=== PATIENT | female | born 1950 | race Caucasian/White ===

== ENCOUNTER 2017-03-16 10:25 | Emergency (ER) | payer MEDICARE, BC ==
[2017-03-16 11:17] VITALS: BP 119/68
--- NOTE | 2017-03-16 11:19 | UC ---
Complaint Female HPI - HPI Summary HPI Summary: has had increasing fatigue--sx of UTI earlier in the week and started on macrobid which seems to have helped. no fevers, no cough slight upset stomach but has not had a BM yet today - History Of Current Complaint Hx Obtained From: Patient ?: No Onset/Duration: Gradual Onset, Lasting Days Timing: Constant Severity Initially: Mild Severity Currently: Mild Radiates to: usual back pain Aggravating Factor(s): Movement Alleviating Factor(s): Position, Meds Associated Signs And Symptoms: Positive: Back Pain <Kayla Saeed - Last Filed: 03/16/17 12:32> <Yuko Briseno - Last Filed: 03/16/17 12:41> - History Of Current Complaint Chief Complaint: UCGeneralIllness Stated Complaint: FATIGUE Time Seen by Provider: 03/16/17 11:18 - Allergies/Home Medications Allergies/Adverse Reactions: Allergies Allergy/AdvReac Type Severity Reaction Status Date / Time Acetaminophen Allergy Unknown Verified 03/16/17 11:43 [From Hydrocodone Reaction W/Acetaminophen] Details Amoxicillin [From Augmentin] Allergy Rash Verified 03/16/17 11:42 Cefaclor Allergy Rash Verified 03/16/17 11:45 Clavulanic Acid Allergy Rash Verified 03/16/17 11:42 [From Augmentin] Codeine Allergy nausea/vomi Verified 03/16/17 11:43 ting Hydrocodone Allergy Unknown Verified 03/16/17 11:43 Reaction Details Meperidine [From Demerol HCl] Allergy n/v Verified 03/16/17 11:44 magic mouth wash Allergy Unknown Uncoded 03/16/17 11:44 Reaction Details Home Medications: Home Medications Atenolol TAB* [Tenormin TAB* 50 MG] 03/16/17 [History] Benazepril HCl [Lotensin] 03/16/17 [History] Brimonid/Timolol 0.2/0.5%(NF) [Combigan 0.2/0.5% (NF)] 03/16/17 [History] Calcitriol CAP* [Rocaltrol CAP*] 03/16/17 [History] Calcium 03/16/17 [History] Cholecalciferol TAB* [Vitamin D TAB*] 03/16/17 [History] Cyanocobalamin INJ * [Vitamin B12 INJ *] 03/16/17 [History] Estradiol [Estrace] 03/16/17 [History] Ferrous Sulfate [Iron High-Potency] 03/16/17 [History] Lactic Acid (Ammonium Lactate) [Ammonium Lactate] 03/16/17 [History] Latanoprost 0.005%* [Xalatan 0.005%*] 03/16/17 [History] Loperamide CAP* [Imodium CAP*] 03/16/17 [History] Lotensin Hct 20-25 mg 03/16/17 [History] PMH/Surg Hx/FS Hx/Imm Hx Previously Healthy: No Cancer History: Other Other Cancer History: stage 4 thyroid cancer - Surgical History Surgical History: Yes - Family History Known Family History: Positive: Unknown - Social History Occupation: Retired Lives: Alone - staying with son and d-in-l and grandchild but will be returning to her home first week in March- past away January 2017 Alcohol Use: None Substance Use Type: None Smoking Status (MU): Never Smoked Tobacco <Kayla Saeed - Last Filed: 03/16/17 12:32> Review of Systems Constitutional: Fatigue Skin: Other - pale Usual h/h (10 and 30) Eyes: Negative ENT: Negative Respiratory: Negative Cardiovascular: Negative Gastrointestinal: Abdominal Pain - left lower side (no Bm today-feels like she could go now) Genitourinary: Negative Motor: Weakness Neurovascular: Negative Musculoskeletal: Arthralgia - usual Neurological: Paresthesia - right leg Psychological: Negative Is Patient Immunocompromised?: Yes - on chemo All Other Systems Reviewed And Are Negative: Yes <Kayla Saeed - Last Filed: 03/16/17 12:32> Physical Exam Triage Information Reviewed: Yes Appearance: Ill-Appearing - chronic illness pale, Pain Distress - baseline-no other pain, Thin Vital Signs: Initial Vital Signs Temp 98 F 03/16/17 11:14 Pulse 90 03/16/17 11:14 Resp 19 03/16/17 11:14 BP 119/68 03/16/17 11:14 Pulse Ox 95 03/16/17 11:14 Vital Signs Reviewed: Yes Eye Exam: Normal Eyes: Positive: Conjunctiva Clear ENT Exam: Normal ENT: Positive: Normal ENT inspection, Hearing grossly normal, Pharynx normal, TMs normal, Uvula midline. Negative: Nasal congestion, Nasal drainage, Tonsillar swelling, Tonsillar exudate, Trismus, Muffled voice, Hoarse voice, Dental tenderness, Sinus tenderness Neck exam: Normal Neck: Positive: Supple, Nontender Respiratory Exam: Normal Respiratory: Positive: Chest non-tender, Lungs clear, Normal breath sounds, No respiratory distress, No accessory muscle use Cardiovascular Exam: Normal Cardiovascular: Positive: RRR, No Murmur, Pulses Normal, Brisk Capillary Refill Abdominal Exam: Normal Abdomen Description: Positive: Nontender, No Organomegaly, Soft Psychological Exam: Normal Psychological: Positive: Normal Response To Family Skin Exam: Normal <Kayla Saeed - Last Filed: 03/16/17 12:32> Vital Signs: Initial Vital Signs Temp 98 F 03/16/17 11:14 Pulse 90 03/16/17 11:14 Resp 19 03/16/17 11:14 BP 119/68 03/16/17 11:14 Pulse Ox 95 03/16/17 11:14 <Yuko Briseno - Last Filed: 03/16/17 12:41> Diagnostics - Laboratory Diagnostic Studies Completed/Ordered: Influenza a/b (-), Urine + for ketones and protien <Kayla Saeed - Last Filed: 03/16/17 12:32> Complaint Female Dx - Course Course Of Treatment: Continue current treatment plan, report to ED for worsening in symptoms - Differential Dx/Diagnosis Provider Diagnoses: Fatigue, Stage 4 thyroid cancer <Kayla Saeed - Last Filed: 03/16/17 12:32> Discharge <Kayla Saeed - Last Filed: 03/16/17 12:32> <Yuko Briseno - Last Filed: 03/16/17 12:41> - Discharge Plan Condition: Stable Disposition: HOME Patient Education Materials: Fatigue (ED) Referrals: No Primary Care Phys,NOPCP [Primary Care Provider] - Additional Instructions: Follow with health and safety specialist or return her or to the emergency department for continued or worsening symptoms Attestation Statement User Type: Provider - I was available for consult. This patient was seen by the ELISABETH. The patient was not presented to, seen by, or examined by me. -Krupa <Yuko Briseno - Last Filed: 03/16/17 12:41>
[2017-03-16 14:47] LABS: Hematocrit 35 % (35-47); Hemoglobin 11.4 g/dl (12.0-16.0); Mean Corpuscular HGB Conc 33 g/dl (31-36); Mean Corpuscular Hemoglobin 33 pg (27-31); Mean Corpuscular Volume 100 fL (80-97); Mean Platelet Volume 8 um3 (7.4-10.4); Red Blood Count 3.48 10^6/ul (4.0-5.4); Red Cell Distribution Width 19 % (10.5-15); White Blood Count 6.9 10^3/ul (3.5-10.8)
[2017-03-16 14:58] LABS: BUN/Creatinine Ratio 37.8 (8-20); EGFR African American 100.4 (>60); Globulin 2.6 g/dL (2-4); Total Bilirubin 0.5 mg/dL (0.2-1.0); Total Protein 5.6 g/dL (6.4-8.9)
--- NOTE | 2017-03-16 16:00 | UC ---
Progress - Progress Note Progress Note: reviewed labs with Dr. Jenny Phoenix and PAtient--Will call PCP and take patient to hospital for rehydration based on how she is feeling--- <Kayla Saeed - Last Filed: 03/16/17 15:59> Asthma HPI <Kayla Saeed - Last Filed: 03/16/17 15:59> - HPI Summary HPI Summary: has had increasing fatigue--sx of UTI earlier in the week and started on macrobid which seems to have helped. no fevers, no cough slight upset stomach but has not had a BM yet today - History of Current Complaint Hx Obtained From: Patient ?: No Onset/Duration: Gradual Onset, Lasting Days Pain Intensity: 0 Pain Scale Used: 0-10 Numeric <Yuko Briseno - Last Filed: 03/17/17 08:14> - History of Current Complaint Chief Complaint: UCGeneralIllness Stated Complaint: FATIGUE Time Seen by Provider: 03/16/17 11:18 - Allergy/Home Medications Allergies/Adverse Reactions: Allergies Allergy/AdvReac Type Severity Reaction Status Date / Time Acetaminophen Allergy Unknown Verified 03/16/17 11:43 [From Hydrocodone Reaction W/Acetaminophen] Details Amoxicillin [From Augmentin] Allergy Rash Verified 03/16/17 11:42 Cefaclor Allergy Rash Verified 03/16/17 11:45 Clavulanic Acid Allergy Rash Verified 03/16/17 11:42 [From Augmentin] Codeine Allergy nausea/vomi Verified 03/16/17 11:43 ting Hydrocodone Allergy Unknown Verified 03/16/17 11:43 Reaction Details Meperidine [From Demerol HCl] Allergy n/v Verified 03/16/17 11:44 magic mouth wash Allergy Unknown Uncoded 03/16/17 11:44 Reaction Details Home Medications: Home Medications Atenolol TAB* [Tenormin TAB* 50 MG] 03/16/17 [History] Benazepril HCl [Lotensin] 03/16/17 [History] Brimonid/Timolol 0.2/0.5%(NF) [Combigan 0.2/0.5% (NF)] 03/16/17 [History] Calcitriol CAP* [Rocaltrol CAP*] 03/16/17 [History] Calcium 03/16/17 [History] Cholecalciferol TAB* [Vitamin D TAB*] 03/16/17 [History] Cyanocobalamin INJ * [Vitamin B12 INJ *] 03/16/17 [History] Estradiol [Estrace] 03/16/17 [History] Ferrous Sulfate [Iron High-Potency] 03/16/17 [History] Lactic Acid (Ammonium Lactate) [Ammonium Lactate] 03/16/17 [History] Latanoprost 0.005%* [Xalatan 0.005%*] 03/16/17 [History] Loperamide CAP* [Imodium CAP*] 03/16/17 [History] Lotensin Hct 20-25 mg 03/16/17 [History] Attestation Statement User Type: Provider - I was available for consult. This patient was seen by the ELISABETH. The patient was not presented to, seen by, or examined by me. -Krupa <Yuko Briseno - Last Filed: 03/17/17 08:14>
--- NOTE | 2017-03-17 19:59 | UC ---
Progress - Progress Note Progress Note: Reviewed CBC and CMP per notes, results discussed with pt and her DIl Dr. Benson yesterday rose 03/17/17
== END 2017-03-16 12:26 | disposition home or self-care (01) ==
LOC: UCEAST 10:25
DX: R53.83 Other fatigue (principal); C73 Malignant neoplasm of thyroid gland
CPT/HCPCS: 36415; 80053; 81003; 85025; 87502; 99201; G0463

== ENCOUNTER → 2017-03-19 13:39 | Emergency (ER) | payer MEDICARE, BC ==
[~2017-03-19 13:39] MED LIST: NS 0.9% 1000 ML* 1,000 ML IV ONE
[2017-03-19 14:37] LABS: Hematocrit 33 % (35-47); Hemoglobin 11.1 g/dl (12.0-16.0); Mean Corpuscular HGB Conc 33 g/dl (31-36); Mean Corpuscular Hemoglobin 33 pg (27-31); Mean Corpuscular Volume 99 fL (80-97); Mean Platelet Volume 7 um3 (7.4-10.4); Red Blood Count 3.35 10^6/ul (4.0-5.4); Red Cell Distribution Width 19 % (10.5-15); White Blood Count 7.2 10^3/ul (3.5-10.8)
[2017-03-19 14:51] LABS: Troponin I 0.03 ng/mL (<0.04)
[2017-03-19 14:52] LABS: Albumin 2.9 g/dL (3.2-5.2); Calcium 8.9 mg/dL (8.6-10.3); EGFR African American 95.9 (>60); EGFR Non-African American 74.5 (>60); Globulin 3.6 g/dL (2-4); Potassium 3.9 mmol/L (3.5-5.0); Total Bilirubin 0.3 mg/dL (0.2-1.0); Total Protein 6.5 g/dL (6.4-8.9)
[2017-03-19 15:26] LABS: TSH (Thyroid Stimulating Horm) 0.02 mcIU/mL (0.34-5.60)
--- NOTE | 2017-03-19 16:33 | RAD ---
INDICATION: Short of breath COMPARISON: None TECHNIQUE: PA and lateral dual-energy views were obtained. FINDINGS: Bones/Soft Tissues: There are no acute bony findings. There is an old posterior left sixth rib fracture. There also old right-sided rib fractures involving the fifth through seventh ribs. Cardiomediastinal: The cardiomediastinal silhouette is normal. There are clips in left hilar region. Lungs: There are no acute infiltrates. Pleura: There are no pleural effusions. Other: None IMPRESSION: POSTOPERATIVE CHANGE. NO ACTIVE DISEASE.
[2017-03-19 16:50] LABS: Free T4 1.31 ng/dL (0.61-1.12)
[2017-03-19 16:55] LABS: Urine Bilirubin Negative (Negative); Urine Glucose Negative (Negative); Urine Nitrite Negative (Negative)
[2017-03-19 17:35] VITALS: BP 126/58
--- NOTE | 2017-03-19 18:34 | ED ---
Mariela Alves Nilda, scribed for Bianca Lloyd MD on 03/19/17 at 1731 . Complex/Multi-Sys Presentation - HPI Summary HPI Summary: This patient is a 66 year old F presenting to [facility] accompanied by daughter-in- law with a chief complaint of malaise for the past 5 days. Patient currently reports headache, fever, weakness, fatigue, loss of appetite, constipation, chronic leg pain, and cough. The patient rates the pain 1/10 in severity. Symptoms aggravated and alleviated by nothing. Per [id number], TSH is chronically suppressed. Pt had a UTI and was treated with Macrobid earlier this week. UTI symptoms resolved. 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 Medications include chemotherapy Lomotil and Tramidol. - History Of Current Complaint Chief Complaint: EDGeneral Time Seen by Provider: 03/19/17 15:27 Hx Obtained From: Patient, Family/Sales Support Coordinator - daughter in law Onset/Duration: Lasting Days - 5 days Timing: Constant Severity Currently: Mild Aggravating Factor(s): nothing Alleviating Factor(s): nothing Associated Signs And Symptoms: Positive: Other - headache, fever, weakness, fatigue, loss of appetite, constipation, chronic leg pain, and cough. - Allergies/Home Medications Allergies/Adverse Reactions: Allergies Allergy/AdvReac Type Severity Reaction Status Date / Time Acetaminophen Allergy Unknown Verified 03/16/17 11:43 [From Hydrocodone Reaction W/Acetaminophen] Details Amoxicillin [From Augmentin] Allergy Rash Verified 03/16/17 11:42 Cefaclor Allergy Rash Verified 03/16/17 11:45 Clavulanic Acid Allergy Rash Verified 03/16/17 11:42 [From Augmentin] Codeine Allergy nausea/vomi Verified 03/16/17 11:43 ting Hydrocodone Allergy Unknown Verified 03/16/17 11:43 Reaction Details Meperidine [From Demerol HCl] Allergy n/v Verified 03/16/17 11:44 magic mouth wash Allergy Unknown Uncoded 03/16/17 11:44 Reaction Details PMH/Surg Hx/FS Hx/Imm Hx Endocrine/Hematology History: Reports: Hx Thyroid Disease Respiratory History: Reports: Other Respiratory Problems/Disorders - HX OF THYROID CA THAT METASTASIZED TO UPPER LUNGS. - Cancer History Cancer Type, Location and Year: stage 4 thyroid cancer with mets Infectious Disease History: No Infectious Disease History: Denies: Hx Clostridium Difficile, Hx Hepatitis, Hx Human Immunodeficiency Virus (HIV), Hx of Known/Suspected MRSA, Hx Shingles, Hx Tuberculosis, Hx Known/ Suspected VRE, Hx Known/Suspected VRSA, History Other Infectious Disease, Traveled Outside the [place] in Last 30 Days - Family History Known Family History: Positive: Unknown - Social History Alcohol Use: None Substance Use Type: Reports: None Smoking Status (MU): Never Smoked Tobacco Review of Systems Positive: Fever, Fatigue Positive: Cough Positive: Other - loss of appetite, constipation Positive: Other - chonic LE pain Positive: Headache, Weakness All Other Systems Reviewed And Are Negative: Yes Physical Exam - Summary Physical Exam Summary: General: Well appearing, no pain distress Skin: Warm, Skin Color Reflects Adequate Perfusion, Dry Eyes: EOMI, PABLO, conjunctiva pale ENT: Pharynx normal, TMs normal, mucous membrane dry Neck: Supple, nontender Respiratory: CTA, breath sounds present, no rhonchi, no wheezes, no rales, tachypnea Cardiovascular: RRR, no murmur, no rub, no gallop Abdomen: Soft, nontender, Non-distended, no guarding, no rebound Bowel: Present Musculoskeletal: BHANU, No edema Neuro: Sensory/motor intact, A&Ox3, CN intact 2-12 Psych: Affect/mood appropriate Triage Information Reviewed: Yes Vital Signs On Initial Exam: Initial Vitals Temp Pulse Resp BP Pulse Ox 97.7 F 92 18 100/56 98 03/19/17 13:51 03/19/17 13:51 03/19/17 13:51 03/19/17 13:51 03/19/17 13:51 Vital Signs Reviewed: Yes - Vika Coma Scale Coma Scale Total: 15 Diagnostics - Vital Signs Vital Signs Temp Pulse Resp BP Pulse Ox 03/19/17 16:08 99 F 03/19/17 13:51 97.7 F 92 18 100/56 98 - Laboratory Lab Results: Lab Results 03/19/17 03/19/17 03/19/17 Range/Units 14:22 14:22 14:22 WBC 7.2 (3.5-10.8) 10^3/ul RBC 3.35 L (4.0-5.4) 10^6/ul Hgb 11.1 L (12.0-16.0) g/dl Hct 33 L (35-47) % MCV 99 H (80-97) fL MCH 33 H (27-31) pg MCHC 33 (31-36) g/dl RDW 19 H (10.5-15) % Plt Count 288 (150-450) 10^3/ul MPV 7 L (7.4-10.4) um3 Neut % (Auto) 75.4 (38-83) % Lymph % (Auto) 14.6 L (25-47) % [place] % (Auto) 9.2 H (1-9) % Eos % (Auto) 0.4 (0-6) % Baso % (Auto) 0.4 (0-2) % Absolute Neuts (auto) 5.4 (1.5-7.7) 10^3/ul Absolute Lymphs (auto) 1.1 (1.0-4.8) 10^3/ul Absolute Monos (auto) 0.7 (0-0.8) 10^3/ul Absolute Eos (auto) 0 (0-0.6) 10^3/ul Absolute Basos (auto) 0 (0-0.2) 10^3/ul Absolute Nucleated RBC 0 10^3/ul Nucleated RBC % 0 Sodium 128 L (133-145) mmol/L Potassium 3.9 (3.5-5.0) mmol/L Chloride 91 L (101-111) mmol/L Carbon Dioxide 29 (22-32) mmol/L Anion Gap 8 (2-11) mmol/L BUN 30 H (6-24) mg/dL Creatinine 0.77 (0.51-0.95) mg/dL Est GFR ( Amer) 95.9 (>60) Est GFR (Non-Af Amer) 74.5 (>60) BUN/Creatinine Ratio 39.0 H (8-20) Glucose 132 H (70-100) mg/dL Lactic Acid 1.4 (0.5-2.0) mmol/L Calcium 8.9 (8.6-10.3) mg/dL Magnesium 2.0 (1.9-2.7) mg/dL Total Bilirubin 0.30 (0.2-1.0) mg/dL AST 24 (13-39) U/L ALT 25 (7-52) U/L Alkaline Phosphatase 110 H (34-104) U/L Troponin I 0.03 (<0.04) ng/mL Total Protein 6.5 (6.4-8.9) g/dL Albumin 2.9 L (3.2-5.2) g/dL Globulin 3.6 (2-4) g/dL Albumin/Globulin Ratio 0.8 L (1-3) TSH 0.02 L (0.34-5.60) mcIU/mL Free T4 1.31 H (0.61-1.12) ng/dL Urine Color Urine Appearance Urine pH (5-9) Ur Specific [place] (1.010-1.030) Urine Protein (Negative) Urine Ketones (Negative) Urine Blood (Negative) Urine Nitrate (Negative) Urine Bilirubin (Negative) Urine Urobilinogen (Negative) Ur Leukocyte Esterase (Negative) Urine Glucose (Negative) Urine Ascorbic Acid (Negative) 03/19/ Range/Units 16:30 WBC (3.5-10.8) 10^3/ul RBC (4.0-5.4) 10^6/ul Hgb (12.0-16.0) g/dl Hct (35-47) % MCV (80-97) fL MCH (27-31) pg MCHC (31-36) g/dl RDW (10.5-15) % Plt Count (150-450) 10^3/ul MPV (7.4-10.4) um3 Neut % (Auto) (38-83) % Lymph % (Auto) (25-47) % [place] % (Auto) (1-9) % Eos % (Auto) (0-6) % Baso % (Auto) (0-2) % Absolute Neuts (auto) (1.5-7.7) 10^3/ul Absolute Lymphs (auto) (1.0-4.8) 10^3/ul Absolute Monos (auto) (0-0.8) 10^3/ul Absolute Eos (auto) (0-0.6) 10^3/ul Absolute Basos (auto) (0-0.2) 10^3/ul Absolute Nucleated RBC 10^3/ul Nucleated RBC % Sodium (133-145) mmol/L Potassium (3.5-5.0) mmol/L Chloride (101-111) mmol/L Carbon Dioxide (22-32) mmol/L Anion Gap (2-11) mmol/L BUN (6-24) mg/dL Creatinine (0.51-0.95) mg/dL Est GFR ( Amer) (>60) Est GFR (Non-Af Amer) (>60) BUN/Creatinine Ratio (8-20) Glucose (70-100) mg/dL Lactic Acid (0.5-2.0) mmol/L Calcium (8.6-10.3) mg/dL Magnesium (1.9-2.7) mg/dL Total Bilirubin (0.2-1.0) mg/dL AST (13-39) U/L ALT (7-52) U/L Alkaline Phosphatase (34-104) U/L Troponin I (<0.04) ng/mL Total Protein (6.4-8.9) g/dL Albumin (3.2-5.2) g/dL Globulin (2-4) g/dL Albumin/Globulin Ratio (1-3) TSH (0.34-5.60) mcIU/mL Free T4 (0.61-1.12) ng/dL Urine Color Yellow Urine Appearance Cloudy Urine pH 5.0 (5-9) Ur Specific [place] 1.018 (1.010-1.030) Urine Protein Negative (Negative) Urine Ketones Trace H (Negative) Urine Blood Negative (Negative) Urine Nitrate Negative (Negative) Urine Bilirubin Negative (Negative) Urine Urobilinogen Negative (Negative) Ur Leukocyte Esterase Negative (Negative) Urine Glucose Negative (Negative) Urine Ascorbic Acid * H (Negative) Result Diagrams: 03/19/17 14:22 03/19/17 14:22 Lab Statement: Any lab studies that have been ordered have been reviewed, and results considered in the medical decision making process. - Radiology CXR Radiology Interpretation Completed By: Radiologist - CXR reveals postoperative change. No active disease. ED physician has reviewed this radiology report and agrees. - EKG 1411 Cardiac Rate: NL EKG Rhythm: Sinus Rhythm - 90 bpm EKG Interpretation: LVH, no STEMI Re-Evaluation - Re-Evaluation First Eval Re-Evaluation Time: 17:23 Comment: Discussed labs and plan to DC. Pt is agreeable to this plan. Complex Multi-Symp Course/Dx Course Of Treatment: An EKG reveals NSR, 90 bpm, LVH, no STEMI. CXR, per radiologist, reveals postoperative change. No active disease. ED physician has reviewed this radiology report and agrees. Pt here with her daughter in law who is an MD in the [employer]. Pt has metastatic thyroid cancer which is being treated at [facility]. She was treated empirically for a uti within the week and has since been more weak than normal and has had decreased eating. Her urine, labs and cxr are at their baseline, she was given 1 l of NS which did help her feel better and she will followup as needed - Diagnoses Provider Diagnoses: Dehydration Discharge - Discharge Plan Condition: Stable Disposition: HOME Patient Education Materials: Dehydration (ED) Referrals: [facility] [Outside] - 3 Days Additional Instructions: RETURN TO THE EMERGENCY DEPARTMENT FOR CHANGING OR WORSENING SYMPTOMS. The documentation as recorded by the Mariela stearns Nilda accurately reflects the service I personally performed and the decisions made by me, Bianca Lloyd MD.
== END | disposition home or self-care (01) ==
LOC: ED 13:39
DX: E86.0 Dehydration (principal); C73 Malignant neoplasm of thyroid gland; C34.92 Malignant neoplasm of unspecified part of left bronchus or lung; C34.91 Malignant neoplasm of unspecified part of right bronchus or lung
CPT/HCPCS: 36415; 71020; 80053; 81003; 83605; 83735; 84439; 84443; 84484; 85025; 93005; 96360; 99282

== ENCOUNTER 2019-05-13 13:47 | Inpatient (IN) | payer MEDICARE, BC ==
[2019-05-13] MEDS ORDERED: traMADol TAB* 50 MG PO PRN (14:35)
[2019-05-13] MEDS ORDERED: Diphenoxylat/Atrop 2.5-0.025M* 1 TAB PO PRN (14:35)
--- OUTSIDE RECORDS SUMMARY | 2019-05-13 16:19 | XMS REPORT ---
:1950 Author Organization [facility] Care Team Providers Name Role Phone Unavailable Unavailable Unavailable Problems Condition Condition Condition Status Onset Resolution Last Treating Comments Name Details Category Date Date Treatment Clinician Date Pain frequent Pain Mgmt Resolve 2018-042019-03-05 [place] pain d 0-07 12:20:00 [place] 12:00: [id number] Respiratory dyspnea Respirator Resolve 2018-042019-03-05 [place] present y d 0-07 12:20:00 [place] 12:00: [id number] Endo/Thuan diabetic Endo/Thuan Resolve 2018-042019-03-05 [place] foot care d 0-07 12:20:00 [place] 12:00: [id number] 00 Integument skin Integument Resolve 2018-042019-03-05 [place] integrity d 0-07 12:20:00 [place] risk 12:00: [id number] 00 Nutrition nutritional Nutrition Resolve 2018-042019-03-05 [place] restriction d 0-07 12:20:00 [place] s 12:00: [id number] 00 Nutrition changing Nutrition Resolve 2018-042019-03-05 [place] weight/appe d 0-07 12:20:00 [place] tite 12:00: [id number] 00 Elimination urinary Eliminatio Resolve 2018-042019-03-05 [place] incontinenc n d 0-07 12:20:00 [place] 12:00: [id number] 00 Elimination diarrhea Eliminatio Resolve 2018-042019-03-05 [place] n d 0-07 12:20:00 [place] 12:00: [id number] 00 Elimination nausea/vomi Eliminatio Resolve 2018-042019-03-05 [place] ting n d 0-07 12:20:00 [place] 12:00: [id number] 00 Activity ADL Activity Resolve 2018-042019-03-05 [place] assistance d 0-07 12:20:00 [place] required 12:00: [id number] Activity self-care Activity Resolve 2018-042019-03-05 [place] deficit d 0-07 12:20:00 [place] 12:00: [id number] Safety fall risk Safety Resolve 2018-042019-03-05 [place] factor d 0-07 12:20:00 [place] present 12:00: [id number] Safety risk for Safety Resolve 2018-042019-03-05 [place] hospitaliza d 0-07 12:20:00 [place] tion 12:00: [id number] 00 Medication oral med Meds Resolve 2018-042019-03-05 [place] assistance d 0-07 12:20:00 [place] required 12:00: [id number] 00 Musculoskel transfer Musculoske Resolve 2018-042019-03-05 [place] etal assistance letal d 0-07 12:20:00 [place] required 12:00: [id number] Nutrition knowledge/s Nutrition Resolve 2018-042019-03-05 [place] kill d 0-07 12:20:00 [place] deficit: pt 13:00: [id number] 00 Nutrition knowledge/s Nutrition Resolve 2018-042019-03-05 [place] kill d 0-07 12:20:00 [place] deficit: cg 13:00: [id number] Safety knowledge/s Safety Resolve 2018-042019-03-05 [place] kill d 0-07 12:20:00 [place] deficit: pt 13:00: [id number] Safety knowledge/s Safety Resolve 2018-042019-03-05 [place] kill d 0-07 12:20:00 [place] deficit: cg 13:00: [id number] Diagnoses knowledge/s Diagnoses Resolve 2018-042019-03-05 [place] kill d 0-07 12:20:00 [place] deficit: pt 13:00: [id number] Diagnoses knowledge/s Diagnoses Resolve 2018-042019-03-05 [place] kill d 0-07 12:20:00 [place] deficit: cg 13:00: [id number] 00 Allergies, Adverse Reactions, Alerts Allergy Name Allergy Status Severity Reaction(s) Onset Inactive Treating Comments Type Date Date Clinician cefaclor Base Active Unknown Reaction 2018-04 Lidya Beam Ingredient Unknown 0- codeine Base Active Unknown Reaction 2018-04 Lidya Beam Ingredient Unknown 0 Demerol Medication Active Unknown Reaction 2018-04 Lidya Beam Name ID Unknown 0 dronabinol Base Active Unknown Reaction 2018-04 Lidya Beam Ingredient Unknown 0 hydrocodone Base Active Unknown Reaction 2018-04 Lidya Beam Ingredient Unknown 0 Medications Ordered Filled Start Stop Current Ordering Indication Dosage Frequency Signature Comments Components Medication Medication Date Date Medication? Clinician (SIG) Name Name Acetaminoph Acetaminoph 2018-04- Yes Mehdi Unknown Unknown en Pain en Pain 03-05 Ally TSAI Relief 500 Relief 500 mg tablet mg tablet ammonium ammonium 2018-04- Yes Mehdi Unknown Unknown lactate 12 lactate 12 03-05 Ally TSAI % lotion % lotion atenolol 50 atenolol 50 2018-04- Yes Mehdi Unknown Unknown mg tablet mg tablet 03-05 Ally TSAI brimonidine brimonidine 2018-04- Yes Mehdi Unknown Unknown 0.2 % eye 0.2 % eye 03-05 Ally TSAI drops drops cabozantini cabozantini 2018-04- Yes Mehdi Unknown Unknown b 20 mg b 20 mg 03-05 Ally TSAI tablet tablet calcitriol calcitriol 2018-04- Yes Mehdi Unknown Unknown 0.25 mcg 0.25 mcg 03-05 Ally TSAI capsule capsule cholecalcif cholecalcif 2018-04- Yes Mehdi Unknown Unknown ugo ugo 03-05 Ally TSAI (vitamin (vitamin D3) 5,000 D3) 5,000 unit unit capsule capsule ferrous ferrous 2018-04- Yes Mehdi Unknown Unknown sulfate 325 sulfate 325 03-05 Ally TSAI mg (65 mg mg (65 mg iron) iron) tablet tablet latanoprost latanoprost 2018-04- Yes Mehdi Unknown Unknown 0.005 % eye 0.005 % eye 03-05 Ally TSAI drops drops Levoxyl 150 Levoxyl 150 2018-04- Yes Mehdi Unknown Unknown mcg tablet mcg tablet 03-05 Ally TSAI Lomotil 2.5 Lomotil 2.5 2018-04- Yes Mehdi Unknown Unknown mg-0.025 mg mg-0.025 mg 003-05 Ally TSAI tablet tablet loratadine loratadine 2018-04- Yes Mehdi Unknown Unknown 10 mg 10 mg 003-05 Ally TSAI capsule capsule metoclopram metoclopram 2018-04- Yes Mehdi Unknown Unknown franko 10 mg franko 10 mg 03-05 Ally TSAI tablet tablet omeprazole omeprazole 2018-04- Yes Mehdi Unknown Unknown 20 mg 20 mg 03-05 ,Ally capsule,del capsule,del ayed ayed release release ondansetron ondansetron 2018-04- Yes Mehdi Unknown Unknown 8 mg 8 mg 003-05 Ally TSAI disintegrat disintegrat ing tablet ing tablet pseudoephed pseudoephed 2018-04- Yes Mehdi Unknown Unknown rine 60 mg rine 60 mg 003-05 Ally TSAI tablet tablet raNITIdine raNITIdine 2018-04- Yes Mehdi Unknown Unknown 150 mg 150 mg 03-05 Ally TSAI capsule capsule silver silver 2018-04- Yes Mehdi Unknown Unknown sulfADIAZIN sulfADIAZIN 03-05 Ally TSAI E 1 % E 1 % topical topical cream cream traMADol 50 traMADol 50 2018-04- Yes Mehdi Unknown Unknown mg tablet mg tablet 03-05 Ally TSAI triamcinolo triamcinolo 2018-04- Yes Mehdi Unknown Unknown ne ne 03-05 Ally TSAI acetonide acetonide 0.1 % 0.1 % topical topical cream cream Ventolin Ventolin 2018-04- Yes Mehdi Unknown Unknown HFA 90 HFA 90 03-05 Ally TSAI mcg/actuati mcg/actuati on aerosol on aerosol inhaler inhaler Xgeva 120 Xgeva 120 2018-04- Yes Mehdi Unknown Unknown mg/1.7 mL mg/1.7 mL 03-05 Ally TSAI (70 mg/mL) (70 mg/mL) subcutaneou subcutaneou s solution s solution dexAMETHaso dexAMETHaso 2018-04- Yes Bael Unknown Unknown ne 2 mg ne 2 mg 03-05 ,Jad tablet tablet Vital Signs Vital Name Observation Time Observation Value Comments SYSTOLIC mm[Hg] 2019-03-09 18:08:56 102 mm[Hg] mm[Hg] Method: Sit SYSTOLIC mm[Hg] 2019-01-25 18:08:13 90 mm[Hg] mm[Hg] Method: Stand DIASTOLIC mm[Hg] 2019-03-09 18:08:56 64 mm[Hg] mm[Hg] Method: Sit DIASTOLIC mm[Hg] 2019-01-25 18:08:13 66 mm[Hg] mm[Hg] Method: Stand PULSE 2019-03-09 18:08:56 88 /min /min TEMP 2019-03-09 18:08:56 96.9 [degF] Procedures This patient has no known procedures. Results This patient has no known results.
--- OUTSIDE RECORDS SUMMARY | 2019-05-13 16:19 | XMS REPORT ---
:1950 Author Organization [facility] Care Team Providers Name Role Phone Unavailable Unavailable Unavailable Problems Condition Condition Condition Status Onset Resolution Last Treating Comments Name Details Category Date Date Treatment Clinician Date Pain frequent Pain Mgmt Resolve 2018-042019-03-05 [place] pain d 0-07 12:20:00 [place] 12:00: [id number] Respiratory dyspnea Respirator Resolve 2018-042019-03-05 [place] present y d 0-07 12:20:00 [place] 12:00: [id number] Endo/Thuan diabetic Endo/Thuan Resolve 2018-042019-03-05 [place] foot care d 0-07 12:20:00 [place] 12:00: [id number] Integument skin Integument Resolve 2018-042019-03-05 [place] integrity d 0-07 12:20:00 [place] risk 12:00: [id number] Nutrition nutritional Nutrition Resolve 2018-042019-03-05 [place] restriction d 0-07 12:20:00 [place] s 12:00: [id number] 00 Nutrition changing Nutrition Resolve 2018-042019-03-05 [place] weight/appe d 0-07 12:20:00 [place] tite 12:00: [id number] Elimination urinary Eliminatio Resolve 2018-042019-03-05 [place] incontinenc n d 0-07 12:20:00 [place] 12:00: [id number] Elimination diarrhea Eliminatio Resolve 2018-042019-03-05 [place] n d 0-07 12:20:00 [place] 12:00: [id number] 00 Elimination nausea/vomi Eliminatio Resolve 2018-042019-03-05 [place] ting n d 0-07 12:20:00 [place] 12:00: [id number] Activity ADL Activity Resolve 2018-042019-03-05 [place] assistance d 0-07 12:20:00 [place] required 12:00: [id number] Activity self-care Activity Resolve 2018-042019-03-05 [place] deficit d 0-07 12:20:00 [place] 12:00: [id number] 00 Safety fall risk Safety Resolve 2018-042019-03-05 [place] factor d 0-07 12:20:00 [place] present 12:00: [id number] Safety risk for Safety Resolve 2018-042019-03-05 [place] hospitaliza d 0-07 12:20:00 [place] tion 12:00: [id number] Medication oral med Meds Resolve 2018-042019-03-05 [place] assistance d 0-07 12:20:00 [place] required 12:00: [id number] Musculoskel transfer Musculoske Resolve 2018-042019-03-05 [place] etal assistance letal d 0-07 12:20:00 [place] required 12:00: [id number] 00 Nutrition knowledge/s Nutrition Resolve 2018-042019-03-05 [place] kill d 0-07 12:20:00 [place] deficit: pt 13:00: [id number] Nutrition knowledge/s Nutrition Resolve 2018-042019-03-05 [place] kill d 0-07 12:20:00 [place] deficit: cg 13:00: [id number] Safety knowledge/s Safety Resolve 2018-042019-03-05 [place] kill d 0-07 12:20:00 [place] deficit: pt 13:00: [id number] Safety knowledge/s Safety Resolve 2018-042019-03-05 [place] kill d 0-07 12:20:00 [place] deficit: cg 13:00: [id number] 00 Diagnoses knowledge/s Diagnoses Resolve 2018-042019-03-05 [place] kill d 0-07 12:20:00 [place] deficit: pt 13:00: [id number] 00 Diagnoses knowledge/s Diagnoses Resolve 2018-042019-03-05 [place] kill d 0-07 12:20:00 [place] deficit: cg 13:00: [id number] 00 Allergies, Adverse Reactions, Alerts Allergy Name [...]
[2019-05-13] MEDS ORDERED: Iodixanol* (CONTRAST) 320 MG/ML 100 ML SDV IV ONE (17:11)
[2019-05-13] MEDS: Enoxaparin(*) 30 MG/0.3 ML SYR SUBCUT SCH (17:23)
[2019-05-13] MEDS: Ondansetron TAB* 4 MG PO SCH ×2 (17:23→17:37)
[2019-05-13] MEDS ORDERED: Thiamine INJ* 100 MG, Folic Acid IV* 1 MG, Multiple Vitamin IV ADULT* 10 ML in D5NS 0.9... IV ONE (18:00)
[2019-05-13 20:25] LABS: ABS Lymphocytes 0.6 10^3/ul (1.0-4.8); ABS Monocytes 0.4 10^3/ul (0-0.8); ABS Neutrophils 5.9 10^3/ul (1.5-7.7); Hematocrit 24 % (35-47); Hemoglobin 8.4 g/dL (12.0-16.0); Lymphocyte % 8.4 %; Mean Corpuscular HGB Conc 36 g/dL (31-36); Mean Corpuscular Hemoglobin 38 pg (27-31); Mean Corpuscular Volume 108 fL (80-97); Mean Platelet Volume 7.6 fL (7.4-10.4); Nucleated Red Blood Cells % 0.1; Platelet Count 172 10^3/uL (150-450); Red Blood Count 2.19 10^6 /uL (3.70-4.87); Red Cell Distribution Width 17 % (10-15); White Blood Count 6.9 10^3/uL (3.5-10.8)
[2019-05-13 20:40] LABS: Albumin 2.6 g/dL (3.2-5.2); Albumin/Globulin Ratio 1.1 (1-3); Calcium 6.7 mg/dL (8.6-10.3); EGFR African American 117.3 (>60); Globulin 2.4 g/dL (2-4); Potassium 4.5 mmol/L (3.5-5.0); Total Bilirubin 0.7 mg/dL (0.2-1.0)
[2019-05-13] MEDS: Silver Sulfadiazine 1%* 20 GM TOPICAL SCH (21:44)
[2019-05-13] MEDS: Latanoprost 0.005%* 2.5 ml BTL RIGHT EYE SCH (21:45)
[2019-05-13] MEDS: TIMOLOL RIGHT EYE SCH (21:45)
[2019-05-13] MEDS: BRIMONID RIGHT EYE SCH (21:45)
[2019-05-13] MEDS: Ammonium Lactate 12% 1 APPLIC TUBE TOPICAL SCH (21:45)
[2019-05-13] MEDS: Metoclopramide TAB* 10 MG PO SCH (21:59)
[2019-05-14] MEDS: Metoclopramide TAB* 10 MG PO SCH ×3 (04:18→20:59)
[2019-05-14] MEDS: Ondansetron TAB* 4 MG PO SCH ×4 (04:18→18:33)
[2019-05-14] MEDS: Levothyroxine TAB* 150 MCG TAB PO SCH (06:03)
[2019-05-14 07:43] LABS: ABS Lymphocytes 0.6 10^3/ul (1.0-4.8); ABS Monocytes 0.5 10^3/ul (0-0.8); ABS Neutrophils 5.5 10^3/ul (1.5-7.7); Hematocrit 23 % (35-47); Hemoglobin 7.9 g/dL (12.0-16.0); Lymphocyte % 9.6 %; Mean Corpuscular HGB Conc 34 g/dL (31-36); Mean Corpuscular Hemoglobin 37 pg (27-31); Mean Corpuscular Volume 108 fL (80-97); Mean Platelet Volume 7.7 fL (7.4-10.4); Nucleated Red Blood Cells % 0.1; Platelet Count 212 10^3/uL (150-450); Red Blood Count 2.13 10^6 /uL (3.70-4.87); Red Cell Distribution Width 18 % (10-15); White Blood Count 6.6 10^3/uL (3.5-10.8)
[2019-05-14 07:50] LABS: Albumin 2.7 g/dL (3.2-5.2); Albumin/Globulin Ratio 1.1 (1-3); BUN/Creatinine Ratio 34.4 (8-20); Calcium 6.7 mg/dL (8.6-10.3); EGFR Non-African American 91.7 (>60); Globulin 2.5 g/dL (2-4); Total Bilirubin 0.5 mg/dL (0.2-1.0); Total Protein 5.2 g/dL (6.4-8.9)
[2019-05-14] MEDS ORDERED: Dexamethasone TAB* 1 MG PO SCH (09:00)
[2019-05-14] MEDS ORDERED: Pseudoephedrine TAB* 60 MG PO SCH (09:00)
[2019-05-14] MEDS: BRIMONID RIGHT EYE SCH ×2 (10:17→20:58)
[2019-05-14] MEDS: TIMOLOL RIGHT EYE SCH ×2 (10:17→20:58)
[2019-05-14] MEDS: Ferrous Sulfate TAB* 325 MG PO SCH (10:17)
[2019-05-14] MEDS: Pantoprazole TAB * 40 MG TAB PO SCH (10:17)
[2019-05-14] MEDS: Cetirizine* 10 MG TAB PO SCH (10:17)
[2019-05-14] MEDS: Calcitriol CAP* 0.25 MCG PO SCH (10:17)
[2019-05-14] MEDS: Cholecalciferol TAB* 1000 UNITS PO SCH (10:17)
[2019-05-14] MEDS: Ammonium Lactate 12% 1 APPLIC TUBE TOPICAL SCH ×2 (10:18→20:57)
[2019-05-14] MEDS: Silver Sulfadiazine 1%* 20 GM TOPICAL SCH ×2 (10:20→20:59)
[2019-05-14] MEDS ORDERED: Magnesium Sulf 4 GM/100 ML IV* 4,000 MG/100 ML BAG IVPB ONE (10:30)
[2019-05-14] MEDS ORDERED: Thiamine INJ* 100 MG, Folic Acid IV* 1 MG, Multiple Vitamin IV ADULT* 10 ML in D5NS 0.9... IV ONE (10:30)
[2019-05-14] MEDS: CABOZANTINIB 60 MG PO SCH (13:18)
[2019-05-14] MEDS: Enoxaparin(*) 30 MG/0.3 ML SYR SUBCUT SCH (18:33)
[2019-05-14] MEDS: Latanoprost 0.005%* 2.5 ml BTL RIGHT EYE SCH (20:58)
[2019-05-14] MEDS: Pseudoephedrine TAB* 60 MG PO SCH (20:59)
[2019-05-15] MEDS: Ondansetron TAB* 4 MG PO SCH ×3 (00:01→21:35)
[2019-05-15] MEDS ORDERED: Ondansetron TAB* 4 MG PO ONE (05:30)
[2019-05-15] MEDS: Metoclopramide TAB* 10 MG PO SCH (05:42)
[2019-05-15] MEDS: Diphenoxylat/Atrop 2.5-0.025M* 1 TAB PO PRN ×3 (05:42→20:22)
[2019-05-15] MEDS: Levothyroxine TAB* 150 MCG TAB PO SCH (05:43)
[2019-05-15] MEDS: CABOZANTINIB 60 MG PO SCH ×2 (05:45→05:47)
[2019-05-15] MEDS: Cetirizine* 10 MG TAB PO SCH (09:17)
[2019-05-15] MEDS: Calcitriol CAP* 0.25 MCG PO SCH (09:18)
[2019-05-15] MEDS: Cholecalciferol TAB* 1000 UNITS PO SCH (09:18)
[2019-05-15] MEDS: Silver Sulfadiazine 1%* 20 GM TOPICAL SCH ×2 (09:18→20:23)
[2019-05-15] MEDS: Pantoprazole TAB * 40 MG TAB PO SCH (09:18)
[2019-05-15] MEDS: Dexamethasone TAB* 1 MG PO SCH (09:18)
[2019-05-15] MEDS: Ferrous Sulfate TAB* 325 MG PO SCH (09:18)
[2019-05-15] MEDS: Ammonium Lactate 12% 1 APPLIC TUBE TOPICAL SCH ×2 (09:19→21:35)
[2019-05-15] MEDS: Albuterol HFA INHALER* 8 gm MDI INH PRN (09:45)
--- NOTE | 2019-05-15 10:18 | PN ---
Progress Note - Progress Note Date of Service: 05/15/19 SOAP: Subjective: still fairly weak but feels much better than . realizes now that she needs 24 hour care at home. no chest pain or swallowing pain Objective: Vital Signs Temp Pulse Resp BP Pulse Ox 97 F 54 22 106/56 94 05/15/19 02:59 05/15/19 09:47 05/15/19 09:47 05/15/19 02:59 05/15/19 09:47 cachectic perr eomi op moist cta bl s1 s2 nl soft slight ttp +bs no le edema A+O x 3, globally very weak Albuterol (Ventolin Hfa Inhaler*) 2 puff INH Q6H PRN PRN Reason: SOB/WHEEZING Last Admin: 05/15/19 09:45 Dose: 2 puff Ammonium Lactate (Lac-Hydrin 12 %) 1 applic TOPICAL BID REPLACED BY [facility] Last Admin: 05/15/19 09:19 Dose: Not Given Brimonidine/Timolol (Combigan 0.2/0.5% (Nf)) 1 drop RIGHT EYE BID REPLACED BY [facility] Last Admin: 05/14/19 20:58 Dose: 1 drop Calcitriol (Rocaltrol Cap*) 0.25 mcg PO DAILY REPLACED BY [facility] Last Admin: 05/15/19 09:18 Dose: 0.25 mcg Cetirizine HCl (Zyrtec*) 10 mg PO DAILY REPLACED BY [facility] Last Admin: 05/15/19 09:17 Dose: Not Given Cholecalciferol (Vitamin D Tab*) 1,000 units PO DAILY REPLACED BY [facility] Last Admin: 05/15/19 09:18 Dose: 1,000 units Dexamethasone (Decadron Tab*) 2 mg PO DAILY REPLACED BY [facility] Last Admin: 05/15/19 09:18 Dose: 2 mg Diphenoxylate HCl/Atropine (Lomotil Tab*) 2 tab PO QID PRN PRN Reason: DIARRHEA Last Admin: 05/15/19 05:42 Dose: 2 tab Enoxaparin Sodium (Lovenox(*)) 30 mg SUBCUT Q24H REPLACED BY [facility] Last Admin: 05/14/19 18:33 Dose: Not Given Ferrous Sulfate (Ferrous Sulfate Tab*) 325 mg PO DAILY REPLACED BY [facility] Last Admin: 05/15/19 09:18 Dose: Not Given Sodium Chloride (Ns 0.9% 1000 Ml) 1,000 mls @ 75 mls/hr IV PER RATE REPLACED BY [facility] Latanoprost (Xalatan 0.005%*) 1 drop RIGHT EYE BEDTIME REPLACED BY [facility] Last Admin: 05/14/19 20:58 Dose: 1 drop Levothyroxine Sodium (Synthroid Tab*) 150 mcg PO DAILY@0600 REPLACED BY [facility] Last Admin: 05/15/19 05:43 Dose: 150 mcg Metoclopramide HCl (Reglan Tab*) 10 mg PO Q6HR PRN PRN Reason: NAUSEA Pto: Cabozantimib ( Cabometyx) 60 Mg Tablets 1 dose PO DAILY@0600 REPLACED BY [facility] Last Admin: 05/15/19 05:47 Dose: 1 dose Ondansetron HCl (Zofran Tab*) 8 mg PO Q6H REPLACED BY [facility] Pantoprazole Sodium (Protonix Tab*) 40 mg PO DAILY REPLACED BY [facility] Last Admin: 05/15/19 09:18 Dose: 40 mg Pseudoephedrine HCl (Sudafed Tab*) 60 mg PO BEDTIME REPLACED BY [facility] Last Admin: 05/14/19 20:59 Dose: 60 mg Silver Sulfadiazine (Silvadine 1%*) 1 applic TOPICAL BID REPLACED BY [facility] Last Admin: 05/15/19 09:18 Dose: 1 applic Tramadol HCl (Ultram*) 50 mg PO Q6HR PRN PRN Reason: PAIN - MILD Assessment: 68 yo F w metastatic thyroid CA and cachexia, admitted with dehydration, weakness and panelectrolyte abnormalities. clinically improving, though still very deconditioned. She very much wants to be able to return home, but will need to do so with [address] as she can not ambulate unassisted. Plan: -check labs today -NS at [facility] for now -will look into hospital bed, supplies for home on friday with 24 hour care and home PT -cont PT here -resumed cabozantinib -DNR
[2019-05-15 11:27] LABS: Albumin 2.7 g/dL (3.2-5.2); BUN/Creatinine Ratio 36.8 (8-20); Calcium 6.9 mg/dL (8.6-10.3); EGFR African American 126.9 (>60); EGFR Non-African American 104.9 (>60); Globulin 2.6 g/dL (2-4); Total Bilirubin 0.4 mg/dL (0.2-1.0); Total Protein 5.3 g/dL (6.4-8.9)
[2019-05-15] MEDS: TIMOLOL RIGHT EYE SCH ×2 (13:06→20:23)
[2019-05-15] MEDS: BRIMONID RIGHT EYE SCH ×2 (13:06→20:23)
[2019-05-15 14:07] LABS: Free T4 0.91 ng/dL (0.61-1.12)
[2019-05-15 14:09] LABS: TSH (Thyroid Stimulating Horm) 0.01 mcIU/mL (0.34-5.60)
[2019-05-15] MEDS: NS 0.9% 1000 ML** 1,000 ML IV SCH (15:25)
[2019-05-15] MEDS: Enoxaparin(*) 30 MG/0.3 ML SYR SUBCUT SCH (19:30)
[2019-05-15] MEDS: Latanoprost 0.005%* 2.5 ml BTL RIGHT EYE SCH (20:23)
[2019-05-15] MEDS: Pseudoephedrine TAB* 60 MG PO SCH (20:23)
[2019-05-16] MEDS: Ondansetron TAB* 4 MG PO SCH ×4 (02:16→20:44)
[2019-05-16] MEDS: Metoclopramide TAB* 10 MG PO PRN (02:16)
[2019-05-16] MEDS: Levothyroxine TAB* 150 MCG TAB PO SCH (06:16)
[2019-05-16] MEDS: Diphenoxylat/Atrop 2.5-0.025M* 1 TAB PO PRN ×4 (06:16→21:09)
[2019-05-16] MEDS: CABOZANTINIB 60 MG PO SCH (06:17)
[2019-05-16 06:33] LABS: ABS Lymphocytes 0.7 10^3/ul (1.0-4.8); ABS Monocytes 0.4 10^3/ul (0-0.8); ABS Neutrophils 3.5 10^3/ul (1.5-7.7); Eosinophil % 0.1 %; Hematocrit 25 % (35-47); Hemoglobin 8.5 g/dL (12.0-16.0); Lymphocyte % 14.9 %; Mean Corpuscular HGB Conc 34 g/dL (31-36); Mean Corpuscular Hemoglobin 37 pg (27-31); Mean Corpuscular Volume 108 fL (80-97); Mean Platelet Volume 7.3 fL (7.4-10.4); Nucleated Red Blood Cells % 0.9; Platelet Count 209 10^3/uL (150-450); Red Blood Count 2.29 10^6 /uL (3.70-4.87); Red Cell Distribution Width 17 % (10-15); White Blood Count 4.6 10^3/uL (3.5-10.8)
[2019-05-16 06:48] LABS: Albumin 2.6 g/dL (3.2-5.2); BUN/Creatinine Ratio 37.5 (8-20); Calcium 6.7 mg/dL (8.6-10.3); EGFR African American 154.7 (>60); EGFR Non-African American 127.9 (>60); Globulin 2.5 g/dL (2-4); Potassium 4.1 mmol/L (3.5-5.0); Total Bilirubin 0.4 mg/dL (0.2-1.0); Total Protein 5.1 g/dL (6.4-8.9)
--- NOTE | 2019-05-16 09:16 | PN ---
Subjective Date of Service: 05/16/19 Interval History: Ms. Mejía states that she is feeling reasonably well today. She continues to have diarrhea which is controlled with lomotil prn. She denies nausea. She feels that she is getting stronger. She is tolerating oral intake. She denies chest pain. She does have shortness of breath with exertion which is unchanged. Objective Active Medications: Albuterol (Ventolin Hfa Inhaler*) 2 puff INH Q6H PRN Ammonium Lactate (Lac-Hydrin 12 %) 1 applic TOPICAL BID [facility] Brimonidine/Timolol (Combigan 0.2/0.5% (Nf)) 1 drop RIGHT EYE BID [facility] Calcitriol (Rocaltrol Cap*) 0.25 mcg PO DAILY [facility] Cetirizine HCl (Zyrtec*) 10 mg PO DAILY [facility] Cholecalciferol (Vitamin D Tab*) 1,000 units PO DAILY [facility] Dexamethasone (Decadron Tab*) 2 mg PO DAILY [facility] Diphenoxylate HCl/Atropine (Lomotil Tab*) 2 tab PO QID PRN Enoxaparin Sodium (Lovenox(*)) 30 mg SUBCUT Q24H [facility] Ferrous Sulfate (Ferrous Sulfate Tab*) 325 mg PO DAILY [facility] Sodium Chloride (Ns 0.9% 1000 Ml) 1,000 mls @ 75 mls/hr IV PER RATE [facility] Latanoprost (Xalatan 0.005%*) 1 drop RIGHT EYE BEDTIME [facility] Levothyroxine Sodium (Synthroid Tab*) 150 mcg PO DAILY@0600 [facility] Metoclopramide HCl (Reglan Tab*) 10 mg PO Q6HR PRN Pto: Cabozantimib ( Cabometyx) 60 Mg Tablets 1 dose PO DAILY@0600 [facility] Ondansetron HCl (Zofran Tab*) 8 mg PO Q6H [facility] Pantoprazole Sodium (Protonix Tab*) 40 mg PO DAILY [facility] Pseudoephedrine HCl (Sudafed Tab*) 60 mg PO BEDTIME [facility] Silver Sulfadiazine (Silvadine 1%*) 1 applic TOPICAL BID [facility] Tramadol HCl (Ultram*) 50 mg PO Q6HR PRN Vital Signs: Temp Pulse Resp BP Pulse Ox 97.3 F 92 16 129/71 95 05/16/19 03:06 05/16/19 03:06 05/16/19 06:16 05/16/19 03:06 05/16/19 03:06 Oxygen Devices in Use Now: None Appearance: Cachectic female sitting up in bed in NAD Eyes: No Scleral Icterus Ears/Nose/Mouth/Throat: Mucous Membranes Moist Neck: Trachea Midline Respiratory: Symmetrical Chest Expansion and Respiratory Effort, Clear to Auscultation Cardiovascular: NL Sounds; No Murmurs; No JVD, No Edema Abdominal: NL Sounds; No Tenderness; No Distention Extremities: No Edema Skin: No Rash or Ulcers Neurological: Alert and Oriented x 3, NL Muscle Strength and Tone Nutrition: Taking PO's - Nutrition: Malnutrition Diagnosis/Plan Malnutrition Assessment by Registered Dietitian: Malnutrition Assessment Clinical Characteristics Chronic,Moderate Malnutrition Assessment: reduced appetite x 1 week: <75% EEE x >7 days Criteria moderate/severe temporal and clavicle wasting Malnutrition Assessment: Monitor PO for improvement (ate 100% D 05/13); Interventions suggest oral nutrition supplements if not regularly >50% of meals Malnutrition Assessment: Goals 1. Intake will remain regularly >50% of meals 2. Intake will support evidence of wound healing without further breakdown 3. Na+ will normalize with adequate intake, fluid balance Result Diagrams: 05/16/19 06:19 05/16/19 06:19 Assess/Plan/Problems-Billing Assessment: Ms. Mejía is a 68 yo F with a PMH of metastatic thyroid cancer who was admitted on 05/13/19 with profound weakness. - Patient Problems (1) Weakness Comment: - Secondary to debility, dehydration, metastatic thyroid cancer - Continue dexamethasone and IVF - Will need 24 hour care at discharge (2) Nausea Comment: - Asymptomtic this AM - Continue zofran, reglan, and PPI (3) Diarrhea Comment: - Controlled with lomotil - Suspect secondary to cabozantinib (4) Electrolyte abnormality Comment: - Hyponatremia resolved with IVF (5) Hypertension Comment: - Atenolol held for SBP 90-110s (6) Primary cancer of thyroid with metastasis to other site Comment: - Management per oncology - Metastatic disease involving lung, bone, and supraclavicular lymph nodes. - Cabozantinib resumed - Continue levothyroxine (7) Sacral decubitus ulcer Comment: - Supportive care, turn and position, local wound care (8) DVT prophylaxis Comment: - Lovenox (9) DNR (do not resuscitate) Status and Disposition: Inpatient, disposition per oncology. Will need 24 hour care at discharge.
[2019-05-16] MEDS: Ammonium Lactate 12% 1 APPLIC TUBE TOPICAL SCH ×2 (09:47→20:15)
[2019-05-16] MEDS: Dexamethasone TAB* 1 MG PO SCH (09:57)
[2019-05-16] MEDS: Calcitriol CAP* 0.25 MCG PO SCH (09:57)
[2019-05-16] MEDS: Pantoprazole TAB * 40 MG TAB PO SCH (09:57)
[2019-05-16] MEDS: Ferrous Sulfate TAB* 325 MG PO SCH (09:57)
[2019-05-16] MEDS: Cetirizine* 10 MG TAB PO SCH (09:57)
[2019-05-16] MEDS: Cholecalciferol TAB* 1000 UNITS PO SCH (09:57)
[2019-05-16] MEDS: TIMOLOL RIGHT EYE SCH ×2 (09:58→21:08)
[2019-05-16] MEDS: Silver Sulfadiazine 1%* 20 GM TOPICAL SCH ×2 (09:58→21:09)
[2019-05-16] MEDS: BRIMONID RIGHT EYE SCH ×2 (09:58→21:08)
[2019-05-16] MEDS: Enoxaparin(*) 30 MG/0.3 ML SYR SUBCUT SCH (17:38)
[2019-05-16] MEDS: NS 0.9% 1000 ML** 1,000 ML IV SCH (21:08)
[2019-05-16] MEDS: Latanoprost 0.005%* 2.5 ml BTL RIGHT EYE SCH (21:08)
[2019-05-16] MEDS: Atenolol TAB* 25 MG PO SCH (21:09)
[2019-05-16] MEDS: Pseudoephedrine TAB* 60 MG PO SCH (21:09)
[2019-05-17] MEDS: Metoclopramide TAB* 10 MG PO PRN (02:39)
[2019-05-17] MEDS: Ondansetron TAB* 4 MG PO SCH ×4 (02:39→21:14)
[2019-05-17] MEDS: Levothyroxine TAB* 150 MCG TAB PO SCH (05:37)
[2019-05-17] MEDS: CABOZANTINIB 60 MG PO SCH (05:42)
[2019-05-17] MEDS: Diphenoxylat/Atrop 2.5-0.025M* 1 TAB PO PRN ×4 (05:42→21:15)
--- NOTE | 2019-05-17 10:06 | PN ---
Progress Note - Progress Note Date of Service: 05/17/19 SOAP: Subjective: []Feeling well overall, but still extremely weak. Continued diarrhea and feels the lomotil ultimately helps, "I just have to get ahead of it." Feels we should stop the fluids as she has fluid retention in her ankles. Feels good with plan for d/c home once she has more care/supports in place. Medications: Albuterol (Ventolin Hfa Inhaler*) 2 puff INH Q6H PRN PRN Reason: SOB/WHEEZING Last Admin: 05/15/19 09:45 Dose: 2 puff Ammonium Lactate (Lac-Hydrin 12 %) 1 applic TOPICAL BID [facility] Last Admin: 05/16/19 20:15 Dose: Not Given Atenolol (Tenormin Tab*) 25 mg PO BID [facility] Last Admin: 05/16/19 21:09 Dose: 25 mg Brimonidine/Timolol (Combigan 0.2/0.5% (Nf)) 1 drop RIGHT EYE BID [facility] Last Admin: 05/16/19 21:08 Dose: 1 drop Calcitriol (Rocaltrol Cap*) 0.25 mcg PO DAILY [facility] Last Admin: 05/16/19 09:57 Dose: 0.25 mcg Cetirizine HCl (Zyrtec*) 10 mg PO DAILY [facility] Last Admin: 05/16/19 09:57 Dose: Not Given Cholecalciferol (Vitamin D Tab*) 1,000 units PO DAILY [facility] Last Admin: 05/16/19 09:57 Dose: 1,000 units Dexamethasone (Decadron Tab*) 2 mg PO DAILY [facility] Last Admin: 05/16/19 09:57 Dose: 2 mg Diphenoxylate HCl/Atropine (Lomotil Tab*) 2 tab PO QID PRN PRN Reason: DIARRHEA Last Admin: 05/17/19 05:42 Dose: 2 tab Enoxaparin Sodium (Lovenox(*)) 30 mg SUBCUT Q24H [facility] Last Admin: 05/16/19 17:38 Dose: Not Given Ferrous Sulfate (Ferrous Sulfate Tab*) 325 mg PO DAILY [facility] Last Admin: 05/16/19 09:57 Dose: 325 mg Latanoprost (Xalatan 0.005%*) 1 drop RIGHT EYE BEDTIME [facility] Last Admin: 05/16/19 21:08 Dose: 1 drop Levothyroxine Sodium (Synthroid Tab*) 150 mcg PO DAILY@0600 [facility] Last Admin: 05/17/19 05:37 Dose: 150 mcg Metoclopramide HCl (Reglan Tab*) 10 mg PO Q6HR PRN PRN Reason: NAUSEA Last Admin: 05/17/19 02:39 Dose: 10 mg Pto: Cabozantimib ( Cabometyx) 60 Mg Tablets 1 dose PO DAILY@0600 [facility] Last Admin: 05/17/19 05:42 Dose: 1 dose Ondansetron HCl (Zofran Tab*) 8 mg PO Q6H [facility] Last Admin: 05/17/19 02:39 Dose: 8 mg Pantoprazole Sodium (Protonix Tab*) 40 mg PO DAILY [facility] Last Admin: 05/16/19 09:57 Dose: 40 mg Pseudoephedrine HCl (Sudafed Tab*) 60 mg PO BEDTIME [facility] Last Admin: 05/16/19 21:09 Dose: 60 mg Silver Sulfadiazine (Silvadine 1%*) 1 applic TOPICAL BID [facility] Last Admin: 05/16/19 21:09 Dose: 1 applic Tramadol HCl (Ultram*) 50 mg PO Q6HR PRN PRN Reason: PAIN - MILD Objective: [] Vital Signs Temp Pulse Resp BP Pulse Ox 97.5 F 92 16 129/75 96 05/17/19 04:13 05/17/19 04:13 05/17/19 05:42 05/17/19 04:13 05/17/19 04:13 A&Ox3, EOMI, neuro grossly non-focal Frail and cachectic appearing HRR, S1S2 LS dim. at bases, rare dry cough +BS, soft and non-tender Trace edema to ankles Assessment: []68 yo female with metastatic thyroid cancer with stable imaging, however slow decline in performance status presenting with severe weakness, dehydration, and electrolyte abnormalities. She has improved with hydration and electrolyte replacement, however remains very weak and recognizes that she needs more help at home. Plan: []- d/c IV fluids and recheck labs in AM following 24hrs of PO intake - cont. Lomotil PRN - cont. PT, consult OT for additional needs - d/c planning with Case management: she will need to investigate private help for 24hr care, however we will refer to [facility] for nursing assessment and PT. Additionally she has skin breakdown and needs a hospital bed due to her medical condition requiring frequent repositioning that can not be provided by an ordinary bed. Disposition: repeat labs in AM and if stable on PO intake and additional support set-up plan d/c tomorrow
[2019-05-17] MEDS: Cholecalciferol TAB* 1000 UNITS PO SCH (10:13)
[2019-05-17] MEDS: Pantoprazole TAB * 40 MG TAB PO SCH (10:13)
[2019-05-17] MEDS: Dexamethasone TAB* 1 MG PO SCH (10:13)
[2019-05-17] MEDS: Atenolol TAB* 25 MG PO SCH ×2 (10:14→21:15)
[2019-05-17] MEDS: Calcitriol CAP* 0.25 MCG PO SCH (10:14)
[2019-05-17] MEDS: Ammonium Lactate 12% 1 APPLIC TUBE TOPICAL SCH ×2 (10:14→21:14)
[2019-05-17] MEDS: Silver Sulfadiazine 1%* 20 GM TOPICAL SCH ×2 (10:15→21:16)
[2019-05-17] MEDS: Ferrous Sulfate TAB* 325 MG PO SCH (10:15)
[2019-05-17] MEDS: BRIMONID RIGHT EYE SCH ×2 (10:15→21:14)
[2019-05-17] MEDS: Cetirizine* 10 MG TAB PO SCH (10:15)
[2019-05-17] MEDS: TIMOLOL RIGHT EYE SCH ×2 (10:15→21:14)
[2019-05-17] MEDS: Enoxaparin(*) 30 MG/0.3 ML SYR SUBCUT SCH (18:36)
[2019-05-17] MEDS: Albuterol HFA INHALER* 8 gm MDI INH PRN (20:27)
[2019-05-17] MEDS: Latanoprost 0.005%* 2.5 ml BTL RIGHT EYE SCH (21:15)
[2019-05-17] MEDS: Pseudoephedrine TAB* 60 MG PO SCH (21:15)
[2019-05-18] MEDS: Ondansetron TAB* 4 MG PO SCH ×4 (03:25→20:45)
[2019-05-18] MEDS: Metoclopramide TAB* 10 MG PO PRN (03:27)
[2019-05-18] MEDS: Diphenoxylat/Atrop 2.5-0.025M* 1 TAB PO PRN ×4 (05:46→20:44)
[2019-05-18] MEDS: Levothyroxine TAB* 150 MCG TAB PO SCH (05:46)
[2019-05-18] MEDS: CABOZANTINIB 60 MG PO SCH (05:47)
[2019-05-18 05:58] LABS: ABS Lymphocytes 1.2 10^3/ul (1.0-4.8); ABS Monocytes 0.4 10^3/ul (0-0.8); ABS Neutrophils 4.4 10^3/ul (1.5-7.7); Eosinophil % 0.7 %; Hematocrit 27 % (35-47); Hemoglobin 9.2 g/dL (12.0-16.0); Lymphocyte % 19.5 %; Mean Corpuscular HGB Conc 34 g/dL (31-36); Mean Corpuscular Hemoglobin 37 pg (27-31); Mean Corpuscular Volume 109 fL (80-97); Nucleated Red Blood Cells % 0.6; Platelet Count 264 10^3/uL (150-450); Red Blood Count 2.51 10^6 /uL (3.70-4.87); Red Cell Distribution Width 17 % (10-15); White Blood Count 5.9 10^3/uL (3.5-10.8)
[2019-05-18 06:08] LABS: Albumin 2.6 g/dL (3.2-5.2); Calcium 6.9 mg/dL (8.6-10.3); EGFR African American 147.6 (>60); Globulin 2.5 g/dL (2-4); Magnesium 1.4 mg/dL (1.9-2.7); Potassium 3.5 mmol/L (3.5-5.0); Total Bilirubin 0.5 mg/dL (0.2-1.0); Total Protein 5.1 g/dL (6.4-8.9)
[2019-05-18] MEDS: Loperamide CAP* 2 MG PO PRN (06:09)
[2019-05-18] MEDS: Cetirizine* 10 MG TAB PO SCH (09:09)
[2019-05-18] MEDS: BRIMONID RIGHT EYE SCH ×2 (09:10→20:45)
[2019-05-18] MEDS: TIMOLOL RIGHT EYE SCH ×2 (09:10→20:45)
[2019-05-18] MEDS: Pantoprazole TAB * 40 MG TAB PO SCH (09:11)
[2019-05-18] MEDS: Cholecalciferol TAB* 1000 UNITS PO SCH (09:11)
[2019-05-18] MEDS: Ferrous Sulfate TAB* 325 MG PO SCH (09:11)
[2019-05-18] MEDS: Atenolol TAB* 25 MG PO SCH ×2 (09:11→20:45)
[2019-05-18] MEDS: Calcitriol CAP* 0.25 MCG PO SCH (09:11)
[2019-05-18] MEDS: Silver Sulfadiazine 1%* 20 GM TOPICAL SCH (09:12)
[2019-05-18] MEDS: Ammonium Lactate 12% 1 APPLIC TUBE TOPICAL SCH ×2 (09:12→20:49)
[2019-05-18] MEDS: Dexamethasone TAB* 1 MG PO SCH (09:31)
--- NOTE | 2019-05-18 13:09 | PN ---
Progress Note - Progress Note Date of Service: 05/18/19 SOAP: Subjective: [Saige is feeling a little stronger each day. Struggled with diarrhea yesterday. Better today. Eating well. ] Objective: [ Vital Signs: Temp Pulse Resp BP Pulse Ox 97.6 F 106 16 106/62 96 05/18/19 11:15 05/18/19 11:15 05/18/19 11:20 05/18/19 11:15 05/18/19 11:15 Albuterol (Ventolin Hfa Inhaler*) 2 puff INH Q6H PRN PRN Reason: SOB/WHEEZING Last Admin: 05/17/19 20:27 Dose: 2 puff Ammonium Lactate (Lac-Hydrin 12 %) 1 applic TOPICAL BID [facility] Last Admin: 05/18/19 09:12 Dose: Not Given Atenolol (Tenormin Tab*) 25 mg PO BID [facility] Last Admin: 05/18/19 09:11 Dose: 25 mg Brimonidine/Timolol (Combigan 0.2/0.5% (Nf)) 1 drop RIGHT EYE BID [facility] Last Admin: 05/18/19 09:10 Dose: 1 drop Calcitriol (Rocaltrol Cap*) 0.25 mcg PO DAILY [facility] Last Admin: 05/18/19 09:11 Dose: 0.25 mcg Cetirizine HCl (Zyrtec*) 10 mg PO DAILY [facility] Last Admin: 05/18/19 09:09 Dose: Not Given Cholecalciferol (Vitamin D Tab*) 1,000 units PO DAILY [facility] Last Admin: 05/18/19 09:11 Dose: 1,000 units Dexamethasone (Decadron Tab*) 2 mg PO DAILY [facility] Last Admin: 05/18/19 09:31 Dose: 2 mg Diphenoxylate HCl/Atropine (Lomotil Tab*) 2 tab PO QID PRN PRN Reason: DIARRHEA Last Admin: 05/18/19 11:20 Dose: 2 tab Enoxaparin Sodium (Lovenox(*)) 30 mg SUBCUT Q24H [facility] Last Admin: 05/17/19 18:36 Dose: Not Given Ferrous Sulfate (Ferrous Sulfate Tab*) 325 mg PO DAILY [facility] Last Admin: 05/18/19 09:11 Dose: 325 mg Latanoprost (Xalatan 0.005%*) 1 drop RIGHT EYE BEDTIME [facility] Last Admin: 05/17/19 21:15 Dose: 1 drop Levothyroxine Sodium (Synthroid Tab*) 150 mcg PO DAILY@0600 [facility] Last Admin: 05/18/19 05:46 Dose: 150 mcg Loperamide HCl (Imodium Cap*) 2 mg PO .SEE DIRECTIONS PRN PRN Reason: DIARRHEA Last Admin: 05/18/19 06:09 Dose: 2 mg Metoclopramide HCl (Reglan Tab*) 10 mg PO Q6HR PRN PRN Reason: NAUSEA Last Admin: 05/18/19 03:27 Dose: 10 mg Pto: Cabozantimib ( Cabometyx) 60 Mg Tablets 1 dose PO DAILY@0600 [facility] Last Admin: 05/18/19 05:47 Dose: 1 dose Ondansetron HCl (Zofran Tab*) 8 mg PO Q6H [facility] Last Admin: 05/18/19 09:09 Dose: Not Given Pantoprazole Sodium (Protonix Tab*) 40 mg PO DAILY [facility] Last Admin: 05/18/19 09:11 Dose: 40 mg Pseudoephedrine HCl (Sudafed Tab*) 60 mg PO BEDTIME [facility] Last Admin: 05/17/19 21:15 Dose: 60 mg Silver Sulfadiazine (Silvadine 1%*) 1 applic TOPICAL BID [facility] Last Admin: 05/18/19 09:12 Dose: 1 applic Tramadol HCl (Ultram*) 50 mg PO Q6HR PRN PRN Reason: PAIN - MILD Laboratory Results - last 24 hr 05/18/19 05/18/19 05:34 05:34 WBC 5.9 RBC 2.51 L Hgb 9.2 L Hct 27 L MCV 109 H MCH 37 H MCHC 34 RDW 17 H Plt Count 264 MPV 7.0 L Neut % (Auto) 73.6 Lymph % (Auto) 19.5 [place] % (Auto) 6.1 Eos % (Auto) 0.7 Baso % (Auto) 0.1 Absolute Neuts (auto) 4.4 Absolute Lymphs (auto) 1.2 Absolute Monos (auto) 0.4 Absolute Eos (auto) 0.0 Absolute Basos (auto) 0.0 Absolute Nucleated RBC 0.0 Nucleated RBC % 0.6 Sodium 135 Potassium 3.5 Chloride 101 Carbon Dioxide 25 Anion Gap 9 BUN 13 Creatinine 0.50 L Est GFR ( Amer) 147.6 Est GFR (Non-Af Amer) 122.0 BUN/Creatinine Ratio 26.0 H Glucose 76 Calcium 6.9 L Magnesium 1.4 L Total Bilirubin 0.50 AST 33 ALT 32 Alkaline Phosphatase 152 H Total Protein 5.1 L Albumin 2.6 L Globulin 2.5 Albumin/Globulin Ratio 1.0 Exam: Gen: chronically ill appearing and frail 68 yo female in NAD HEENT: MMM CV: RRR, no m/r/g Resp: CTA, no w/c/r Abd: soft, nonTTP, normoactive BS Skin: dry, flaking skin over heels - pressure ulcers not examined today Ext: trace edema to the ankles Assessment: []68 yo female with metastatic thyroid cancer with stable imaging, however slow decline in performance status presenting with severe weakness, dehydration, and electrolyte abnormalities. She has improved with hydration and electrolyte replacement, however remains very weak and recognizes that she needs more help at home. Plan: 1. Acute on chronic weakness with acute electrolyte abnormalities - improved with IV hydration, stable off of IV fluids - cont to encourage adequate po intake 2. Diarrhea - cont lomotil/imodium 3. Metastatic thyroid CA - cont cabozantinib Disposition: appropriate for dc home pending coordination of a hospital bed and home care. CM involved
[2019-05-18] MEDS: Enoxaparin(*) 30 MG/0.3 ML SYR SUBCUT SCH (17:59)
--- NOTE | 2019-05-18 18:50 | CONSULT ---
Subjective Date of Service: 05/18/19 Interval History: Ms. Mejía is a 68 yo female with PMH significant for thyroid cancer; she was admitted to the hospital with dehydration, weakness, and electrolyte abnormalities. She presented to the hospital with known pressure injuries to her upper back and sacrum. She states that the wounds to her upper back have been present for a few weeks. She states that the wound to the sacrum has been present for 6-12 months. She has been treating the wounds with silvadene at home. Patient seen and examined at bedside. Verbal consent for wound consultation and photographs obtained. Family History: Unchanged from Admission Social History: Unchanged from Admission Past Medical History: Unchanged from Admission Review of Systems - Measurements Intake and Output: Intake and Output Last 24 Hours 05/16/19 05/17/19 05/18/19 05/19/19 06:59 06:59 06:59 06:59 Intake Total 2140 1969 1046 240 Balance 2140 1969 1046 240 Intake: IV Fluids 1091 1570 356 NS (0.9%) 1091 1570 356 Oral 1050 400 690 240 Other: Estimated Void Small Large # Bowel Movements 1 0 Estimated Stool Amount Medium Large Medium # Voids 2 2 0 - Review of Systems Constitutional Symptoms: Negative: Fever, Other - Chills Dermatology: Positive: Other - Wounds to buttocks and back Endocrinology: Positive: Thyroid Problems Objective Active Medications: Albuterol (Ventolin Hfa Inhaler*) 2 puff INH Q6H PRN Reason: SOB/WHEEZING Ammonium Lactate (Lac-Hydrin 12 %) 1 applic TOPICAL BID [facility] Atenolol (Tenormin Tab*) 25 mg PO BID [facility] Brimonidine/Timolol (Combigan 0.2/0.5% (Nf)) 1 drop RIGHT EYE BID [facility] Calcitriol (Rocaltrol Cap*) 0.25 mcg PO DAILY [facility] Cetirizine HCl (Zyrtec*) 10 mg PO DAILY [facility] Cholecalciferol (Vitamin D Tab*) 1,000 units PO DAILY [facility] Dexamethasone (Decadron Tab*) 2 mg PO DAILY [facility] Diphenoxylate HCl/Atropine (Lomotil Tab*) 2 tab PO QID PRN Reason: DIARRHEA Enoxaparin Sodium (Lovenox(*)) 30 mg SUBCUT Q24H [facility] Ferrous Sulfate (Ferrous Sulfate Tab*) 325 mg PO DAILY [facility] Latanoprost (Xalatan 0.005%*) 1 drop RIGHT EYE BEDTIME [facility] Levothyroxine Sodium (Synthroid Tab*) 150 mcg PO DAILY@0600 [facility] Loperamide HCl (Imodium Cap*) 2 mg PO .SEE DIRECTIONS PRN Reason: DIARRHEA Metoclopramide HCl (Reglan Tab*) 10 mg PO Q6HR PRN Reason: NAUSEA Pto: Cabozantimib ( Cabometyx) 60 Mg Tablets 1 dose PO DAILY@0600 [facility] Ondansetron HCl (Zofran Tab*) 8 mg PO Q6H [facility] Pantoprazole Sodium (Protonix Tab*) 40 mg PO DAILY [facility] Pseudoephedrine HCl (Sudafed Tab*) 60 mg PO BEDTIME [facility] Tramadol HCl (Ultram*) 50 mg PO Q6HR PRN Reason: PAIN - MILD Vital Signs 05/18/19 05/18/19 05/18/19 11:15 11:20 14:27 Temperature 97.6 F Pulse Rate 106 Respiratory 16 16 16 Rate Blood Pressure 106/62 (mmHg) O2 Sat by Pulse 96 Oximetry Oxygen Devices in Use Now: None Appearance: NAD, sitting up the side of the bed Ears/Nose/Mouth/Throat: Mucous Membranes Moist Respiratory: Symmetrical Chest Expansion and Respiratory Effort Skin: - - See skin note below Neurological: Alert and Oriented x 3 - Nutrition: Malnutrition Diagnosis/Plan Malnutrition Assessment by Registered Dietitian: Malnutrition Assessment Clinical Characteristics Chronic,Moderate Malnutrition Assessment: reduced appetite x 1 week: <75% EEE x >7 days Criteria moderate/severe temporal and clavicle wasting Malnutrition Assessment: Monitor PO for improvement (ate 100% D 05/13); Interventions suggest oral nutrition supplements if not regularly >50% of meals Malnutrition Assessment: Goals 1. Intake will remain regularly >50% of meals 2. Intake will support evidence of wound healing without further breakdown 3. Na+ will normalize with adequate intake, fluid balance Result Diagrams: 05/19/19 05:20 05/20/19 05:10 Additional Lab and Data: Above labs were pulled into the note, when the note was edited prior to signing. See labs below from day of consultation. Laboratory Tests 05/18/19 05/18/19 05:34 05:34 WBC 5.9 Hgb 9.2 L Hct 27 L Plt Count 264 Sodium 135 Potassium 3.5 Chloride 101 Carbon Dioxide 25 BUN 13 Creatinine 0.50 L Glucose 76 Total Protein 5.1 L Albumin 2.6 L Skin Deviation Note - Skin Deviation Findings Upper back - There are 2 superficial open areas. The proximal open area, measures 0.6 cm x 0.2 cm x 0.1 cm. The wound base is dry yellow necrotic tissue. The immediate periwound with erythema, total area is 1.4 cm x 1.1 cm. There is no drainage. No odor. The distal open area, measures 0.4 cm x 0.4 cm x 0.1 cm. The wound base is dry yellow necrotic tissue. The immediate periwound with erythema, total area is 1 cm x 1 cm. There is no drainage. No odor. Upper sacrum - There is a wound, measures 1 cm x 1.4 cm. The wound base is dry yellow necrotic tissue. The periwound with slight erythema. There is no drainage. No odor. distal to the wound is an area of erythema that is blanchable. Wound Problem/Plan Assessment: Ms. Mejía is a 68 yo female with PMH significant for thyroid cancer with metastasis; she was admitted to the hospital with dehydration, weakness, and electrolyte abnormalities. She presented to the hospital with known pressure injuries to her upper back and sacrum. 1. Upper back and sacrum, unstageable pressure injuries. For the upper back; recommend applying Santyl to the areas of necrotic tissue, followed by border foam gauze (i.e. Optifoam), and change daily or as needed for drainage. Once the necrotic tissue has been removed, recommend using border foam gauze dressing and change every 3 days. For the sacrum, recommend applying Santyl to the area of necrotic tissue, followed by non adherent gauze (i.e. Telfa), and change daily or as needed for drainage. Once the necrotic tissue has been removed, recommend using barrier cream (orange top or other barrier cream per Pt request). Frequent turning and repositioning. Use a friction reduction device to move in bed. Use the mattress air pump on the bed, at home she should use an air mattress. 2. Chronic moderate malnutrition. As evidenced by reduced appetite for 1 week, moderate/severe temporal and clavicle wasting. Dieticians are following with patient. 3. Metastatic thyroid cancer. Currently receiving chemotherapy. 4. Nutrition. Recommend meeting nutritional requirements to assist with wound healing (Protein 1.2-1.5 grams/kg per day and calories 30-35 kcal/kg per day). Regular diet. 5. Code Status. DNR. 6. Disposition. Inpatient, disposition per primary team. TIME SPENT: Time for this wound consultation was 20 minutes and 10 minutes was spent with the patient discussing past medical history; assessing, measuring, and photographing the wounds; and discussing the plan of care with the [facility] staff and patient. Is Patient a Wound Clinic Patient: No Attending: Pau Dyer
[2019-05-18] MEDS: Pseudoephedrine TAB* 60 MG PO SCH (20:45)
[2019-05-18] MEDS: Latanoprost 0.005%* 2.5 ml BTL RIGHT EYE SCH (20:45)
[2019-05-19] MEDS: Ondansetron TAB* 4 MG PO SCH ×4 (02:39→23:08)
[2019-05-19] MEDS: Metoclopramide TAB* 10 MG PO PRN (02:40)
[2019-05-19] MEDS: Levothyroxine TAB* 150 MCG TAB PO SCH (06:08)
[2019-05-19] MEDS: CABOZANTINIB 60 MG PO SCH (06:09)
[2019-05-19] MEDS: Diphenoxylat/Atrop 2.5-0.025M* 1 TAB PO PRN ×4 (06:11→23:07)
[2019-05-19 06:12] LABS: Hematocrit 26 % (35-47); Mean Corpuscular HGB Conc 34 g/dL (31-36); Mean Corpuscular Hemoglobin 37 pg (27-31); Mean Corpuscular Volume 107 fL (80-97); Mean Platelet Volume 7.4 fL (7.4-10.4); Platelet Count 269 10^3/uL (150-450); Red Blood Count 2.45 10^6 /uL (3.70-4.87); Red Cell Distribution Width 17 % (10-15); White Blood Count 5.3 10^3/uL (3.5-10.8)
[2019-05-19 06:22] LABS: Albumin 2.5 g/dL (3.2-5.2); Albumin/Globulin Ratio 1.1 (1-3); Calcium 6.9 mg/dL (8.6-10.3); EGFR African American 180.5 (>60); EGFR Non-African American 149.2 (>60); Globulin 2.3 g/dL (2-4); Magnesium 1.2 mg/dL (1.9-2.7); Potassium 3.6 mmol/L (3.5-5.0); Total Bilirubin 0.6 mg/dL (0.2-1.0); Total Protein 4.8 g/dL (6.4-8.9)
[2019-05-19] MEDS: Ammonium Lactate 12% 1 APPLIC TUBE TOPICAL SCH (08:59)
[2019-05-19] MEDS: Cetirizine* 10 MG TAB PO SCH (09:12)
[2019-05-19] MEDS: Cholecalciferol TAB* 1000 UNITS PO SCH (09:13)
[2019-05-19] MEDS: Atenolol TAB* 25 MG PO SCH ×2 (09:13→23:07)
[2019-05-19] MEDS: TIMOLOL RIGHT EYE SCH ×2 (09:13→23:08)
[2019-05-19] MEDS: Pantoprazole TAB * 40 MG TAB PO SCH (09:13)
[2019-05-19] MEDS: Calcitriol CAP* 0.25 MCG PO SCH (09:13)
[2019-05-19] MEDS: Dexamethasone TAB* 1 MG PO SCH (09:13)
[2019-05-19] MEDS: BRIMONID RIGHT EYE SCH ×2 (09:13→23:08)
[2019-05-19] MEDS: Ferrous Sulfate TAB* 325 MG PO SCH (09:13)
[2019-05-19] MEDS: Collagenase 250 UNITS/GM OINT* 1 APPLIC OINT TOPICAL SCH (09:14)
[2019-05-19] MEDS ORDERED: Magnesium Sulf 4 GM/100 ML IV* 4,000 MG/100 ML BAG IVPB ONE (10:21)
--- NOTE | 2019-05-19 13:08 | PN ---
Progress Note - Progress Note Date of Service: 05/19/19 SOAP: Subjective: []Feels like she is getting stronger. Doing well with PT. Agrees she is ready to go home. Continued intermittent diarrhea. Tells me she feels confident she has the appropriate care set up. Refused Magnesium replacement (IV and PO). Case management working with son to coordinate discharge. Medications: Albuterol (Ventolin Hfa Inhaler*) 2 puff INH Q6H PRN PRN Reason: SOB/WHEEZING Last Admin: 05/17/19 20:27 Dose: 2 puff Ammonium Lactate (Lac-Hydrin 12 %) 1 applic TOPICAL BID [facility] Last Admin: 05/19/19 08:59 Dose: Not Given Atenolol (Tenormin Tab*) 25 mg PO BID [facility] Last Admin: 05/19/19 09:13 Dose: 25 mg Brimonidine/Timolol (Combigan 0.2/0.5% (Nf)) 1 drop RIGHT EYE BID [facility] Last Admin: 05/19/19 09:13 Dose: 1 drop Calcitriol (Rocaltrol Cap*) 0.25 mcg PO DAILY [facility] Last Admin: 05/19/19 09:13 Dose: 0.25 mcg Cetirizine HCl (Zyrtec*) 10 mg PO DAILY [facility] Last Admin: 05/19/19 09:12 Dose: Not Given Cholecalciferol (Vitamin D Tab*) 1,000 units PO DAILY [facility] Last Admin: 05/19/19 09:13 Dose: 1,000 units Collagenase (Santyl 250 Units/Gm Oint*) 1 applic TOPICAL DAILY [facility] Last Admin: 05/19/19 09:14 Dose: 1 applic Dexamethasone (Decadron Tab*) 2 mg PO DAILY [facility] Last Admin: 05/19/19 09:13 Dose: 2 mg Diphenoxylate HCl/Atropine (Lomotil Tab*) 2 tab PO QID PRN PRN Reason: DIARRHEA Last Admin: 05/19/19 11:19 Dose: 2 tab Enoxaparin Sodium (Lovenox(*)) 30 mg SUBCUT Q24H [facility] Last Admin: 05/18/19 17:59 Dose: Not Given Ferrous Sulfate (Ferrous Sulfate Tab*) 325 mg PO DAILY [facility] Last Admin: 05/19/19 09:13 Dose: 325 mg Magnesium Sulfate (Magnesium Sulf 4 Gm/100 Ml Iv*) 4,000 mg in 100 mls @ 33.333 mls/hr IVPB ONCE ONE Stop: 05/19/19 13:20 Last Admin: 05/19/19 11:19 Dose: Not Given Latanoprost (Xalatan 0.005%*) 1 drop RIGHT EYE BEDTIME [facility] Last Admin: 05/18/19 20:45 Dose: 1 drop Levothyroxine Sodium (Synthroid Tab*) 150 mcg PO DAILY@0600 [facility] Last Admin: 05/19/19 06:08 Dose: 150 mcg Loperamide HCl (Imodium Cap*) 2 mg PO .SEE DIRECTIONS PRN PRN Reason: DIARRHEA Last Admin: 05/18/19 06:09 Dose: 2 mg Magnesium Oxide (Magox 400 Tab*) 400 mg PO DAILY [facility] Metoclopramide HCl (Reglan Tab*) 10 mg PO Q6HR PRN PRN Reason: NAUSEA Last Admin: 05/19/19 02:40 Dose: 10 mg Pto: Cabozantimib ( Cabometyx) 60 Mg Tablets 1 dose PO DAILY@0600 [facility] Last Admin: 05/19/19 06:09 Dose: 1 dose Ondansetron HCl (Zofran Tab*) 8 mg PO Q6H [facility] Last Admin: 05/19/19 09:12 Dose: Not Given Pantoprazole Sodium (Protonix Tab*) 40 mg PO DAILY [facility] Last Admin: 05/19/19 09:13 Dose: 40 mg Pseudoephedrine HCl (Sudafed Tab*) 60 mg PO BEDTIME [facility] Last Admin: 05/18/19 20:45 Dose: 60 mg Tramadol HCl (Ultram*) 50 mg PO Q6HR PRN PRN Reason: PAIN - MILD Objective: [] Vital Signs Temp Pulse Resp BP Pulse Ox 97.6 F 112 14 110/57 97 05/19/19 11:12 05/19/19 11:12 05/19/19 11:19 05/19/19 11:12 05/19/19 11:12 A&O, EOMI Cachectic HRR, tachy LS clear Pale Laboratory Results - last 24 hr 05/18/19 05/19/19 05/19/19 05:34 05:20 05:20 WBC 5.3 RBC 2.45 L Hgb 9.0 L Hct 26 L MCV 107 H MCH 37 H MCHC 34 RDW 17 H Plt Count 269 MPV 7.4 Sodium 135 135 Potassium 3.5 3.6 Chloride 101 100 L Carbon Dioxide 25 24 Anion Gap 9 11 BUN 13 13 Creatinine 0.50 L 0.42 L Est GFR ( Amer) 147.6 180.5 Est GFR (Non-Af Amer) 122.0 149.2 BUN/Creatinine Ratio 26.0 H 31.0 H Glucose 76 74 Calcium 6.9 L 6.9 L Magnesium 1.4 L 1.2 L Total Bilirubin 0.50 0.60 AST 33 27 ALT 32 30 Alkaline Phosphatase 152 H 130 H Total Protein 5.1 L 4.8 L Albumin 2.6 L 2.5 L Globulin 2.5 2.3 Albumin/Globulin Ratio 1.0 1.1 Prealbumin 12 L Assessment: []68 yo female with metastatic thyroid cancer with stable imaging, however slow decline in performance status presenting with severe weakness, dehydration, and electrolyte abnormalities. She has improved with hydration and electrolyte replacement, however remains very weak and recognizes that she needs more help at home. At this time she is stable for discharge, however unfortunately the hospital bed can not be delivered until tomorrow AM. Plan: []1. Acute on chronic weakness with acute electrolyte abnormalities - improved with IV hydration - refusing Mg replacement either IV or PO, understands risk of hypomagnesemia 2. Diarrhea - cont lomotil/imodium with proactive approach - expect this to cont. with current tx. d/t known S/Es further increasing the risk of electrolyte imbalances, enc. electrolyte rich drinks 3. Metastatic thyroid CA - cont cabozantinib - declines palliative services Disposition: appropriate for d/c home, will delay until tomorrow d/t pending deliver of hospital bed
[2019-05-19] MEDS: Enoxaparin(*) 30 MG/0.3 ML SYR SUBCUT SCH (17:50)
[2019-05-19] MEDS: Pseudoephedrine TAB* 60 MG PO SCH (23:07)
[2019-05-19] MEDS: Latanoprost 0.005%* 2.5 ml BTL RIGHT EYE SCH (23:08)
[2019-05-20] MEDS: Ammonium Lactate 12% 1 APPLIC TUBE TOPICAL SCH ×2 (00:17→09:33)
[2019-05-20] MEDS: Metoclopramide TAB* 10 MG PO PRN (02:44)
[2019-05-20] MEDS: Ondansetron TAB* 4 MG PO SCH ×3 (02:44→15:19)
[2019-05-20] MEDS: Levothyroxine TAB* 150 MCG TAB PO SCH (05:45)
[2019-05-20] MEDS: CABOZANTINIB 60 MG PO SCH (05:45)
[2019-05-20] MEDS: Diphenoxylat/Atrop 2.5-0.025M* 1 TAB PO PRN ×3 (05:46→15:55)
[2019-05-20 06:09] LABS: Albumin 2.5 g/dL (3.2-5.2); BUN/Creatinine Ratio 31.9 (8-20); Calcium 7.2 mg/dL (8.6-10.3); EGFR African American 158.5 (>60); Globulin 2.4 g/dL (2-4); Magnesium 1.2 mg/dL (1.9-2.7); Phosphorus 3.4 mg/dL (2.5-5.0); Potassium 3.6 mmol/L (3.5-5.0); Total Bilirubin 0.5 mg/dL (0.2-1.0); Total Protein 4.9 g/dL (6.4-8.9)
[2019-05-20] MEDS ORDERED: Magnesium Oxide TAB* 400 MG PO SCH (09:00)
--- NOTE | 2019-05-20 09:27 | DS ---
- Discharge Summary Admission Date: 05/13/19 Discharge Date: 05/20/19 Discharge Diagnosis: 1. Dehydration with electrolyte abnormalities secondary to chronic diarrhea and poor PO intake: improved with IV fluids 2. Chronic Diarrhea: secondary to medication, stable with anti-diarrhea meds 3. Thyroid Cancer: resumption of oral therapy 4. Hypothyroidism: secondary to malignancy, low TSH with normal T4 on replacement, thyroid antiglobulin pending 5. Malnutrition secondary to chronic disease: high protein diet and electrolyte rich drinks Discharge Medications: Medication Instructions Recorded Confirmed Type Ammonium Lactate 12% [Lac-Hydrin 1 dose TOPICAL BID 03/16/17 05/13/19 History 12 %] Atenolol TAB* [Tenormin TAB* 50 MG] 25 mg PO BID 03/16/17 05/13/19 History Brimonid/Timolol 0.2/0.5%(NF) 1 drop RIGHT EYE BID 03/16/17 05/13/19 History [Combigan 0.2/0.5% (NF)] Calcitriol CAP* [Rocaltrol CAP*] 1 cap PO DAILY 03/16/17 05/13/19 History Cholecalciferol TAB* [Vitamin D 1 tab PO DAILY 03/16/17 05/13/19 History TAB*] Ferrous Sulfate [Iron] 1 tab PO DAILY 03/16/17 05/13/19 History Latanoprost 0.005%* [Xalatan 1 drop RIGHT EYE BEDTIME 03/16/17 05/13/19 History 0.005%*] Cabozantinib S-Malate [Cometriq] 1 each PO DAILY 05/13/19 05/13/19 History Levothyroxine Sodium [Levoxyl] 150 mcg PO DAILY 05/13/19 05/13/19 History Loratadine 10 mg PO DAILY 05/13/19 05/13/19 History Metoclopramide TAB* [Reglan TAB*] 10 mg PO Q8H 05/13/19 05/13/19 History Omeprazole 20 mg PO DAILY 05/13/19 05/13/19 History Ondansetron TAB* [Zofran 4 MG Tab*] 8 mg PO Q6H 05/13/19 05/13/19 History Pseudoephedrine TAB* [Sudafed TAB*] 60 mg PO DAILY 05/13/19 05/13/19 History dexAMETHasone [Dexamethasone] 2 mg PO DAILY 05/13/19 05/13/19 History traMADol TAB* [Ultram*] 50 mg PO Q6HR PRN 05/13/19 05/13/19 History Diphenoxylat/Atrop 2.5-0.025M* 2 tab PO QID PRN tab 05/20/19 Rx [Lomotil TAB*] Loperamide CAP* [Imodium CAP*] 2 mg PO .SEE DIRECTIONS PRN cap 05/20/19 Rx MDD 8 tabs Magnesium Oxide TAB* [MagOx 400 400 mg PO DAILY tab 05/20/19 Rx TAB*] Condition: Stable Disposition: Home with 24 hour private care Diet: Regular, high protein, recommend electrolyte rich fluids Activity: As tolerated, fall precautions, PT with VNS Hospital Course: Please see admission not for full H&P, however briefly, Mrs. Mejía is well known to our service due to her unfortunate diagnosis of metastatic thyroid cancer. She presented to the office on 05/13/19 with chief complaint of weakness and was found to be severely dehydrated with significant electrolyte abnormalities likely a result of chronic diarrhea with treatment. She was admitted with IV fluid resuscitation and supportive management of her chronic diarrhea. Mrs. Mejía has been extremely hesitant to accept IV and PO magnesium related to her concern for progressive diarrhea, however she did accept a Banana Bag on admission. Within 24 hours she had improved dramatically and plan was made to continue IV fluids and PT through the weekend. Goal was to discharge home on 05/17/19 with increased supportive services including VNS and likely 24 hour private care (as the patient recognized her inability to provide care for herself independently and is not willing to leave her home at this time). Unfortunately, due to discharge coordination and delivery of durable medical equipment (semi-electric hospital bed and air-mattress required for repositioning and wound care support) this has been delayed until today, 05/20/19. Mrs. Mejía has been stable on PO intake alone since the afternoon of 05/17/19. She continues to experience diarrhea, however feels this is stable. She continues to refuse Magnesium supplementation. She feels stronger than on admission and is working with PT. She is stable for discharge home. Mrs. Mejía will follow-up with our office on 06/04/19 with labs the day prior. She is aware of how and when to contact our office. All questions answered. - Nutrition: Malnutrition Diagnosis/Plan Nutrition: Malnutrition Diagnosis/Plan: Malnutrition Assessment Clinical Characteristics Chronic,Moderate Malnutrition Assessment: reduced appetite x 1 week: <75% EEE x >7 days Criteria moderate/severe temporal and clavicle wasting Malnutrition Assessment: Monitor PO for improvement (ate 100% D 05/13); Interventions suggest oral nutrition supplements if not regularly >50% of meals Malnutrition Assessment: Goals 1. Intake will remain regularly >50% of meals 2. Intake will support evidence of wound healing without further breakdown 3. Na+ will normalize with adequate intake, fluid balance
[2019-05-20] MEDS: Cholecalciferol TAB* 1000 UNITS PO SCH (09:32)
[2019-05-20] MEDS: Calcitriol CAP* 0.25 MCG PO SCH (09:32)
[2019-05-20] MEDS: Dexamethasone TAB* 1 MG PO SCH (09:32)
[2019-05-20] MEDS: Ferrous Sulfate TAB* 325 MG PO SCH (09:32)
[2019-05-20] MEDS: Pantoprazole TAB * 40 MG TAB PO SCH (09:32)
[2019-05-20] MEDS: BRIMONID RIGHT EYE SCH (09:33)
[2019-05-20] MEDS: TIMOLOL RIGHT EYE SCH (09:33)
[2019-05-20] MEDS: Atenolol TAB* 25 MG PO SCH (09:33)
[2019-05-20] MEDS: Cetirizine* 10 MG TAB PO SCH (09:33)
[2019-05-20] MEDS: Collagenase 250 UNITS/GM OINT* 1 APPLIC OINT TOPICAL SCH (09:33)
[2019-05-20] MEDS: Loperamide CAP* 2 MG PO PRN (15:56)
[2019-05-20 16:12] VITALS: BP 113/54
== END 2019-05-20 17:00 | disposition home health service (06) | DRG 641 ==
LOC: MED 14:41 → OBSVTOIN 14:41 → MED 05-14 05:49
PROVIDERS: ADMIT Internal Medicine Hematology & Oncology; ATTEND Internal Medicine Hematology & Oncology
DX: E87.1 Hypo-osmolality and hyponatremia (principal); K52.1 Toxic gastroenteritis and colitis; E44.0 Moderate protein-calorie malnutrition; Z68.1 Body mass index [BMI] 19.9 or less, adult; C78.00 Secondary malignant neoplasm of unspecified lung; C79.51 Secondary malignant neoplasm of bone; C77.0 Secondary and unspecified malignant neoplasm of lymph nodes of head, face and neck; E86.0 Dehydration; E87.6 Hypokalemia; G43.809 Other migraine, not intractable, without status migrainosus; I10 Essential (primary) hypertension; E89.0 Postprocedural hypothyroidism; I95.9 Hypotension, unspecified; Z66 Do not resuscitate; C73 Malignant neoplasm of thyroid gland; L89.100 Pressure ulcer of unspecified part of back, unstageable; T50.995A Adverse effect of other drugs, medicaments and biological substances, initial encounter; R11.0 Nausea; L89.150 Pressure ulcer of sacral region, unstageable; E83.42 Hypomagnesemia; Z79.890 Hormone replacement therapy; Z88.6 Allergy status to analgesic agent; Z88.8 Allergy status to other drugs, medicaments and biological substances; Z88.5 Allergy status to narcotic agent; Z88.1 Allergy status to other antibiotic agents; Y92.9 Unspecified place or not applicable
CPT/HCPCS: 36415; 71260; 74177; 80053; 83735; 84100; 84134; 84439; 84443; 85025; 85027; 86800; 94640; 99223; 99232; 99239; A9270-GY; J1650; J3411; J3475; Q9967

== ENCOUNTER 2019-08-09 01:03 | Observation (INO) | payer MEDICARE, BC ==
[2019-08-09] MEDS ORDERED: NS 0.9% 1000 ML** 1,000 ML IV ONE ×2 (01:06→06:07)
--- NOTE | 2019-08-09 01:06 | ED ---
Head Injury - HPI Summary HPI Summary: Patient is a 68 y/o F w/ Hx of thyroid CA with metastases presents to [facility] via EMS with chief complaint of head injury secondary fall. She states that she awoke this evening and got out of bed to go to the bathroom. While she was in front of the toilet, her legs gave out and she subsequently fell backwards, striking the back of her head against the tile floor. She notes that she has a tumor to the area of injury. After the fall, patient experienced N/V. She states that she took 8 mg Zofran and 10 mg Reglan but had vomited both of these medications. Home medications and allergies are reviewed. Home Medications Medication Instructions Recorded Confirmed Type Ammonium Lactate 12% [Lac-Hydrin 1 dose TOPICAL BID 03/16/17 05/13/19 History 12 %] Atenolol TAB* [Tenormin TAB* 50 MG] 25 mg PO BID 03/16/17 05/13/19 History Brimonid/Timolol 0.2/0.5%(NF) 1 drop RIGHT EYE BID 03/16/17 05/13/19 History [Combigan 0.2/0.5% (NF)] Calcitriol CAP* [Rocaltrol CAP*] 1 cap PO DAILY 03/16/17 05/13/19 History Cholecalciferol TAB* [Vitamin D 1 tab PO DAILY 03/16/17 05/13/19 History TAB*] Ferrous Sulfate [Iron] 1 tab PO DAILY 03/16/17 05/13/19 History Latanoprost 0.005%* [Xalatan 1 drop RIGHT EYE BEDTIME 03/16/17 05/13/19 History 0.005%*] Cabozantinib S-Malate [Cometriq] 1 each PO DAILY 05/13/19 05/13/19 History Levothyroxine Sodium [Levoxyl] 150 mcg PO DAILY 05/13/19 05/13/19 History Loratadine 10 mg PO DAILY 05/13/19 05/13/19 History Metoclopramide TAB* [Reglan TAB*] 10 mg PO Q8H 05/13/19 05/13/19 History Omeprazole 20 mg PO DAILY 05/13/19 05/13/19 History Ondansetron TAB* [Zofran 4 MG Tab*] 8 mg PO Q6H 05/13/19 05/13/19 History Pseudoephedrine TAB* [Sudafed TAB*] 60 mg PO DAILY 05/13/19 05/13/19 History dexAMETHasone [Dexamethasone] 2 mg PO DAILY 05/13/19 05/13/19 History traMADol TAB* [Ultram*] 50 mg PO Q6HR PRN 05/13/19 05/13/19 History Loperamide CAP* [Imodium CAP*] 2 mg PO .SEE DIRECTIONS PRN cap 05/20/19 Rx MDD 8 tabs Magnesium Oxide TAB* [MagOx 400 400 mg PO DAILY tab 05/20/19 Rx TAB*] Diphenoxylat/Atrop 2.5-0.025M* 2 tab PO QID PRN #240 tab MDD 8 tab 07/17/19 Rx [Lomotil TAB*] Diphenoxylat/Atrop 2.5-0.025M* 2 tab PO QID PRN #240 tab MDD 8 tab 07/17/19 Rx [Lomotil TAB*] - History Of Current Complaint Stated Complaint: FALL PER EMS Time Seen by Provider: 08/09/19 01:05 Hx Obtained From: Patient Mechanism Of Injury: Fall From A Standing Position Onset/Duration: Still Present Onset of Pain: Prior to Arrival Pain Scale Used: 0-10 Numeric Location of Head Injury: Other: - posterior Location: Discrete At: - posterior head Associated Signs And Symptoms: Nausea, Vomiting - Allergies/Home Medications Allergies/Adverse Reactions: Allergies Allergy/AdvReac Type Severity Reaction Status Date / Time amoxicillin [From Augmentin] Allergy Mild Rash Verified 03/25/19 08:49 cefaclor Allergy Mild Rash Verified 03/25/19 08:49 clavulanic acid Allergy Mild Rash Verified 03/25/19 08:49 [From Augmentin] codeine Allergy Mild Nausea And Verified 03/25/19 08:49 Vomiting hydrocodone Allergy Mild Unknown Verified 03/25/19 08:49 Reaction Details meperidine [From Demerol] Allergy Mild Nausea And Verified 03/25/19 08:49 Vomiting magic mouth wash Allergy Severe See Comment Uncoded 03/25/19 08:49 Home Medications: Home Medications Ammonium Lactate 12% [Lac-Hydrin 12 %] 1 dose TOPICAL BID 03/16/17 [History Confirmed 05/13/19] Atenolol TAB* [Tenormin TAB* 50 MG] 25 mg PO BID 03/16/17 [History Confirmed ] Brimonid/Timolol 0.2/0.5%(NF) [Combigan 0.2/0.5% (NF)] 1 drop RIGHT EYE BID [History Confirmed 05/13/19] Calcitriol CAP* [Rocaltrol CAP*] 1 cap PO DAILY 03/16/17 [History Confirmed ] Cholecalciferol TAB* [Vitamin D TAB*] 1 tab PO DAILY 03/16/17 [History Confirmed 05/13/19] Ferrous Sulfate [Iron] 1 tab PO DAILY 03/16/17 [History Confirmed 05/13/19] Latanoprost 0.005%* [Xalatan 0.005%*] 1 drop RIGHT EYE BEDTIME 03/16/17 [ History Confirmed 05/13/19] Cabozantinib S-Malate [Cometriq] 1 each PO DAILY 05/13/19 [History Confirmed ] Levothyroxine Sodium [Levoxyl] 150 mcg PO DAILY 05/13/19 [History Confirmed ] Loratadine 10 mg PO DAILY 05/13/19 [History Confirmed 05/13/19] Metoclopramide TAB* [Reglan TAB*] 10 mg PO Q8H 05/13/19 [History Confirmed 05/13] Omeprazole 20 mg PO DAILY 05/13/19 [History Confirmed 05/13/19] Ondansetron TAB* [Zofran 4 MG Tab*] 8 mg PO Q6H 05/13/19 [History Confirmed ] Pseudoephedrine TAB* [Sudafed TAB*] 60 mg PO DAILY 05/13/19 [History Confirmed 05/13/19] dexAMETHasone [Dexamethasone] 2 mg PO DAILY 05/13/19 [History Confirmed 05/13/19 ] traMADol TAB* [Ultram*] 50 mg PO Q6HR PRN 05/13/19 [History Confirmed 05/13/19] Loperamide CAP* [Imodium CAP*] 2 mg PO .SEE DIRECTIONS PRN cap MDD 8 tabs 05/20 [Rx] Magnesium Oxide TAB* [MagOx 400 TAB*] 400 mg PO DAILY tab 05/20/19 [Rx] Diphenoxylat/Atrop 2.5-0.025M* [Lomotil TAB*] 2 tab PO QID PRN #240 tab MDD 8 tab 07/17/19 [Rx] Diphenoxylat/Atrop 2.5-0.025M* [Lomotil TAB*] 2 tab PO QID PRN #240 tab MDD 8 tab 07/17/19 [Rx] PMH/Surg Hx/FS Hx/Imm Hx Endocrine/Hematology History: Reports: Hx Thyroid Disease Denies: Hx Diabetes - not on meds, hx of Cardiovascular History: Reports: Hx Hypertension - controlled with Meds Denies: Hx Pacemaker/ICD Respiratory History: Reports: Other Respiratory Problems/Disorders - HX OF THYROID CA THAT METASTASIZED TO UPPER LUNGS. Denies: Hx Asthma, Hx Chronic Obstructive Pulmonary Disease (COPD) History: Denies: Hx Dialysis, Hx Renal Disease Sensory History: Reports: Hx Contacts or Glasses Denies: Hx Hearing Aid Opthamlomology History: Reports: Hx Contacts or Glasses Psychiatric History: Denies: Hx Panic Disorder - Cancer History Cancer Type, Location and Year: stage 4 thyroid cancer with mets - Surgical History Surgery Procedure, Year, and Place: rt + Left thoracotomy, Cholecystectomy, Partial Hysterectomy, Thyroidectomy, Rt Vitreectomy-Retinal detachement,. 2013 right foot - METAL SCREW - [place] Infectious Disease History: Denies: Hx Clostridium Difficile, Hx Hepatitis, Hx Human Immunodeficiency Virus (HIV), Hx of Known/Suspected MRSA, Hx Shingles, Hx Tuberculosis, Hx Known/ Suspected VRE, Hx Known/Suspected VRSA, History Other Infectious Disease - Social History Alcohol Use: None Substance Use Type: Reports: None Smoking Status (MU): Never Smoked Tobacco Review of Systems Positive: Vomiting, Nausea Neurological/Mental Status: Other - head injury secondary to fall All Other Systems Reviewed And Are Negative: Yes Physical Exam - Summary Physical Exam Summary: Appearance: Well-appearing, Frail, Cachetic, lying in bed comfortably in no acute distress Skin: Warm, dry, no obvious rash Eyes: sclera anicteric, no conjunctival pallor HENT: Small hematoma to occipital skull with no laceration; mucous membranes moist, pharynx appears normal Neck: Supple, nontender Respiratory: Clear to auscultation, no signs of respiratory distress Cardiovascular: Normal S1, S2. No murmurs. Normal distal pulses in tibial and radial bilaterally. Abdomen: Soft, nontender, normal active bowel sounds present Musculoskeletal: Normal, Strength/ROM Intact Neurological: A&Ox3, awake and alert, mentation is normal, speech is fluent and appropriate; GCS 15. Psychiatric: affect is normal, does not appear anxious or depressed Triage Information Reviewed: Yes Vital Signs Reviewed: Yes Procedures - Sedation Patient Received Moderate/Deep Sedation with Procedure: No Diagnostics - Laboratory Lab Statement: Any lab studies that have been ordered have been reviewed, and results considered in the medical decision making process. - CT BRAIN CT CT Interpretation Completed By: Radiologist Summary of CT Findings: IMPRESSION: 1. No traumatic intracranial abnormalities. 2. Mild chronic small vessel ischemic disease. 3. Left parietal bone metastatic lesion. THIS REPORT WAS REVIEWED BY ED PHYSICIAN. Re-Evaluation - Re-Evaluation First Eval Re-Evaluation Time: 03:10 Comment: Patient had dizziness and having nausea on movement. Will continue to observe. Second Eval Re-Evaluation Time: 06:08 Comment: Patient unable to ambulate with walker; will contact hospitalist for observation admission. Head Injury Course/Dx Course Of Treatment: Patient is a 68 y/o F w/ Hx of thyroid CA with metastases presents to [facility] via EMS with chief complaint of head injury secondary fall. She states that she awoke this evening and got out of bed to go to the bathroom. While she was in front of the toilet, her legs gave out and she subsequently fell backwards, striking the back of her head against the tile floor. She notes that she has a tumor to the area of injury. After the fall, patient experienced N/V. She states that she took 8 mg Zofran and 10 mg Reglan but had vomited both of these medications. On physical exam, patient is noted to be frail and cachetic but in no acute distress. There is a small hematoma to occipital skull with no laceration. During ED course, patient received fluids and [address] IV[address] BRAIN CT IMPRESSION: 1. No traumatic intracranial abnormalities. 2. Mild chronic small vessel ischemic disease. 3. Left parietal bone metastatic lesion. 0310 - Patient had dizziness and having nausea on movement. Will continue to observe. 0608 - Patient unable to ambulate with walker; will contact hospitalist for observation admission. 0612 - Patient' s case was discussed with Dr. Martinez, Dr. Martinez accepts for admission. - Diagnoses Provider Diagnoses: Concussion - Physician Notifications Discussed Care Of Patient With: Jay Martinez Time Discussed With Above Provider: 06:12 Instructed by Provider To: Other - Patient's case was discussed with Dr. Martinez , Dr. Martinez accepts for admission. - Critical Care Time Critical Care Statement: Critical care time is provided exclusive of any time spent performing procedures. Discharge ED - Sign-Out/Discharge Documenting (check all that apply): Patient Departure - admit - Discharge Plan Condition: Good Disposition: ADMITTED TO [facility] Patient Education Materials: Head Injury (ED) Referrals: No Primary Care Phys,NOPCP [Medical Doctor] - Additional Instructions: Stick to clear liquids until the nausea dies down, using the anti-emetics as needed. - Attestation Statements Document Initiated by Scribe: Yes Documenting Scribe: YANIRA HARRIS Provider For Whom Scribe is Documenting (Include Credential): THOMPSON FAGAN MD Scribe Attestation: YANIRA Alves, scribed for THOMPSON FAGAN MD on 08/09/19 at 0615. Status of Scribe Document: Ready
[2019-08-09] MEDS ORDERED: Metoclopramide IV* 5 MG/ML 2 ML VIAL IV ONE (01:07)
--- OUTSIDE RECORDS SUMMARY | 2019-08-09 02:27 | XMS REPORT ---
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 2 Type 2 Diagnosis Active Bre diabetes diabetes 05-13 En mellitus mellitus without without complicatio complicatio ns ns Essential Essential Diagnosis Active Bre (primary) (primary) 05-13 En hypertensio hypertensio n n Postprocedu Postprocedu Diagnosis Active Bre ral ral 05-13 En hypothyroid hypothyroid ism ism Kwashiorkor Kwashiorkor Diagnosis Active Bre 05-13 En Thrombocyto Thrombocyto Diagnosis Active Bre penia, penia, En unspecified unspecified Gastro-esop Gastro-esop Diagnosis Active Bre hageal hageal En reflux reflux disease disease without without esophagitis esophagitis Migraine, Migraine, Diagnosis Active Bre unspecified unspecified En , not , not intractable intractable , without , without status status migrainosus migrainosus Noninfectiv Noninfectiv Diagnosis Active Li gastroenter gastroenter itis and itis and colitis, colitis, unspecified unspecified manager terminal [facility]CI Diagnosis Active Bre (current) (current) En use of use of opiate opiate analgesic analgesic Other long Other long Diagnosis Active Bre term term En (current) (current) drug drug therapy therapy Pain frequent Pain Mgmt Resolve 2019-05-31 [place] pain d 05-21 08:55:00 [place] 10:30: [id number] Respiratory dyspnea Respirator Resolve 2019-2019-05-31 [place] present y d 05-21 08:55:00 Ava 10:30: [id number] 00 Integument pressure Integument Active 2019-0 [place] ulcer 05-21 [place] present 10:30: [id number] 00 Integument skin Integument Active [facility] integrity 05-21 Ava risk 10:30: [id number] Nutrition nutritional Nutrition Active [place] restriction 05-21 Ava s 10:30: [id number] 00 Elimination urinary Eliminatio Resolve 2019-05-31 [place] incontinenc n d 05-21 08:55:00 [place] e 10:30: [id number] 00 Elimination bowel Eliminatio Resolve 2019-05-31 [place] incontinenc n d 05-21 08:55:00 [place] e 10:30: [id number] 00 Elimination diarrhea Eliminatio Resolve 2019-05-31 [place] n d 05-21 08:55:00 [place] 10:30: [id number] 00 Elimination nausea/vomi Eliminatio Resolve 2019-05-31 [place] ting n d 05-21 08:55:00 [place] 10:30: [id number] 00 Neuro confusion Neuro/Emot Active [facility] present ion 05-21 [place] 10:30: [id number] 00 Activity ADL Activity Active [facility] assistance 05-21 Ava required 10:30: [id number] 00 Activity self-care Activity Resolve 2019-05-24 [place] deficit d 05-21 11:15:00 [place] 10:30: [id number] 00 Safety cannot be Safety Active 2019-0 [facility] left alone 05-21 [place] 10:30: [id number] 00 Safety fall risk Safety Resolve 2019-05-24 [place] factor d 05-21 11:15:00 [place] present 10:30: [id number] 00 Safety risk for Safety Resolve 2019-05-24 [facility] hospitaliza d 05-21 11:15:00 [place] tion 10:30: [id number] 00 Medication oral med Meds Resolve 2019-05-24 [place] assistance d 05-21 11:15:00 [place] required 10:30: [id number] 00 Medication knowledge/s Meds Resolve 2019-2019-05-24 [place] kill d 05-21 11:15:00 [place] deficit: pt 10:30: [id number] 00 Diagnoses knowledge/s Diagnoses Active [facility] kill 05-21 Ava deficit: pt 10:30: [id number] 00 Diagnoses knowledge/s Diagnoses Active Altashorty pinedo 05-21 [place] deficit: cg 10:30: [id number] 00 Musculoskel transfer Musculoske Resolve 2019-05-24 [facility] etal assistance letal d 05-21 11:15:00 [place] required 10:30: [id number] 00 Musculoskel requires Musculoske Resolve 2019-05-24 [place] etal human letal d 05-21 11:15:00 [place] assist to 10:30: [id number] leave home 00 Bed transfer PT/OT: Bed Active Robbi Mobility/Tr deficit: Mobility/T 05-21 lora Brown sit/stand ransfer 15:00: PT 00 [id number] Bed transfer PT/OT: Bed Active Robbi Mobility/Tr deficit: Mobility/T 05-21 lora Brown standing ransfer 15:00: PT pivot 00 [id number] Bed transfer PT/OT: Bed Active Robbi Mobility/Tr deficit: Mobility/T 05-21 lora Brown toilet/comm ransfer 15:00: PT ode 00 [id number] Bed transfer PT/OT: Bed Active Robbi Mobility/Tr deficit: Mobility/T 05-21 lora Brown shower/tub ransfer 15:00: PT 00 [id number] Bed knowledge/s PT/OT: Bed Active Robbi Mobility/Tr kill Mobility/T 05-21 lora Brown deficit: pt ransfer 15:00: PT 00 [id number] Bed bed PT/OT: Bed Active 0 Robbi Mobility/Tr mobility Mobility/T 05-21 lora Brown deficit ransfer 15:00: PT 00 [id number] Balance/End balance/mexican food cook PT/OT: Active Robbi urance rdination Balance/En 05-21 Kevin, deficit durance 15:00: PT 00 [id number] Gait/Locomo gait PT/OT: Active 2020- Robbi tion deficit Gait/Locom 1-31 Kevin, problems otion 15:00: PT 00 [id number] Gait/Locomo knowledge/s PT/OT: Active 2019- Robbi tion kill Gait/Locom 05-21 Kevin, problems deficit: pt otion 15:00: PT 00 [id number] Safety can be left Safety Active 2019- Bre alone for 2- Gatica only short 11:15: periods 00 Safety risk for Safety Resolve 2020-0 2019-05-31 Robbi hospitaliza d 2-05 08:55:00 Kevinantoine jaureguion 13:00: PT 00 [id number] Neuro anxiety Neuro/Emot Active Bre present ion 2- Gatica 11:55: 00 Musculoskel requires Musculoske Resolve 2019-0 2019-05-31 Bre etal human letal d 2- 08:55:00 [place] assist to 11:55: leave home 00 Safety risk for Safety Unknown Robbi hospitaliza 2- Kevin tion 13:00: PT 00 [id number] Safety risk for Safety Resolve 2020-0 2019-08-04 Elva hospitaliza d 2- 11:55:00 Ulices Steven tion 12:05: [id number] 00 Respiratory dyspnea Respirator Active Bre present y 2- Gatica 10:45: 00 Elimination urinary Eliminatio Resolve 2019-06-03 Bre incontinenc n d 2- 10:45:00 En e 10:45: 00 Musculoskel requires Musculoske Active Bre etal human letal 2- Gatica assist to 10:45: leave home 00 Elimination urinary Eliminatio Active 2019- Bre incontinenc n 2- En e 10:35: 00 Elimination diarrhea Eliminatio Active 2019- Bre n 2- Gatica 09:00: 00 Respiratory lung sounds Respirator Active 2019- Robbi deficit y 2-27 Kevin, 11:15: PT 00 [id number] Infection s/s of Infection Active 2019- Bre infection 3- Gatica 12:20: 00 Nutrition changing Nutrition Active Bre weight/appe 07-14 G[place] tite 12:20: 00 Neuro depressive Neuro/Emot Active Bre feelings ion 07-14 Gatica present 12:20: 00 Activity self-care Activity Active Bre deficit 07-14 Gatica 12:20: 00 Safety fall risk Safety Resolve 2019-08-04 Bre factor d 07-14 11:55:00 Gatica present 12:20: 00 Musculoskel transfer Musculoske Active Bre etal assistance letal 07-14 Gatica required 12:20: 00 Safety risk for Safety Active Libert[employer] ennis 4-16 Shani tion 13:30: t 00 [id number] Allergies, Adverse Reactions, Alerts Allergy Name Allergy Status Severity Reaction(s) Onset Inactive Treating Comments Type Date Date Clinician amoxicillin Base Active Unknown Reaction Interface Ingredient Unknown 05-18 cefaclor Base Active Unknown Reaction Unknown Ingredient Unknown 05-18 clavulanic Base Active Unknown Reaction 0 Interface acid Ingredient Unknown 05-18 codeine Base Active Unknown Reaction 0 Interface Ingredient Unknown 05-18 hydrocodone Base Active Unknown Reaction 0 Interface Ingredient Unknown 05-18 meperidine Base Active Unknown Reaction 0 Interface Ingredient Unknown 05-18 magic mouth Unknown Active Unknown Reaction 0 Interface wash Unknown 05-18 Medications Ordered Filled Start Stop Current Ordering Indication Dosage Frequency Signature Comments Components Medication Medication Date Date Medication? Clinician (SIG) Name Name atenoloL 50 atenoloL 50 Yes Bael Unknown Unknown mg tablet mg tablet 05-21 Jad TSAI cholecalcif cholecalcif Yes Bael Unknown Unknown ugo ugo 05-21 Jad TSAI (vitamin (vitamin D3) 25 mcg D3) 25 mcg (1,000 (1,000 unit) unit) tablet tablet calcitrioL calcitrioL Yes Bael Unknown Unknown 0.25 mcg 0.25 mcg 05-21 Jad TSAI capsule capsule ammonium ammonium Yes Bael Unknown Unknown lactate 12 lactate 12 05-21 Jad TSAI % topical % topical cream cream Ferrous Ferrous Yes Bael Unknown Unknown Sulfate Sulfate 05-21 Jad TSAI dexAMETHaso dexAMETHaso 2020-0 Yes Bael Unknown Unknown ne 2 mg ne 2 mg 05-21 MD,Jad tablet tablet omeprazole omeprazole 2019-0 Yes Bael Unknown Unknown 20 mg 20 mg 05-21 MD,Jad capsule,del capsule,del ayed ayed release release ondansetron ondansetron 2019-0 Yes Bael Unknown Unknown HCL 4 mg HCL 4 mg 05-21 MD,Jad tablet tablet loratadine loratadine 2019-0 Yes Bael Unknown Unknown 10 mg 10 mg 05-21 MD,Jad tablet tablet traMADoL 50 traMADoL 50 2019-0 Yes Bael Unknown Unknown mg tablet mg tablet 05-21 MD,Jad Levothyroxi Levothyroxi 2019- Yes Bael Unknown Unknown ne Sodium ne Sodium 05-21 MD,Jad diphenoxyla diphenoxyla Yes Bael Unknown Unknown te-atropine te-atropine 05-21 MD,Jad 2.5 2.5 mg-0.025 mg mg-0.025 mg tablet tablet cabozantini cabozantini 2019- Yes Bael Unknown Unknown b 140 b 140 05-21 MD,Jad mg/day (80 mg/day (80 mg x 1-20 mg x 1-20 mg x 3) mg x 3) capsules capsules metoclopram metoclopram 2019-0 Yes Bael Unknown Unknown franko 10 mg franko 10 mg 05-21 MD,Jad tablet tablet latanoprost latanoprost 2019- Yes Bael Unknown Unknown 0.005 % eye 0.005 % eye 05-21 MD,Jad drops drops brimonidine brimonidine 2019- Yes Bael Unknown Unknown 0.2 0.2 05-21 MD,Jad %-timoloL %-timoloL 0.5 % eye 0.5 % eye drops drops Vital Signs Vital Name Observation Time Observation Value Comments SYSTOLIC mm[Hg] 1840-04-20 00:00:00 108 mm[Hg] mm[Hg] Method: Lie DIASTOLIC mm[Hg] 1840-04-20 00:00:00 70 mm[Hg] mm[Hg] Method: Lie RESP RATE 2019-08-04 18:11:24 20 /min /min Procedures This patient has no known procedures. Results Test Description Test Time Test Comments Text Results Atomic Results Result Comments Serum or plasma alanine 2019-05-18 05:34:00 Identifier 1742-6 Result Unknown aminotransferase measurement Time 2019-05-18 05:34:00 (enzymatic activity/volume) Test Item Value Reference Range Comments Serum or plasma alanine aminotransferase measurement 32 U/L Unknown Unknown F (enzymatic activity/volume) (test code = 1742-6) Ordering Physician UnknownSerum or plasma albumin/globulin mass [id number] 05:34:00Identifier 1759-0 Result Time 2019-05-18 05:34:00Unknown Test Item Value Reference Range Comments Serum or plasma albumin/globulin mass ratio 1.0 Unknown Unknown F (test code = 1759-0) Ordering Physician UnknownSerum or plasma calcium measurement (mass/volume)05-18 05:34:00Identifier 28799-0 Result Time 2019-05-18 05:34:00Unknown Test Item Value Reference Range Comments Serum or plasma calcium measurement 6.9 mg/dL Unknown Unknown F (mass/volume) (test code = 74790-0) Ordering Physician UnknownSerum or plasma magnesium measurement (mass/volume) 2019-05-18 05:34:00Identifier 54695-0 Result Time 2019-05-18 05:34:00Unknown Test Item Value Reference Range Comments Serum or plasma magnesium measurement 1.4 mg/dL Unknown Unknown F (mass/volume) (test code = 02188-4) Ordering Physician UnknownSerum or plasma aspartate aminotransferase measurement (enzymatic activity/volume)2019-05-18 05:34:00Identifier 1919- Result Time 2019-05-18 05:34:00Unknown Test Item Value Reference Range Comments Serum or plasma aspartate aminotransferase 33 U/L Unknown Unknown F measurement (enzymatic activity/volume) (test code = 1920-8) Ordering Physician UnknownSerum or plasma total bilirubin measurement (mass/ volume)2019-05-18 05:34:00Identifier 1974-05 Result Time 2019-05-18 05:34: 00Unknown Test Item Value Reference Range Comments Serum or plasma total bilirubin 0.50 mg/dL Unknown Unknown F measurement (mass/volume) (test code = 1974-05) Ordering Physician UnknownSerum or plasma carbon dioxide, total measurement ( moles/volume)2019-05-18 05:34:00Identifier 2027-12 Result Time 2019-05-18 05:34: 00Unknown Test Item Value Reference Range Comments Serum or plasma carbon dioxide, total 25 mmol/L Unknown Unknown F measurement (moles/volume) (test code = 2028-9) Ordering Physician UnknownSerum or plasma chloride measurement (moles/volume) 2019-05-18 05:34:00Identifier 2075-0 Result Time 2019-05-18 05:34:00Unknown Test Item Value Reference Range Comments Serum or plasma chloride measurement 101 mmol/L Unknown Unknown F (moles/volume) (test code = 5-0) Ordering Physician UnknownSerum or plasma creatinine measurement (mass/volume) 2019-05-18 05:34:00Identifier 2160-0 Result Time 2019-05-18 05:34:00Unknown Test Item Value Reference Range Comments Serum or plasma creatinine measurement 0.50 mg/dL Unknown Unknown F (mass/volume) (test code = 2160-0) Ordering Physician UnknownSerum glucose measurement (mass/volume)2019-05-18 05: 34:00Identifier 2345-7 Result Time 2019-05-18 05:34:00Unknown Test Item Value Reference Range Comments Serum glucose measurement (mass/volume) 76 mg/dL Unknown Unknown F (test code = 2345-7) Ordering Physician UnknownSerum or plasma potassium measurement (moles/volume) 2019-05-18 05:34:00Identifier 2823-3 Result Time 2019-05-18 05:34:00Unknown Test Item Value Reference Range Comments Serum or plasma potassium measurement 3.5 mmol/L Unknown Unknown F (moles/volume) (test code = 2823-3) Ordering Physician UnknownSerum total protein measurement (mass/volume) 05:34:00Identifier 2885-2 Result Time 2019-05-18 05:34:00Unknown Test Item Value Reference Range Comments Serum total protein measurement 5.1 g/dL Unknown Unknown F (mass/volume) (test code = 2885-2) Ordering Physician UnknownSerum or plasma sodium measurement (moles/volume)05-18 05:34:00Identifier 2951-2 Result Time 2019-05-18 05:34:00Unknown Test Item Value Reference Range Comments Serum or plasma sodium measurement 135 mmol/L Unknown Unknown F (moles/volume) (test code = 2951-2) Ordering Physician UnknownSerum or plasma urea nitrogen measurement (mass/volume )2019-05-18 05:34:00Identifier 3094-0 Result Time 2019-05-18 05:34:00Unknown Test Item Value Reference Range Comments Serum or plasma urea nitrogen measurement 13 mg/dL Unknown Unknown F (mass/volume) (test code = 3094-0) Ordering Physician UnknownSerum or plasma urea nitrogen/creatinine [id number]- 28 05:34:00Identifier 3097-3 Result Time 2019-05-18 05:34:00Unknown Test Item Value Reference Range Comments Serum or plasma urea nitrogen/creatinine 26.0 Unknown Unknown F ratio (test code = 3097-3) Ordering Physician UnknownAutomated blood platelet mean volume [id number]- 01-28 05:34:00Identifier 28245-6 Result Time 2019-05-18 05:34:00Unknown Test Item Value Reference Range Comments Automated blood platelet mean volume 7.0 fL Unknown Unknown F measurement (test code = 68957-5) Ordering Physician UnknownSerum or plasma anion [id number] 05:34: 00Identifier 78650-6 Result Time 2019-05-18 05:34:00Unknown Test Item Value Reference Range Comments Serum or plasma anion gap (test code = 9 mmol/L Unknown Unknown F 92853-4) Ordering Physician UnknownAutomated blood leukocytes count corrected for nucleated erythrocytes (number/volume)2019-05-18 05:34:00Identifier 53712-2 Result Time 2019-05-18 05:34:00Unknown Test Item Value Reference Range Comments Automated blood leukocytes count 5.9 10^3/uL Unknown Unknown F corrected for nucleated erythrocytes (number/volume) (test code = 01881-9) Ordering Physician UnknownAutomated blood nucleated erythrocytes [id number]- 01-28 05:34:00Identifier 26533-6 Result Time 2019-05-18 05:34:00Unknown Test Item Value Reference Range Comments Automated blood nucleated erythrocytes 0.6 Unknown Unknown F detection (test code = 50260-1) Ordering Physician UnknownAutomated blood hematocrit (percentage)2019-05-18 05: 34:00Identifier 4544-3 Result Time 2019-05-18 05:34:00Unknown Test Item Value Reference Range Comments Automated blood hematocrit (percentage) (test 27 % Unknown Unknown F code = 4544-3) Ordering Physician UnknownEstimated glomerular filtration rate (GFR) non- [id number] 05:34:00Identifier 75305-7 Result Time 2019-05-18 05: 34:00Unknown Test Item Value Reference Range Comments Estimated glomerular filtration rate (GFR) 122.0 Unknown Unknown F non- (test code = 21519-9) Ordering Physician UnknownAutomated blood monocytes/100 [id number] 05: 34:00Identifier 5905-5 Result Time 2019-05-18 05:34:00Unknown Test Item Value Reference Range Comments Automated blood monocytes/100 leukocytes 6.1 % Unknown Unknown F (test code = 5905-5) Ordering Physician UnknownSerum or plasma albumin measurement by bromocresol green (BCG) dye binding method ([id number] 05:34:00Identifier 47382-6 Result Time 2019-05-18 05:34:00Unknown Test Item Value Reference Range Comments Serum or plasma albumin measurement by 2.6 g/dL Unknown Unknown F bromocresol green (BCG) dye binding method (ma (test code = 40208-1) Ordering Physician UnknownSerum or plasma alkaline phosphatase measurement ( enzymatic activity/volume)2019-05-18 05:34:00Identifier 6768-6 Result Time 05-18 05:34:00Unknown Test Item Value Reference Range Comments Serum or plasma alkaline phosphatase 152 U/L Unknown Unknown F measurement (enzymatic activity/volume) (test code = 6768-6) Ordering Physician UnknownAutomated blood basophil count (number/volume) 05:34:00Identifier 704-7 Result Time 2019-05-18 05:34:00Unknown Test Item Value Reference Range Comments Automated blood basophil count 0.0 10^3/ul Unknown Unknown F (number/volume) (test code = 704-7) Ordering Physician UnknownAutomated blood basophils/100 [id number] 05: 34:00Identifier 706-2 Result Time 2019-05-18 05:34:00Unknown Test Item Value Reference Range Comments Automated blood basophils/100 leukocytes 0.1 % Unknown Unknown F (test code = 706-2) Ordering Physician UnknownAutomated blood eosinophil count (number/volume)05-18 05:34:00Identifier 711-2 Result Time 2019-05-18 05:34:00Unknown Test Item Value Reference Range Comments Automated blood eosinophil count 0.0 10^3/ul Unknown Unknown F (number/volume) (test code = 711-2) Ordering Physician UnknownAutomated blood eosinophils/100 [id number] 05:34:00Identifier 713-8 Result Time 2019-05-18 05:34:00Unknown Test Item Value Reference Range Comments Automated blood eosinophils/100 leukocytes 0.7 % Unknown Unknown F (test code = 713-8) Ordering Physician UnknownBlood hemoglobin measurement (mass/volume)2019-05-18 05:34:00Identifier 718-7 Result Time 2019-05-18 05:34:00Unknown Test Item Value Reference Range Comments Blood hemoglobin measurement (mass/volume) 9.2 g/dL Unknown Unknown F (test code = 718-7) Ordering Physician UnknownBlood lymphocytes automated count (number/volume)05-18 05:34:00Identifier 731-0 Result Time 2019-05-18 05:34:00Unknown Test Item Value Reference Range Comments Blood lymphocytes automated count 1.2 10^3/ul Unknown Unknown F (number/volume) (test code = 731-0) Ordering Physician UnknownAutomated blood lymphocytes/100 [id number] 05:34:00Identifier 736-9 Result Time 2019-05-18 05:34:00Unknown Test Item Value Reference Range Comments Automated blood lymphocytes/100 leukocytes 19.5 % Unknown Unknown F (test code = 736-9) Ordering Physician UnknownBlood monocytes automated count (number/volume)2019-04 05:34:00Identifier 742-7 Result Time 2019-05-18 05:34:00Unknown Test Item Value Reference Range Comments Blood monocytes automated count 0.4 10^3/ul Unknown Unknown F (number/volume) (test code = 742-7) Ordering Physician UnknownAutomated blood neutrophils/100 [id number] 05:34:00Identifier 770-8 Result Time 2019-05-18 05:34:00Unknown Test Item Value Reference Range Comments Automated blood neutrophils/100 leukocytes 73.6 % Unknown Unknown F (test code = 770-8) Ordering Physician UnknownBlood nucleated erythrocytes automated count (number/ volume)2019-05-18 05:34:00Identifier 771-6 Result Time 2019-05-18 05:34: 00Unknown Test Item Value Reference Range Comments Blood nucleated erythrocytes automated 0.0 10^3/ul Unknown Unknown F count (number/volume) (test code = 771-6) Ordering Physician UnknownAutomated blood platelet count (number/volume) 05:34:00Identifier 777-3 Result Time 2019-05-18 05:34:00Unknown Test Item Value Reference Range Comments Automated blood platelet count 264 10^3/uL Unknown Unknown F (number/volume) (test code = 777-3) Ordering Physician UnknownAutomated erythrocyte mean corpuscular hemoglobin ( mass per erythrocyte)2019-05-18 05:34:00Identifier 785-6 Result Time 2019-05-18 05:34:00Unknown Test Item Value Reference Range Comments Automated erythrocyte mean corpuscular 37 pg Unknown Unknown F hemoglobin (mass per erythrocyte) (test code = 785-6) Ordering Physician UnknownAutomated erythrocyte mean corpuscular hemoglobin concentration measurement (mass/[id number] 05:34:00Identifier 786-4 Result Time 2019-05-18 05:34:00Unknown Test Item Value Reference Range Comments Automated erythrocyte mean corpuscular 34 g/dL Unknown Unknown F hemoglobin concentration measurement (mass/vol (test code = 786-4) Ordering Physician UnknownAutomated erythrocyte mean corpuscular [id number]- 28 05:34:00Identifier 787-2 Result Time 2019-05-18 05:34:00Unknown Test Item Value Reference Range Comments Automated erythrocyte mean corpuscular 109 fL Unknown Unknown F volume (test code = 787-2) Ordering Physician UnknownAutomated erythrocyte distribution width [id number]- 28 05:34:00Identifier 788-0 Result Time 2019-05-18 05:34:00Unknown Test Item Value Reference Range Comments Automated erythrocyte distribution width ratio 17 % Unknown Unknown F (test code = 788-0) Ordering Physician UnknownAutomated blood erythrocyte count (number/volume)05-18 05:34:00Identifier 789-8 Result Time 2019-05-18 05:34:00Unknown Test Item Value Reference Range Comments Automated blood erythrocyte count 2.51 10^6 /uL Unknown Unknown F (number/volume) (test code = 789-8) Ordering Physician UnknownLymphocyte proliferation [id number] 05:34: 00Identifier [id number] Result Time 2019-05-18 05:34:00Unknown Test Item Value Reference Range Comments Lymphocyte proliferation test (test 4.4 10^3/ul Unknown Unknown F code = HDD1711) Ordering Physician UnknownSerum or plasma thyroid stimulating hormone (TSH) measurement (units/volume)2019-05-15 12:47:00Identifier 3016-3 Result Time 05-15 12:47:00Unknown Test Item Value Reference Range Comments Serum or plasma thyroid stimulating 0.01 mcIU/mL Unknown Unknown F hormone (TSH) measurement (units/volume) (test code = 3016-3) Ordering Physician UnknownSerum or plasma thyroxine (T4) free measurement (mass/ volume)2019-05-15 12:47:00Identifier 3024-7 Result Time 2019-05-15 12:47: 00Unknown Test Item Value Reference Range Comments Serum or plasma thyroxine (T4) free 0.91 ng/dL Unknown Unknown F measurement (mass/volume) (test code = 3024-7) Ordering Physician Unknown
--- OUTSIDE RECORDS SUMMARY | 2019-08-09 02:27 | XMS REPORT ---
:1950 Author Organization [facility] Care Team Providers Name Role Phone Unavailable Unavailable Unavailable Problems Condition Condition Condition Status Onset Resolution Last Treating Comments Name Details Category Date Date Treatment Clinician Date Pressure Pressure Diagnosis Active Bre ulcer of ulcer of 05-13 En sacral sacral region, region, unstageable unstageable Malignant Malignant Diagnosis Active Bre neoplasm of [...] and itis and colitis, colitis, unspecified unspecified FDC FDC Diagnosis Active Bre (current) (current) En use of use of opiate opiate analgesic analgesic Other long Other long Diagnosis Active Bre term term En (current) (current) drug drug therapy therapy Pain frequent Pain Mgmt Resolve 2019-05-31 Alta pain d 05-21 08:55:00 Stanton 10:30: [id number] 00 Respiratory dyspnea Respirator Resolve 2019-0 2019-05-31 Alta present y d 05-21 08:55:00 Stanton 10:30: [id number] 00 Integument pressure Integument Active 2019-0 Alta ulcer 05-21 Stanton present 10:30: [id number] 00 Integument skin Integument Active Alta integrity 05-21 Stanton risk 10:30: [id number] Nutrition nutritional Nutrition Active Alta restriction 05-21 Stanton s 10:30: [id number] 00 Elimination urinary Eliminatio Resolve 2019-05-31 Alta incontinenc n d 05-21 08:55:00 Ava e 10:30: [id number] 00 Elimination bowel Eliminatio Resolve 2019-05-31 Alta incontinenc n d 05-21 08:55:00 Ava e 10:30: [id number] 00 Elimination diarrhea Eliminatio Resolve 2019-05-31 Alta n d 05-21 08:55:00 Stanton 10:30: [id number] 00 Elimination nausea/vomi Eliminatio Resolve 2019-05-31 Alta ting n d 05-21 08:55:00 Stanton 10:30: [id number] 00 Neuro confusion Neuro/Emot Active 0 Alta present ion 05-21 Stanton 10:30: [id number] 00 Activity ADL Activity Active Alta assistance 05-21 Stanton required 10:30: [id number] 00 Activity self-care Activity Resolve 2019-05-24 Alta deficit d 05-21 11:15:00 Stanton 10:30: [id number] 00 Safety cannot be Safety Active 2019-0 Alta left alone 05-21 Stanton 10:30: [id number] 00 Safety fall risk Safety Resolve 2019-2019-05-24 Alta factor d 05-21 11:15:00 Stanton present 10:30: [id number] 00 Safety risk for Safety Resolve 2019-05-24 Alta hospitaliza d 05-21 11:15:00 Stanton tion 10:30: [id number] 00 Medication oral med Meds Resolve 2019-05-24 Alta assistance d 05-21 11:15:00 Ava required 10:30: [id number] 00 Medication knowledge/s Meds Resolve 2019-2019-05-24 Altashorty pinedo d 05-21 11:15:00 Stanton deficit: pt 10:30: [id number] 00 Diagnoses knowledge/s Diagnoses Active Altashorty pinedo 05-21 Ava deficit: pt 10:30: [id number] 00 Diagnoses knowledge/s Diagnoses Active Altashorty pinedo 05-21 Stanton deficit: cg 10:30: [id number] 00 Musculoskel transfer Musculoske Resolve 2019-05-24 Alta etal assistance letal d 05-21 11:15:00 Stanton required 10:30: [id number] 00 Musculoskel requires Musculoske Resolve 2019-05-24 Alta etal human letal d 05-21 11:15:00 Ava assist to 10:30: [id number] leave home 00 Bed transfer PT/OT: Bed Active Robbi Mobility/Tr deficit: Mobility/T 05-21 lora Brown sit/stand ransfer 15:00: PT 00 [id number] Bed transfer PT/OT: Bed Active Robbi Mobility/Tr deficit: Mobility/T 05-21 lora Brown standing ransfer 15:00: PT pivot 00 [id number] Bed transfer PT/OT: Bed Active Robbi Mobility/Tr deficit: Mobility/T 05-21 lora Brown toilet/comm ransfer 15:00: PT ode 00 [id number] Bed transfer PT/OT: Bed Active Robbi Mobility/Tr deficit: Mobility/T 05-21 lora Brown shower/tub ransfer 15:00: PT 00 [id number] Bed knowledge/s PT/OT: Bed Active Robbi Mobility/Tr kill Mobility/T 05-21 lora Brown deficit: pt ransfer 15:00: PT 00 [id number] Bed bed PT/OT: Bed Active 0 Robbi Mobility/Tr mobility Mobility/T 05-21 lora Brown deficit ransfer 15:00: PT 00 [id number] Balance/End balance/quality improvement coordinator (rn) PT/OT: Active Robbi urance rdination Balance/En 05-21 Kevin, deficit durance 15:00: PT 00 [id number] Gait/Locomo gait PT/OT: Active 2020-0 Robbi tion deficit Gait/Locom 05-21 Kevin, problems otion 15:00: PT 00 [id number] Gait/Locomo knowledge/s PT/OT: Active 2020-0 Robbi tion kill Gait/Locom 05-21 Kvein, problems deficit: pt otion 15:00: PT 00 [id number] Safety can be left Safety Active 2020-0 Bre alone for 2-03 Gatica only short 11:15: periods 00 Safety risk for Safety Resolve 2020-0 2019-05-31 Robbi hospitaliza d 2-05 08:55:00 Kevin, tion 13:00: PT 00 [id number] Neuro anxiety Neuro/Emot Active 2019- Bre present ion 2- En 11:55: 00 Musculoskel requires Musculoske Resolve 2019-0 2019-05-31 Bre etal human letal d 2- 08:55:00 Gatica assist to 11:55: leave home 00 Safety risk for Safety Unknown 2020-0 Robbi hospitaliza 2- Kevin, tion 13:00: PT 00 [id number] Safety risk for Safety Active 2020-0 Elva hospitaliza 2-11 Ulices Steven tion 12:05: [id number] 00 Respiratory dyspnea Respirator Active 2019-0 Bre present y 2- En 10:45: 00 Elimination urinary Eliminatio Resolve 2019-06-03 Bre incontinenc n d 2-13 10:45:00 En e 10:45: 00 Musculoskel requires Musculoske Active 2019- Bre etal human letal 2- En assist to 10:45: leave home 00 Elimination urinary Eliminatio Active Bre incontinenc n 2-19 En [place] 10:35: 00 Elimination diarrhea Eliminatio Active 2019-0 Bre n 2- En 09:00: 00 Respiratory lung sounds Respirator Active 2020-0 Robbi deficit y 2- Kevin, 11:15: PT 00 [id number] Allergies, Adverse Reactions, Alerts Allergy Name Allergy Status Severity Reaction(s) Onset Inactive Treating Comments Type Date Date Clinician amoxicillin Base Active Unknown Reaction 2020-0 Interface Ingredient Unknown 05-18 cefaclor Base Active Unknown Reaction Unknown Ingredient Unknown 05-18 clavulanic Base Active Unknown Reaction Interface acid Ingredient Unknown 05-18 codeine Base Active Unknown Reaction Interface Ingredient Unknown 05-18 hydrocodone Base Active Unknown Reaction Interface Ingredient Unknown 05-18 meperidine Base Active Unknown Reaction Interface Ingredient Unknown 05-18 magic mouth Unknown Active Unknown Reaction Interface wash Unknown 05-18 Medications Ordered Filled Start Stop Current Ordering Indication Dosage Frequency Signature Comments Components Medication Medication Date Date Medication? Clinician (SIG) Name Name atenolol 50 atenolol 50 2019- Yes Bael Unknown Unknown mg tablet mg tablet 05-21 MD,Jad cholecalcif cholecalcif Yes Bael Unknown Unknown ugo ugo 05-21 MD,Jad (vitamin (vitamin D3) 25 mcg D3) 25 mcg (1,000 (1,000 unit) unit) tablet tablet calcitriol calcitriol Yes Bael Unknown Unknown 0.25 mcg 0.25 mcg 05-21 MD,Jad capsule capsule ammonium ammonium Yes Bael Unknown Unknown lactate 12 lactate 12 05-21 MD,Jad % topical % topical cream cream Ferrous Ferrous 2019- Yes Bael Unknown Unknown Sulfate Sulfate 05-21 MD,Jad dexAMETHaso dexAMETHaso Yes Bael Unknown Unknown ne 2 mg ne 2 mg 05-21 MD,Jad tablet tablet omeprazole omeprazole 2019- Yes Bael Unknown Unknown 20 mg 20 mg 05-21 MD,Jad capsule,del capsule,del ayed ayed release release ondansetron ondansetron Yes Bael Unknown Unknown HCl 4 mg HCl 4 mg 05-21 MD,Jad tablet tablet loratadine loratadine 2019-0 Yes Bael Unknown Unknown 10 mg 10 mg 05-21 MD,Jad tablet tablet traMADol 50 traMADol 50 2019- Yes Bael Unknown Unknown mg tablet mg tablet 05-21 MD,Jad Levothyroxi Levothyroxi 2019- Yes Bael Unknown Unknown ne Sodium ne Sodium 05-21 MD,Jad diphenoxyla diphenoxyla 2019- Yes Bael Unknown Unknown te-atropine te-atropine 05-21 MD,Jad 2.5 2.5 mg-0.025 mg mg-0.025 mg tablet tablet cabozantini cabozantini Yes Bael Unknown Unknown b 140 b 140 - MD,Jad mg/day (80 mg/day (80 mg x 1-20 mg x 1-20 mg x 3) mg x 3) capsules capsules metoclopram metoclopram Yes Bael Unknown Unknown franko 10 mg franko 10 mg 05-21 MD,Jad tablet tablet latanoprost latanoprost Yes Bael Unknown Unknown 0.005 % eye 0.005 % eye 05-21 MD,Jad drops drops brimonidine brimonidine Yes Bael Unknown Unknown -timolol -timolol 05-21 MD,Jad 0.2 %-0.5 % 0.2 %-0.5 % eye drops eye drops Vital Signs Vital Name Observation Time Observation Value Comments SYSTOLIC mm[Hg] 2019-07-13 18:11:02 92 mm[Hg] mm[Hg] Method: Sit DIASTOLIC mm[Hg] 2019-07-13 18:11:02 60 mm[Hg] mm[Hg] Method: Sit PULSE 2019-07-13 18:11:02 95 /min /min RESP RATE 2019-07-13 18:11:02 22 /min /min TEMP 2019-07-13 18:11:02 97.0 [degF] Procedures This patient has no known [...] Ordering Physician UnknownSerum or plasma albumin/globulin mass [id number] 05:34:00Identifier 1759-0 Result Time 2019-05-18 05:34:00Unknown Test Item Value Reference Range Comments Serum or plasma albumin/globulin mass ratio 1.0 Unknown Unknown F (test code = 1759-0) Ordering Physician UnknownSerum or plasma calcium measurement (mass/volume)05-18 05:34:00Identifier 59182-1 Result Time 2019-05-18 05:34:00Unknown Test Item Value Reference Range Comments Serum or plasma calcium measurement 6.9 mg/dL Unknown Unknown F (mass/volume) (test code = 06205-8) Ordering Physician UnknownSerum or plasma magnesium measurement (mass/volume) 2019-05-18 05:34:00Identifier 74659-6 Result Time 2019-05-18 05:34:00Unknown Test Item Value Reference Range Comments Serum or plasma magnesium measurement 1.4 mg/dL Unknown Unknown F (mass/volume) (test code = 86835-6) Ordering Physician UnknownSerum or plasma aspartate aminotransferase measurement (enzymatic activity/volume)2019-05-18 05:34:00Identifier 1919- Result Time 2019-05-18 05:34:00Unknown Test Item Value Reference Range Comments Serum or plasma aspartate aminotransferase 33 U/L Unknown Unknown F measurement (enzymatic activity/volume) (test code = 1919-) Ordering Physician UnknownSerum or plasma total bilirubin measurement (mass/ volume)2019-05-18 05:34:00Identifier 1974-2 Result Time 2019-05-18 05:34: 00Unknown Test Item [...] Unknown F measurement (moles/volume) (test code = 2027-12) Ordering Physician UnknownSerum or plasma chloride measurement (moles/volume) 2019-05-18 05:34:00Identifier Result Time 2019-05-18 05:34:00Unknown Test Item Value Reference Range Comments Serum or plasma chloride measurement 101 mmol/L Unknown Unknown F (moles/volume) (test code = ) Ordering Physician UnknownSerum or plasma creatinine measurement (mass/volume) 2019-05-18 05:34:00Identifier 2159-0 Result Time 2019-05-18 05:34:00Unknown Test Item Value [...] Ordering Physician UnknownSerum or plasma urea nitrogen/creatinine [id number]- 28 05:34:00Identifier 3097-3 Result Time 2019-05-18 05:34:00Unknown Test Item Value Reference Range Comments Serum or plasma urea nitrogen/creatinine 26.0 Unknown Unknown F ratio (test code = 3097-3) Ordering Physician UnknownAutomated blood platelet mean volume [id number]- 01-28 05:34:00Identifier 54508-8 Result Time 2019-05-18 05:34:00Unknown Test Item Value Reference Range Comments Automated blood platelet mean volume 7.0 fL Unknown Unknown F measurement (test code = 86296-2) Ordering Physician UnknownSerum or plasma anion [id number] 05:34: 00Identifier 86278-8 Result Time 2019-05-18 05:34:00Unknown Test Item Value Reference Range Comments Serum or plasma anion gap (test code = 9 mmol/L Unknown Unknown F 15377-0) Ordering Physician UnknownAutomated blood leukocytes count corrected for nucleated erythrocytes (number/volume)2019-05-18 05:34:00Identifier 59559-5 Result Time 2019-05-18 05:34:00Unknown Test Item Value Reference Range Comments Automated blood leukocytes count 5.9 10^3/uL Unknown Unknown F corrected for nucleated erythrocytes (number/volume) (test code = 78458-5) Ordering Physician UnknownAutomated blood nucleated erythrocytes [id number]- 01-28 05:34:00Identifier 06616-4 Result Time 2019-05-18 05:34:00Unknown Test Item Value Reference Range Comments Automated blood nucleated erythrocytes 0.6 Unknown Unknown F detection (test code = 07656-5) Ordering Physician UnknownAutomated blood hematocrit (percentage)2019-05-18 05: 34:00Identifier 4544-3 Result Time 2019-05-18 05:34:00Unknown Test Item Value Reference Range Comments Automated blood hematocrit (percentage) (test 27 % Unknown Unknown F code = 4544-3) Ordering Physician UnknownEstimated glomerular filtration rate (GFR) non- [id number] 05:34:00Identifier 83117-7 Result Time 2019-05-18 05: 34:00Unknown Test Item Value Reference Range Comments Estimated glomerular filtration rate (GFR) 122.0 Unknown Unknown F non- (test code = 16774-8) Ordering Physician UnknownAutomated blood monocytes/100 [id number] 05: 34:00Identifier 5905-5 Result Time 2019-05-18 05:34:00Unknown Test Item Value Reference Range Comments Automated blood monocytes/100 leukocytes 6.1 % Unknown Unknown F (test code = 5905-5) Ordering Physician UnknownSerum or plasma albumin measurement by bromocresol green (BCG) dye binding method ([id number] 05:34:00Identifier 90512-3 Result Time 2019-05-18 05:34:00Unknown Test Item Value Reference Range Comments Serum or plasma albumin measurement by 2.6 g/dL Unknown Unknown F bromocresol green (BCG) dye binding method (ma (test code = 14258-7) Ordering Physician UnknownSerum or plasma alkaline phosphatase [...] = 704-7) Ordering Physician UnknownAutomated blood basophils/100 [id number] 05: 34:00Identifier 706-2 Result Time 2019-05-18 05:34:00Unknown [...] = 711-2) Ordering Physician UnknownAutomated blood eosinophils/100 [id number] 05:34:00Identifier 713-8 Result Time 2019-05-18 05:34:00Unknown Test [...] = 731-0) Ordering Physician UnknownAutomated blood lymphocytes/100 [id number] 05:34:00Identifier 736-9 Result Time 2019-05-18 05:34:00Unknown Test Item Value Reference Range Comments Automated blood lymphocytes/100 leukocytes 19.5 % Unknown Unknown F (test code = 736-9) Ordering Physician UnknownBlood monocytes automated count (number/volume)2019-04 05:34:00Identifier 742-7 Result Time 2019-05-18 05:34:00Unknown Test Item Value Reference Range Comments Blood monocytes automated count 0.4 10^3/ul Unknown Unknown F (number/volume) (test code = 742-7) Ordering Physician UnknownAutomated blood neutrophils/100 [id number] 05:34:00Identifier 770-8 Result Time 2019-05-18 05:34:00Unknown Test [...] UnknownAutomated erythrocyte mean corpuscular hemoglobin concentration measurement (mass/[id number] 05:34:00Identifier 786-4 Result Time 2019-05-18 05:34:00Unknown Test Item Value Reference Range Comments Automated erythrocyte mean corpuscular 34 g/dL Unknown Unknown F hemoglobin concentration measurement (mass/vol (test code = 786-4) Ordering Physician UnknownAutomated erythrocyte mean corpuscular [id number]- 28 05:34:00Identifier 787-2 Result Time 2019-05-18 05:34:00Unknown Test Item Value Reference Range Comments Automated erythrocyte mean corpuscular 109 fL Unknown Unknown F volume (test code = 787-2) Ordering Physician UnknownAutomated erythrocyte distribution width [id number]- 28 05:34:00Identifier 788-0 Result Time 2019-05-18 05:34:00Unknown [...] code = 789-8) Ordering Physician UnknownLymphocyte proliferation [id number] 05:34: 00Identifier [id number] Result Time 2019-05-18 05:34:00Unknown Test Item Value Reference Range Comments Lymphocyte proliferation test (test 4.4 10^3/ul Unknown Unknown F code = EBD2904) Ordering Physician UnknownSerum or plasma thyroid stimulating [...]
--- OUTSIDE RECORDS SUMMARY | 2019-08-09 02:27 | XMS REPORT ---
:1950 Author Organization [facility] Care Team Providers Name Role Phone Unavailable [...] and itis and colitis, colitis, unspecified unspecified terminal operator FDC Diagnosis Active Bre (current) (current) En use of use of opiate opiate analgesic analgesic Other long Other long Diagnosis Active Bre term term En (current) (current) drug drug therapy therapy Pain frequent Pain Mgmt Resolve 2019-05-31 [place] pain d 05-21 08:55:00 [place] 10:30: [id number] Respiratory dyspnea Respirator Resolve 2019-2019-05-31 [place] present y d 05-21 08:55:00 [place] 10:30: [id number] 00 Integument pressure Integument Active 2019-0 [place] ulcer 05-21 [place] present 10:30: [id number] 00 Integument skin Integument Active [place] integrity 05-21 Ava risk 10:30: [id number] 00 Nutrition nutritional Nutrition Active [place] restriction 05-21 Ava s 10:30: [id number] 00 Elimination urinary Eliminatio Resolve 2019-05-31 [place] incontinenc n d 05-21 08:55:00 [place] e 10:30: [id number] 00 Elimination bowel Eliminatio Resolve 2019-05-31 [place] incontinenc n d 05-21 08:55:00 [place] e 10:30: [id number] 00 Elimination diarrhea Eliminatio Resolve 2019-05-31 [place] n d 05-21 08:55:00 [place] 10:30: [id number] 00 Elimination nausea/vomi Eliminatio Resolve 2019-05-31 [place] ting n d 05-21 08:55:00 [place] 10:30: [id number] 00 Neuro confusion Neuro/Emot Active [place] present ion 05-21 [place] 10:30: [id number] 00 Activity ADL Activity Active [place] assistance 05-21 Ava required 10:30: [id number] 00 Activity self-care Activity Resolve 2019-05-24 [place] deficit d 05-21 11:15:00 [place] 10:30: [id number] 00 Safety cannot be Safety Active 2019-0 [place] left alone 05-21 [place] 10:30: [id number] 00 Safety fall risk Safety Resolve 2019-05-24 [place] factor d 05-21 11:15:00 [place] present 10:30: [id number] 00 Safety risk for Safety Resolve 2019-05-24 [place] hospitaliza d 05-21 11:15:00 [place] tion 10:30: [id number] 00 Medication oral med Meds Resolve 2019-05-24 [place] assistance d 05-21 11:15:00 [place] required 10:30: [id number] 00 Medication knowledge/s Meds Resolve 2019-2019-05-24 [place] kill d 05-21 11:15:00 [place] deficit: pt 10:30: [id number] 00 Diagnoses knowledge/s Diagnoses Active [place] kill 05-21 [place] deficit: pt 10:30: [id number] 00 Diagnoses knowledge/s Diagnoses Active Altashorty pinedo 05-21 [place] deficit: cg 10:30: [id number] 00 Musculoskel transfer Musculoske Resolve 2019-05-24 [place] etal assistance letal d 05-21 11:15:00 [place] required 10:30: [id number] 00 Musculoskel requires Musculoske Resolve 2019-05-24 [place] etal human letal d 05-21 11:15:00 [place] assist to 10:30: [id number] leave home 00 Bed transfer PT/OT: Bed Active Robbi Mobility/Tr deficit: Mobility/T 05-21 olra Brown sit/stand ransfer 15:00: PT 00 [id number] Bed transfer PT/OT: Bed Active Robbi Mobility/Tr deficit: Mobility/T 05-21 lora Brown standing ransfer 15:00: PT pivot 00 [id number] Bed transfer PT/OT: Bed Active Robbi Mobility/Tr deficit: Mobility/T 05-21 lora Brown toilet/comm ransfer 15:00: PT ode 00 064322-3 Bed transfer PT/OT: Bed Active Robbi Mobility/Tr deficit: Mobility/T 05-21 lora Brown shower/tub ransfer 15:00: PT 00 [id number] Bed knowledge/s PT/OT: Bed Active Robbi Mobility/Tr kill Mobility/T 05-21 lora Brown deficit: pt ransfer 15:00: PT 00 [id number] Bed bed PT/OT: Bed Active 0 Robbi Mobility/Tr mobility Mobility/T 05-21 lora Brown deficit ransfer 15:00: PT 00 894605-2 Balance/End balance/community health program coordinator PT/OT: Active Robbi urance rdination Balance/En 05-21 Kevin, deficit durance 15:00: PT 00 065355-0 Gait/Locomo gait PT/OT: Active 2020-0 Robbi tion deficit Gait/Locom 1- Kevin, problems otion 15:00: PT 00 537745-1 Gait/Locomo knowledge/s PT/OT: Active 2020- Robbi tion kill Gait/Locom 05-21 Kevin, problems deficit: pt otion 15:00: PT 00 [id number] Safety can be left Safety Active 2020-0 Bre alone for 2-03 [place] only short 11:15: periods 00 Safety risk for Safety Resolve 2020-0 2019-05-31 Robbi hospitaliza d 2-05 08:55:00 Kevinantoine jaureguion 13:00: PT 00 [id number] Neuro anxiety Neuro/Emot Active 2019- Bre present ion 2- [place] 11:55: 00 Musculoskel requires Musculoske Resolve 2020-0 2019-05-31 Bre etal human letal d 2- 08:55:00 [place] assist to 11:55: leave home 00 Safety risk for Safety Unknown 2019- Robbi hospitaliza 2- antoine Brownon 13:00: PT 00 328309-2 Safety risk for Safety Active 2020- Elva hospitaliza 2- Ulices Steven tion 12:05: [id number] 00 Respiratory dyspnea Respirator Active 2019- Bre present y 2- [place] 10:45: 00 Elimination urinary Eliminatio Resolve 2019-2019-06-03 Bre incontinenc n d 2- 10:45:00 En e 10:45: 00 Musculoskel requires Musculoske Active Bre etal human letal 2- [place] assist to 10:45: leave home 00 Elimination urinary Eliminatio Active Bre incontinenc n 2- En e 10:35: 00 Elimination diarrhea Eliminatio Active 2019- Bre n 2- [place] 09:00: 00 Respiratory lung sounds Respirator Active 2020-0 Robbi deficit y 2-27 Kevin, 11:15: PT 00 [id number] Infection s/s of Infection Active 2020- Bre infection 3- [place] 12:20: 00 Nutrition changing Nutrition Active Bre weight/appe 07-14 [place] tite 12:20: 00 Neuro depressive Neuro/Emot Active Bre feelings ion 07-14 [place] present 12:20: 00 Activity self-care Activity Active Bre deficit 07-14 [place] 12:20: 00 Safety fall risk Safety Active Bre factor 07-14 [place] present 12:20: 00 Musculoskel transfer Musculoske Active Bre etal assistance letal 07-14 [place] required 12:20: 00 Allergies, Adverse Reactions, Alerts Allergy Name [...] Yes Bael Unknown Unknown ugo ugo 05-21 ,Jad (vitamin (vitamin D3) 25 mcg D3) 25 mcg (1,000 (1,000 unit) unit) tablet tablet calcitrioL calcitrioL Yes Bael Unknown Unknown 0.25 mcg 0.25 mcg 05-21 ,Jad capsule capsule ammonium ammonium Yes Bael Unknown Unknown lactate 12 lactate 12 05-21 Jad TSAI % topical % topical cream cream Ferrous Ferrous Yes Bael Unknown Unknown Sulfate Sulfate 05-21 ,Jad dexAMETHaso dexAMETHaso Yes Bael Unknown Unknown ne 2 mg ne 2 mg 05-21 MD,Jad tablet tablet omeprazole omeprazole Yes Bael Unknown Unknown 20 mg 20 mg 05-21 MD,Jad capsule,del capsule,del ayed ayed release release ondansetron ondansetron Yes Bael Unknown Unknown HCL 4 mg HCL 4 mg 05-21 MD,Jad tablet tablet loratadine loratadine Yes Bael Unknown Unknown 10 mg 10 mg 05-21 MD,Jad tablet tablet traMADoL 50 traMADoL 50 Yes Bael Unknown Unknown mg tablet mg tablet 05-21 MD,Jad Levothyroxi Levothyroxi Yes Bael Unknown Unknown ne Sodium ne [...] drops brimonidine brimonidine Yes Bael Unknown Unknown 0.2 0.2 05-21 MD,Jad %-timoloL %-timoloL 0.5 % eye 0.5 % eye drops drops Vital Signs Vital Name Observation Time Observation Value Comments SYSTOLIC mm[Hg] 2019-07-28 18:11:17 88 mm[Hg] mm[Hg] Method: Sit SYSTOLIC mm[Hg] 1840-04-20 00:00:00 108 mm[Hg] mm[Hg] Method: Lie DIASTOLIC mm[Hg] 2019-07-28 18:11:17 56 mm[Hg] mm[Hg] Method: Sit DIASTOLIC mm[Hg] 1840-04-20 00:00:00 70 mm[Hg] mm[Hg] Method: Lie PULSE 2019-07-28 18:11:17 106 /min /min RESP RATE 2019-07-28 18:11:17 20 /min /min TEMP 2019-07-28 18:11:17 97.8 [degF] Procedures This patient has no known [...] Ordering Physician UnknownSerum or plasma albumin/globulin mass [id number] 05:34:00Identifier 1759-0 Result Time 2019-05-18 05:34:00Unknown Test Item Value Reference Range Comments Serum or plasma albumin/globulin mass ratio 1.0 Unknown Unknown F (test code = 1759-0) Ordering Physician UnknownSerum or plasma calcium measurement (mass/volume)05-18 05:34:00Identifier 49880-6 Result Time 2019-05-18 05:34:00Unknown Test Item Value Reference Range Comments Serum or plasma calcium measurement 6.9 mg/dL Unknown Unknown F (mass/volume) (test code = 52852-2) Ordering Physician UnknownSerum or plasma magnesium measurement (mass/volume) 2019-05-18 05:34:00Identifier 10633-6 Result Time 2019-05-18 05:34:00Unknown Test Item Value Reference Range Comments Serum or plasma magnesium measurement 1.4 mg/dL Unknown Unknown F (mass/volume) (test code = 86377-3) Ordering Physician UnknownSerum or plasma aspartate aminotransferase measurement (enzymatic activity/volume)2019-05-18 05:34:00Identifier 1919-8 Result Time 2019-05-18 05:34:00Unknown Test Item Value Reference Range Comments Serum or plasma aspartate aminotransferase 33 U/L Unknown Unknown F measurement (enzymatic activity/volume) (test code = 1919-8) Ordering Physician UnknownSerum or plasma total bilirubin measurement (mass/ volume)2019-05-18 05:34:00Identifier 1974-05 Result Time 2019-05-18 05:34: 00Unknown Test Item Value Reference Range Comments Serum or plasma total bilirubin 0.50 mg/dL Unknown Unknown F measurement (mass/volume) (test code = 1974-05) Ordering Physician UnknownSerum or plasma carbon dioxide, total measurement ( moles/volume)2019-05-18 05:34:00Identifier 2027- Result Time 2019-05-18 05:34: 00Unknown Test Item Value Reference Range Comments Serum or plasma carbon dioxide, total 25 mmol/L Unknown Unknown F measurement (moles/volume) (test code = 2027-) Ordering Physician UnknownSerum or plasma chloride measurement (moles/volume) 2019-05-18 05:34:00Identifier 5-0 Result Time 2019-05-18 05:34:00Unknown Test Item Value Reference Range Comments Serum or plasma chloride measurement 101 mmol/L Unknown Unknown F (moles/volume) (test code = 2074-0) Ordering Physician UnknownSerum or plasma creatinine measurement [...] Ordering Physician UnknownSerum or plasma urea nitrogen/creatinine [id number]- 28 05:34:00Identifier 3097-3 Result Time 2019-05-18 05:34:00Unknown Test Item Value Reference Range Comments Serum or plasma urea nitrogen/creatinine 26.0 Unknown Unknown F ratio (test code = 3097-3) Ordering Physician UnknownAutomated blood platelet mean volume [id number]- 01-28 05:34:00Identifier 45737-7 Result Time 2019-05-18 05:34:00Unknown Test Item Value Reference Range Comments Automated blood platelet mean volume 7.0 fL Unknown Unknown F measurement (test code = 48627-8) Ordering Physician UnknownSerum or plasma anion [id number] 05:34: 00Identifier 51175-1 Result Time 2019-05-18 05:34:00Unknown Test Item Value Reference Range Comments Serum or plasma anion gap (test code = 9 mmol/L Unknown Unknown F 99872-1) Ordering Physician UnknownAutomated blood leukocytes count corrected for nucleated erythrocytes (number/volume)2019-05-18 05:34:00Identifier 89923-0 Result Time 2019-05-18 05:34:00Unknown Test Item Value Reference Range Comments Automated blood leukocytes count 5.9 10^3/uL Unknown Unknown F corrected for nucleated erythrocytes (number/volume) (test code = 58571-0) Ordering Physician UnknownAutomated blood nucleated erythrocytes [id number]- 01-28 05:34:00Identifier 83793-7 Result Time 2019-05-18 05:34:00Unknown Test Item Value Reference Range Comments Automated blood nucleated erythrocytes 0.6 Unknown Unknown F detection (test code = 23789-6) Ordering Physician UnknownAutomated blood hematocrit (percentage)2019-05-18 05: 34:00Identifier 4544-3 Result Time 2019-05-18 05:34:00Unknown Test Item Value Reference Range Comments Automated blood hematocrit (percentage) (test 27 % Unknown Unknown F code = 4544-3) Ordering Physician UnknownEstimated glomerular filtration rate (GFR) non- Rvyltdkd2112-82-93 05:34:00Identifier 29015-8 Result Time 2019-05-18 05: 34:00Unknown Test Item Value Reference Range Comments Estimated glomerular filtration rate (GFR) 122.0 Unknown Unknown F non- (test code = 09573-0) Ordering Physician UnknownAutomated blood monocytes/100 [id number] 05: 34:00Identifier 5905-5 Result Time 2019-05-18 05:34:00Unknown Test Item Value Reference Range Comments Automated blood monocytes/100 leukocytes 6.1 % Unknown Unknown F (test code = 5905-5) Ordering Physician UnknownSerum or plasma albumin measurement by bromocresol green (BCG) dye binding method ([id number] 05:34:00Identifier 32870-5 Result Time 2019-05-18 05:34:00Unknown Test Item Value Reference Range Comments Serum or plasma albumin measurement by 2.6 g/dL Unknown Unknown F bromocresol green (BCG) dye binding method (ma (test code = 15734-4) Ordering Physician UnknownSerum or plasma alkaline phosphatase [...] = 704-7) Ordering Physician UnknownAutomated blood basophils/100 [id number] 05: 34:00Identifier 706-2 Result Time 2019-05-18 05:34:00Unknown [...] = 711-2) Ordering Physician UnknownAutomated blood eosinophils/100 [id number] 05:34:00Identifier 713-8 Result Time 2019-05-18 05:34:00Unknown Test [...] = 731-0) Ordering Physician UnknownAutomated blood lymphocytes/100 [id number] 05:34:00Identifier 736-9 Result Time 2019-05-18 05:34:00Unknown Test Item Value Reference Range Comments Automated blood lymphocytes/100 leukocytes 19.5 % Unknown Unknown F (test code = 736-9) Ordering Physician UnknownBlood monocytes automated count (number/volume)2019-04 05:34:00Identifier 742-7 Result Time 2019-05-18 05:34:00Unknown Test Item Value Reference Range Comments Blood monocytes automated count 0.4 10^3/ul Unknown Unknown F (number/volume) (test code = 742-7) Ordering Physician UnknownAutomated blood neutrophils/100 [id number] 05:34:00Identifier 770-8 Result Time 2019-05-18 05:34:00Unknown Test [...] UnknownAutomated erythrocyte mean corpuscular hemoglobin concentration measurement (mass/kig2447-49-26 05:34:00Identifier 786-4 Result Time 2019-05-18 05:34:00Unknown Test Item Value Reference Range Comments Automated erythrocyte mean corpuscular 34 g/dL Unknown Unknown F hemoglobin concentration measurement (mass/vol (test code = 786-4) Ordering Physician UnknownAutomated erythrocyte mean corpuscular awitxi4798-13- 28 05:34:00Identifier 787-2 Result Time 2019-05-18 05:34:00Unknown Test Item Value Reference Range Comments Automated erythrocyte mean corpuscular 109 fL Unknown Unknown F volume (test code = 787-2) Ordering Physician UnknownAutomated erythrocyte distribution width [id number]- 28 05:34:00Identifier 788-0 Result Time 2019-05-18 05:34:00Unknown [...] code = 789-8) Ordering Physician UnknownLymphocyte proliferation [id number] 05:34: 00Identifier [id number] Result Time 2019-05-18 05:34:00Unknown Test Item Value Reference Range Comments Lymphocyte proliferation test (test 4.4 10^3/ul Unknown Unknown F code = HMC5137) Ordering Physician UnknownSerum or plasma thyroid stimulating [...]
--- OUTSIDE RECORDS SUMMARY | 2019-08-09 02:27 | XMS REPORT ---
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 Other long Other long Diagnosis Active Bre term term En (current) (current) drug drug therapy therapy Pain frequent Pain Mgmt Resolve 2019-05-31 [place] pain d 05-21 08:55:00 [place] 10:30: [id number] 00 Respiratory dyspnea Respirator Resolve 2019-0 2019-05-31 [place] present y d 05-21 08:55:00 [place] 10:30: [id number] 00 Integument pressure Integument Active 2019-0 [place] ulcer 05-21 [place] present 10:30: [id number] 00 Integument skin Integument Active [place] integrity 05-21 [place] risk 10:30: [id number] 00 Nutrition nutritional Nutrition Active [place] restriction 05-21 [place] s 10:30: [id number] 00 Elimination urinary Eliminatio Resolve 2019-05-31 [place] incontinenc n d 05-21 08:55:00 [place] e 10:30: [id number] 00 Elimination bowel Eliminatio Resolve 2019-05-31 [place] incontinenc n d 05-21 08:55:00 [place] e 10:30: [id number] 00 Elimination diarrhea Eliminatio Resolve 2019-05-31 [place] n d 05-21 08:55:00 [place] 10:30: [id number] 00 Elimination nausea/vomi Eliminatio Resolve 2019-05-31 [place] ting n d 05-21 08:55:00 [place] 10:30: [id number] 00 Neuro confusion Neuro/Emot Active 0 [place] present ion 05-21 [place] 10:30: [id number] 00 Activity ADL Activity Active [place] assistance 05-21 [place] required 10:30: [id number] Activity self-care Activity Resolve 2019-05-24 [place] deficit d 05-21 11:15:00 [place] 10:30: [id number] 00 Safety cannot be Safety Active 2019-0 [place] left alone 05-21 [place] 10:30: [id number] 00 Safety fall risk Safety Resolve 2019-2019-05-24 [place] factor d 05-21 11:15:00 [place] present 10:30: [id number] 00 Safety risk for Safety Resolve 2019-05-24 [place] hospital[facility] d 05-21 11:15:00 [place] tion 10:30: [id number] 00 Medication oral med Meds Resolve 2019-05-24 [place] assistance d 05-21 11:15:00 [place] required 10:30: [id number] 00 Medication knowledge/s Meds Resolve 2019-2019-05-24 [place] d 05-21 11:15:00 [place] deficit: pt 10:30: [id number] 00 Diagnoses knowledge/s Diagnoses Active [place] pinedo 05-21 [place] deficit: pt 10:30: [id number] 00 Diagnoses knowledge/s Diagnoses Active [place] p[place]o 05-21 [place] deficit: cg 10:30: [id number] 00 Musculoskel transfer Musculoske Resolve 2019-05-24 [place] etal assistance letal d 05-21 11:15:00 [place] required 10:30: [id number] 00 Musculoskel requires Musculoske Resolve 2019-05-24 [place] etal human letal d 05-21 11:15:00 [place] assist to 10:30: [id number] leave home 00 Bed transfer PT/OT: Bed Active Robbi Mobility/Tr deficit: Mobility/T 05-21 lora Brown sit/stand ransfer 15:00: PT 00 [id number] Bed transfer PT/OT: Bed Active [place] Mobility/Tr deficit: Mobility/T 05-21 lora Brown standing ransfer 15:00: PT pivot 00 [id number] Bed transfer PT/OT: Bed Active [place] Mobility/Tr deficit: Mobility/T 05-21 lora Brown toilet/comm ransfer 15:00: PT ode 00 [id number] Bed transfer PT/OT: Bed Active [place] Mobility/Tr deficit: Mobility/T 05-21 lora Brown shower/tub ransfer 15:00: PT 00 [id number] Bed knowledge/s PT/OT: Bed Active [place]bi Mobility/Tr kill Mobility/T 05-21 lora Brown deficit: pt ransfer 15:00: PT 00 [id number] Bed bed PT/OT: Bed Active 0 [place]bi Mobility/Tr mobility Mobility/T 05-21 lora Brown deficit ransfer 15:00: PT 00 [id number] 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 PT/OT: Active Robbi urance rdination Balance/En 05-21 Kevin, deficit durance 15:00: PT 00 [id number] Gait/Locomo gait PT/OT: Active 2020-0 Robbi tion deficit Gait/Locom 05-21 Kevin, problems otion 15:00: PT 00 910963-5 Gait/Locomo knowledge/s PT/OT: Active 2020-0 Robbi tion kill Gait/Locom 05-21 Kevin, problems deficit: pt otion 15:00: PT 00 842374-5 Safety can be left Safety Active 2020-0 Bre alone for 2-03 [place] only short 11:15: periods 00 Safety risk for Safety Resolve 2020-0 2019-05-31 [facility] hospitaliza d 2-05 08:55:00 Kevin, tion 13:00: PT 00 509498-5 Neuro anxiety Neuro/Emot Active 2019- Bre present ion 2- [place] 11:55: 00 [place] requires Musculoske Resolve 2019-0 2019-05-31 Bre etal human letal d 2- 08:55:00 [place] assist to 11:55: leave home 00 Safety risk for Safety Unknown 2019- Robbi hospitaliza 2- Kevin, tion 13:00: PT 00 487000-9 Safety risk for Safety Active 2020- [facility] hospitaliza 2-11 [place] tion 12:05: [id number] 00 Respiratory dyspnea Respirator Active 2019- Bre present y 2- [place] 10:45: 00 Elimination urinary Eliminatio Resolve 2019-06-03 Bre incontinenc n d 2- 10:45:00 En e 10:45: 00 Musculoskel requires Musculoske Active 2019- Bre etal human letal 2- [place] assist to 10:45: leave home 00 Elimination urinary Eliminatio Active 2019- Bre incontinenc n 2- En e 10:35: 00 Elimination diarrhea Eliminatio Active 2019- Bre n 2- [place] 09:00: 00 Respiratory lung sounds Respirator Active 2020-0 Robbi deficit y 2- Kevin, 11:15: PT 00 [id number] Infection s/s of Infection Active 2020-0 Bre infection 3- [place] 12:20: 00 Nutrition [...] (SIG) Name Name atenolol 50 atenolol 50 Yes Bael Unknown Unknown mg tablet [...] Sulfate Sulfate 05-21 Jad TSAI dexAMETHaso dexAMETHaso 2019- Yes Bael Unknown Unknown ne 2 mg ne 2 mg 05-21 MDJad tablet tablet omeprazole omeprazole Yes Bael Unknown Unknown 20 mg 20 mg 05-21 Jad TSAI capsule,del capsule,del ayed ayed release release ondansetron ondansetron 2019- Yes Bael Unknown Unknown HCl 4 mg HCl 4 mg 05-21 MD,Jad tablet tablet loratadine loratadine 2019- Yes Bael Unknown Unknown 10 mg 10 [...] Observation Time Observation Value Comments SYSTOLIC mm[Hg] 2019-07-15 18:11:04 100 mm[Hg] mm[Hg] Method: Sit DIASTOLIC mm[Hg] 2019-07-15 18:11:04 60 mm[Hg] mm[Hg] Method: Sit PULSE 2019-07-15 18:11:04 96 /min /min RESP RATE 2019-07-15 18:11:04 16 /min /min TEMP 2019-07-15 18:11:04 98.5 [degF] Procedures This patient has no known [...] Ordering Physician UnknownSerum or plasma albumin/globulin mass [id number] 05:34:00Identifier 1759-0 Result Time 2019-05-18 05:34:00Unknown Test Item Value Reference Range Comments Serum or plasma albumin/globulin mass ratio 1.0 Unknown Unknown F (test code = 1759-0) Ordering Physician UnknownSerum or plasma calcium measurement (mass/volume)05-18 05:34:00Identifier 15919-3 Result Time 2019-05-18 05:34:00Unknown Test Item Value Reference Range Comments Serum or plasma calcium measurement 6.9 mg/dL Unknown Unknown F (mass/volume) (test code = 35560-7) Ordering Physician UnknownSerum or plasma magnesium measurement (mass/volume) 2019-05-18 05:34:00Identifier 17278-7 Result Time 2019-05-18 05:34:00Unknown Test Item Value Reference Range Comments Serum or plasma magnesium measurement 1.4 mg/dL Unknown Unknown F (mass/volume) (test code = 56753-8) Ordering Physician UnknownSerum or plasma aspartate aminotransferase measurement (enzymatic activity/volume)2019-05-18 05:34:00Identifier 1919-11 Result Time 2019-05-18 05:34:00Unknown Test Item Value [...] Unknown F measurement (moles/volume) (test code = 8-9) Ordering Physician UnknownSerum or plasma chloride measurement [...] Unknown Unknown F (mass/volume) (test code = 2159-0) Ordering Physician UnknownSerum glucose measurement (mass/volume)2019-05-18 05: [...] Ordering Physician UnknownSerum or plasma urea nitrogen/creatinine [id number]- 28 05:34:00Identifier 3097-3 Result Time 2019-05-18 05:34:00Unknown Test Item Value Reference Range Comments Serum or plasma urea nitrogen/creatinine 26.0 Unknown Unknown F ratio (test code = 3097-3) Ordering Physician UnknownAutomated blood platelet mean volume [id number]- 01-28 05:34:00Identifier 84517-3 Result Time 2019-05-18 05:34:00Unknown Test Item Value Reference Range Comments Automated blood platelet mean volume 7.0 fL Unknown Unknown F measurement (test code = 05343-3) Ordering Physician UnknownSerum or plasma anion [id number] 05:34: 00Identifier 51114-3 Result Time 2019-05-18 05:34:00Unknown Test Item Value Reference Range Comments Serum or plasma anion gap (test code = 9 mmol/L Unknown Unknown F 61203-4) Ordering Physician UnknownAutomated blood leukocytes count corrected for nucleated erythrocytes (number/volume)2019-05-18 05:34:00Identifier 55305-5 Result Time 2019-05-18 05:34:00Unknown Test Item Value Reference Range Comments Automated blood leukocytes count 5.9 10^3/uL Unknown Unknown F corrected for nucleated erythrocytes (number/volume) (test code = 44174-1) Ordering Physician UnknownAutomated blood nucleated erythrocytes [id number]- 01-28 05:34:00Identifier 68938-0 Result Time 2019-05-18 05:34:00Unknown Test Item Value Reference Range Comments Automated blood nucleated erythrocytes 0.6 Unknown Unknown F detection (test code = 73599-1) Ordering Physician UnknownAutomated blood hematocrit (percentage)2019-05-18 05: 34:00Identifier 4544-3 Result Time 2019-05-18 05:34:00Unknown Test Item Value Reference Range Comments Automated blood hematocrit (percentage) (test 27 % Unknown Unknown F code = 4544-3) Ordering Physician UnknownEstimated glomerular filtration rate (GFR) non- [id number] 05:34:00Identifier 25021-8 Result Time 2019-05-18 05: 34:00Unknown Test Item Value Reference Range Comments Estimated glomerular filtration rate (GFR) 122.0 Unknown Unknown F non- (test code = 73985-2) Ordering Physician UnknownAutomated blood monocytes/100 [id number] 05: 34:00Identifier 5905-5 Result Time 2019-05-18 05:34:00Unknown Test Item Value Reference Range Comments Automated blood monocytes/100 leukocytes 6.1 % Unknown Unknown F (test code = 5905-5) Ordering Physician UnknownSerum or plasma albumin measurement by bromocresol green (BCG) dye binding method ([id number] 05:34:00Identifier 26378-3 Result Time 2019-05-18 05:34:00Unknown Test Item Value Reference Range Comments Serum or plasma albumin measurement by 2.6 g/dL Unknown Unknown F bromocresol green (BCG) dye binding method (ma (test code = 27313-6) Ordering Physician UnknownSerum or plasma alkaline phosphatase [...] = 704-7) Ordering Physician UnknownAutomated blood basophils/100 [id number] 05: 34:00Identifier 706-2 Result Time 2019-05-18 05:34:00Unknown [...] = 711-2) Ordering Physician UnknownAutomated blood eosinophils/100 [id number] 05:34:00Identifier 713-8 Result Time 2019-05-18 05:34:00Unknown Test [...] = 731-0) Ordering Physician UnknownAutomated blood lymphocytes/100 [id number] 05:34:00Identifier 736-9 Result Time 2019-05-18 05:34:00Unknown Test Item Value Reference Range Comments Automated blood lymphocytes/100 leukocytes 19.5 % Unknown Unknown F (test code = 736-9) Ordering Physician UnknownBlood monocytes automated count (number/volume)2019-04 05:34:00Identifier 742-7 Result Time 2019-05-18 05:34:00Unknown Test Item Value Reference Range Comments Blood monocytes automated count 0.4 10^3/ul Unknown Unknown F (number/volume) (test code = 742-7) Ordering Physician UnknownAutomated blood neutrophils/100 [id number] 05:34:00Identifier 770-8 Result Time 2019-05-18 05:34:00Unknown Test [...] UnknownAutomated erythrocyte mean corpuscular hemoglobin concentration measurement (mass/mij1098-75-30 05:34:00Identifier 786-4 Result Time 2019-05-18 05:34:00Unknown Test Item Value Reference Range Comments Automated erythrocyte mean corpuscular 34 g/dL Unknown Unknown F hemoglobin concentration measurement (mass/vol (test code = 786-4) Ordering Physician UnknownAutomated erythrocyte mean corpuscular [id number]- 28 05:34:00Identifier 787-2 Result Time 2019-05-18 05:34:00Unknown Test Item Value Reference Range Comments Automated erythrocyte mean corpuscular 109 fL Unknown Unknown F volume (test code = 787-2) Ordering Physician UnknownAutomated erythrocyte distribution width [id number]- 28 05:34:00Identifier 788-0 Result Time 2019-05-18 05:34:00Unknown [...] code = 789-8) Ordering Physician UnknownLymphocyte proliferation [id number] 05:34: 00Identifier [id number] Result Time 2019-05-18 05:34:00Unknown Test Item Value Reference Range Comments Lymphocyte proliferation test (test 4.4 10^3/ul Unknown Unknown F code = QOV5546) Ordering Physician UnknownSerum or plasma thyroid stimulating [...]
--- OUTSIDE RECORDS SUMMARY | 2019-08-09 02:27 | XMS REPORT ---
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 Other long Other long Diagnosis Active rBe term term En (current) (current) drug drug therapy therapy Pain frequent Pain Mgmt Resolve 2019-05-31 [place] pain d 05-21 08:55:00 [place] 10:30: [id number] 00 Respiratory dyspnea Respirator Resolve 2019-0 2019-05-31 [place] present y d 05-21 08:55:00 [place] 10:30: [id number] 00 Integument pressure Integument Active 2019-0 [place] ulcer 05-21 [place] present 10:30: [id number] 00 Integument skin Integument Active [place] integrity 05-21 [place] risk 10:30: [id number] 00 Nutrition nutritional Nutrition Active [place] restriction 05-21 [place] s 10:30: [id number] 00 Elimination urinary Eliminatio Resolve 2019-05-31 [place] incontinenc n d 05-21 08:55:00 [place] e 10:30: [id number] 00 Elimination bowel Eliminatio Resolve 2019-05-31 [place] incontinenc n d 05-21 08:55:00 [place] e 10:30: [id number] 00 Elimination diarrhea Eliminatio Resolve 2019-05-31 [place] n d 05-21 08:55:00 [place] 10:30: [id number] 00 Elimination nausea/vomi Eliminatio Resolve 2019-05-31 [place] ting n d 05-21 08:55:00 [place] 10:30: [id number] 00 Neuro confusion Neuro/Emot Active 0 [place] present ion 05-21 [place] 10:30: [id number] 00 Activity ADL Activity Active [place] assistance 05-21 [place] required 10:30: [id number] 00 Activity self-care Activity Resolve 2019-05-24 [place] deficit d 05-21 11:15:00 [place] 10:30: [id number] 00 Safety cannot be Safety Active 2019-0 [place] left alone 05-21 [place] 10:30: [id number] 00 Safety fall risk Safety Resolve 2019-2019-05-24 [place] factor d 05-21 11:15:00 [place] present 10:30: [id number] 00 Safety risk for Safety Resolve 2019-05-24 [place] hospitaliza d 05-21 11:15:00 [place] tion 10:30: [id number] 00 Medication oral med Meds Resolve 2019-05-24 [place] assistance d 05-21 11:15:00 [place] required 10:30: [id number] 00 Medication knowledge/s Meds Resolve 2019-2019-05-24 [place] p[place] d 05-21 11:15:00 [place] deficit: pt 10:30: [id number] 00 Diagnoses knowledge/s Diagnoses Active [place] pinedo 05-21 [place] deficit: pt 10:30: [id number] 00 Diagnoses knowledge/s Diagnoses Active [place] pinedo 05-21 [place] deficit: cg 10:30: [id number] 00 Musculoskel transfer Musculoske Resolve 2019-05-24 [place] etal assistance letal d 05-21 11:15:00 [place] required 10:30: [id number] 00 Musculoskel requires Musculoske Resolve 2019-05-24 [place] etal human letal d 05-21 11:15:00 [place] assist to 10:30: [id number] leave home 00 Bed transfer PT/OT: Bed Active Robbi Mobility/Tr deficit: Mobility/T 05-21 lora Brown sit/stand ransfer 15:00: PT 00 830037-2 Bed transfer PT/OT: Bed Active Robbi Mobility/Tr deficit: Mobility/T 05-21 lora Brown standing ransfer 15:00: PT pivot 00 272537-6 Bed transfer PT/OT: Bed Active Robbi Mobility/Tr deficit: Mobility/T 05-21 lora Brown toilet/comm ransfer 15:00: PT ode 00 799338-8 Bed transfer PT/OT: Bed Active Robbi Mobility/Tr deficit: Mobility/T 05-21 lora Brown shower/tub ransfer 15:00: PT 00 085369-9 Bed knowledge/s PT/OT: Bed Active Robbi Mobility/Tr kill Mobility/T 05-21 lora Brown deficit: pt ransfer 15:00: PT 00 150265-7 Bed bed PT/OT: Bed Active 0 Robbi Mobility/Tr mobility Mobility/T 05-21 lora Brown deficit ransfer 15:00: PT 00 424473-3 Balance/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 coordinator PT/OT: Active Robbi urance rdination Balance/En 05-21 Kevin, deficit durance 15:00: PT 00 308897-9 Gait/Locomo gait PT/OT: Active 2020-0 Robbi tion deficit Gait/Locom 05-21 Kevin, problems otion 15:00: PT 00 143320-5 Gait/Locomo knowledge/s PT/OT: Active 2020-0 Robbi tion kill Gait/Locom 05-21 Kevin, problems deficit: pt otion 15:00: PT 00 412317-1 Safety can be left Safety Active 2020-0 Bre alone for 2-03 [place] only short 11:15: periods 00 Safety risk for Safety Resolve 2020-0 2019-05-31 Robbi hospitaliza d 2-05 08:55:00 Kevin, tion 13:00: PT 00 775298-8 Neuro anxiety Neuro/Emot Active 2019- Bre present ion 2- [place] 11:55: 00 Musculoskel requires Musculoske Resolve 2019-0 2019-05-31 Bre etal human letal d 2- 08:55:00 [place] assist to 11:55: leave home 00 Safety risk for Safety Unknown 2019- Robbi hospitaliza 2- Kevin, tion 13:00: PT 00 418601-8 Safety risk for Safety Active 2020- Elva hospitaliza 2-11 Ulic[place] Steven tion 12:05: [id number] 00 Respiratory dyspnea Respirator Active 2019- Bre [...] deficit y 2- Kevin, 11:15: PT 00 459120-7 Infection s/s of Infection Active 2020-0 Bre [...] ondansetron ondansetron 2019- Yes Bael Unknown Unknown HCL 4 mg HCL 4 mg 05-21 MD,Jad tablet tablet loratadine loratadine 2019- Yes Bael Unknown Unknown 10 mg 10 mg 05-21 MD,Jad tablet tablet traMADoL 50 traMADoL 50 2019- Yes Bael Unknown Unknown mg [...] Ordering Physician UnknownSerum or plasma albumin/globulin mass [id number] 05:34:00Identifier 1759-0 Result Time 2019-05-18 05:34:00Unknown Test Item Value Reference Range Comments Serum or plasma albumin/globulin mass ratio 1.0 Unknown Unknown F (test code = 1759-0) Ordering Physician UnknownSerum or plasma calcium measurement (mass/volume)05-18 05:34:00Identifier 22122-8 Result Time 2019-05-18 05:34:00Unknown Test Item Value Reference Range Comments Serum or plasma calcium measurement 6.9 mg/dL Unknown Unknown F (mass/volume) (test code = 67831-3) Ordering Physician UnknownSerum or plasma magnesium measurement (mass/volume) 2019-05-18 05:34:00Identifier 61685-8 Result Time 2019-05-18 05:34:00Unknown Test Item Value Reference Range Comments Serum or plasma magnesium measurement 1.4 mg/dL Unknown Unknown F (mass/volume) (test code = 71328-4) Ordering Physician UnknownSerum or plasma aspartate aminotransferase [...] Unknown F measurement (mass/volume) (test code = 1974-) Ordering Physician UnknownSerum or plasma carbon dioxide, [...] Unknown Unknown F (mass/volume) (test code = 0-0) Ordering Physician UnknownSerum glucose measurement (mass/volume)2019-05-18 05: [...] Ordering Physician UnknownSerum or plasma urea nitrogen/creatinine [id number]- 28 05:34:00Identifier 3097-3 Result Time 2019-05-18 05:34:00Unknown Test Item Value Reference Range Comments Serum or plasma urea nitrogen/creatinine 26.0 Unknown Unknown F ratio (test code = 3097-3) Ordering Physician UnknownAutomated blood platelet mean volume [id number]- 01-28 05:34:00Identifier 62815-2 Result Time 2019-05-18 05:34:00Unknown Test Item Value Reference Range Comments Automated blood platelet mean volume 7.0 fL Unknown Unknown F measurement (test code = 80420-9) Ordering Physician UnknownSerum or plasma anion [id number] 05:34: 00Identifier 46993-8 Result Time 2019-05-18 05:34:00Unknown Test Item Value Reference Range Comments Serum or plasma anion gap (test code = 9 mmol/L Unknown Unknown F 56338-7) Ordering Physician UnknownAutomated blood leukocytes count corrected for nucleated erythrocytes (number/volume)2019-05-18 05:34:00Identifier 93981-4 Result Time 2019-05-18 05:34:00Unknown Test Item Value Reference Range Comments Automated blood leukocytes count 5.9 10^3/uL Unknown Unknown F corrected for nucleated erythrocytes (number/volume) (test code = 14433-4) Ordering Physician UnknownAutomated blood nucleated erythrocytes qulwdedmq8842- 01-28 05:34:00Identifier 62245-6 Result Time 2019-05-18 05:34:00Unknown Test Item Value Reference Range Comments Automated blood nucleated erythrocytes 0.6 Unknown Unknown F detection (test code = 87199-5) Ordering Physician UnknownAutomated blood hematocrit (percentage)2019-05-18 05: 34:00Identifier 4544-3 Result Time 2019-05-18 05:34:00Unknown Test Item Value Reference Range Comments Automated blood hematocrit (percentage) (test 27 % Unknown Unknown F code = 4544-3) Ordering Physician UnknownEstimated glomerular filtration rate (GFR) non- [id number] 05:34:00Identifier 31456-9 Result Time 2019-05-18 05: 34:00Unknown Test Item Value Reference Range Comments Estimated glomerular filtration rate (GFR) 122.0 Unknown Unknown F non- (test code = 54788-4) Ordering Physician UnknownAutomated blood monocytes/100 [id number] 05: 34:00Identifier 5905-5 Result Time 2019-05-18 05:34:00Unknown Test Item Value Reference Range Comments Automated blood monocytes/100 leukocytes 6.1 % Unknown Unknown F (test code = 5905-5) Ordering Physician UnknownSerum or plasma albumin measurement by bromocresol green (BCG) dye binding method ([id number] 05:34:00Identifier 48351-1 Result Time 2019-05-18 05:34:00Unknown Test Item Value Reference Range Comments Serum or plasma albumin measurement by 2.6 g/dL Unknown Unknown F bromocresol green (BCG) dye binding method (ma (test code = 06300-0) Ordering Physician UnknownSerum or plasma alkaline phosphatase [...] = 704-7) Ordering Physician UnknownAutomated blood basophils/100 [id number] 05: 34:00Identifier 706-2 Result Time 2019-05-18 05:34:00Unknown [...] = 711-2) Ordering Physician UnknownAutomated blood eosinophils/100 [id number] 05:34:00Identifier 713-8 Result Time 2019-05-18 05:34:00Unknown Test [...] = 731-0) Ordering Physician UnknownAutomated blood lymphocytes/100 [id number] 05:34:00Identifier 736-9 Result Time 2019-05-18 05:34:00Unknown Test Item Value Reference Range Comments Automated blood lymphocytes/100 leukocytes 19.5 % Unknown Unknown F (test code = 736-9) Ordering Physician UnknownBlood monocytes automated count (number/volume)2019-04 05:34:00Identifier 742-7 Result Time 2019-05-18 05:34:00Unknown Test Item Value Reference Range Comments Blood monocytes automated count 0.4 10^3/ul Unknown Unknown F (number/volume) (test code = 742-7) Ordering Physician UnknownAutomated blood neutrophils/100 [id number] 05:34:00Identifier 770-8 Result Time 2019-05-18 05:34:00Unknown Test [...] UnknownAutomated erythrocyte mean corpuscular hemoglobin concentration measurement (mass/[id number] 05:34:00Identifier 786-4 Result Time 2019-05-18 05:34:00Unknown Test Item Value Reference Range Comments Automated erythrocyte mean corpuscular 34 g/dL Unknown Unknown F hemoglobin concentration measurement (mass/vol (test code = 786-4) Ordering Physician UnknownAutomated erythrocyte mean corpuscular [id number]- 28 05:34:00Identifier 787-2 Result Time 2019-05-18 05:34:00Unknown Test Item Value Reference Range Comments Automated erythrocyte mean corpuscular 109 fL Unknown Unknown F volume (test code = 787-2) Ordering Physician UnknownAutomated erythrocyte distribution width [id number]- 28 05:34:00Identifier 788-0 Result Time 2019-05-18 05:34:00Unknown [...] code = 789-8) Ordering Physician UnknownLymphocyte proliferation [id number] 05:34: 00Identifier [id number] Result Time 2019-05-18 05:34:00Unknown Test Item Value Reference Range Comments Lymphocyte proliferation test (test 4.4 10^3/ul Unknown Unknown F code = LHG3657) Ordering Physician UnknownSerum or plasma thyroid stimulating [...]
--- OUTSIDE RECORDS SUMMARY | 2019-08-09 02:27 | XMS REPORT ---
:1950 Author Organization [facility] Care Team Providers Name Role Phone Unavailable [...] Thrombocyto Thrombocyto Diagnosis Active Bre penia, penia, nE unspecified unspecified Gastro-esop Gastro-esop Diagnosis Active Bre hageal hageal En reflux reflux disease disease without without esophagitis esophagitis Migraine, Migraine, Diagnosis Active Bre unspecified unspecified En , not , not intractable intractable , without , without status status migrainosus migrainosus Noninfectiv Noninfectiv Diagnosis Active Li gastroenter gastroenter itis and itis and colitis, colitis, unspecified unspecified 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 Active Bre (current) (current) En use of use of opiate opiate analgesic analgesic Other long Other long Diagnosis Active Bre term term En (current) (current) drug drug therapy therapy Pain frequent Pain Mgmt Resolve 2019-05-31 [place] pain d 05-21 08:55:00 [place] 10:30: [id number] 00 Respiratory dyspnea Respirator Resolve 2019-2019-05-31 [place] present y d 05-21 08:55:00 [place] 10:30: [id number] 00 Integument pressure Integument Active 2019-0 [place] ulcer 05-21 [place] present 10:30: [id number] 00 Integument skin Integument Active [place] integrity 05-21 [facility] risk 10:30: [id number] 00 Nutrition nutritional Nutrition Active [place] restriction 05-21 Ava s 10:30: [id number] 00 Elimination urinary Eliminatio Resolve 2019-05-31 [place] incontinenc n d 05-21 08:55:00 [place] e 10:30: [id number] 00 Elimination bowel Eliminatio Resolve 2019-05-31 [place] incontinenc n d 05-21 08:55:00 [place] e 10:30: [id number] 00 Elimination diarrhea Eliminatio Resolve 2019-05-31 [place] n d 05-21 08:55:00 [place] 10:30: [id number] 00 Elimination nausea/vomi Eliminatio Resolve 2019-05-31 [place] ting n d 05-21 08:55:00 [place] 10:30: [id number] 00 Neuro confusion Neuro/Emot Active [place] present ion 05-21 [place] 10:30: [id number] 00 Activity ADL Activity Active [place] assistance 05-21 [facility] required 10:30: [id number] 00 Activity self-care Activity Resolve 2019-05-24 [place] deficit d 05-21 11:15:00 [place] 10:30: [id number] 00 Safety cannot be Safety Active 2019-0 [place] left alone 05-21 [place] 10:30: [id number] 00 Safety fall risk Safety Resolve 2019-05-24 [place] factor d 05-21 11:15:00 [place] present 10:30: [id number] Safety risk for Safety Resolve 2019-05-24 [place] hospitaliza d 05-21 11:15:00 [place] tion 10:30: [id number] 00 Medication oral med Meds Resolve 2019-05-24 [place] assistance d 05-21 11:15:00 [place] required 10:30: [id number] 00 Medication knowledge/s Meds Resolve 2019-2019-05-24 [place] kill d 05-21 11:15:00 [place] deficit: pt 10:30: [id number] 00 Diagnoses knowledge/s Diagnoses Active [place] kill 05-21 [facility] deficit: pt 10:30: [id number] 00 Diagnoses knowledge/s Diagnoses Active Altashorty pinedo 05-21 [place] deficit: cg 10:30: [id number] 00 Musculoskel transfer Musculoske Resolve 2019-05-24 [place] etal assistance letal d 05-21 11:15:00 [place] required 10:30: [id number] 00 Musculoskel requires Musculoske Resolve 2019-05-24 [place] etal human letal d 05-21 11:15:00 [place] assist to 10:30: [id number] leave home 00 Bed transfer PT/OT: Bed Active Robbi Mobility/Tr deficit: Mobility/T 05-21 lora Brown sit/stand ransfer 15:00: PT 00 [id number] Bed transfer PT/OT: Bed Active [facility]bi Mobility/Tr deficit: Mobility/T 05-21 lora Brown standing ransfer 15:00: PT pivot 00 [id number] Bed transfer PT/OT: Bed Active [facility]bi Mobility/Tr deficit: Mobility/T 05-21 lora Brown toilet/comm ransfer 15:00: PT ode 00 713544-0 Bed transfer PT/OT: Bed Active Robbi Mobility/Tr deficit: Mobility/T 05-21 lora Brown shower/tub ransfer 15:00: PT 00 940240-1 Bed knowledge/s PT/OT: Bed Active Robbi Mobility/Tr kill Mobility/T 05-21 lora Brown deficit: pt ransfer 15:00: PT 00 769856-8 Bed bed PT/OT: Bed Active 0 Robbi Mobility/Tr mobility Mobility/T 05-21 lora Brown deficit ransfer 15:00: PT 00 088819-2 Balance/End balance/cook pickled meat PT/OT: Active Robbi urance rdination Balance/En 05-21 Kevin, deficit durance 15:00: PT 00 076155-8 Gait/Locomo gait PT/OT: Active 2020- Robbi tion deficit Gait/Locom 1-31 Kevin, problems otion 15:00: PT 00 663932-6 Gait/Locomo knowledge/s PT/OT: Active 2019- Robbi tion kill Gait/Locom 05-21 Kevin, problems deficit: pt otion 15:00: PT 00 145124-6 Safety can be left Safety Active 2019- Bre alone for 2- [place] only short 11:15: periods 00 Safety risk for Safety Resolve 2020-0 2019-05-31 [facility] hospitaliza d 2-05 08:55:00 Kevinantoine jaureguion 13:00: PT 00 849130-2 Neuro anxiety Neuro/Emot Active Bre present ion 2- [place] 11:55: 00 Musculoskel requires Musculoske Resolve 2019-0 2019-05-31 Bre etal human letal d 2- 08:55:00 [place] assist to 11:55: leave home 00 Safety risk for Safety Unknown Robbi hospitaliza 2- Kevin tion 13:00: PT 00 762891-2 Safety risk for Safety Resolve 2020-0 2019-08-04 El[facility] hospitaliza d 2- 11:55:00 Ulices Steven tion 12:05: [id number] 00 Respiratory dyspnea Respirator Active Bre present [...] deficit y 2-27 Kevin, 11:15: PT 00 563893-8 Infection s/s of Infection Active 2019- Bre infection 3- [place] 12:20: 00 Nutrition changing Nutrition Active Bre weight/appe 07-14 [place] tite 12:20: 00 Neuro depressive Neuro/Emot Active Bre feelings ion 07-14 [place] present 12:20: 00 Activity self-care Activity Active Bre deficit 07-14 [place] 12:20: 00 Safety fall risk Safety Resolve 2019-08-04 Bre factor d 07-14 11:55:00 [place] present 12:20: 00 Musculoskel transfer Musculoske Active Bre etal assistance letal 07-14 [place] required 12:20: 00 Allergies, Adverse Reactions, Alerts [...] Sulfate Sulfate 05-21 Jad TSAI dexAMETHaso dexAMETHaso Yes Bael Unknown Unknown ne [...] Observation Time Observation Value Comments SYSTOLIC mm[Hg] 2019-08-04 18:11:24 84 mm[Hg] mm[Hg] Method: Sit SYSTOLIC mm[Hg] 1840-04-20 00:00:00 108 mm[Hg] mm[Hg] Method: Lie DIASTOLIC mm[Hg] 2019-08-04 18:11:24 56 mm[Hg] mm[Hg] Method: Sit DIASTOLIC mm[Hg] 1840-04-20 00:00:00 70 mm[Hg] mm[Hg] Method: Lie PULSE 2019-08-04 18:11:24 110 /min /min RESP RATE 2019-08-04 18:11:24 20 /min /min TEMP 2019-08-04 18:11:24 98.3 [degF] Procedures This patient has no known [...] Ordering Physician UnknownSerum or plasma albumin/globulin mass [id number] 05:34:00Identifier 1759-0 Result Time 2019-05-18 05:34:00Unknown Test Item Value Reference Range Comments Serum or plasma albumin/globulin mass ratio 1.0 Unknown Unknown F (test code = 1759-0) Ordering Physician UnknownSerum or plasma calcium measurement (mass/volume)05-18 05:34:00Identifier 45193-3 Result Time 2019-05-18 05:34:00Unknown Test Item Value Reference Range Comments Serum or plasma calcium measurement 6.9 mg/dL Unknown Unknown F (mass/volume) (test code = 27840-2) Ordering Physician UnknownSerum or plasma magnesium measurement (mass/volume) 2019-05-18 05:34:00Identifier 36270-1 Result Time 2019-05-18 05:34:00Unknown Test Item Value Reference Range Comments Serum or plasma magnesium measurement 1.4 mg/dL Unknown Unknown F (mass/volume) (test code = 76846-2) Ordering Physician UnknownSerum or plasma aspartate aminotransferase measurement (enzymatic activity/volume)2019-05-18 05:34:00Identifier 0-8 Result Time 2019-05-18 05:34:00Unknown Test Item Value Reference Range Comments Serum or plasma aspartate aminotransferase 33 U/L Unknown Unknown F measurement (enzymatic activity/volume) (test code = 1920-8) Ordering Physician UnknownSerum or plasma total bilirubin measurement (mass/ volume)2019-05-18 05:34:00Identifier 1975-2 Result Time 2019-05-18 05:34: 00Unknown Test Item Value Reference Range Comments Serum or plasma total bilirubin 0.50 mg/dL Unknown Unknown F measurement (mass/volume) (test code = 1974-2) Ordering Physician UnknownSerum or plasma carbon dioxide, [...] Ordering Physician UnknownSerum or plasma urea nitrogen/creatinine [id number]- 28 05:34:00Identifier 3097-3 Result Time 2019-05-18 05:34:00Unknown Test Item Value Reference Range Comments Serum or plasma urea nitrogen/creatinine 26.0 Unknown Unknown F ratio (test code = 3097-3) Ordering Physician UnknownAutomated blood platelet mean volume rfxxescrswl3058- 01-28 05:34:00Identifier 68222-9 Result Time 2019-05-18 05:34:00Unknown Test Item Value Reference Range Comments Automated blood platelet mean volume 7.0 fL Unknown Unknown F measurement (test code = 04870-0) Ordering Physician UnknownSerum or plasma anion [id number] 05:34: 00Identifier 24502-1 Result Time 2019-05-18 05:34:00Unknown Test Item Value Reference Range Comments Serum or plasma anion gap (test code = 9 mmol/L Unknown Unknown F 01635-3) Ordering Physician UnknownAutomated blood leukocytes count corrected for nucleated erythrocytes (number/volume)2019-05-18 05:34:00Identifier 05672-0 Result Time 2019-05-18 05:34:00Unknown Test Item Value Reference Range Comments Automated blood leukocytes count 5.9 10^3/uL Unknown Unknown F corrected for nucleated erythrocytes (number/volume) (test code = 83836-8) Ordering Physician UnknownAutomated blood nucleated erythrocytes wsloiehdx3491- 01-28 05:34:00Identifier 33514-8 Result Time 2019-05-18 05:34:00Unknown Test Item Value Reference Range Comments Automated blood nucleated erythrocytes 0.6 Unknown Unknown F detection (test code = 49514-2) Ordering Physician UnknownAutomated blood hematocrit (percentage)2019-05-18 05: 34:00Identifier 4544-3 Result Time 2019-05-18 05:34:00Unknown Test Item Value Reference Range Comments Automated blood hematocrit (percentage) (test 27 % Unknown Unknown F code = 4544-3) Ordering Physician UnknownEstimated glomerular filtration rate (GFR) non- Ifzqodeh4568-60-20 05:34:00Identifier 68962-0 Result Time 2019-05-18 05: 34:00Unknown Test Item Value Reference Range Comments Estimated glomerular filtration rate (GFR) 122.0 Unknown Unknown F non- (test code = 00090-8) Ordering Physician UnknownAutomated blood monocytes/100 pzafeyjxbh7786-21-91 05: 34:00Identifier 5905-5 Result Time 2019-05-18 05:34:00Unknown Test Item Value Reference Range Comments Automated blood monocytes/100 leukocytes 6.1 % Unknown Unknown F (test code = 5905-5) Ordering Physician UnknownSerum or plasma albumin measurement by bromocresol green (BCG) dye binding method (nn3421-34-19 05:34:00Identifier 73526-8 Result Time 2019-05-18 05:34:00Unknown Test Item Value Reference Range Comments Serum or plasma albumin measurement by 2.6 g/dL Unknown Unknown F bromocresol green (BCG) dye binding method (ma (test code = 96938-5) Ordering Physician UnknownSerum or plasma alkaline phosphatase [...] = 704-7) Ordering Physician UnknownAutomated blood basophils/100 [id number] 05: 34:00Identifier 706-2 Result Time 2019-05-18 05:34:00Unknown [...] = 711-2) Ordering Physician UnknownAutomated blood eosinophils/100 jgiukwytfj4411-13-06 05:34:00Identifier 713-8 Result Time 2019-05-18 05:34:00Unknown Test [...] = 731-0) Ordering Physician UnknownAutomated blood lymphocytes/100 iltkoiigku3880-86-93 05:34:00Identifier 736-9 Result Time 2019-05-18 05:34:00Unknown Test Item Value Reference Range Comments Automated blood lymphocytes/100 leukocytes 19.5 % Unknown Unknown F (test code = 736-9) Ordering Physician UnknownBlood monocytes automated count (number/volume)2019-04 05:34:00Identifier 742-7 Result Time 2019-05-18 05:34:00Unknown Test Item Value Reference Range Comments Blood monocytes automated count 0.4 10^3/ul Unknown Unknown F (number/volume) (test code = 742-7) Ordering Physician UnknownAutomated blood neutrophils/100 [id number] 05:34:00Identifier 770-8 Result Time 2019-05-18 05:34:00Unknown Test [...] UnknownAutomated erythrocyte mean corpuscular hemoglobin concentration measurement (mass/xbx4895-31-93 05:34:00Identifier 786-4 Result Time 2019-05-18 05:34:00Unknown Test Item Value Reference Range Comments Automated erythrocyte mean corpuscular 34 g/dL Unknown Unknown F hemoglobin concentration measurement (mass/vol (test code = 786-4) Ordering Physician UnknownAutomated erythrocyte mean corpuscular axdjiz9340-48- 28 05:34:00Identifier 787-2 Result Time 2019-05-18 05:34:00Unknown Test Item Value Reference Range Comments Automated erythrocyte mean corpuscular 109 fL Unknown Unknown F volume (test code = 787-2) Ordering Physician UnknownAutomated erythrocyte distribution width [id number]- 28 05:34:00Identifier 788-0 Result Time 2019-05-18 05:34:00Unknown [...] code = 789-8) Ordering Physician UnknownLymphocyte proliferation [id number] 05:34: 00Identifier [id number] Result Time 2019-05-18 05:34:00Unknown Test Item Value Reference Range Comments Lymphocyte proliferation test (test 4.4 10^3/ul Unknown Unknown F code = NRN0035) Ordering Physician UnknownSerum or plasma thyroid stimulating [...]
--- OUTSIDE RECORDS SUMMARY | 2019-08-09 02:27 | XMS REPORT ---
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 Other long Other long Diagnosis Active Bre term term En (current) (current) drug drug therapy therapy Pain frequent Pain Mgmt Resolve 2019-05-31 [place] pain d 05-21 08:55:00 [place] 10:30: [id number] 00 Respiratory dyspnea Respirator Resolve 2019-2019-05-31 [place] present y d 05-21 08:55:00 [place] 10:30: [id number] 00 Integument pressure Integument Active 2019-0 [place] ulcer 05-21 [place] present 10:30: [id number] 00 Integument skin Integument Active [place] integrity 05-21 Ava risk 10:30: [id number] 00 Nutrition nutritional Nutrition Active [place] restriction 05-21 [place] s 10:30: [id number] 00 Elimination urinary Eliminatio Resolve 2019-05-31 [place] incontinenc n d 05-21 08:55:00 Ava e 10:30: [id number] 00 Elimination bowel Eliminatio Resolve 2019-05-31 [place] incontinenc n d 05-21 08:55:00 Ava e 10:30: [id number] 00 Elimination diarrhea Eliminatio Resolve 2019-05-31 [place] n d 05-21 08:55:00 [place] 10:30: [id number] 00 Elimination nausea/vomi Eliminatio Resolve 2019-05-31 [place] ting n d 05-21 08:55:00 [place] 10:30: [id number] 00 Neuro confusion Neuro/Emot Active [place] present ion 05-21 [place] [place] 10:30: [id number] 00 Activity ADL Activity Active [place] assistance 05-21 Ava required 10:30: [id number] 00 Activity self-care Activity Resolve 2019-05-24 [place] deficit d 05-21 11:15:00 [place] 10:30: [id number] 00 Safety cannot be Safety Active 2019-0 [place] left alone 05-21 [place] 10:30: [id number] 00 Safety fall risk Safety Resolve 2019-05-24 [place] factor d 05-21 11:15:00 [facility] present 10:30: [id number] 00 Safety risk for Safety Resolve 2019-05-24 [place] hospitaliza d 05-21 11:15:00 [facility] tion 10:30: [id number] 00 Medication oral med Meds Resolve 2019-05-24 [place] assistance d 05-21 11:15:00 [facility] required 10:30: [id number] 00 Medication knowledge/s Meds Resolve 2019-2019-05-24 [place] kill d 05-21 11:15:00 [facility] deficit: pt 10:30: [id number] 00 Diagnoses knowledge/s Diagnoses Active [place] kill 05-21 [place] deficit: pt 10:30: [id number] 00 Diagnoses knowledge/s Diagnoses Active Altashorty pinedo 05-21 [facility] deficit: cg 10:30: [id number] 00 Musculoskel transfer Musculoske Resolve 2019-05-24 [place] etal assistance letal d 05-21 11:15:00 [facility] required 10:30: [id number] 00 Musculoskel requires Musculoske Resolve 2019-05-24 [place] etal human letal d 05-21 11:15:00 [facility] assist to 10:30: [id number] leave home 00 Bed transfer PT/OT: Bed Active Robbi Mobility/Tr deficit: Mobility/T 05-21 lora Brown sit/stand ransfer 15:00: PT 00 102567-2 Bed transfer PT/OT: Bed Active Robbi Mobility/Tr deficit: Mobility/T 05-21 lora Brown standing ransfer 15:00: PT pivot 00 883822-1 Bed transfer PT/OT: Bed Active Robbi Mobility/Tr deficit: Mobility/T 05-21 lora Brown toilet/comm ransfer 15:00: PT ode 00 610241-4 Bed transfer PT/OT: Bed Active Robbi Mobility/Tr deficit: Mobility/T 05-21 lora Brown shower/tub ransfer 15:00: PT 00 127770-3 Bed knowledge/s PT/OT: Bed Active Robbi Mobility/Tr kill Mobility/T 05-21 lora Brown deficit: pt ransfer 15:00: PT 00 245063-8 Bed bed PT/OT: Bed Active 0 Robbi Mobility/Tr mobility Mobility/T 05-21 lora Brown deficit ransfer 15:00: PT 00 365824-3 Balance/End balance/clinical coordinator PT/OT: Active Robbi urance rdination Balance/En 05-21 Kevin, deficit durance 15:00: PT 00 962322-4 Gait/Locomo gait PT/OT: Active 2020-0 Robbi tion deficit Gait/Locom 1- Kevin, problems otion 15:00: PT 00 122387-7 Gait/Locomo knowledge/s PT/OT: Active 2020- Robbi tion kill Gait/Locom 05-21 Kevin, problems deficit: pt otion 15:00: PT 00 674047-2 Safety can be left Safety Active 2020-0 Bre alone for 2-03 [place] only short 11:15: periods 00 Safety risk for Safety Resolve 2020-0 2019-05-31 [facility] hospitaliza d 2-05 08:55:00 Kevinantoine jaureguion 13:00: PT 00 888954-1 Neuro anxiety Neuro/Emot Active 2019- Bre present ion 2- [place] 11:55: 00 Musculoskel requires Musculoske Resolve 2020-0 2019-05-31 Bre etal human letal d 2- 08:55:00 [place] assist to 11:55: leave home 00 Safety risk for Safety Unknown 2019- Robbi hospitaliza 2- antoine Brownon 13:00: PT 00 593535-4 Safety risk for Safety Active 2020- Elva hospitaliza 2- Ulices Steven tion 12:05: [id number] 00 Respiratory dyspnea Respirator Active 2019- Bre [...] deficit y 2-27 Kevin, 11:15: PT 00 347992-2 Infection s/s of Infection Active 2020- Bre [...] Observation Time Observation Value Comments SYSTOLIC mm[Hg] 2019-07-21 18:11:10 98 mm[Hg] mm[Hg] Method: Sit SYSTOLIC mm[Hg] 1840-04-20 00:00:00 108 mm[Hg] mm[Hg] Method: Lie DIASTOLIC mm[Hg] 2019-07-21 18:11:10 60 mm[Hg] mm[Hg] Method: Sit DIASTOLIC mm[Hg] 1840-04-20 00:00:00 70 mm[Hg] mm[Hg] Method: Lie PULSE 2019-07-21 18:11:10 95 /min /min RESP RATE 2019-07-21 18:11:10 20 /min /min TEMP 2019-07-21 18:11:10 98.2 [degF] Procedures This patient has no known [...] Ordering Physician UnknownSerum or plasma albumin/globulin mass [id number] 05:34:00Identifier 1759-0 Result Time 2019-05-18 05:34:00Unknown Test Item Value Reference Range Comments Serum or plasma albumin/globulin mass ratio 1.0 Unknown Unknown F (test code = 1759-0) Ordering Physician UnknownSerum or plasma calcium measurement (mass/volume)05-18 05:34:00Identifier 31846-0 Result Time 2019-05-18 05:34:00Unknown Test Item Value Reference Range Comments Serum or plasma calcium measurement 6.9 mg/dL Unknown Unknown F (mass/volume) (test code = 22025-6) Ordering Physician UnknownSerum or plasma magnesium measurement (mass/volume) 2019-05-18 05:34:00Identifier 31080-8 Result Time 2019-05-18 05:34:00Unknown Test Item Value Reference Range Comments Serum or plasma magnesium measurement 1.4 mg/dL Unknown Unknown F (mass/volume) (test code = 38388-0) Ordering Physician UnknownSerum or plasma aspartate aminotransferase measurement (enzymatic activity/volume)2019-05-18 05:34:00Identifier 1919-8 Result Time 2019-05-18 05:34:00Unknown Test Item Value Reference Range Comments Serum or plasma aspartate aminotransferase 33 U/L Unknown Unknown F measurement (enzymatic activity/volume) (test code = 1919-8) Ordering Physician UnknownSerum or plasma total bilirubin measurement (mass/ volume)2019-05-18 05:34:00Identifier 1974- Result Time 2019-05-18 05:34: 00Unknown Test Item [...] Ordering Physician UnknownSerum or plasma urea nitrogen/creatinine [id number]- 28 05:34:00Identifier 3097-3 Result Time 2019-05-18 05:34:00Unknown Test Item Value Reference Range Comments Serum or plasma urea nitrogen/creatinine 26.0 Unknown Unknown F ratio (test code = 3097-3) Ordering Physician UnknownAutomated blood platelet mean volume enjtuqvrznn2960- 01-28 05:34:00Identifier 07422-6 Result Time 2019-05-18 05:34:00Unknown Test Item Value Reference Range Comments Automated blood platelet mean volume 7.0 fL Unknown Unknown F measurement (test code = 80384-2) Ordering Physician UnknownSerum or plasma anion [id number] 05:34: 00Identifier 27565-5 Result Time 2019-05-18 05:34:00Unknown Test Item Value Reference Range Comments Serum or plasma anion gap (test code = 9 mmol/L Unknown Unknown F 36425-7) Ordering Physician UnknownAutomated blood leukocytes count corrected for nucleated erythrocytes (number/volume)2019-05-18 05:34:00Identifier 17941-1 Result Time 2019-05-18 05:34:00Unknown Test Item Value Reference Range Comments Automated blood leukocytes count 5.9 10^3/uL Unknown Unknown F corrected for nucleated erythrocytes (number/volume) (test code = 70020-8) Ordering Physician UnknownAutomated blood nucleated erythrocytes ccijwoejd8054- 01-28 05:34:00Identifier 72328-6 Result Time 2019-05-18 05:34:00Unknown Test Item Value Reference Range Comments Automated blood nucleated erythrocytes 0.6 Unknown Unknown F detection (test code = 91906-2) Ordering Physician UnknownAutomated blood hematocrit (percentage)2019-05-18 05: 34:00Identifier 4544-3 Result Time 2019-05-18 05:34:00Unknown Test Item Value Reference Range Comments Automated blood hematocrit (percentage) (test 27 % Unknown Unknown F code = 4544-3) Ordering Physician UnknownEstimated glomerular filtration rate (GFR) non- Uwyfarnv0612-84-92 05:34:00Identifier 41804-1 Result Time 2019-05-18 05: 34:00Unknown Test Item Value Reference Range Comments Estimated glomerular filtration rate (GFR) 122.0 Unknown Unknown F non- (test code = 11967-7) Ordering Physician UnknownAutomated blood monocytes/100 hiaixhlwdo3547-96-32 05: 34:00Identifier 5905-5 Result Time 2019-05-18 05:34:00Unknown Test Item Value Reference Range Comments Automated blood monocytes/100 leukocytes 6.1 % Unknown Unknown F (test code = 5905-5) Ordering Physician UnknownSerum or plasma albumin measurement by bromocresol green (BCG) dye binding method (bi7017-12-28 05:34:00Identifier 54804-3 Result Time 2019-05-18 05:34:00Unknown Test Item Value Reference Range Comments Serum or plasma albumin measurement by 2.6 g/dL Unknown Unknown F bromocresol green (BCG) dye binding method (ma (test code = 39035-4) Ordering Physician UnknownSerum or plasma alkaline phosphatase [...] = 704-7) Ordering Physician UnknownAutomated blood basophils/100 bijlqqbefh2247-51-46 05: 34:00Identifier 706-2 Result Time 2019-05-18 05:34:00Unknown [...] = 711-2) Ordering Physician UnknownAutomated blood eosinophils/100 mlvgzbjmdj9389-81-46 05:34:00Identifier 713-8 Result Time 2019-05-18 05:34:00Unknown Test [...] = 731-0) Ordering Physician UnknownAutomated blood lymphocytes/100 goeuzvofep0625-31-35 05:34:00Identifier 736-9 Result Time 2019-05-18 05:34:00Unknown Test Item Value Reference Range Comments Automated blood lymphocytes/100 leukocytes 19.5 % Unknown Unknown F (test code = 736-9) Ordering Physician UnknownBlood monocytes automated count (number/volume)2019-04 05:34:00Identifier 742-7 Result Time 2019-05-18 05:34:00Unknown Test Item Value Reference Range Comments Blood monocytes automated count 0.4 10^3/ul Unknown Unknown F (number/volume) (test code = 742-7) Ordering Physician UnknownAutomated blood neutrophils/100 lofxlbmusd0499-04-02 05:34:00Identifier 770-8 Result Time 2019-05-18 05:34:00Unknown Test [...] UnknownAutomated erythrocyte mean corpuscular hemoglobin concentration measurement (mass/vyc0731-69-60 05:34:00Identifier 786-4 Result Time 2019-05-18 05:34:00Unknown Test Item Value Reference Range Comments Automated erythrocyte mean corpuscular 34 g/dL Unknown Unknown F hemoglobin concentration measurement (mass/vol (test code = 786-4) Ordering Physician UnknownAutomated erythrocyte mean corpuscular infkag4335-28- 28 05:34:00Identifier 787-2 Result Time 2019-05-18 05:34:00Unknown Test Item Value Reference Range Comments Automated erythrocyte mean corpuscular 109 fL Unknown Unknown F volume (test code = 787-2) Ordering Physician UnknownAutomated erythrocyte distribution width jqjma9054-77- 28 05:34:00Identifier 788-0 Result Time 2019-05-18 05:34:00Unknown [...] code = 789-8) Ordering Physician UnknownLymphocyte proliferation ooon8301-28-32 05:34: 00Identifier [id number] Result Time 2019-05-18 05:34:00Unknown Test Item Value Reference Range Comments Lymphocyte proliferation test (test 4.4 10^3/ul Unknown Unknown F code = AND2919) Ordering Physician UnknownSerum or plasma thyroid stimulating [...]
--- OUTSIDE RECORDS SUMMARY | 2019-08-09 02:27 | XMS REPORT ---
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 Active Bre (current) (current) En use of use of opiate opiate analgesic analgesic Other long Other long Diagnosis Active Bre term term En (current) (current) drug drug therapy therapy Pain frequent Pain Mgmt Resolve 2019-05-31 [place] pain d 05-21 08:55:00 [place] 10:30: [id number] 00 Respiratory dyspnea Respirator Resolve 2019-2019-05-31 [place] present y d 05-21 08:55:00 [place]va 10:30: [id number] 00 Integument pressure Integument Active 2019-0 [place] ulcer 05-21 [place] present 10:30: [id number] 00 Integument skin Integument Active [place] integrity 05-21 Ava risk 10:30: [id number] 00 Nutrition nutritional Nutrition Active [place] restriction 05-21 Ava s 10:30: [id number] 00 Elimination urinary Eliminatio Resolve 2019-05-31 [place] incontinenc n d 05-21 08:55:00 [place] e 10:30: [id number] 00 Elimination bowel Eliminatio Resolve 2019-05-31 [place] incontinenc n d 05-21 08:55:00 [place] e 10:30: [id number] 00 Elimination diarrhea Eliminatio Resolve 2019-05-31 [place] n d 05-21 08:55:00 [place] 10:30: [id number] 00 Elimination nausea/vomi Eliminatio Resolve 2019-05-31 [place] ting n d 05-21 08:55:00 [place] 10:30: [id number] 00 Neuro confusion Neuro/Emot Active [place] present ion 05-21 [place] 10:30: [id number] 00 Activity ADL Activity Active [place] assistance 05-21 Ava required 10:30: [id number] 00 Activity self-care Activity Resolve 2019-05-24 [place] deficit d 05-21 11:15:00 [place] 10:30: [id number] 00 Safety cannot be Safety Active 2019-0 [place] left alone 05-21 [place] 10:30: [id number] 00 Safety fall risk Safety Resolve 2019-05-24 [place] factor d 05-21 11:15:00 [place] present 10:30: [id number] 00 Safety risk for Safety Resolve 2019-05-24 [place] hospitaliza d 05-21 11:15:00 [place] tion 10:30: [id number] 00 Medication oral med Meds Resolve 2019-05-24 [place] assistance d 05-21 11:15:00 [place] required 10:30: [id number] 00 Medication knowledge/s Meds Resolve 2019-2019-05-24 [place] kill d 05-21 11:15:00 [place] deficit: pt 10:30: [id number] 00 Diagnoses knowledge/s Diagnoses Active [place] kill 05-21 [place] deficit: pt 10:30: [id number] 00 Diagnoses knowledge/s Diagnoses Active Altashorty pinedo 05-21 [place] deficit: cg 10:30: [id number] 00 Musculoskel transfer Musculoske Resolve 2019-05-24 [place] etal assistance letal d 05-21 11:15:00 [place] required 10:30: [id number] 00 Musculoskel requires Musculoske Resolve 2019-05-24 [place] etal human letal d 05-21 11:15:00 [place] assist to 10:30: [id number] leave home 00 Bed transfer PT/OT: Bed Active Robbi Mobility/Tr deficit: Mobility/T 05-21 lora Brown sit/stand ransfer 15:00: PT 00 [id number] Bed transfer PT/OT: Bed Active Robbi Mobility/Tr deficit: Mobility/T 05-21 lora Brown standing ransfer 15:00: PT pivot 00 234560-3 Bed transfer PT/OT: Bed Active Robbi Mobility/Tr deficit: Mobility/T 05-21 lora Brown toilet/comm ransfer 15:00: PT ode 00 [id number] Bed transfer PT/OT: Bed Active Robbi Mobility/Tr deficit: Mobility/T 05-21 lora Brown shower/tub ransfer 15:00: PT 00 [id number] Bed knowledge/s PT/OT: Bed Active Robbi Mobility/Tr kill Mobility/T 05-21 lora Brown deficit: pt ransfer 15:00: PT 00 [id number] Bed bed PT/OT: Bed Active 0 Robbi Mobility/Tr mobility Mobility/T 05-21 lora Brown deficit ransfer 15:00: PT 00 322802-4 Balance/End balance/sales operations coordinator PT/OT: Active Robbi urance rdination Balance/En 05-21 Kevin, deficit durance 15:00: PT 00 121656-2 Gait/Locomo gait PT/OT: Active 2020-0 Robbi tion deficit Gait/Locom 1- Kevin, problems otion 15:00: PT 00 306631-3 Gait/Locomo knowledge/s PT/OT: Active 2020- Robbi tion kill Gait/Locom 05-21 Kevin, problems deficit: pt otion 15:00: PT 00 565673-2 Safety can be left Safety Active 2020-0 Bre alone for 2-03 [place] only short 11:15: periods 00 Safety risk for Safety Resolve 2020-0 2019-05-31 [facility]bi hospitaliza d 2-05 08:55:00 Kevinantoine jaureguion 13:00: PT 00 [id number] Neuro anxiety Neuro/Emot Active 2019- Bre present ion 2- [place] 11:55: 00 Musculoskel requires Musculoske Resolve 2020-0 2019-05-31 Bre etal human letal d 2- 08:55:00 [place] assist to 11:55: leave home 00 Safety risk for Safety Unknown 2019- Robbi hospitaliza 2- antoine Brownon 13:00: PT 00 [id number] Safety risk for Safety Active 2020- Elva hospitaliza 2- Ulices Steven tion 12:05: [id number] 00 Respiratory dyspnea Respirator Active 2019- Bre [...] deficit y 2-27 Kevin, 11:15: PT 00 008316-7 Infection s/s of Infection Active 2020- Bre [...] Ordering Physician UnknownSerum or plasma albumin/globulin mass wphrd5536-05-08 05:34:00Identifier 1759-0 Result Time 2019-05-18 05:34:00Unknown Test Item Value Reference Range Comments Serum or plasma albumin/globulin mass ratio 1.0 Unknown Unknown F (test code = 1759-0) Ordering Physician UnknownSerum or plasma calcium measurement (mass/volume)05-18 05:34:00Identifier 91859-6 Result Time 2019-05-18 05:34:00Unknown Test Item Value Reference Range Comments Serum or plasma calcium measurement 6.9 mg/dL Unknown Unknown F (mass/volume) (test code = 29209-8) Ordering Physician UnknownSerum or plasma magnesium measurement (mass/volume) 2019-05-18 05:34:00Identifier 57084-6 Result Time 2019-05-18 05:34:00Unknown Test Item Value Reference Range Comments Serum or plasma magnesium measurement 1.4 mg/dL Unknown Unknown F (mass/volume) (test code = 31188-0) Ordering Physician UnknownSerum or plasma aspartate aminotransferase [...] Ordering Physician UnknownSerum or plasma urea nitrogen/creatinine [id number]- 28 05:34:00Identifier 3097-3 Result Time 2019-05-18 05:34:00Unknown Test Item Value Reference Range Comments Serum or plasma urea nitrogen/creatinine 26.0 Unknown Unknown F ratio (test code = 3097-3) Ordering Physician UnknownAutomated blood platelet mean volume [id number]- 01-28 05:34:00Identifier 09983-0 Result Time 2019-05-18 05:34:00Unknown Test Item Value Reference Range Comments Automated blood platelet mean volume 7.0 fL Unknown Unknown F measurement (test code = 75677-4) Ordering Physician UnknownSerum or plasma anion [id number] 05:34: 00Identifier 99445-0 Result Time 2019-05-18 05:34:00Unknown Test Item Value Reference Range Comments Serum or plasma anion gap (test code = 9 mmol/L Unknown Unknown F 41832-3) Ordering Physician UnknownAutomated blood leukocytes count corrected for nucleated erythrocytes (number/volume)2019-05-18 05:34:00Identifier 12724-9 Result Time 2019-05-18 05:34:00Unknown Test Item Value Reference Range Comments Automated blood leukocytes count 5.9 10^3/uL Unknown Unknown F corrected for nucleated erythrocytes (number/volume) (test code = 17100-6) Ordering Physician UnknownAutomated blood nucleated erythrocytes qqqcblmov9443- 01-28 05:34:00Identifier 86691-3 Result Time 2019-05-18 05:34:00Unknown Test Item Value Reference Range Comments Automated blood nucleated erythrocytes 0.6 Unknown Unknown F detection (test code = 47611-6) Ordering Physician UnknownAutomated blood hematocrit (percentage)2019-05-18 05: 34:00Identifier 4544-3 Result Time 2019-05-18 05:34:00Unknown Test Item Value Reference Range Comments Automated blood hematocrit (percentage) (test 27 % Unknown Unknown F code = 4544-3) Ordering Physician UnknownEstimated glomerular filtration rate (GFR) non- Puyxkbxc7969-15-42 05:34:00Identifier 97361-5 Result Time 2019-05-18 05: 34:00Unknown Test Item Value Reference Range Comments Estimated glomerular filtration rate (GFR) 122.0 Unknown Unknown F non- (test code = 91649-6) Ordering Physician UnknownAutomated blood monocytes/100 [id number] 05: 34:00Identifier 5905-5 Result Time 2019-05-18 05:34:00Unknown Test Item Value Reference Range Comments Automated blood monocytes/100 leukocytes 6.1 % Unknown Unknown F (test code = 5905-5) Ordering Physician UnknownSerum or plasma albumin measurement by bromocresol green (BCG) dye binding method ([id number] 05:34:00Identifier 07737-0 Result Time 2019-05-18 05:34:00Unknown Test Item Value Reference Range Comments Serum or plasma albumin measurement by 2.6 g/dL Unknown Unknown F bromocresol green (BCG) dye binding method (ma (test code = 45846-7) Ordering Physician UnknownSerum or plasma alkaline phosphatase [...] = 704-7) Ordering Physician UnknownAutomated blood basophils/100 [id number] 05: 34:00Identifier 706-2 Result Time 2019-05-18 05:34:00Unknown [...] = 711-2) Ordering Physician UnknownAutomated blood eosinophils/100 [id number] 05:34:00Identifier 713-8 Result Time 2019-05-18 05:34:00Unknown Test [...] = 731-0) Ordering Physician UnknownAutomated blood lymphocytes/100 cnsreqcnmq8814-16-18 05:34:00Identifier 736-9 Result Time 2019-05-18 05:34:00Unknown Test Item Value Reference Range Comments Automated blood lymphocytes/100 leukocytes 19.5 % Unknown Unknown F (test code = 736-9) Ordering Physician UnknownBlood monocytes automated count (number/volume)2019-04 05:34:00Identifier 742-7 Result Time 2019-05-18 05:34:00Unknown Test Item Value Reference Range Comments Blood monocytes automated count 0.4 10^3/ul Unknown Unknown F (number/volume) (test code = 742-7) Ordering Physician UnknownAutomated blood neutrophils/100 [id number] 05:34:00Identifier 770-8 Result Time 2019-05-18 05:34:00Unknown Test [...] UnknownAutomated erythrocyte mean corpuscular hemoglobin concentration measurement (mass/fsq6959-27-18 05:34:00Identifier 786-4 Result Time 2019-05-18 05:34:00Unknown Test Item Value Reference Range Comments Automated erythrocyte mean corpuscular 34 g/dL Unknown Unknown F hemoglobin concentration measurement (mass/vol (test code = 786-4) Ordering Physician UnknownAutomated erythrocyte mean corpuscular [id number]- 28 05:34:00Identifier 787-2 Result Time 2019-05-18 05:34:00Unknown Test Item Value Reference Range Comments Automated erythrocyte mean corpuscular 109 fL Unknown Unknown F volume (test code = 787-2) Ordering Physician UnknownAutomated erythrocyte distribution width [id number]- 28 05:34:00Identifier 788-0 Result Time 2019-05-18 05:34:00Unknown [...] code = 789-8) Ordering Physician UnknownLymphocyte proliferation cthi7543-07-03 05:34: 00Identifier [id number] Result Time 2019-05-18 05:34:00Unknown Test Item Value Reference Range Comments Lymphocyte proliferation test (test 4.4 10^3/ul Unknown Unknown F code = BWD5428) Ordering Physician UnknownSerum or plasma thyroid stimulating [...]
--- OUTSIDE RECORDS SUMMARY | 2019-08-09 02:27 | XMS REPORT ---
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 Other long Other long Diagnosis Active Bre term term En (current) (current) drug drug therapy therapy Pain frequent Pain Mgmt Resolve 2019-05-31 [place] pain d 05-21 08:55:00 [place] 10:30: [id number] 00 Respiratory dyspnea Respirator Resolve 2019-2019-05-31 [place] present y d 05-21 08:55:00 A[place] 10:30: [id number] 00 Integument pressure Integument Active 2019-0 [place] ulcer 05-21 [place] present 10:30: [id number] 00 Integument skin Integument Active [place] integrity 05-21 Ava risk 10:30: [id number] 00 Nutrition nutritional Nutrition Active [place] restriction 05-21 Ava s 10:30: [id number] 00 Elimination urinary Eliminatio Resolve 2019-05-31 [place] incontinenc n d 05-21 08:55:00 Lee e 10:30: [id number] 00 Elimination bowel Eliminatio Resolve 2019-05-31 [place] incontinenc n d 05-21 08:55:00 Lee e 10:30: [id number] 00 Elimination diarrhea Eliminatio Resolve 2019-05-31 [place] n d 05-21 08:55:00 [place] 10:30: [id number] 00 Elimination nausea/vomi Eliminatio Resolve 2019-05-31 [place] ting n d 05-21 08:55:00 [place] 10:30: [id number] 00 Neuro confusion Neuro/Emot Active [place] present ion 05-21 [place] 10:30: [id number] 00 Activity ADL Activity Active [place] assistance 05-21 Ava required 10:30: [id number] 00 Activity self-care Activity Resolve 2019-05-24 [place] deficit d 05-21 11:15:00 [place] 10:30: [id number] 00 Safety cannot be Safety Active 2019-0 [place] left alone 05-21 [place] 10:30: [id number] 00 Safety fall risk Safety Resolve 2019-05-24 [place] factor d 05-21 11:15:00 [place] present 10:30: [id number] 00 Safety risk for Safety Resolve 2019-05-24 [place] hospitaliza d 05-21 11:15:00 [place] tion 10:30: [id number] 00 Medication oral med Meds Resolve 2019-05-24 [place] assistance d 05-21 11:15:00 [place] required 10:30: [id number] 00 Medication knowledge/s Meds Resolve 2019-2019-05-24 [place] kill d 05-21 11:15:00 [place] deficit: pt 10:30: [id number] 00 Diagnoses knowledge/s Diagnoses Active [place] kill 05-21 [place] deficit: pt 10:30: [id number] 00 Diagnoses knowledge/s Diagnoses Active Altashorty pinedo 05-21 [place] deficit: cg 10:30: [id number] 00 Musculoskel transfer Musculoske Resolve 2019-05-24 [place] etal assistance letal d 05-21 11:15:00 [place] required 10:30: [id number] 00 Musculoskel requires Musculoske Resolve 2019-05-24 [place] etal human letal d 05-21 11:15:00 [place] assist to 10:30: [id number] leave home 00 Bed transfer PT/OT: Bed Active Robbi Mobility/Tr deficit: Mobility/T 05-21 lora Brown sit/stand ransfer 15:00: PT 00 653134-9 Bed transfer PT/OT: Bed Active Robbi Mobility/Tr deficit: Mobility/T 05-21 lora Brown standing ransfer 15:00: PT pivot 00 856170-9 Bed transfer PT/OT: Bed Active Robbi Mobility/Tr deficit: Mobility/T 05-21 lora Brown toilet/comm ransfer 15:00: PT ode 00 625364-0 Bed transfer PT/OT: Bed Active Robbi Mobility/Tr deficit: Mobility/T 05-21 lora Brown shower/tub ransfer 15:00: PT 00 584511-9 Bed knowledge/s PT/OT: Bed Active Robbi Mobility/Tr kill Mobility/T 05-21 lora Brown deficit: pt ransfer 15:00: PT 00 134220-9 Bed bed PT/OT: Bed Active 0 Robbi Mobility/Tr mobility Mobility/T 05-21 lora Brown deficit ransfer 15:00: PT 00 842890-1 Balance/End balance/asset coordinator PT/OT: Active Robbi urance rdination Balance/En 05-21 Kevin, deficit durance 15:00: PT 00 964537-9 Gait/Locomo gait PT/OT: Active 2020-0 Robbi tion deficit Gait/Locom 1- Kevin, problems otion 15:00: PT 00 146434-4 Gait/Locomo knowledge/s PT/OT: Active 2020- Robbi tion kill Gait/Locom 05-21 Kevin, problems deficit: pt otion 15:00: PT 00 706317-7 Safety can be left Safety Active 2020-0 Bre alone for 2-03 [place] only short 11:15: periods 00 Safety risk for Safety Resolve 2020-0 2019-05-31 Robbi hospitaliza d 2-05 08:55:00 Kevinantoine jaureguion 13:00: PT 00 786479-0 Neuro anxiety Neuro/Emot Active 2019- Bre present ion 2- [place] 11:55: 00 [place] requires Musculoske Resolve 2020-0 2019-05-31 Bre etal human letal d 2- 08:55:00 [place] assist to 11:55: leave home 00 Safety risk for Safety Unknown 2019- Robbi hospitaliza 2- antoine Brownon 13:00: PT 00 818380-5 Safety risk for Safety Active 2020- Elva hospitaliza 2- Ulices Steven tion 12:05: [id number] 00 Respiratory dyspnea Respirator Active 2019- Bre [...] deficit y 2-27 Kevin, 11:15: PT 00 753524-3 Infection s/s of Infection Active 2020- Bre [...] 70 mm[Hg] mm[Hg] Method: Lie RESP RATE 2019-07-15 18:11:04 16 /min /min TEMP 2019-07-19 18:11:08 98.5 [degF] Procedures This patient has no [...] Ordering Physician UnknownSerum or plasma albumin/globulin mass [id number] 05:34:00Identifier 1759-0 Result Time 2019-05-18 05:34:00Unknown Test Item Value Reference Range Comments Serum or plasma albumin/globulin mass ratio 1.0 Unknown Unknown F (test code = 1759-0) Ordering Physician UnknownSerum or plasma calcium measurement (mass/volume)05-18 05:34:00Identifier 84515-6 Result Time 2019-05-18 05:34:00Unknown Test Item Value Reference Range Comments Serum or plasma calcium measurement 6.9 mg/dL Unknown Unknown F (mass/volume) (test code = 62897-1) Ordering Physician UnknownSerum or plasma magnesium measurement (mass/volume) 2019-05-18 05:34:00Identifier 07150-7 Result Time 2019-05-18 05:34:00Unknown Test Item Value Reference Range Comments Serum or plasma magnesium measurement 1.4 mg/dL Unknown Unknown F (mass/volume) (test code = 55841-6) Ordering Physician UnknownSerum or plasma aspartate aminotransferase [...] Unknown F measurement (moles/volume) (test code = 2027-9) Ordering Physician UnknownSerum or plasma chloride measurement [...] Ordering Physician UnknownSerum or plasma urea nitrogen/creatinine [id number]- 28 05:34:00Identifier 3097-3 Result Time 2019-05-18 05:34:00Unknown Test Item Value Reference Range Comments Serum or plasma urea nitrogen/creatinine 26.0 Unknown Unknown F ratio (test code = 3097-3) Ordering Physician UnknownAutomated blood platelet mean volume hfbvbqfqjws0559- 01-28 05:34:00Identifier 76684-7 Result Time 2019-05-18 05:34:00Unknown Test Item Value Reference Range Comments Automated blood platelet mean volume 7.0 fL Unknown Unknown F measurement (test code = 69846-1) Ordering Physician UnknownSerum or plasma anion [id number] 05:34: 00Identifier 01532-0 Result Time 2019-05-18 05:34:00Unknown Test Item Value Reference Range Comments Serum or plasma anion gap (test code = 9 mmol/L Unknown Unknown F 18319-4) Ordering Physician UnknownAutomated blood leukocytes count corrected for nucleated erythrocytes (number/volume)2019-05-18 05:34:00Identifier 68422-3 Result Time 2019-05-18 05:34:00Unknown Test Item Value Reference Range Comments Automated blood leukocytes count 5.9 10^3/uL Unknown Unknown F corrected for nucleated erythrocytes (number/volume) (test code = 33687-6) Ordering Physician UnknownAutomated blood nucleated erythrocytes zuiccuopy5995- 01-28 05:34:00Identifier 90306-6 Result Time 2019-05-18 05:34:00Unknown Test Item Value Reference Range Comments Automated blood nucleated erythrocytes 0.6 Unknown Unknown F detection (test code = 45278-4) Ordering Physician UnknownAutomated blood hematocrit (percentage)2019-05-18 05: 34:00Identifier 4544-3 Result Time 2019-05-18 05:34:00Unknown Test Item Value Reference Range Comments Automated blood hematocrit (percentage) (test 27 % Unknown Unknown F code = 4544-3) Ordering Physician UnknownEstimated glomerular filtration rate (GFR) non- Sxyogryb8400-04-11 05:34:00Identifier 60451-1 Result Time 2019-05-18 05: 34:00Unknown Test Item Value Reference Range Comments Estimated glomerular filtration rate (GFR) 122.0 Unknown Unknown F non- (test code = 79818-3) Ordering Physician UnknownAutomated blood monocytes/100 ubapjdydjf6041-79-26 05: 34:00Identifier 5905-5 Result Time 2019-05-18 05:34:00Unknown Test Item Value Reference Range Comments Automated blood monocytes/100 leukocytes 6.1 % Unknown Unknown F (test code = 5905-5) Ordering Physician UnknownSerum or plasma albumin measurement by bromocresol green (BCG) dye binding method ([id number] 05:34:00Identifier 73116-5 Result Time 2019-05-18 05:34:00Unknown Test Item Value Reference Range Comments Serum or plasma albumin measurement by 2.6 g/dL Unknown Unknown F bromocresol green (BCG) dye binding method (ma (test code = 27294-0) Ordering Physician UnknownSerum or plasma alkaline phosphatase [...] = 704-7) Ordering Physician UnknownAutomated blood basophils/100 [id number] 05: 34:00Identifier 706-2 Result Time 2019-05-18 05:34:00Unknown [...] = 711-2) Ordering Physician UnknownAutomated blood eosinophils/100 pgptlusycz8043-02-97 05:34:00Identifier 713-8 Result Time 2019-05-18 05:34:00Unknown Test [...] = 731-0) Ordering Physician UnknownAutomated blood lymphocytes/100 eudgbswxxl0654-24-02 05:34:00Identifier 736-9 Result Time 2019-05-18 05:34:00Unknown Test Item Value Reference Range Comments Automated blood lymphocytes/100 leukocytes 19.5 % Unknown Unknown F (test code = 736-9) Ordering Physician UnknownBlood monocytes automated count (number/volume)2019-04 05:34:00Identifier 742-7 Result Time 2019-05-18 05:34:00Unknown Test Item Value Reference Range Comments Blood monocytes automated count 0.4 10^3/ul Unknown Unknown F (number/volume) (test code = 742-7) Ordering Physician UnknownAutomated blood neutrophils/100 magdudivpe4254-63-13 05:34:00Identifier 770-8 Result Time 2019-05-18 05:34:00Unknown Test [...] UnknownAutomated erythrocyte mean corpuscular hemoglobin concentration measurement (mass/hsu1081-17-05 05:34:00Identifier 786-4 Result Time 2019-05-18 05:34:00Unknown Test Item Value Reference Range Comments Automated erythrocyte mean corpuscular 34 g/dL Unknown Unknown F hemoglobin concentration measurement (mass/vol (test code = 786-4) Ordering Physician UnknownAutomated erythrocyte mean corpuscular ncxaoj4853-16- 28 05:34:00Identifier 787-2 Result Time 2019-05-18 05:34:00Unknown Test Item Value Reference Range Comments Automated erythrocyte mean corpuscular 109 fL Unknown Unknown F volume (test code = 787-2) Ordering Physician UnknownAutomated erythrocyte distribution width [id number]- 28 05:34:00Identifier 788-0 Result Time 2019-05-18 05:34:00Unknown [...] code = 789-8) Ordering Physician UnknownLymphocyte proliferation dvji5191-13-11 05:34: 00Identifier [id number] Result Time 2019-05-18 05:34:00Unknown Test Item Value Reference Range Comments Lymphocyte proliferation test (test 4.4 10^3/ul Unknown Unknown F code = JFH6012) Ordering Physician UnknownSerum or plasma thyroid stimulating [...]
--- OUTSIDE RECORDS SUMMARY | 2019-08-09 02:27 | XMS REPORT ---
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 Other long Other long Diagnosis Active Bre term term En (current) (current) drug drug therapy therapy Pain frequent Pain Mgmt Resolve 2019-05-31 [place] pain d 05-21 08:55:00 [place] 10:30: [id number] 00 Respiratory dyspnea Respirator Resolve 2019-0 2019-05-31 [place] present y d 05-21 08:55:00 [place] 10:30: [id number] 00 Integument pressure Integument Active 2019-0 [place] ulcer 05-21 [place] present 10:30: [id number] 00 Integument skin Integument Active [place] integrity 05-21 [place] risk 10:30: [id number] 00 Nutrition nutritional Nutrition Active [place] restriction 05-21 [place] s 10:30: [id number] 00 Elimination urinary Eliminatio Resolve 2019-05-31 [place] incontinenc n d 05-21 08:55:00 Ava e 10:30: [id number] 00 Elimination bowel Eliminatio Resolve 2019-05-31 [place] incontinenc n d 05-21 08:55:00 Ava e 10:30: [id number] 00 Elimination diarrhea Eliminatio Resolve 2019-05-31 [place] n d 05-21 08:55:00 [place] 10:30: [id number] 00 Elimination nausea/vomi Eliminatio Resolve 2019-05-31 [place] ting n d 05-21 08:55:00 [place] 10:30: [id number] 00 Neuro confusion Neuro/Emot Active 0 [place] present ion 05-21 [place] 10:30: [id number] 00 Activity ADL Activity Active [place] assistance 05-21 [place] required 10:30: [id number] 00 Activity self-care Activity Resolve 2019-05-24 [place] deficit d 05-21 11:15:00 [place] 10:30: [id number] 00 Safety cannot be Safety Active 2019-0 [place] left alone 05-21 [place] 10:30: [id number] 00 Safety fall risk Safety Resolve 2019-2019-05-24 [place] factor d 05-21 11:15:00 [place] present 10:30: [id number] 00 Safety risk for Safety Resolve 2019-05-24 [place] hospitaliza d 05-21 11:15:00 [place] tion 10:30: [id number] 00 Medication oral med Meds Resolve 2019-05-24 [place] assistance d 05-21 11:15:00 [place]va required 10:30: [id number] 00 Medication knowledge/s Meds Resolve 2019-2019-05-24 Altashorty pinedo d 05-21 11:15:00 [place] deficit: pt 10:30: [id number] 00 Diagnoses knowledge/s Diagnoses Active Altashorty pinedo 05-21 [place] deficit: pt 10:30: [id number] 00 Diagnoses knowledge/s Diagnoses Active Altashorty pinedo 05-21 [place] deficit: cg 10:30: [id number] 00 Musculoskel transfer Musculoske Resolve 2019-05-24 [place] etal assistance letal d 05-21 11:15:00 [place] required 10:30: [id number] 00 Musculoskel requires Musculoske Resolve 2019-05-24 [place] etal human letal d 05-21 11:15:00 [place]va assist to 10:30: [id number] leave home 00 Bed transfer PT/OT: Bed Active Robbi Mobility/Tr deficit: Mobility/T 05-21 lora Brown sit/stand ransfer 15:00: PT 00 [id number] Bed transfer PT/OT: Bed Active Robbi Mobility/Tr deficit: Mobility/T 05-21 lora Brown standing ransfer 15:00: PT pivot 00 [id number] Bed transfer PT/OT: Bed Active Robbi Mobility/Tr deficit: Mobility/T 05-21 lora Brown toilet/comm ransfer 15:00: PT ode 00 [id number] Bed transfer PT/OT: Bed Active Robbi Mobility/Tr deficit: Mobility/T 05-21 lora Brown shower/tub ransfer 15:00: PT 00 041665-0 Bed knowledge/s PT/OT: Bed Active Robbi Mobility/Tr kill Mobility/T 05-21 lora Brown deficit: pt ransfer 15:00: PT 00 240722-8 Bed bed PT/OT: Bed Active 0 Robbi Mobility/Tr mobility Mobility/T 05-21 lora Brown deficit ransfer 15:00: PT 00 [id number] Balance/End balance/marketing outreach coordinator PT/OT: Active Robbi urance rdination Balance/En 05-21 Kevin, deficit durance 15:00: PT 00 408215-2 Gait/Locomo gait PT/OT: Active 2020-0 Robbi tion deficit Gait/Locom 05-21 Kevin, problems otion 15:00: PT 00 789610-7 Gait/Locomo knowledge/s PT/OT: Active 2020-0 Robbi tion kill Gait/Locom 05-21 Kevin, problems deficit: pt otion 15:00: PT 00 977157-6 Safety can be left Safety Active 2020-0 Bre alone for 2-03 [place] only short 11:15: periods 00 Safety risk for Safety Resolve 2020-0 2019-05-31 Robbi hospitaliza d 2-05 08:55:00 Kevin, tion 13:00: PT 00 [id number] Neuro anxiety Neuro/Emot Active 2019- Bre present ion 2- G[place] 11:55: 00 Musculoskel requires Musculoske Resolve 2019-0 2019-05-31 Bre etal human letal d 2- 08:55:00 [place] assist to 11:55: leave home 00 Safety risk for Safety Unknown 2019- Robbi hospitaliza 2- Kevin, tion 13:00: PT 00 337889-4 Safety risk for Safety Active 2020- Elva hospitaliza 2-11 Ulices Steven tion 12:05: [id number] 00 Respiratory dyspnea Respirator Active 2019- Bre [...] deficit y 2- Kevin, 11:15: PT 00 443967-4 Infection s/s of Infection Active 2020-0 Bre [...] 0.005 % eye 0.005 % eye 05-21 MD,Jda drops drops brimonidine brimonidine Yes Bael Unknown [...] Ordering Physician UnknownSerum or plasma albumin/globulin mass [id number] 05:34:00Identifier 1759-0 Result Time 2019-05-18 05:34:00Unknown Test Item Value Reference Range Comments Serum or plasma albumin/globulin mass ratio 1.0 Unknown Unknown F (test code = 1759-0) Ordering Physician UnknownSerum or plasma calcium measurement (mass/volume)05-18 05:34:00Identifier 35077-7 Result Time 2019-05-18 05:34:00Unknown Test Item Value Reference Range Comments Serum or plasma calcium measurement 6.9 mg/dL Unknown Unknown F (mass/volume) (test code = 39878-2) Ordering Physician UnknownSerum or plasma magnesium measurement (mass/volume) 2019-05-18 05:34:00Identifier 04956-8 Result Time 2019-05-18 05:34:00Unknown Test Item Value Reference Range Comments Serum or plasma magnesium measurement 1.4 mg/dL Unknown Unknown F (mass/volume) (test code = 45902-5) Ordering Physician UnknownSerum or plasma aspartate aminotransferase [...] Ordering Physician UnknownSerum or plasma urea nitrogen/creatinine [id number]- 28 05:34:00Identifier 3097-3 Result Time 2019-05-18 05:34:00Unknown Test Item Value Reference Range Comments Serum or plasma urea nitrogen/creatinine 26.0 Unknown Unknown F ratio (test code = 3097-3) Ordering Physician UnknownAutomated blood platelet mean volume mamncqadffp9082- 01-28 05:34:00Identifier 61593-0 Result Time 2019-05-18 05:34:00Unknown Test Item Value Reference Range Comments Automated blood platelet mean volume 7.0 fL Unknown Unknown F measurement (test code = 08730-8) Ordering Physician UnknownSerum or plasma anion [id number] 05:34: 00Identifier 31698-2 Result Time 2019-05-18 05:34:00Unknown Test Item Value Reference Range Comments Serum or plasma anion gap (test code = 9 mmol/L Unknown Unknown F 53691-9) Ordering Physician UnknownAutomated blood leukocytes count corrected for nucleated erythrocytes (number/volume)2019-05-18 05:34:00Identifier 24525-8 Result Time 2019-05-18 05:34:00Unknown Test Item Value Reference Range Comments Automated blood leukocytes count 5.9 10^3/uL Unknown Unknown F corrected for nucleated erythrocytes (number/volume) (test code = 91626-2) Ordering Physician UnknownAutomated blood nucleated erythrocytes [id number]- 01-28 05:34:00Identifier 17166-1 Result Time 2019-05-18 05:34:00Unknown Test Item Value Reference Range Comments Automated blood nucleated erythrocytes 0.6 Unknown Unknown F detection (test code = 98548-4) Ordering Physician UnknownAutomated blood hematocrit (percentage)2019-05-18 05: 34:00Identifier 4544-3 Result Time 2019-05-18 05:34:00Unknown Test Item Value Reference Range Comments Automated blood hematocrit (percentage) (test 27 % Unknown Unknown F code = 4544-3) Ordering Physician UnknownEstimated glomerular filtration rate (GFR) non- Mezteyfj5287-18-50 05:34:00Identifier 69208-6 Result Time 2019-05-18 05: 34:00Unknown Test Item Value Reference Range Comments Estimated glomerular filtration rate (GFR) 122.0 Unknown Unknown F non- (test code = 04088-4) Ordering Physician UnknownAutomated blood monocytes/100 [id number] 05: 34:00Identifier 5905-5 Result Time 2019-05-18 05:34:00Unknown Test Item Value Reference Range Comments Automated blood monocytes/100 leukocytes 6.1 % Unknown Unknown F (test code = 5905-5) Ordering Physician UnknownSerum or plasma albumin measurement by bromocresol green (BCG) dye binding method ([id number] 05:34:00Identifier 56113-0 Result Time 2019-05-18 05:34:00Unknown Test Item Value Reference Range Comments Serum or plasma albumin measurement by 2.6 g/dL Unknown Unknown F bromocresol green (BCG) dye binding method (ma (test code = 52204-7) Ordering Physician UnknownSerum or plasma alkaline phosphatase [...] = 704-7) Ordering Physician UnknownAutomated blood basophils/100 [id number] 05: 34:00Identifier 706-2 Result Time 2019-05-18 05:34:00Unknown [...] = 711-2) Ordering Physician UnknownAutomated blood eosinophils/100 [id number] 05:34:00Identifier 713-8 Result Time 2019-05-18 05:34:00Unknown Test [...] = 731-0) Ordering Physician UnknownAutomated blood lymphocytes/100 [id number] 05:34:00Identifier 736-9 Result Time 2019-05-18 05:34:00Unknown Test Item Value Reference Range Comments Automated blood lymphocytes/100 leukocytes 19.5 % Unknown Unknown F (test code = 736-9) Ordering Physician UnknownBlood monocytes automated count (number/volume)2019-04 05:34:00Identifier 742-7 Result Time 2019-05-18 05:34:00Unknown Test Item Value Reference Range Comments Blood monocytes automated count 0.4 10^3/ul Unknown Unknown F (number/volume) (test code = 742-7) Ordering Physician UnknownAutomated blood neutrophils/100 [id number] 05:34:00Identifier 770-8 Result Time 2019-05-18 05:34:00Unknown Test [...] UnknownAutomated erythrocyte mean corpuscular hemoglobin concentration measurement (mass/afy4700-16-71 05:34:00Identifier 786-4 Result Time 2019-05-18 05:34:00Unknown Test Item Value Reference Range Comments Automated erythrocyte mean corpuscular 34 g/dL Unknown Unknown F hemoglobin concentration measurement (mass/vol (test code = 786-4) Ordering Physician UnknownAutomated erythrocyte mean corpuscular [id number]- 28 05:34:00Identifier 787-2 Result Time 2019-05-18 05:34:00Unknown Test Item Value Reference Range Comments Automated erythrocyte mean corpuscular 109 fL Unknown Unknown F volume (test code = 787-2) Ordering Physician UnknownAutomated erythrocyte distribution width [id number]- 28 05:34:00Identifier 788-0 Result Time 2019-05-18 05:34:00Unknown [...] code = 789-8) Ordering Physician UnknownLymphocyte proliferation [id number] 05:34: 00Identifier [id number] Result Time 2019-05-18 05:34:00Unknown Test Item Value Reference Range Comments Lymphocyte proliferation test (test 4.4 10^3/ul Unknown Unknown F code = WJK1628) Ordering Physician UnknownSerum or plasma thyroid stimulating [...]
--- OUTSIDE RECORDS SUMMARY | 2019-08-09 02:27 | XMS REPORT ---
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 Other long Other long Diagnosis Active Bre term term En (current) (current) drug drug therapy therapy Pain frequent Pain Mgmt Resolve 2019-05-31 [place] pain d 05-21 08:55:00 [place] 10:30: [id number] 00 Respiratory dyspnea Respirator Resolve 2019-0 2019-05-31 [place] present y d 05-21 08:55:00 Ava 10:30: [id number] 00 Integument pressure Integument Active 2019-0 [place] ulcer 05-21 [place] present 10:30: [id number] 00 Integument skin Integument Active [place] integrity 05-21 [place] risk 10:30: [id number] 00 Nutrition nutritional Nutrition Active [place] restriction 05-21 [place] s 10:30: [id number] 00 Elimination urinary Eliminatio Resolve 2019-05-31 [place] incontinenc n d 05-21 08:55:00 Ava e 10:30: [id number] 00 Elimination bowel Eliminatio Resolve 2019-05-31 [place] incontinenc n d 05-21 08:55:00 [place] e 10:30: [id number] 00 Elimination diarrhea Eliminatio Resolve 2019-05-31 [place] n d 05-21 08:55:00 [place] 10:30: [id number] 00 Elimination nausea/vomi Eliminatio Resolve 2019-05-31 [place] ting n d 05-21 08:55:00 [place] 10:30: [id number] 00 Neuro confusion Neuro/Emot Active 0 [place] present ion 05-21 [place] 10:30: [id number] 00 Activity ADL Activity Active [place] assistance 05-21 [place] required 10:30: [id number] 00 Activity self-care Activity Resolve 2019-05-24 [place] deficit d 05-21 11:15:00 [place] 10:30: [id number] 00 Safety cannot be Safety Active 2019-0 [place] left alone 05-21 [place] 10:30: [id number] 00 Safety fall risk Safety Resolve 2019-2019-05-24 [place] factor d 05-21 11:15:00 [place] present 10:30: [id number] 00 Safety risk for Safety Resolve 2019-05-24 [place] hospitaliza d 05-21 11:15:00 [place] tion 10:30: [id number] 00 Medication oral med Meds Resolve 2019-05-24 [place] assistance d 05-21 11:15:00 [place] required 10:30: [id number] 00 Medication knowledge/s Meds Resolve 2019-2019-05-24 Altashorty pinedo d 05-21 11:15:00 [place] deficit: pt 10:30: [id number] 00 Diagnoses knowledge/s Diagnoses Active Altashorty pinedo 05-21 [place] deficit: pt 10:30: [id number] 00 Diagnoses knowledge/s Diagnoses Active Altashorty pinedo 05-21 [place] deficit: cg 10:30: [id number] 00 Musculoskel transfer Musculoske Resolve 2019-05-24 [place] etal assistance letal d 05-21 11:15:00 [place] required 10:30: [id number] 00 Musculoskel requires Musculoske Resolve 2019-05-24 [place] etal human letal d 05-21 11:15:00 [place] assist to 10:30: [id number] leave home 00 Bed transfer PT/OT: Bed Active Robbi Mobility/Tr deficit: Mobility/T 05-21 lora Brown sit/stand ransfer 15:00: PT 00 929240-5 Bed transfer PT/OT: Bed Active Robbi Mobility/Tr deficit: Mobility/T 05-21 lora Brown standing ransfer 15:00: PT pivot 00 005495-4 Bed transfer PT/OT: Bed Active Robbi Mobility/Tr deficit: Mobility/T 05-21 lora Brown toilet/comm ransfer 15:00: PT ode 00 593828-3 Bed transfer PT/OT: Bed Active Robbi Mobility/Tr deficit: Mobility/T 05-21 lora Brown shower/tub ransfer 15:00: PT 00 255622-0 Bed knowledge/s PT/OT: Bed Active Robbi Mobility/Tr kill Mobility/T 05-21 lora Brown deficit: pt ransfer 15:00: PT 00 737889-3 Bed bed PT/OT: Bed Active 0 Robbi Mobility/Tr mobility Mobility/T 05-21 lora Brown deficit ransfer 15:00: PT 00 430707-8 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 PT/OT: Active Robbi urance rdination Balance/En 05-21 Kevin, deficit durance 15:00: PT 00 626909-2 Gait/Locomo gait PT/OT: Active 2020-0 Robbi tion deficit Gait/Locom 05-21 Kevin, problems otion 15:00: PT 00 254557-1 Gait/Locomo knowledge/s PT/OT: Active 2020-0 Robbi tion kill Gait/Locom 05-21 Kevin, problems deficit: pt otion 15:00: PT 00 342745-3 Safety can be left Safety Active 2020-0 Bre alone for 2-03 [place] only short 11:15: periods 00 Safety risk for Safety Resolve 2020-0 2019-05-31 Robbi hospitaliza d 2-05 08:55:00 Kevin, tion 13:00: PT 00 931768-5 Neuro anxiety Neuro/Emot Active 2019- Bre present ion 2- Gatica 11:55: 00 Musculoskel requires Musculoske Resolve 2019-0 2019-05-31 Bre etal human letal d 2- 08:55:00 [place] assist to 11:55: leave home 00 Safety risk for Safety Unknown 2019- Robbi hospitaliza 2- Kevin, tion 13:00: PT 00 618706-7 Safety risk for Safety Active 2020- Leva hospitaliza 2-11 Ulices Steven tion 12:05: [id number] 00 Respiratory dyspnea Respirator Active 2019- Bre [...] deficit y 2- Kevin, 11:15: PT 00 459565-4 Infection s/s of Infection Active 2020-0 Bre infection 3- Gatica 12:20: 00 Nutrition changing Nutrition Active Bre weight/appe 07-14 G[place] tite 12:20: 00 Neuro depressive Neuro/Emot Active Bre feelings ion 07-14 Gta[place] present 12:20: 00 Activity self-care Activity Active [...] Ordering Physician UnknownSerum or plasma albumin/globulin mass [id number] 05:34:00Identifier 1759-0 Result Time 2019-05-18 05:34:00Unknown Test Item Value Reference Range Comments Serum or plasma albumin/globulin mass ratio 1.0 Unknown Unknown F (test code = 1759-0) Ordering Physician UnknownSerum or plasma calcium measurement (mass/volume)05-18 05:34:00Identifier 65303-8 Result Time 2019-05-18 05:34:00Unknown Test Item Value Reference Range Comments Serum or plasma calcium measurement 6.9 mg/dL Unknown Unknown F (mass/volume) (test code = 66998-2) Ordering Physician UnknownSerum or plasma magnesium measurement (mass/volume) 2019-05-18 05:34:00Identifier 77350-9 Result Time 2019-05-18 05:34:00Unknown Test Item Value Reference Range Comments Serum or plasma magnesium measurement 1.4 mg/dL Unknown Unknown F (mass/volume) (test code = 00070-2) Ordering Physician UnknownSerum or plasma aspartate aminotransferase [...] Ordering Physician UnknownSerum or plasma urea nitrogen/creatinine [id number]- 28 05:34:00Identifier 3097-3 Result Time 2019-05-18 05:34:00Unknown Test Item Value Reference Range Comments Serum or plasma urea nitrogen/creatinine 26.0 Unknown Unknown F ratio (test code = 3097-3) Ordering Physician UnknownAutomated blood platelet mean volume [id number]- 01-28 05:34:00Identifier 85213-1 Result Time 2019-05-18 05:34:00Unknown Test Item Value Reference Range Comments Automated blood platelet mean volume 7.0 fL Unknown Unknown F measurement (test code = 13279-6) Ordering Physician UnknownSerum or plasma anion [id number] 05:34: 00Identifier 23519-1 Result Time 2019-05-18 05:34:00Unknown Test Item Value Reference Range Comments Serum or plasma anion gap (test code = 9 mmol/L Unknown Unknown F 21343-0) Ordering Physician UnknownAutomated blood leukocytes count corrected for nucleated erythrocytes (number/volume)2019-05-18 05:34:00Identifier 11125-9 Result Time 2019-05-18 05:34:00Unknown Test Item Value Reference Range Comments Automated blood leukocytes count 5.9 10^3/uL Unknown Unknown F corrected for nucleated erythrocytes (number/volume) (test code = 35361-8) Ordering Physician UnknownAutomated blood nucleated erythrocytes [id number]- 01-28 05:34:00Identifier 45061-2 Result Time 2019-05-18 05:34:00Unknown Test Item Value Reference Range Comments Automated blood nucleated erythrocytes 0.6 Unknown Unknown F detection (test code = 88477-4) Ordering Physician UnknownAutomated blood hematocrit (percentage)2019-05-18 05: 34:00Identifier 4544-3 Result Time 2019-05-18 05:34:00Unknown Test Item Value Reference Range Comments Automated blood hematocrit (percentage) (test 27 % Unknown Unknown F code = 4544-3) Ordering Physician UnknownEstimated glomerular filtration rate (GFR) non- Wxkujejz3608-42-13 05:34:00Identifier 18756-8 Result Time 2019-05-18 05: 34:00Unknown Test Item Value Reference Range Comments Estimated glomerular filtration rate (GFR) 122.0 Unknown Unknown F non- (test code = 52325-2) Ordering Physician UnknownAutomated blood monocytes/100 [id number] 05: 34:00Identifier 5905-5 Result Time 2019-05-18 05:34:00Unknown Test Item Value Reference Range Comments Automated blood monocytes/100 leukocytes 6.1 % Unknown Unknown F (test code = 5905-5) Ordering Physician UnknownSerum or plasma albumin measurement by bromocresol green (BCG) dye binding method ([id number] 05:34:00Identifier 09559-9 Result Time 2019-05-18 05:34:00Unknown Test Item Value Reference Range Comments Serum or plasma albumin measurement by 2.6 g/dL Unknown Unknown F bromocresol green (BCG) dye binding method (ma (test code = 95902-7) Ordering Physician UnknownSerum or plasma alkaline phosphatase [...] = 704-7) Ordering Physician UnknownAutomated blood basophils/100 [id number] 05: 34:00Identifier 706-2 Result Time 2019-05-18 05:34:00Unknown [...] = 711-2) Ordering Physician UnknownAutomated blood eosinophils/100 ogdcbtmzxa8015-12-34 05:34:00Identifier 713-8 Result Time 2019-05-18 05:34:00Unknown Test [...] = 731-0) Ordering Physician UnknownAutomated blood lymphocytes/100 hvzlbzazgf4948-36-14 05:34:00Identifier 736-9 Result Time 2019-05-18 05:34:00Unknown Test Item Value Reference Range Comments Automated blood lymphocytes/100 leukocytes 19.5 % Unknown Unknown F (test code = 736-9) Ordering Physician UnknownBlood monocytes automated count (number/volume)2019-04 05:34:00Identifier 742-7 Result Time 2019-05-18 05:34:00Unknown Test Item Value Reference Range Comments Blood monocytes automated count 0.4 10^3/ul Unknown Unknown F (number/volume) (test code = 742-7) Ordering Physician UnknownAutomated blood neutrophils/100 eepadzimkk1204-50-24 05:34:00Identifier 770-8 Result Time 2019-05-18 05:34:00Unknown Test [...] UnknownAutomated erythrocyte mean corpuscular hemoglobin concentration measurement (mass/[id number] 05:34:00Identifier 786-4 Result Time 2019-05-18 05:34:00Unknown Test Item Value Reference Range Comments Automated erythrocyte mean corpuscular 34 g/dL Unknown Unknown F hemoglobin concentration measurement (mass/vol (test code = 786-4) Ordering Physician UnknownAutomated erythrocyte mean corpuscular mhtozs7206-70- 28 05:34:00Identifier 787-2 Result Time 2019-05-18 05:34:00Unknown Test Item Value Reference Range Comments Automated erythrocyte mean corpuscular 109 fL Unknown Unknown F volume (test code = 787-2) Ordering Physician UnknownAutomated erythrocyte distribution width ovvqv1686-05- 28 05:34:00Identifier 788-0 Result Time 2019-05-18 05:34:00Unknown [...] code = 789-8) Ordering Physician UnknownLymphocyte proliferation [id number] 05:34: 00Identifier [id number] Result Time 2019-05-18 05:34:00Unknown Test Item Value Reference Range Comments Lymphocyte proliferation test (test 4.4 10^3/ul Unknown Unknown F code = AAD9720) Ordering Physician UnknownSerum or plasma thyroid stimulating [...]
--- OUTSIDE RECORDS SUMMARY | 2019-08-09 02:27 | XMS REPORT ---
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) (current) En use of use of opiate opiate analgesic analgesic Other long Other long Diagnosis Active Bre term term En (current) (current) drug drug therapy therapy Pain frequent Pain Mgmt Resolve 2019-05-31 [place] pain d 05-21 08:55:00 [place] 10:30: [id number] 00 Respiratory dyspnea Respirator Resolve 2019-2019-05-31 [place] present y d 05-21 08:55:00 [place] 10:30: [id number] 00 Integument pressure Integument Active 2019-0 [place] ulcer 05-21 [place] present 10:30: [id number] 00 Integument skin Integument Active [place] integrity 05-21 [place] risk 10:30: [id number] Nutrition nutritional Nutrition Active [place] restriction 05-21 [place] s 10:30: [id number] 00 Elimination urinary Eliminatio Resolve 2019-05-31 [place] incontinenc n d 05-21 08:55:00 [place] e 10:30: [id number] 00 Elimination bowel Eliminatio Resolve 2019-05-31 [place] incontinenc n d 05-21 08:55:00 [place] e 10:30: [id number] 00 Elimination diarrhea Eliminatio Resolve 2019-05-31 [place] n d 05-21 08:55:00 [place] 10:30: [id number] 00 Elimination nausea/vomi Eliminatio Resolve 2019-05-31 [place] ting n d 05-21 08:55:00 [place] 10:30: [id number] 00 Neuro confusion Neuro/Emot Active [place] present ion 05-21 [place] 10:30: [id number] 00 Activity ADL Activity Active [place] assistance 05-21 [place] required 10:30: [id number] 00 Activity self-care Activity Resolve 2019-05-24 [place] deficit d 05-21 11:15:00 [place] 10:30: [id number] 00 Safety cannot be Safety Active 2019-0 [place] left alone 05-21 [place] 10:30: [id number] 00 Safety fall risk Safety Resolve 2019-05-24 [place] factor d 05-21 11:15:00 [place] present 10:30: [id number] 00 Safety risk for Safety Resolve 2019-05-24 [place] hospitaliza d 05-21 11:15:00 [place] tion 10:30: [id number] 00 Medication oral med Meds Resolve 2019-05-24 [place] assistance d 05-21 11:15:00 [place] required 10:30: [id number] 00 Medication knowledge/s Meds Resolve 2019-2019-05-24 [place] kill d 05-21 11:15:00 [place] deficit: pt 10:30: [id number] 00 Diagnoses knowledge/s Diagnoses Active [place] kill 05-21 [place] deficit: pt 10:30: [id number] 00 Diagnoses knowledge/s Diagnoses Active Altashorty pinedo 05-21 [place] deficit: cg 10:30: [id number] 00 Musculoskel transfer Musculoske Resolve 2019-05-24 [place] etal assistance letal d 05-21 11:15:00 [place] required 10:30: [id number] 00 Musculoskel requires Musculoske Resolve 2019-05-24 [place] etal human letal d 05-21 11:15:00 [place] assist to 10:30: [id number] leave home 00 Bed transfer PT/OT: Bed Active Robbi Mobility/Tr deficit: Mobility/T 05-21 lora Brown sit/stand ransfer 15:00: PT 00 [id number] Bed transfer PT/OT: Bed Active Robbi Mobility/Tr deficit: Mobility/T 05-21 lora Brown standing ransfer 15:00: PT pivot 00 [id number] Bed transfer PT/OT: Bed Active Robbi Mobility/Tr deficit: Mobility/T 05-21 lora Brown toilet/comm ransfer 15:00: PT ode 00 825698-2 Bed transfer PT/OT: Bed Active Robbi Mobility/Tr deficit: Mobility/T 05-21 lora Brown shower/tub ransfer 15:00: PT 00 877909-6 Bed knowledge/s PT/OT: Bed Active Robbi Mobility/Tr kill Mobility/T 05-21 lora Brown deficit: pt ransfer 15:00: PT 00 698319-5 Bed bed PT/OT: Bed Active 0 Robbi Mobility/Tr mobility Mobility/T 05-21 lora Brown deficit ransfer 15:00: PT 00 878942-2 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 PT/OT: Active Robbi urance rdination Balance/En 05-21 Kevin, deficit durance 15:00: PT 00 112737-7 Gait/Locomo gait PT/OT: Active 2020-0 Robbi tion deficit Gait/Locom 1- Kevin, problems otion 15:00: PT 00 276264-9 Gait/Locomo knowledge/s PT/OT: Active 2020- Robbi tion kill Gait/Locom 05-21 Kevin, problems deficit: pt otion 15:00: PT 00 993365-1 Safety can be left Safety Active 2020-0 Bre alone for 2-03 [place] only short 11:15: periods 00 Safety risk for Safety Resolve 2020-0 2019-05-31 Robbi hospitaliza d 2-05 08:55:00 Kevinantoine jaureguion 13:00: PT 00 [id number] Neuro anxiety Neuro/Emot Active 2019- Bre present ion 2- [place] 11:55: 00 Musculoskel requires Musculoske Resolve 2020-0 2019-05-31 Bre etal human letal d 2- 08:55:00 [place] assist to 11:55: leave home 00 Safety risk for Safety Unknown 2019- Robbi hospitaliza 2- antoine Brownon 13:00: PT 00 707647-9 Safety risk for Safety Active 2020- Elva hospitaliza 2- Ulices Steven tion 12:05: [id number] 00 Respiratory dyspnea Respirator Active 2019- Bre [...] deficit y 2-27 Kevin, 11:15: PT 00 866580-8 Infection s/s of Infection Active 2020- Bre infection 3- [place] 12:20: 00 Nutrition changing Nutrition Active Bre weight/appe 07-14 [place] tite 12:20: 00 Neuro depressive Neuro/Emot Active Bre feelings ion 07-14 [place] present 12:20: 00 Activity self-care Activity Active Bre deficit 07-14 [place] 12:20: 00 Safety fall risk Safety Active Bre factor 07-14 [place] present 12:20: 00 Musculoskel transfer Musculoske Active [...] Ordering Physician UnknownSerum or plasma albumin/globulin mass [id number] 05:34:00Identifier 1759-0 Result Time 2019-05-18 05:34:00Unknown Test Item Value Reference Range Comments Serum or plasma albumin/globulin mass ratio 1.0 Unknown Unknown F (test code = 1759-0) Ordering Physician UnknownSerum or plasma calcium measurement (mass/volume)05-18 05:34:00Identifier 02574-4 Result Time 2019-05-18 05:34:00Unknown Test Item Value Reference Range Comments Serum or plasma calcium measurement 6.9 mg/dL Unknown Unknown F (mass/volume) (test code = 70807-1) Ordering Physician UnknownSerum or plasma magnesium measurement (mass/volume) 2019-05-18 05:34:00Identifier 40574-0 Result Time 2019-05-18 05:34:00Unknown Test Item Value Reference Range Comments Serum or plasma magnesium measurement 1.4 mg/dL Unknown Unknown F (mass/volume) (test code = 41316-3) Ordering Physician UnknownSerum or plasma aspartate aminotransferase [...] Ordering Physician UnknownSerum or plasma urea nitrogen/creatinine [id number]- 28 05:34:00Identifier 3097-3 Result Time 2019-05-18 05:34:00Unknown Test Item Value Reference Range Comments Serum or plasma urea nitrogen/creatinine 26.0 Unknown Unknown F ratio (test code = 3097-3) Ordering Physician UnknownAutomated blood platelet mean volume [id number]- 01-28 05:34:00Identifier 74525-4 Result Time 2019-05-18 05:34:00Unknown Test Item Value Reference Range Comments Automated blood platelet mean volume 7.0 fL Unknown Unknown F measurement (test code = 87250-1) Ordering Physician UnknownSerum or plasma anion [id number] 05:34: 00Identifier 79228-2 Result Time 2019-05-18 05:34:00Unknown Test Item Value Reference Range Comments Serum or plasma anion gap (test code = 9 mmol/L Unknown Unknown F 97380-1) Ordering Physician UnknownAutomated blood leukocytes count corrected for nucleated erythrocytes (number/volume)2019-05-18 05:34:00Identifier 32815-3 Result Time 2019-05-18 05:34:00Unknown Test Item Value Reference Range Comments Automated blood leukocytes count 5.9 10^3/uL Unknown Unknown F corrected for nucleated erythrocytes (number/volume) (test code = 88977-5) Ordering Physician UnknownAutomated blood nucleated erythrocytes [id number]- 01-28 05:34:00Identifier 73969-3 Result Time 2019-05-18 05:34:00Unknown Test Item Value Reference Range Comments Automated blood nucleated erythrocytes 0.6 Unknown Unknown F detection (test code = 69945-2) Ordering Physician UnknownAutomated blood hematocrit (percentage)2019-05-18 05: 34:00Identifier 4544-3 Result Time 2019-05-18 05:34:00Unknown Test Item Value Reference Range Comments Automated blood hematocrit (percentage) (test 27 % Unknown Unknown F code = 4544-3) Ordering Physician UnknownEstimated glomerular filtration rate (GFR) non- [id number] 05:34:00Identifier 00897-6 Result Time 2019-05-18 05: 34:00Unknown Test Item Value Reference Range Comments Estimated glomerular filtration rate (GFR) 122.0 Unknown Unknown F non- (test code = 22389-4) Ordering Physician UnknownAutomated blood monocytes/100 [id number] 05: 34:00Identifier 5905-5 Result Time 2019-05-18 05:34:00Unknown Test Item Value Reference Range Comments Automated blood monocytes/100 leukocytes 6.1 % Unknown Unknown F (test code = 5905-5) Ordering Physician UnknownSerum or plasma albumin measurement by bromocresol green (BCG) dye binding method ([id number] 05:34:00Identifier 91509-3 Result Time 2019-05-18 05:34:00Unknown Test Item Value Reference Range Comments Serum or plasma albumin measurement by 2.6 g/dL Unknown Unknown F bromocresol green (BCG) dye binding method (ma (test code = 18884-1) Ordering Physician UnknownSerum or plasma alkaline phosphatase [...] = 704-7) Ordering Physician UnknownAutomated blood basophils/100 [id number] 05: 34:00Identifier 706-2 Result Time 2019-05-18 05:34:00Unknown [...] = 711-2) Ordering Physician UnknownAutomated blood eosinophils/100 [id number] 05:34:00Identifier 713-8 Result Time 2019-05-18 05:34:00Unknown Test [...] = 731-0) Ordering Physician UnknownAutomated blood lymphocytes/100 [id number] 05:34:00Identifier 736-9 Result Time 2019-05-18 05:34:00Unknown Test Item Value Reference Range Comments Automated blood lymphocytes/100 leukocytes 19.5 % Unknown Unknown F (test code = 736-9) Ordering Physician UnknownBlood monocytes automated count (number/volume)2019-04 05:34:00Identifier 742-7 Result Time 2019-05-18 05:34:00Unknown Test Item Value Reference Range Comments Blood monocytes automated count 0.4 10^3/ul Unknown Unknown F (number/volume) (test code = 742-7) Ordering Physician UnknownAutomated blood neutrophils/100 [id number] 05:34:00Identifier 770-8 Result Time 2019-05-18 05:34:00Unknown Test [...] UnknownAutomated erythrocyte mean corpuscular hemoglobin concentration measurement (mass/[id number] 05:34:00Identifier 786-4 Result Time 2019-05-18 05:34:00Unknown Test Item Value Reference Range Comments Automated erythrocyte mean corpuscular 34 g/dL Unknown Unknown F hemoglobin concentration measurement (mass/vol (test code = 786-4) Ordering Physician UnknownAutomated erythrocyte mean corpuscular [id number]- 28 05:34:00Identifier 787-2 Result Time 2019-05-18 05:34:00Unknown Test Item Value Reference Range Comments Automated erythrocyte mean corpuscular 109 fL Unknown Unknown F volume (test code = 787-2) Ordering Physician UnknownAutomated erythrocyte distribution width [id number]- 28 05:34:00Identifier 788-0 Result Time 2019-05-18 05:34:00Unknown [...] code = 789-8) Ordering Physician UnknownLymphocyte proliferation [id number] 05:34: 00Identifier [id number] Result Time 2019-05-18 05:34:00Unknown Test Item Value Reference Range Comments Lymphocyte proliferation test (test 4.4 10^3/ul Unknown Unknown F code = CAP8721) Ordering Physician UnknownSerum or plasma thyroid stimulating [...]
--- OUTSIDE RECORDS SUMMARY | 2019-08-09 02:27 | XMS REPORT ---
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 Other long Other long Diagnosis Active Bre term term En (current) (current) drug drug therapy therapy Pain frequent Pain Mgmt Resolve 2019-05-31 [place] pain d 05-21 08:55:00 [place] 10:30: [id number] 00 Respiratory dyspnea Respirator Resolve 2019-2019-05-31 [place] present y d 05-21 08:55:00 Ava 10:30: [id number] 00 Integument pressure Integument Active 2019-0 [place] ulcer 05-21 [place] present 10:30: [id number] 00 Integument skin Integument Active [place] integrity 05-21 Ava risk 10:30: [id number] 00 Nutrition nutritional Nutrition Active [place] restriction 05-21 Ava s 10:30: [id number] 00 Elimination urinary Eliminatio Resolve 2019-05-31 [place] incontinenc n d 05-21 08:55:00 [place] e 10:30: [id number] 00 Elimination bowel Eliminatio Resolve 2019-05-31 [place] incontinenc n d 05-21 08:55:00 [place] e 10:30: [id number] 00 Elimination diarrhea Eliminatio Resolve 2019-05-31 [place] n d 05-21 08:55:00 [place] 10:30: [id number] 00 Elimination nausea/vomi Eliminatio Resolve 2019-05-31 [place] ting n d 05-21 08:55:00 [place] 10:30: [id number] 00 Neuro confusion Neuro/Emot Active [place] present ion 05-21 [place] 10:30: [id number] 00 Activity ADL Activity Active [place] assistance 05-21 Ava required 10:30: [id number] 00 Activity self-care Activity Resolve 2019-05-24 [place] deficit d 05-21 11:15:00 [place] 10:30: [id number] 00 Safety cannot be Safety Active 2019-0 [place] left alone 05-21 [place] 10:30: [id number] 00 Safety fall risk Safety Resolve 2019-05-24 [place] factor d 05-21 11:15:00 [place] present 10:30: [id number] 00 Safety risk for Safety Resolve 2019-05-24 [place] hospitaliza d 05-21 11:15:00 [place] tion 10:30: [id number] 00 Medication oral med Meds Resolve 2019-05-24 [place] assistance d 05-21 11:15:00 [place] required 10:30: [id number] 00 Medication knowledge/s Meds Resolve 2019-2019-05-24 [place] kill d 05-21 11:15:00 [place] deficit: pt 10:30: [id number] 00 Diagnoses knowledge/s Diagnoses Active [place] kill 05-21 [place] deficit: pt 10:30: [id number] 00 Diagnoses knowledge/s Diagnoses Active Altashorty pinedo 05-21 [place] deficit: cg 10:30: [id number] 00 Musculoskel transfer Musculoske Resolve 2019-05-24 [place] etal assistance letal d 05-21 11:15:00 [place] required 10:30: [id number] 00 Musculoskel requires Musculoske Resolve 2019-05-24 [place] etal human letal d 05-21 11:15:00 [place] assist to 10:30: [id number] leave home 00 Bed transfer PT/OT: Bed Active Robbi Mobility/Tr deficit: Mobility/T 05-21 lora Brown sit/stand ransfer 15:00: PT 00 844776-8 Bed transfer PT/OT: Bed Active Robbi Mobility/Tr deficit: Mobility/T 05-21 lora Brown standing ransfer 15:00: PT pivot 00 644400-5 Bed transfer PT/OT: Bed Active Robbi Mobility/Tr deficit: Mobility/T 05-21 lora Brown toilet/comm ransfer 15:00: PT ode 00 534625-7 Bed transfer PT/OT: Bed Active Rbobi Mobility/Tr deficit: Mobility/T 05-21 lora Brown shower/tub ransfer 15:00: PT 00 988024-8 Bed knowledge/s PT/OT: Bed Active Robbi Mobility/Tr kill Mobility/T 05-21 lora Brown deficit: pt ransfer 15:00: PT 00 167061-5 Bed bed PT/OT: Bed Active 0 Robbi Mobility/Tr mobility Mobility/T 05-21 lora Brown deficit ransfer 15:00: PT 00 125469-7 Balance/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 PT/OT: Active Robbi urance rdination Balance/En 05-21 Kevin, deficit durance 15:00: PT 00 136463-1 Gait/Locomo gait PT/OT: Active 2020- Robbi tion deficit Gait/Locom 1-31 Kevin, problems otion 15:00: PT 00 796129-3 Gait/Locomo knowledge/s PT/OT: Active 2019- Robbi tion kill Gait/Locom 05-21 Kevin, problems deficit: pt otion 15:00: PT 00 822340-7 Safety can be left Safety Active 2019- Bre alone for 2- [place] only short 11:15: periods 00 Safety risk for Safety Resolve 2020-0 2019-05-31 Robbi hospitaliza d 2-05 08:55:00 Kevinantoine jaureguion 13:00: PT 00 013482-4 Neuro anxiety Neuro/Emot Active Bre present ion 2- [place] 11:55: 00 Musculoskel requires Musculoske Resolve 2019-0 2019-05-31 Bre etal human letal d 2- 08:55:00 [place] assist to 11:55: leave home 00 Safety risk for Safety Unknown Robbi hospitaliza 2- Kevin tion 13:00: PT 00 637212-5 Safety risk for Safety Resolve 2020-0 2019-08-04 Elva hospitaliza d 2- 11:55:00 Ulices Steven tion 12:05: [id number] 00 Respiratory dyspnea Respirator Active Bre present [...] deficit y 2-27 Kevin, 11:15: PT 00 287527-5 Infection s/s of Infection Active 2019- Bre infection 3- [place] 12:20: 00 Nutrition changing Nutrition Active Bre weight/appe 07-14 [place] tite 12:20: 00 Neuro depressive Neuro/Emot Active Bre feelings ion 07-14 [place] present 12:20: 00 Activity self-care Activity Active Bre deficit 07-14 [place] 12:20: 00 Safety fall risk Safety Resolve 2019-08-04 Bre factor d 07-14 11:55:00 [place] present 12:20: 00 Musculoskel transfer Musculoske Active Bre etal assistance letal 07-14 [place] required 12:20: 00 Allergies, Adverse Reactions, Alerts [...] Ordering Physician UnknownSerum or plasma albumin/globulin mass [id number] 05:34:00Identifier 1759-0 Result Time 2019-05-18 05:34:00Unknown Test Item Value Reference Range Comments Serum or plasma albumin/globulin mass ratio 1.0 Unknown Unknown F (test code = 1759-0) Ordering Physician UnknownSerum or plasma calcium measurement (mass/volume)05-18 05:34:00Identifier 50228-5 Result Time 2019-05-18 05:34:00Unknown Test Item Value Reference Range Comments Serum or plasma calcium measurement 6.9 mg/dL Unknown Unknown F (mass/volume) (test code = 38458-1) Ordering Physician UnknownSerum or plasma magnesium measurement (mass/volume) 2019-05-18 05:34:00Identifier 65059-9 Result Time 2019-05-18 05:34:00Unknown Test Item Value Reference Range Comments Serum or plasma magnesium measurement 1.4 mg/dL Unknown Unknown F (mass/volume) (test code = 76544-6) Ordering Physician UnknownSerum or plasma aspartate aminotransferase [...] Ordering Physician UnknownSerum or plasma urea nitrogen/creatinine [id number]- 28 05:34:00Identifier 3097-3 Result Time 2019-05-18 05:34:00Unknown Test Item Value Reference Range Comments Serum or plasma urea nitrogen/creatinine 26.0 Unknown Unknown F ratio (test code = 3097-3) Ordering Physician UnknownAutomated blood platelet mean volume [id number]- 01-28 05:34:00Identifier 61257-7 Result Time 2019-05-18 05:34:00Unknown Test Item Value Reference Range Comments Automated blood platelet mean volume 7.0 fL Unknown Unknown F measurement (test code = 35602-7) Ordering Physician UnknownSerum or plasma anion [id number] 05:34: 00Identifier 30502-2 Result Time 2019-05-18 05:34:00Unknown Test Item Value Reference Range Comments Serum or plasma anion gap (test code = 9 mmol/L Unknown Unknown F 94412-2) Ordering Physician UnknownAutomated blood leukocytes count corrected for nucleated erythrocytes (number/volume)2019-05-18 05:34:00Identifier 55794-2 Result Time 2019-05-18 05:34:00Unknown Test Item Value Reference Range Comments Automated blood leukocytes count 5.9 10^3/uL Unknown Unknown F corrected for nucleated erythrocytes (number/volume) (test code = 88336-5) Ordering Physician UnknownAutomated blood nucleated erythrocytes [id number]- 01-28 05:34:00Identifier 41717-2 Result Time 2019-05-18 05:34:00Unknown Test Item Value Reference Range Comments Automated blood nucleated erythrocytes 0.6 Unknown Unknown F detection (test code = 15870-6) Ordering Physician UnknownAutomated blood hematocrit (percentage)2019-05-18 05: 34:00Identifier 4544-3 Result Time 2019-05-18 05:34:00Unknown Test Item Value Reference Range Comments Automated blood hematocrit (percentage) (test 27 % Unknown Unknown F code = 4544-3) Ordering Physician UnknownEstimated glomerular filtration rate (GFR) non- [id number] 05:34:00Identifier 52194-4 Result Time 2019-05-18 05: 34:00Unknown Test Item Value Reference Range Comments Estimated glomerular filtration rate (GFR) 122.0 Unknown Unknown F non- (test code = 55090-5) Ordering Physician UnknownAutomated blood monocytes/100 [id number] 05: 34:00Identifier 5905-5 Result Time 2019-05-18 05:34:00Unknown Test Item Value Reference Range Comments Automated blood monocytes/100 leukocytes 6.1 % Unknown Unknown F (test code = 5905-5) Ordering Physician UnknownSerum or plasma albumin measurement by bromocresol green (BCG) dye binding method ([id number] 05:34:00Identifier 20040-9 Result Time 2019-05-18 05:34:00Unknown Test Item Value Reference Range Comments Serum or plasma albumin measurement by 2.6 g/dL Unknown Unknown F bromocresol green (BCG) dye binding method (ma (test code = 21807-3) Ordering Physician UnknownSerum or plasma alkaline phosphatase [...] = 704-7) Ordering Physician UnknownAutomated blood basophils/100 [id number] 05: 34:00Identifier 706-2 Result Time 2019-05-18 05:34:00Unknown [...] = 711-2) Ordering Physician UnknownAutomated blood eosinophils/100 [id number] 05:34:00Identifier 713-8 Result Time 2019-05-18 05:34:00Unknown Test [...] = 731-0) Ordering Physician UnknownAutomated blood lymphocytes/100 [id number] 05:34:00Identifier 736-9 Result Time 2019-05-18 05:34:00Unknown Test Item Value Reference Range Comments Automated blood lymphocytes/100 leukocytes 19.5 % Unknown Unknown F (test code = 736-9) Ordering Physician UnknownBlood monocytes automated count (number/volume)2019-04 05:34:00Identifier 742-7 Result Time 2019-05-18 05:34:00Unknown Test Item Value Reference Range Comments Blood monocytes automated count 0.4 10^3/ul Unknown Unknown F (number/volume) (test code = 742-7) Ordering Physician UnknownAutomated blood neutrophils/100 zeuwvszkjp8819-20-81 05:34:00Identifier 770-8 Result Time 2019-05-18 05:34:00Unknown Test [...] UnknownAutomated erythrocyte mean corpuscular hemoglobin concentration measurement (mass/[id number] 05:34:00Identifier 786-4 Result Time 2019-05-18 05:34:00Unknown Test Item Value Reference Range Comments Automated erythrocyte mean corpuscular 34 g/dL Unknown Unknown F hemoglobin concentration measurement (mass/vol (test code = 786-4) Ordering Physician UnknownAutomated erythrocyte mean corpuscular [id number]- 28 05:34:00Identifier 787-2 Result Time 2019-05-18 05:34:00Unknown Test Item Value Reference Range Comments Automated erythrocyte mean corpuscular 109 fL Unknown Unknown F volume (test code = 787-2) Ordering Physician UnknownAutomated erythrocyte distribution width [id number]- 28 05:34:00Identifier 788-0 Result Time 2019-05-18 05:34:00Unknown [...] code = 789-8) Ordering Physician UnknownLymphocyte proliferation [id number] 05:34: 00Identifier [id number] Result Time 2019-05-18 05:34:00Unknown Test Item Value Reference Range Comments Lymphocyte proliferation test (test 4.4 10^3/ul Unknown Unknown F code = LAP9743) Ordering Physician UnknownSerum or plasma thyroid stimulating [...]
--- OUTSIDE RECORDS SUMMARY | 2019-08-09 02:27 | XMS REPORT ---
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) En use of use of opiate opiate analgesic analgesic Other long Other long Diagnosis Active Bre term term En (current) (current) drug drug therapy therapy Pain frequent Pain Mgmt Resolve 2019-05-31 [place] pain d 05-21 08:55:00 [place] 10:30: [id number] 00 Respiratory dyspnea Respirator Resolve 2019-2019-05-31 [place] present y d 05-21 08:55:00 [place]va 10:30: [id number] Integument pressure Integument Active 2019-0 Alat ulcer 05-21 [place] present 10:30: [id number] 00 Integument skin Integument Active Alta integrity 05-21 Ava risk 10:30: [id number] 00 Nutrition nutritional Nutrition Active [place] restriction 05-21 [place] s 10:30: [id number] 00 Elimination urinary Eliminatio Resolve 2019-05-31 [place] incontinenc n d 05-21 08:55:00 Ava e 10:30: [id number] 00 Elimination bowel Eliminatio Resolve 2019-05-31 [place] incontinenc n d 05-21 08:55:00 Ava e 10:30: [id number] 00 Elimination diarrhea Eliminatio Resolve 2019-05-31 [place] n d 05-21 08:55:00 [place] 10:30: [id number] 00 Elimination nausea/vomi Eliminatio Resolve 2019-05-31 [place] ting n d 05-21 08:55:00 [place] 10:30: [id number] 00 Neuro confusion Neuro/Emot Active [place] present ion 05-21 [place] 10:30: [id number] 00 Activity ADL Activity Active [place] assistance 05-21 [place]va required 10:30: [id number] 00 Activity self-care Activity Resolve 2019-05-24 [place] deficit d 05-21 11:15:00 [place] 10:30: [id number] 00 Safety cannot be Safety Active 2019-0 [place] left alone 05-21 [place] 10:30: [id number] 00 Safety fall risk Safety Resolve 2019-05-24 [place] factor d 05-21 11:15:00 [place] present 10:30: [id number] 00 Safety risk for Safety Resolve 2019-05-24 [place] hospitaliza d 05-21 11:15:00 [place] tion 10:30: [id number] 00 Medication oral med Meds Resolve 2019-05-24 [place] assistance d 05-21 11:15:00 [place] required 10:30: [id number] 00 Medication knowledge/s Meds Resolve 2019-2019-05-24 [place] kill d 05-21 11:15:00 [place] deficit: pt 10:30: [id number] 00 Diagnoses knowledge/s Diagnoses Active [place] kill 05-21 [place]va deficit: pt 10:30: [id number] 00 Diagnoses knowledge/s Diagnoses Active Altashorty pinedo 05-21 [place] deficit: cg 10:30: [id number] 00 Musculoskel transfer Musculoske Resolve 2019-05-24 [place] etal assistance letal d 05-21 11:15:00 [place] required 10:30: [id number] 00 Musculoskel requires Musculoske Resolve 2019-05-24 [place] etal human letal d 05-21 11:15:00 [place] assist to 10:30: [id number] leave home 00 Bed transfer PT/OT: Bed Active Robbi Mobility/Tr deficit: Mobility/T 05-21 lora Brown sit/stand ransfer 15:00: PT 00 [id number] Bed transfer PT/OT: Bed Active Robbi Mobility/Tr deficit: Mobility/T 05-21 lora Brown standing ransfer 15:00: PT pivot 00 [id number] Bed transfer PT/OT: Bed Active Robbi Mobility/Tr deficit: Mobility/T 05-21 lora Brown toilet/comm ransfer 15:00: PT ode 00 320587-4 Bed transfer PT/OT: Bed Active Robbi Mobility/Tr deficit: Mobility/T 05-21 lora Brown shower/tub ransfer 15:00: PT 00 219197-8 Bed knowledge/s PT/OT: Bed Active Robbi Mobility/Tr kill Mobility/T 05-21 lora Brown deficit: pt ransfer 15:00: PT 00 838280-7 Bed bed PT/OT: Bed Active 0 Robbi Mobility/Tr mobility Mobility/T 05-21 lora Brown deficit ransfer 15:00: PT 00 822419-2 Balance/End balance/scoop filler PT/OT: Active Robbi urance rdination Balance/En 05-21 Kevin, deficit durance 15:00: PT 00 723922-3 Gait/Locomo gait PT/OT: Active 2020-0 Robbi tion deficit Gait/Locom 1- Kevin, problems otion 15:00: PT 00 841608-2 Gait/Locomo knowledge/s PT/OT: Active 2020- Robbi tion kill Gait/Locom 05-21 Kevin, problems deficit: pt otion 15:00: PT 00 799404-1 Safety can be left Safety Active 2020-0 Bre alone for 2-03 [place] only short 11:15: periods 00 Safety risk for Safety Resolve 2020-0 2019-05-31 Robbi hospitaliza d 2-05 08:55:00 Kevinantoine jaureguion 13:00: PT 00 449630-1 Neuro anxiety Neuro/Emot Active 2019- Bre present ion 2- [place] 11:55: 00 Musculoskel requires Musculoske Resolve 2020-0 2019-05-31 Bre etal human letal d 2- 08:55:00 [place] assist to 11:55: leave home 00 Safety risk for Safety Unknown 2019- Robbi hospitaliza 2- antoine Brownon 13:00: PT 00 228103-8 Safety risk for Safety Active 2020- Elva hospitaliza 2- Ulices Steven tion 12:05: [id number] 00 Respiratory dyspnea Respirator Active 2019- Bre [...] deficit y 2-27 Kevin, 11:15: PT 00 261589-4 Infection s/s of Infection Active 2020- Bre [...] 70 mm[Hg] mm[Hg] Method: Lie RESP RATE 2019-07-21 18:11:10 20 /min /min Procedures This patient has [...] Ordering Physician UnknownSerum or plasma albumin/globulin mass [id number] 05:34:00Identifier 1759-0 Result Time 2019-05-18 05:34:00Unknown Test Item Value Reference Range Comments Serum or plasma albumin/globulin mass ratio 1.0 Unknown Unknown F (test code = 1759-0) Ordering Physician UnknownSerum or plasma calcium measurement (mass/volume)05-18 05:34:00Identifier 46196-2 Result Time 2019-05-18 05:34:00Unknown Test Item Value Reference Range Comments Serum or plasma calcium measurement 6.9 mg/dL Unknown Unknown F (mass/volume) (test code = 88877-7) Ordering Physician UnknownSerum or plasma magnesium measurement (mass/volume) 2019-05-18 05:34:00Identifier 74074-6 Result Time 2019-05-18 05:34:00Unknown Test Item Value Reference Range Comments Serum or plasma magnesium measurement 1.4 mg/dL Unknown Unknown F (mass/volume) (test code = 81645-5) Ordering Physician UnknownSerum or plasma aspartate aminotransferase [...] Ordering Physician UnknownSerum or plasma urea nitrogen/creatinine [id number]- 28 05:34:00Identifier 3097-3 Result Time 2019-05-18 05:34:00Unknown Test Item Value Reference Range Comments Serum or plasma urea nitrogen/creatinine 26.0 Unknown Unknown F ratio (test code = 3097-3) Ordering Physician UnknownAutomated blood platelet mean volume [id number]- 01-28 05:34:00Identifier 10626-5 Result Time 2019-05-18 05:34:00Unknown Test Item Value Reference Range Comments Automated blood platelet mean volume 7.0 fL Unknown Unknown F measurement (test code = 02518-3) Ordering Physician UnknownSerum or plasma anion [id number] 05:34: 00Identifier 93534-8 Result Time 2019-05-18 05:34:00Unknown Test Item Value Reference Range Comments Serum or plasma anion gap (test code = 9 mmol/L Unknown Unknown F 05300-8) Ordering Physician UnknownAutomated blood leukocytes count corrected for nucleated erythrocytes (number/volume)2019-05-18 05:34:00Identifier 59652-1 Result Time 2019-05-18 05:34:00Unknown Test Item Value Reference Range Comments Automated blood leukocytes count 5.9 10^3/uL Unknown Unknown F corrected for nucleated erythrocytes (number/volume) (test code = 39698-6) Ordering Physician UnknownAutomated blood nucleated erythrocytes cbjljzfzz1293- 01-28 05:34:00Identifier 94839-0 Result Time 2019-05-18 05:34:00Unknown Test Item Value Reference Range Comments Automated blood nucleated erythrocytes 0.6 Unknown Unknown F detection (test code = 00838-2) Ordering Physician UnknownAutomated blood hematocrit (percentage)2019-05-18 05: 34:00Identifier 4544-3 Result Time 2019-05-18 05:34:00Unknown Test Item Value Reference Range Comments Automated blood hematocrit (percentage) (test 27 % Unknown Unknown F code = 4544-3) Ordering Physician UnknownEstimated glomerular filtration rate (GFR) non- Eqwwxrjf2223-77-21 05:34:00Identifier 85874-7 Result Time 2019-05-18 05: 34:00Unknown Test Item Value Reference Range Comments Estimated glomerular filtration rate (GFR) 122.0 Unknown Unknown F non- (test code = 60006-1) Ordering Physician UnknownAutomated blood monocytes/100 [id number] 05: 34:00Identifier 5905-5 Result Time 2019-05-18 05:34:00Unknown Test Item Value Reference Range Comments Automated blood monocytes/100 leukocytes 6.1 % Unknown Unknown F (test code = 5905-5) Ordering Physician UnknownSerum or plasma albumin measurement by bromocresol green (BCG) dye binding method ([id number] 05:34:00Identifier 58192-2 Result Time 2019-05-18 05:34:00Unknown Test Item Value Reference Range Comments Serum or plasma albumin measurement by 2.6 g/dL Unknown Unknown F bromocresol green (BCG) dye binding method (ma (test code = 72696-2) Ordering Physician UnknownSerum or plasma alkaline phosphatase [...] = 704-7) Ordering Physician UnknownAutomated blood basophils/100 [id number] 05: 34:00Identifier 706-2 Result Time 2019-05-18 05:34:00Unknown [...] = 711-2) Ordering Physician UnknownAutomated blood eosinophils/100 [id number] 05:34:00Identifier 713-8 Result Time 2019-05-18 05:34:00Unknown Test [...] = 731-0) Ordering Physician UnknownAutomated blood lymphocytes/100 vhyqzbtvlm6660-06-47 05:34:00Identifier 736-9 Result Time 2019-05-18 05:34:00Unknown Test Item Value Reference Range Comments Automated blood lymphocytes/100 leukocytes 19.5 % Unknown Unknown F (test code = 736-9) Ordering Physician UnknownBlood monocytes automated count (number/volume)2019-04 05:34:00Identifier 742-7 Result Time 2019-05-18 05:34:00Unknown Test Item Value Reference Range Comments Blood monocytes automated count 0.4 10^3/ul Unknown Unknown F (number/volume) (test code = 742-7) Ordering Physician UnknownAutomated blood neutrophils/100 [id number] 05:34:00Identifier 770-8 Result Time 2019-05-18 05:34:00Unknown Test [...] UnknownAutomated erythrocyte mean corpuscular hemoglobin concentration measurement (mass/rsz1541-05-19 05:34:00Identifier 786-4 Result Time 2019-05-18 05:34:00Unknown Test Item Value Reference Range Comments Automated erythrocyte mean corpuscular 34 g/dL Unknown Unknown F hemoglobin concentration measurement (mass/vol (test code = 786-4) Ordering Physician UnknownAutomated erythrocyte mean corpuscular aghtfa5457-77- 28 05:34:00Identifier 787-2 Result Time 2019-05-18 05:34:00Unknown Test Item Value Reference Range Comments Automated erythrocyte mean corpuscular 109 fL Unknown Unknown F volume (test code = 787-2) Ordering Physician UnknownAutomated erythrocyte distribution width [id number]- 28 05:34:00Identifier 788-0 Result Time 2019-05-18 05:34:00Unknown [...] code = 789-8) Ordering Physician UnknownLymphocyte proliferation [id number] 05:34: 00Identifier [id number] Result Time 2019-05-18 05:34:00Unknown Test Item Value Reference Range Comments Lymphocyte proliferation test (test 4.4 10^3/ul Unknown Unknown F code = JPK9041) Ordering Physician UnknownSerum or plasma thyroid stimulating [...]
--- OUTSIDE RECORDS SUMMARY | 2019-08-09 02:28 | XMS REPORT ---
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 Other long Other long Diagnosis Active Bre term term En (current) (current) drug drug therapy therapy Pain frequent Pain Mgmt Resolve 2019-05-31 [place] pain d 05-21 08:55:00 [place] 10:30: [id number] 00 Respiratory dyspnea Respirator Resolve 2019-0 2019-05-31 [place] present y d 05-21 08:55:00 [place] 10:30: [id number] 00 Integument pressure Integument Active 2019-0 [place] ulcer 05-21 [place] present 10:30: [id number] 00 Integument skin Integument Active Alta integrity 05-21 [place] risk 10:30: [id number] 00 Nutrition nutritional Nutrition Active [place] restriction 05-21 [place] s 10:30: [id number] 00 Elimination urinary Eliminatio Resolve 2019-05-31 Al[place] incontinenc n d 05-21 08:55:00 Ava e 10:30: [id number] 00 Elimination bowel Eliminatio Resolve 2019-05-31 [place] incontinenc n d 05-21 08:55:00 Ava e 10:30: [id number] 00 Elimination diarrhea Eliminatio Resolve 2019-05-31 [place] n d 05-21 08:55:00 [place] 10:30: [id number] 00 Elimination nausea/vomi Eliminatio Resolve 2019-05-31 [place] ting n d 05-21 08:55:00 [place] 10:30: [id number] 00 Neuro confusion Neuro/Emot Active 0 [place] present ion 05-21 [place] 10:30: [id number] 00 Activity ADL Activity Active [place] assistance 05-21 [place] required 10:30: [id number] 00 Activity self-care Activity Resolve 2019-05-24 [place] deficit d 05-21 11:15:00 [place] 10:30: [id number] 00 Safety cannot be Safety Active 2019-0 Alta left alone 05-21 [place] 10:30: [id number] 00 Safety fall risk Safety Resolve 2019-2019-05-24 [place] factor d 05-21 11:15:00 [place] present 10:30: [id number] 00 Safety risk for Safety Resolve 2019-05-24 [place] hospitaliza d 05-21 11:15:00 [place] tion 10:30: [id number] 00 Medication oral med Meds Resolve 2019-05-24 [place] assistance d 05-21 11:15:00 Ava required 10:30: [id number] 00 Medication knowledge/s Meds Resolve 2019-2019-05-24 Altashorty pinedo d 05-21 11:15:00 [place] deficit: pt 10:30: [id number] 00 Diagnoses knowledge/s Diagnoses Active Altashorty pinedo 05-21 Ava deficit: pt 10:30: [id number] 00 Diagnoses knowledge/s Diagnoses Active Altashorty pinedo 05-21 [place] deficit: cg 10:30: [id number] 00 Musculoskel transfer Musculoske Resolve 2019-05-24 [place] etal assistance letal d 05-21 11:15:00 [place] required 10:30: [id number] 00 Musculoskel requires Musculoske Resolve 2019-05-24 [place] etal human letal d 05-21 11:15:00 Ava assist to 10:30: [id number] leave home 00 Bed transfer PT/OT: Bed Active Robbi Mobility/Tr deficit: Mobility/T 05-21 lora Brown sit/stand ransfer 15:00: PT 00 838101-1 Bed transfer PT/OT: Bed Active Robbi Mobility/Tr deficit: Mobility/T 05-21 lora Brown standing ransfer 15:00: PT pivot 00 877789-7 Bed transfer PT/OT: Bed Active Robbi Mobility/Tr deficit: Mobility/T 05-21 lora Brown toilet/comm ransfer 15:00: PT ode 00 991132-9 Bed transfer PT/OT: Bed Active Robbi Mobility/Tr deficit: Mobility/T 05-21 lora Brown shower/tub ransfer 15:00: PT 00 492629-8 Bed knowledge/s PT/OT: Bed Active Robbi Mobility/Tr kill Mobility/T 05-21 lora Brown deficit: pt ransfer 15:00: PT 00 036948-7 Bed bed PT/OT: Bed Active 0 Robbi Mobility/Tr mobility Mobility/T 05-21 lora Brown deficit ransfer 15:00: PT 00 768390-7 Balance/End balance/cook school cafeteria PT/OT: Active Robbi urance rdination Balance/En 05-21 Kevin, deficit durance 15:00: PT 00 885806-6 Gait/Locomo gait PT/OT: Active 2020-0 Robbi tion deficit Gait/Locom 05-21 Kevin, problems otion 15:00: PT 00 817891-9 Gait/Locomo knowledge/s PT/OT: Active 2020-0 Robbi tion kill Gait/Locom 05-21 Kevin, problems deficit: pt otion 15:00: PT 00 409739-1 Safety can be left Safety Active 2020-0 Bre alone for 2-03 [place] only short 11:15: periods 00 Safety risk for Safety Resolve 2020-0 2019-05-31 Robbi hospitaliza d 2-05 08:55:00 Kevin, tion 13:00: PT 00 424607-0 Neuro anxiety Neuro/Emot Active 2019- Bre present ion 2- En 11:55: 00 Musculoskel requires Musculoske Resolve 2019-0 2019-05-31 Bre etal human letal d 2- 08:55:00 [place] assist to 11:55: leave home 00 Safety risk for Safety Unknown 2020-0 Robbi hospitaliza 2- Kevin, tion 13:00: PT 00 110948-2 Safety risk for Safety Active 2020-0 Elva hospitaliza 2-11 Ulices Steven tion 12:05: [id number] 00 Respiratory dyspnea Respirator Active 2019-0 Bre [...] deficit y 2- Kevin, 11:15: PT 00 438548-9 Allergies, Adverse Reactions, Alerts Allergy Name Allergy [...] Observation Time Observation Value Comments SYSTOLIC mm[Hg] 2019-06-30 18:10:49 112 mm[Hg] mm[Hg] Method: Sit DIASTOLIC mm[Hg] 2019-06-30 18:10:49 68 mm[Hg] mm[Hg] Method: Sit PULSE 2019-06-30 18:10:49 94 /min /min RESP RATE 2019-06-30 18:10:49 18 /min /min TEMP 2019-06-30 18:10:49 97.2 [degF] Procedures This patient has no known [...] Ordering Physician UnknownSerum or plasma albumin/globulin mass [id number] 05:34:00Identifier 1759-0 Result Time 2019-05-18 05:34:00Unknown Test Item Value Reference Range Comments Serum or plasma albumin/globulin mass ratio 1.0 Unknown Unknown F (test code = 1759-0) Ordering Physician UnknownSerum or plasma calcium measurement (mass/volume)05-18 05:34:00Identifier 58924-9 Result Time 2019-05-18 05:34:00Unknown Test Item Value Reference Range Comments Serum or plasma calcium measurement 6.9 mg/dL Unknown Unknown F (mass/volume) (test code = 57013-3) Ordering Physician UnknownSerum or plasma magnesium measurement (mass/volume) 2019-05-18 05:34:00Identifier 23202-7 Result Time 2019-05-18 05:34:00Unknown Test Item Value Reference Range Comments Serum or plasma magnesium measurement 1.4 mg/dL Unknown Unknown F (mass/volume) (test code = 69898-8) Ordering Physician UnknownSerum or plasma aspartate aminotransferase [...] Ordering Physician UnknownSerum or plasma urea nitrogen/creatinine qxcmw4808-06- 28 05:34:00Identifier 3097-3 Result Time 2019-05-18 05:34:00Unknown Test Item Value Reference Range Comments Serum or plasma urea nitrogen/creatinine 26.0 Unknown Unknown F ratio (test code = 3097-3) Ordering Physician UnknownAutomated blood platelet mean volume [id number]- 01-28 05:34:00Identifier 40502-7 Result Time 2019-05-18 05:34:00Unknown Test Item Value Reference Range Comments Automated blood platelet mean volume 7.0 fL Unknown Unknown F measurement (test code = 24949-1) Ordering Physician UnknownSerum or plasma anion [id number] 05:34: 00Identifier 94310-6 Result Time 2019-05-18 05:34:00Unknown Test Item Value Reference Range Comments Serum or plasma anion gap (test code = 9 mmol/L Unknown Unknown F 26305-6) Ordering Physician UnknownAutomated blood leukocytes count corrected for nucleated erythrocytes (number/volume)2019-05-18 05:34:00Identifier 78776-0 Result Time 2019-05-18 05:34:00Unknown Test Item Value Reference Range Comments Automated blood leukocytes count 5.9 10^3/uL Unknown Unknown F corrected for nucleated erythrocytes (number/volume) (test code = 71370-7) Ordering Physician UnknownAutomated blood nucleated erythrocytes saukiwndm7686- 01-28 05:34:00Identifier 83661-1 Result Time 2019-05-18 05:34:00Unknown Test Item Value Reference Range Comments Automated blood nucleated erythrocytes 0.6 Unknown Unknown F detection (test code = 80582-5) Ordering Physician UnknownAutomated blood hematocrit (percentage)2019-05-18 05: 34:00Identifier 4544-3 Result Time 2019-05-18 05:34:00Unknown Test Item Value Reference Range Comments Automated blood hematocrit (percentage) (test 27 % Unknown Unknown F code = 4544-3) Ordering Physician UnknownEstimated glomerular filtration rate (GFR) non- Dlzpipot5623-27-53 05:34:00Identifier 80670-0 Result Time 2019-05-18 05: 34:00Unknown Test Item Value Reference Range Comments Estimated glomerular filtration rate (GFR) 122.0 Unknown Unknown F non- (test code = 55981-9) Ordering Physician UnknownAutomated blood monocytes/100 [id number] 05: 34:00Identifier 5905-5 Result Time 2019-05-18 05:34:00Unknown Test Item Value Reference Range Comments Automated blood monocytes/100 leukocytes 6.1 % Unknown Unknown F (test code = 5905-5) Ordering Physician UnknownSerum or plasma albumin measurement by bromocresol green (BCG) dye binding method ([id number] 05:34:00Identifier 52840-7 Result Time 2019-05-18 05:34:00Unknown Test Item Value Reference Range Comments Serum or plasma albumin measurement by 2.6 g/dL Unknown Unknown F bromocresol green (BCG) dye binding method (ma (test code = 65482-8) Ordering Physician UnknownSerum or plasma alkaline phosphatase [...] = 704-7) Ordering Physician UnknownAutomated blood basophils/100 [id number] 05: 34:00Identifier 706-2 Result Time 2019-05-18 05:34:00Unknown [...] = 711-2) Ordering Physician UnknownAutomated blood eosinophils/100 xramowjedw2958-03-01 05:34:00Identifier 713-8 Result Time 2019-05-18 05:34:00Unknown Test [...] = 731-0) Ordering Physician UnknownAutomated blood lymphocytes/100 ghtbmnmxis2989-18-64 05:34:00Identifier 736-9 Result Time 2019-05-18 05:34:00Unknown Test Item Value Reference Range Comments Automated blood lymphocytes/100 leukocytes 19.5 % Unknown Unknown F (test code = 736-9) Ordering Physician UnknownBlood monocytes automated count (number/volume)2019-04 05:34:00Identifier 742-7 Result Time 2019-05-18 05:34:00Unknown Test Item Value Reference Range Comments Blood monocytes automated count 0.4 10^3/ul Unknown Unknown F (number/volume) (test code = 742-7) Ordering Physician UnknownAutomated blood neutrophils/100 gmmbjnzewh1202-71-18 05:34:00Identifier 770-8 Result Time 2019-05-18 05:34:00Unknown Test [...] UnknownAutomated erythrocyte mean corpuscular hemoglobin concentration measurement (mass/gng3969-57-29 05:34:00Identifier 786-4 Result Time 2019-05-18 05:34:00Unknown Test Item Value Reference Range Comments Automated erythrocyte mean corpuscular 34 g/dL Unknown Unknown F hemoglobin concentration measurement (mass/vol (test code = 786-4) Ordering Physician UnknownAutomated erythrocyte mean corpuscular bmlrff7827-14- 28 05:34:00Identifier 787-2 Result Time 2019-05-18 05:34:00Unknown Test Item Value Reference Range Comments Automated erythrocyte mean corpuscular 109 fL Unknown Unknown F volume (test code = 787-2) Ordering Physician UnknownAutomated erythrocyte distribution width [id number]- 28 05:34:00Identifier 788-0 Result Time 2019-05-18 05:34:00Unknown [...] code = 789-8) Ordering Physician UnknownLymphocyte proliferation [id number] 05:34: 00Identifier [id number] Result Time 2019-05-18 05:34:00Unknown Test Item Value Reference Range Comments Lymphocyte proliferation test (test 4.4 10^3/ul Unknown Unknown F code = VAY2332) Ordering Physician UnknownSerum or plasma thyroid stimulating [...]
--- OUTSIDE RECORDS SUMMARY | 2019-08-09 02:28 | XMS REPORT ---
:1950 Author Organization [facility] Care Team Providers Name Role Phone Unavailable [...] and itis and colitis, colitis, unspecified unspecified alf alf Diagnosis Active Bre (current) (current) En use of use of opiate opiate analgesic analgesic Other long Other long Diagnosis Active Bre term term En (current) (current) drug drug therapy therapy Pain frequent Pain Mgmt Resolve 2019-05-31 [place] pain d 05-21 08:55:00 [place] 10:30: [id number] 00 Respiratory dyspnea Respirator Resolve 2019-0 2019-05-31 [facility] present y d 05-21 08:55:00 [place] 10:30: [id number] 00 Integument pressure Integument Active 2019-0 [facility] ulcer 05-21 [place] present 10:30: [id number] 00 Integument skin Integument Active [facility] integrity 05-21 [place] risk 10:30: [id number] Nutrition nutritional Nutrition Active [facility] restriction 05-21 [place] s 10:30: [id number] 00 Elimination urinary Eliminatio Resolve 2019-05-31 [facility] incontinenc n d 05-21 08:55:00 A[facility] e 10:30: [id number] 00 Elimination bowel Eliminatio Resolve 2019-05-31 [facility] incontinenc n d 05-21 08:55:00 [facility] e 10:30: [id number] 00 Elimination diarrhea Eliminatio Resolve 2019-05-31 [place] n d 05-21 08:55:00 [place] 10:30: [id number] 00 Elimination nausea/vomi Eliminatio Resolve 2019-05-31 [facility] ting n d 05-21 08:55:00 [place] 10:30: [id number] 00 Neuro confusion Neuro/Emot Active 0 [facility] present ion 05-21 [place] 10:30: [id number] 00 Activity ADL Activity Active [facility] assistance 05-21 [place] required 10:30: [id number] Activity self-care Activity Resolve 2019-05-24 [facility] deficit d 05-21 11:15:00 [place] 10:30: [id number] 00 Safety cannot be Safety Active 2019-0 [facility] left alone 05-21 [place] 10:30: [id number] 00 Safety fall risk Safety Resolve 2019-2019-05-24 [facility] factor d 05-21 11:15:00 [place] present 10:30: [id number] 00 Safety risk for Safety Resolve 2019-05-24 [facility] hospitaliza d 05-21 11:15:00 [place] tion 10:30: [id number] 00 Medication oral med Meds Resolve 2019-05-24 [facility] assistance d 05-21 11:15:00 [facility] required 10:30: [id number] 00 Medication knowledge/s Meds Resolve 2019-2019-05-24 [place] pinedo d 05-21 11:15:00 [place] deficit: pt 10:30: [id number] 00 Diagnoses knowledge/s Diagnoses Active [place]orty pinedo 05-21 vAa deficit: pt 10:30: [id number] 00 Diagnoses knowledge/s Diagnoses Active [place] pinedo 05-21 [place] deficit: cg 10:30: [id number] 00 Musculoskel transfer Musculoske Resolve 2019-05-24 [facility] etal assistance letal d 05-21 11:15:00 [place] required 10:30: [id number] 00 Musculoskel requires Musculoske Resolve 2019-05-24 [facility] etal human letal d 05-21 11:15:00 [facility] assist to 10:30: [id number] leave home 00 Bed transfer PT/OT: Bed Active [facility] Mobility/Tr deficit: Mobility/T 05-21 lora Brown sit/stand ransfer 15:00: PT 00 [id number] Bed transfer PT/OT: Bed Active [facility] Mobility/Tr deficit: Mobility/T 05-21 lora Brown standing ransfer 15:00: PT pivot 00 712987-1 Bed transfer PT/OT: Bed Active Robbi Mobility/Tr deficit: Mobility/T 05-21 lora Brown toilet/comm ransfer 15:00: PT ode 00 [id number] Bed transfer PT/OT: Bed Active Robbi Mobility/Tr deficit: Mobility/T 05-21 lora Brown shower/tub ransfer 15:00: PT 00 [id number] Bed knowledge/s PT/OT: Bed Active Robbi Mobility/Tr kill Mobility/T 05-21 lora Brown deficit: pt ransfer 15:00: PT 00 730667-3 Bed bed PT/OT: Bed Active 0 Robbi Mobility/Tr mobility Mobility/T 05-21 lora Brown deficit ransfer 15:00: PT 00 [id number] Balance/End balance/field service coordinator PT/OT: Active Robbi urance rdination Balance/En 05-21 Kevin, deficit durance 15:00: PT 00 [id number] Gait/Locomo gait PT/OT: Active 2020-0 Robbi tion deficit Gait/Locom 05-21 Kevin, problems otion 15:00: PT 00 706718-2 Gait/Locomo knowledge/s PT/OT: Active 2020-0 Robbi tion kill Gait/Locom 05-21 Kevin, problems deficit: pt otion 15:00: PT 00 654913-4 Safety can be left Safety Active 2020-0 Bre alone for 2-03 [place] only short 11:15: periods 00 Safety risk for Safety Resolve 2020-0 2019-05-31 [facility] hospitaliza d 2-05 08:55:00 Kevin, tion 13:00: PT 00 216897-2 Neuro anxiety Neuro/Emot Active 2019- Bre present ion 2- En 11:55: 00 Musculoskel requires Musculoske Resolve 2019-0 2019-05-31 Bre etal human letal d 2- 08:55:00 [place] assist to 11:55: leave home 00 Safety risk for Safety Unknown 2020-0 [facility]bi hospitaliza 2- Kevin, tion 13:00: PT 00 278204-9 Safety risk for Safety Active 2020-0 [facility] hospitaliza 2-11 Ulic[place] tion 12:05: [id number] 00 Respiratory dyspnea Respirator Active 2019-0 Bre [...] deficit y 2- Kevin, 11:15: PT 00 749630-9 Allergies, Adverse Reactions, Alerts Allergy Name Allergy [...] Ordering Physician UnknownSerum or plasma albumin/globulin mass [id number] 05:34:00Identifier 1759-0 Result Time 2019-05-18 05:34:00Unknown Test Item Value Reference Range Comments Serum or plasma albumin/globulin mass ratio 1.0 Unknown Unknown F (test code = 1759-0) Ordering Physician UnknownSerum or plasma calcium measurement (mass/volume)05-18 05:34:00Identifier 60182-3 Result Time 2019-05-18 05:34:00Unknown Test Item Value Reference Range Comments Serum or plasma calcium measurement 6.9 mg/dL Unknown Unknown F (mass/volume) (test code = 45715-5) Ordering Physician UnknownSerum or plasma magnesium measurement (mass/volume) 2019-05-18 05:34:00Identifier 91627-5 Result Time 2019-05-18 05:34:00Unknown Test Item Value Reference Range Comments Serum or plasma magnesium measurement 1.4 mg/dL Unknown Unknown F (mass/volume) (test code = 44469-1) Ordering Physician UnknownSerum or plasma aspartate aminotransferase [...] Ordering Physician UnknownSerum or plasma urea nitrogen/creatinine [id number]- 28 05:34:00Identifier 3097-3 Result Time 2019-05-18 05:34:00Unknown Test Item Value Reference Range Comments Serum or plasma urea nitrogen/creatinine 26.0 Unknown Unknown F ratio (test code = 3097-3) Ordering Physician UnknownAutomated blood platelet mean volume [id number]- 01-28 05:34:00Identifier 12082-1 Result Time 2019-05-18 05:34:00Unknown Test Item Value Reference Range Comments Automated blood platelet mean volume 7.0 fL Unknown Unknown F measurement (test code = 12064-7) Ordering Physician UnknownSerum or plasma anion [id number] 05:34: 00Identifier 55696-5 Result Time 2019-05-18 05:34:00Unknown Test Item Value Reference Range Comments Serum or plasma anion gap (test code = 9 mmol/L Unknown Unknown F 48656-8) Ordering Physician UnknownAutomated blood leukocytes count corrected for nucleated erythrocytes (number/volume)2019-05-18 05:34:00Identifier 42447-3 Result Time 2019-05-18 05:34:00Unknown Test Item Value Reference Range Comments Automated blood leukocytes count 5.9 10^3/uL Unknown Unknown F corrected for nucleated erythrocytes (number/volume) (test code = 16418-9) Ordering Physician UnknownAutomated blood nucleated erythrocytes [id number]- 01-28 05:34:00Identifier 25623-2 Result Time 2019-05-18 05:34:00Unknown Test Item Value Reference Range Comments Automated blood nucleated erythrocytes 0.6 Unknown Unknown F detection (test code = 55443-0) Ordering Physician UnknownAutomated blood hematocrit (percentage)2019-05-18 05: 34:00Identifier 4544-3 Result Time 2019-05-18 05:34:00Unknown Test Item Value Reference Range Comments Automated blood hematocrit (percentage) (test 27 % Unknown Unknown F code = 4544-3) Ordering Physician UnknownEstimated glomerular filtration rate (GFR) non- [id number] 05:34:00Identifier 96077-8 Result Time 2019-05-18 05: 34:00Unknown Test Item Value Reference Range Comments Estimated glomerular filtration rate (GFR) 122.0 Unknown Unknown F non- (test code = 26482-0) Ordering Physician UnknownAutomated blood monocytes/100 [id number] 05: 34:00Identifier 5905-5 Result Time 2019-05-18 05:34:00Unknown Test Item Value Reference Range Comments Automated blood monocytes/100 leukocytes 6.1 % Unknown Unknown F (test code = 5905-5) Ordering Physician UnknownSerum or plasma albumin measurement by bromocresol green (BCG) dye binding method ([id number] 05:34:00Identifier [id number] Result Time 2019-05-18 05:34:00Unknown Test Item Value Reference Range Comments Serum or plasma albumin measurement by 2.6 g/dL Unknown Unknown F bromocresol green (BCG) dye binding method (ma (test code = 55791-8) Ordering Physician UnknownSerum or plasma alkaline phosphatase [...] = 704-7) Ordering Physician UnknownAutomated blood basophils/100 [id number] 05: 34:00Identifier 706-2 Result Time 2019-05-18 05:34:00Unknown [...] = 711-2) Ordering Physician UnknownAutomated blood eosinophils/100 [id number] 05:34:00Identifier 713-8 Result Time 2019-05-18 05:34:00Unknown Test [...] = 731-0) Ordering Physician UnknownAutomated blood lymphocytes/100 [id number] 05:34:00Identifier 736-9 Result Time 2019-05-18 05:34:00Unknown Test Item Value Reference Range Comments Automated blood lymphocytes/100 leukocytes 19.5 % Unknown Unknown F (test code = 736-9) Ordering Physician UnknownBlood monocytes automated count (number/volume)2019-04 05:34:00Identifier 742-7 Result Time 2019-05-18 05:34:00Unknown Test Item Value Reference Range Comments Blood monocytes automated count 0.4 10^3/ul Unknown Unknown F (number/volume) (test code = 742-7) Ordering Physician UnknownAutomated blood neutrophils/100 [id number] 05:34:00Identifier 770-8 Result Time 2019-05-18 05:34:00Unknown Test [...] UnknownAutomated erythrocyte mean corpuscular hemoglobin concentration measurement (mass/[id number] 05:34:00Identifier 786-4 Result Time 2019-05-18 05:34:00Unknown Test Item Value Reference Range Comments Automated erythrocyte mean corpuscular 34 g/dL Unknown Unknown F hemoglobin concentration measurement (mass/vol (test code = 786-4) Ordering Physician UnknownAutomated erythrocyte mean corpuscular [id number]- 28 05:34:00Identifier 787-2 Result Time 2019-05-18 05:34:00Unknown Test Item Value Reference Range Comments Automated erythrocyte mean corpuscular 109 fL Unknown Unknown F volume (test code = 787-2) Ordering Physician UnknownAutomated erythrocyte distribution width [id number]- 28 05:34:00Identifier 788-0 Result Time 2019-05-18 05:34:00Unknown [...] code = 789-8) Ordering Physician UnknownLymphocyte proliferation [id number] 05:34: 00Identifier [id number] Result Time 2019-05-18 05:34:00Unknown Test Item Value Reference Range Comments Lymphocyte proliferation test (test 4.4 10^3/ul Unknown Unknown F code = LHP2438) Ordering Physician UnknownSerum or plasma thyroid stimulating [...]
--- OUTSIDE RECORDS SUMMARY | 2019-08-09 02:28 | XMS REPORT ---
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 Other long Other long Diagnosis Active Bre term term En (current) (current) drug drug therapy therapy Pain frequent Pain Mgmt Resolve 2019-05-31 [place] pain d 05-21 08:55:00 [place] 10:30: [id number] 00 Respiratory dyspnea Respirator Resolve 2019-0 2019-05-31 [place] present y d 05-21 08:55:00 [place] 10:30: [id number] 00 Integument pressure Integument Active 2019-0 [facility] ulcer 05-21 [place] present 10:30: [id number] 00 Integument skin Integument Active [facility] integrity 05-21 [place] risk 10:30: [id number] 00 Nutrition nutritional Nutrition Active [place] restriction 05-21 [place] s 10:30: [id number] 00 Elimination urinary Eliminatio Resolve 2019-05-31 [facility] incontinenc n d 05-21 08:55:00 Ava e 10:30: [id number] 00 Elimination bowel Eliminatio Resolve 2019-05-31 [facility] incontinenc n d 05-21 08:55:00 Ava e 10:30: [id number] 00 Elimination diarrhea Eliminatio Resolve 2019-05-31 [place] n d 05-21 08:55:00 [place] 10:30: [id number] 00 Elimination nausea/vomi Eliminatio Resolve 2019-05-31 [place] ting n d 05-21 08:55:00 [place] 10:30: [id number] 00 Neuro confusion Neuro/Emot Active 0 [facility] present ion 05-21 [place] 10:30: [id number] 00 Activity ADL Activity Active [facility] assistance 05-21 [place] required 10:30: [id number] 00 Activity self-care Activity Resolve 2019-05-24 [facility] deficit d 05-21 11:15:00 [place] 10:30: [id number] 00 Safety cannot be Safety Active 2019-0 [facility] left alone 05-21 [place] 10:30: [id number] 00 Safety fall risk Safety Resolve 2019-2019-05-24 [place] factor d 05-21 11:15:00 [place] present 10:30: [id number] 00 Safety risk for Safety Resolve 2019-05-24 [facility] hospitaliza d 05-21 11:15:00 [place] tion 10:30: [id number] 00 Medication oral med Meds Resolve 2019-05-24 [facility] assistance d 05-21 11:15:00 Ava required 10:30: [id number] 00 Medication knowledge/s Meds Resolve 2019-2019-05-24 [place] pinedo d 05-21 11:15:00 [place] deficit: pt 10:30: [id number] 00 Diagnoses knowledge/s Diagnoses Active [place]y pinedo 05-21 [facility] deficit: pt 10:30: [id number] 00 Diagnoses knowledge/s Diagnoses Active [place] pinedo 05-21 [place] deficit: cg 10:30: [id number] 00 Musculoskel transfer Musculoske Resolve 2019-05-24 [facility] etal assistance letal d 05-21 11:15:00 [place] required 10:30: [id number] 00 Musculoskel requires Musculoske Resolve 2019-05-24 [facility] etal human letal d 05-21 11:15:00 [facility] assist to 10:30: [id number] leave home 00 Bed transfer PT/OT: Bed Active [facility] Mobility/Tr deficit: Mobility/T 05-21 lora Brown sit/stand ransfer 15:00: PT 00 523605-9 Bed transfer PT/OT: Bed Active [facility] Mobility/Tr deficit: Mobility/T 05-21 lora Brown standing ransfer 15:00: PT pivot 00 [id number] Bed transfer PT/OT: Bed Active [facility] Mobility/Tr deficit: Mobility/T 05-21 lora Brown toilet/comm ransfer 15:00: PT ode 00 204677-1 Bed transfer PT/OT: Bed Active [facility]bi Mobility/Tr deficit: Mobility/T 05-21 lora Brown shower/tub ransfer 15:00: PT 00 334943-0 Bed knowledge/s PT/OT: Bed Active [facility] Mobility/Tr kill Mobility/T 05-21 lora Brown deficit: pt ransfer 15:00: PT 00 086672-3 Bed bed PT/OT: Bed Active 0 [facility] Mobility/Tr mobility Mobility/T 05-21 lora Brown deficit ransfer 15:00: PT 00 008460-0 Balance/End balance/talent coordinator PT/OT: Active Robbi urance rdination Balance/En 05-21 Kevin, deficit durance 15:00: PT 00 799233-7 Gait/Locomo gait PT/OT: Active 2020-0 Robbi tion deficit Gait/Locom 05-21 Kevin, problems otion 15:00: PT 00 279983-0 Gait/Locomo knowledge/s PT/OT: Active 2020-0 Robbi tion kill Gait/Locom 05-21 Kevin, problems deficit: pt otion 15:00: PT 00 518675-6 Safety can be left Safety Active 2020-0 Bre alone for 2-03 [place] only short 11:15: periods 00 Safety risk for Safety Resolve 2020-0 2019-05-31 [facility]bi hospitaliza d 2-05 08:55:00 Kevin, tion 13:00: PT 00 048065-4 Neuro anxiety Neuro/Emot Active 2019- Bre present ion 2- En 11:55: 00 Musculoskel requires Musculoske Resolve 2019-0 2019-05-31 Bre etal human letal d 2- 08:55:00 [place] assist to 11:55: leave home 00 Safety risk for Safety Unknown 2020-0 [facility]bi hospitaliza 2- Kevin, tion 13:00: PT 00 741600-8 Safety risk for Safety Active 2020-0 [facility] hospitaliza 2-11 Ulices Steven tion 12:05: [id number] 00 Respiratory dyspnea Respirator Active 2019-0 Bre [...] deficit y 2- Kevin, 11:15: PT 00 885776-9 Allergies, Adverse Reactions, Alerts Allergy Name Allergy [...] Ordering Physician UnknownSerum or plasma albumin/globulin mass [id number] 05:34:00Identifier 1759-0 Result Time 2019-05-18 05:34:00Unknown Test Item Value Reference Range Comments Serum or plasma albumin/globulin mass ratio 1.0 Unknown Unknown F (test code = 1759-0) Ordering Physician UnknownSerum or plasma calcium measurement (mass/volume)05-18 05:34:00Identifier 22287-7 Result Time 2019-05-18 05:34:00Unknown Test Item Value Reference Range Comments Serum or plasma calcium measurement 6.9 mg/dL Unknown Unknown F (mass/volume) (test code = 81021-5) Ordering Physician UnknownSerum or plasma magnesium measurement (mass/volume) 2019-05-18 05:34:00Identifier 80177-1 Result Time 2019-05-18 05:34:00Unknown Test Item Value Reference Range Comments Serum or plasma magnesium measurement 1.4 mg/dL Unknown Unknown F (mass/volume) (test code = 67834-9) Ordering Physician UnknownSerum or plasma aspartate aminotransferase [...] Ordering Physician UnknownSerum or plasma urea nitrogen/creatinine [id number]- 28 05:34:00Identifier 3097-3 Result Time 2019-05-18 05:34:00Unknown Test Item Value Reference Range Comments Serum or plasma urea nitrogen/creatinine 26.0 Unknown Unknown F ratio (test code = 3097-3) Ordering Physician UnknownAutomated blood platelet mean volume rcorormxyzb3071- 01-28 05:34:00Identifier 93585-1 Result Time 2019-05-18 05:34:00Unknown Test Item Value Reference Range Comments Automated blood platelet mean volume 7.0 fL Unknown Unknown F measurement (test code = 57815-4) Ordering Physician UnknownSerum or plasma anion [id number] 05:34: 00Identifier 79431-3 Result Time 2019-05-18 05:34:00Unknown Test Item Value Reference Range Comments Serum or plasma anion gap (test code = 9 mmol/L Unknown Unknown F 55846-0) Ordering Physician UnknownAutomated blood leukocytes count corrected for nucleated erythrocytes (number/volume)2019-05-18 05:34:00Identifier 90141-8 Result Time 2019-05-18 05:34:00Unknown Test Item Value Reference Range Comments Automated blood leukocytes count 5.9 10^3/uL Unknown Unknown F corrected for nucleated erythrocytes (number/volume) (test code = 67573-7) Ordering Physician UnknownAutomated blood nucleated erythrocytes [id number]- 01-28 05:34:00Identifier 85384-9 Result Time 2019-05-18 05:34:00Unknown Test Item Value Reference Range Comments Automated blood nucleated erythrocytes 0.6 Unknown Unknown F detection (test code = 92738-7) Ordering Physician UnknownAutomated blood hematocrit (percentage)2019-05-18 05: 34:00Identifier 4544-3 Result Time 2019-05-18 05:34:00Unknown Test Item Value Reference Range Comments Automated blood hematocrit (percentage) (test 27 % Unknown Unknown F code = 4544-3) Ordering Physician UnknownEstimated glomerular filtration rate (GFR) non- [id number] 05:34:00Identifier 76698-7 Result Time 2019-05-18 05: 34:00Unknown Test Item Value Reference Range Comments Estimated glomerular filtration rate (GFR) 122.0 Unknown Unknown F non- (test code = 11678-2) Ordering Physician UnknownAutomated blood monocytes/100 [id number] 05: 34:00Identifier 5905-5 Result Time 2019-05-18 05:34:00Unknown Test Item Value Reference Range Comments Automated blood monocytes/100 leukocytes 6.1 % Unknown Unknown F (test code = 5905-5) Ordering Physician UnknownSerum or plasma albumin measurement by bromocresol green (BCG) dye binding method ([id number] 05:34:00Identifier 87605-2 Result Time 2019-05-18 05:34:00Unknown Test Item Value Reference Range Comments Serum or plasma albumin measurement by 2.6 g/dL Unknown Unknown F bromocresol green (BCG) dye binding method (ma (test code = 90261-2) Ordering Physician UnknownSerum or plasma alkaline phosphatase [...] = 704-7) Ordering Physician UnknownAutomated blood basophils/100 [id number] 05: 34:00Identifier 706-2 Result Time 2019-05-18 05:34:00Unknown [...] = 711-2) Ordering Physician UnknownAutomated blood eosinophils/100 ymwuyrwobg1529-26-24 05:34:00Identifier 713-8 Result Time 2019-05-18 05:34:00Unknown Test [...] = 731-0) Ordering Physician UnknownAutomated blood lymphocytes/100 [id number] 05:34:00Identifier 736-9 Result Time 2019-05-18 05:34:00Unknown Test Item Value Reference Range Comments Automated blood lymphocytes/100 leukocytes 19.5 % Unknown Unknown F (test code = 736-9) Ordering Physician UnknownBlood monocytes automated count (number/volume)2019-04 05:34:00Identifier 742-7 Result Time 2019-05-18 05:34:00Unknown Test Item Value Reference Range Comments Blood monocytes automated count 0.4 10^3/ul Unknown Unknown F (number/volume) (test code = 742-7) Ordering Physician UnknownAutomated blood neutrophils/100 [id number] 05:34:00Identifier 770-8 Result Time 2019-05-18 05:34:00Unknown Test [...] UnknownAutomated erythrocyte mean corpuscular hemoglobin concentration measurement (mass/[id number] 05:34:00Identifier 786-4 Result Time 2019-05-18 05:34:00Unknown Test Item Value Reference Range Comments Automated erythrocyte mean corpuscular 34 g/dL Unknown Unknown F hemoglobin concentration measurement (mass/vol (test code = 786-4) Ordering Physician UnknownAutomated erythrocyte mean corpuscular [id number]- 28 05:34:00Identifier 787-2 Result Time 2019-05-18 05:34:00Unknown Test Item Value Reference Range Comments Automated erythrocyte mean corpuscular 109 fL Unknown Unknown F volume (test code = 787-2) Ordering Physician UnknownAutomated erythrocyte distribution width [id number]- 28 05:34:00Identifier 788-0 Result Time 2019-05-18 05:34:00Unknown [...] code = 789-8) Ordering Physician UnknownLymphocyte proliferation [id number] 05:34: 00Identifier [id number] Result Time 2019-05-18 05:34:00Unknown Test Item Value Reference Range Comments Lymphocyte proliferation test (test 4.4 10^3/ul Unknown Unknown F code = LPF0246) Ordering Physician UnknownSerum or plasma thyroid stimulating [...]
--- OUTSIDE RECORDS SUMMARY | 2019-08-09 02:28 | XMS REPORT ---
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 Other long Other long Diagnosis Active Bre term term En (current) (current) drug drug therapy therapy Pain frequent Pain Mgmt Resolve 2019-05-31 [place] pain d 05-21 08:55:00 [place] 10:30: [id number] 00 Respiratory dyspnea Respirator Resolve 2019-0 2019-05-31 [place] present y d 05-21 08:55:00 [place] 10:30: [id number] Integument pressure Integument Active 2019-0 [place] ulcer 05-21 [place] present 10:30: [id number] 00 Integument skin Integument Active [place] integrity 05-21 [place] risk 10:30: [id number] 00 Nutrition nutritional Nutrition Active [place] restriction 05-21 [place] s 10:30: [id number] 00 Elimination urinary Eliminatio Resolve 2019-05-31 [place] incontinenc n d 05-21 08:55:00 [place] 10:30: [id number] 00 Elimination bowel Eliminatio Resolve 2019-05-31 [place] incontinenc n d 05-21 08:55:00 [place] 10:30: [id number] 00 Elimination diarrhea Eliminatio Resolve 2019-05-31 [place] n d 05-21 08:55:00 [place] 10:30: [id number] 00 Elimination nausea/vomi Eliminatio Resolve 2019-05-31 [place] ting n d 05-21 08:55:00 [place] 10:30: [id number] 00 Neuro confusion Neuro/Emot Active 0 [place] present ion 05-21 [place] 10:30: [id number] 00 Activity ADL Activity Active [place] assistance 05-21 [place] required 10:30: [id number] 00 Activity self-care Activity Resolve 2019-05-24 [place] deficit d 05-21 11:15:00 [place] 10:30: [id number] 00 Safety cannot be Safety Active 2019-0 [place] left alone 05-21 [place] 10:30: [id number] 00 Safety fall risk Safety Resolve 2019-2019-05-24 [place] factor d 05-21 11:15:00 [place] present 10:30: [id number] 00 Safety risk for Safety Resolve 2019-05-24 [place] hospitaliza d 05-21 11:15:00 [place] tion 10:30: [id number] 00 Medication oral med Meds Resolve 2019-05-24 [place] assistance d 05-21 11:15:00 [place] required 10:30: [id number] 00 Medication knowledge/s Meds Resolve 2019-2019-05-24 [place] pinedo d 05-21 11:15:00 [place] deficit: pt 10:30: [id number] 00 Diagnoses knowledge/s Diagnoses Active Alt[place]orty pinedo 05-21 [place] deficit: pt 10:30: [id number] 00 Diagnoses knowledge/s Diagnoses Active [place]y pinedo 05-21 [place] deficit: cg 10:30: [id number] 00 Musculoskel transfer Musculoske Resolve 2019-05-24 [place] etal assistance letal d 05-21 11:15:00 [place] required 10:30: [id number] 00 Musculoskel requires Musculoske Resolve 2019-05-24 [place] etal human letal d 05-21 11:15:00 [place] assist to 10:30: [id number] leave home 00 Bed transfer PT/OT: Bed Active Robbi Mobility/Tr deficit: Mobility/T 05-21 lora Brown sit/stand ransfer 15:00: PT 00 [id number] Bed transfer PT/OT: Bed Active [place]bi Mobility/Tr deficit: Mobility/T 05-21 lora Brown standing ransfer 15:00: PT pivot 00 [id number] Bed transfer PT/OT: Bed Active Robbi Mobility/Tr deficit: Mobility/T 05-21 lora Brown toilet/comm ransfer 15:00: PT ode 00 [id number] Bed transfer PT/OT: Bed Active Robbi Mobility/Tr deficit: Mobility/T 05-21 lora Brown shower/tub ransfer 15:00: PT 00 [id number] Bed knowledge/s PT/OT: Bed Active Robbi Mobility/Tr kill Mobility/T 05-21 lora Brown deficit: pt ransfer 15:00: PT 00 333884-9 Bed bed PT/OT: Bed Active 0 Robbi Mobility/Tr mobility Mobility/T 05-21 lora Brown deficit ransfer 15:00: PT 00 [id number] Balance/End balance/research program coordinator PT/OT: Active Robbi urance rdination Balance/En 05-21 Kevin, deficit durance 15:00: PT 00 [id number] Gait/Locomo gait PT/OT: Active 2020-0 Robbi tion deficit Gait/Locom 05-21 Kevin, problems otion 15:00: PT 00 604944-3 Gait/Locomo knowledge/s PT/OT: Active 2020-0 Robbi tion kill Gait/Locom 05-21 Kevin, problems deficit: pt otion 15:00: PT 00 603632-4 Safety can be left Safety Active 2020-0 Bre alone for 2-03 [place] only short 11:15: periods 00 Safety risk for Safety Resolve 2020-0 2019-05-31 [facility] hospitaliza d 2-05 08:55:00 Kevin, tion 13:00: PT 00 695475-4 Neuro anxiety Neuro/Emot Active 2019- Bre present ion 2- En 11:55: 00 Musculoskel requires Musculoske Resolve 2019-0 2019-05-31 Bre etal human letal d 2- 08:55:00 [place] assist to 11:55: leave home 00 Safety risk for Safety Unknown 2020-0 Robbi hospitaliza 2- Kevin, tion 13:00: PT 00 592240-9 Safety risk for Safety Active 2020-0 Elva hospitaliza 2-11 [place] tion 12:05: [id number] 00 Respiratory dyspnea Respirator Active 2019-0 Bre [...] deficit y 2- Kevin, 11:15: PT 00 127372-7 Allergies, Adverse Reactions, Alerts Allergy Name Allergy [...] Vital Name Observation Time Observation Value Comments RESP RATE 2019-06-30 18:10:49 18 /min /min TEMP 2019-07-05 18:10:54 98.2 [degF] Procedures This patient has no [...] Ordering Physician UnknownSerum or plasma albumin/globulin mass [id number] 05:34:00Identifier 1759-0 Result Time 2019-05-18 05:34:00Unknown Test Item Value Reference Range Comments Serum or plasma albumin/globulin mass ratio 1.0 Unknown Unknown F (test code = 1759-0) Ordering Physician UnknownSerum or plasma calcium measurement (mass/volume)05-18 05:34:00Identifier 81416-7 Result Time 2019-05-18 05:34:00Unknown Test Item Value Reference Range Comments Serum or plasma calcium measurement 6.9 mg/dL Unknown Unknown F (mass/volume) (test code = 89235-1) Ordering Physician UnknownSerum or plasma magnesium measurement (mass/volume) 2019-05-18 05:34:00Identifier 92137-3 Result Time 2019-05-18 05:34:00Unknown Test Item Value Reference Range Comments Serum or plasma magnesium measurement 1.4 mg/dL Unknown Unknown F (mass/volume) (test code = 06882-2) Ordering Physician UnknownSerum or plasma aspartate aminotransferase [...] or plasma chloride measurement (moles/volume) 2019-05-18 05:34:00Identifier 2074-0 Result Time 2019-05-18 05:34:00Unknown Test Item Value [...] Ordering Physician UnknownSerum or plasma urea nitrogen/creatinine [id number]- 28 05:34:00Identifier 3097-3 Result Time 2019-05-18 05:34:00Unknown Test Item Value Reference Range Comments Serum or plasma urea nitrogen/creatinine 26.0 Unknown Unknown F ratio (test code = 3097-3) Ordering Physician UnknownAutomated blood platelet mean volume shouwnkqgiv9501- 01-28 05:34:00Identifier 11981-6 Result Time 2019-05-18 05:34:00Unknown Test Item Value Reference Range Comments Automated blood platelet mean volume 7.0 fL Unknown Unknown F measurement (test code = 32935-1) Ordering Physician UnknownSerum or plasma anion [id number] 05:34: 00Identifier 42661-8 Result Time 2019-05-18 05:34:00Unknown Test Item Value Reference Range Comments Serum or plasma anion gap (test code = 9 mmol/L Unknown Unknown F 79143-1) Ordering Physician UnknownAutomated blood leukocytes count corrected for nucleated erythrocytes (number/volume)2019-05-18 05:34:00Identifier 59788-4 Result Time 2019-05-18 05:34:00Unknown Test Item Value Reference Range Comments Automated blood leukocytes count 5.9 10^3/uL Unknown Unknown F corrected for nucleated erythrocytes (number/volume) (test code = 23029-5) Ordering Physician UnknownAutomated blood nucleated erythrocytes gojyqjhqk7776- 01-28 05:34:00Identifier 16388-3 Result Time 2019-05-18 05:34:00Unknown Test Item Value Reference Range Comments Automated blood nucleated erythrocytes 0.6 Unknown Unknown F detection (test code = 58184-9) Ordering Physician UnknownAutomated blood hematocrit (percentage)2019-05-18 05: 34:00Identifier 4544-3 Result Time 2019-05-18 05:34:00Unknown Test Item Value Reference Range Comments Automated blood hematocrit (percentage) (test 27 % Unknown Unknown F code = 4544-3) Ordering Physician UnknownEstimated glomerular filtration rate (GFR) non- [id number] 05:34:00Identifier 35308-7 Result Time 2019-05-18 05: 34:00Unknown Test Item Value Reference Range Comments Estimated glomerular filtration rate (GFR) 122.0 Unknown Unknown F non- (test code = 87065-9) Ordering Physician UnknownAutomated blood monocytes/100 [id number] 05: 34:00Identifier 5905-5 Result Time 2019-05-18 05:34:00Unknown Test Item Value Reference Range Comments Automated blood monocytes/100 leukocytes 6.1 % Unknown Unknown F (test code = 5905-5) Ordering Physician UnknownSerum or plasma albumin measurement by bromocresol green (BCG) dye binding method ([id number] 05:34:00Identifier 44630-4 Result Time 2019-05-18 05:34:00Unknown Test Item Value Reference Range Comments Serum or plasma albumin measurement by 2.6 g/dL Unknown Unknown F bromocresol green (BCG) dye binding method (ma (test code = 85720-1) Ordering Physician UnknownSerum or plasma alkaline phosphatase [...] = 704-7) Ordering Physician UnknownAutomated blood basophils/100 [id number] 05: 34:00Identifier 706-2 Result Time 2019-05-18 05:34:00Unknown [...] = 711-2) Ordering Physician UnknownAutomated blood eosinophils/100 saazjokgqh0868-96-11 05:34:00Identifier 713-8 Result Time 2019-05-18 05:34:00Unknown Test [...] = 731-0) Ordering Physician UnknownAutomated blood lymphocytes/100 [id number] 05:34:00Identifier 736-9 Result Time 2019-05-18 05:34:00Unknown Test Item Value Reference Range Comments Automated blood lymphocytes/100 leukocytes 19.5 % Unknown Unknown F (test code = 736-9) Ordering Physician UnknownBlood monocytes automated count (number/volume)2019-04 05:34:00Identifier 742-7 Result Time 2019-05-18 05:34:00Unknown Test Item Value Reference Range Comments Blood monocytes automated count 0.4 10^3/ul Unknown Unknown F (number/volume) (test code = 742-7) Ordering Physician UnknownAutomated blood neutrophils/100 thmxbmmyqy0849-14-68 05:34:00Identifier 770-8 Result Time 2019-05-18 05:34:00Unknown Test [...] UnknownAutomated erythrocyte mean corpuscular hemoglobin concentration measurement (mass/[id number] 05:34:00Identifier 786-4 Result Time 2019-05-18 05:34:00Unknown Test Item Value Reference Range Comments Automated erythrocyte mean corpuscular 34 g/dL Unknown Unknown F hemoglobin concentration measurement (mass/vol (test code = 786-4) Ordering Physician UnknownAutomated erythrocyte mean corpuscular [id number]- 28 05:34:00Identifier 787-2 Result Time 2019-05-18 05:34:00Unknown Test Item Value Reference Range Comments Automated erythrocyte mean corpuscular 109 fL Unknown Unknown F volume (test code = 787-2) Ordering Physician UnknownAutomated erythrocyte distribution width [id number]- 28 05:34:00Identifier 788-0 Result Time 2019-05-18 05:34:00Unknown [...] code = 789-8) Ordering Physician UnknownLymphocyte proliferation [id number] 05:34: 00Identifier [id number] Result Time 2019-05-18 05:34:00Unknown Test Item Value Reference Range Comments Lymphocyte proliferation test (test 4.4 10^3/ul Unknown Unknown F code = IVV6162) Ordering Physician UnknownSerum or plasma thyroid stimulating [...]
--- OUTSIDE RECORDS SUMMARY | 2019-08-09 02:28 | XMS REPORT ---
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 Other long Other long Diagnosis Active Bre term term En (current) (current) drug drug therapy therapy Pain frequent Pain Mgmt Resolve 2019-05-31 [place] pain d 05-21 08:55:00 [place] 10:30: [id number] 00 Respiratory dyspnea Respirator Resolve 2019-0 2019-05-31 [place] present y d 05-21 08:55:00 [place] 10:30: [id number] 00 Integument pressure Integument Active 2019-0 [place] ulcer 05-21 [place] present 10:30: [id number] 00 Integument skin Integument Active [place] integrity 05-21 [place] risk 10:30: [id number] 00 Nutrition nutritional Nutrition Active [place] restriction 05-21 [place] s 10:30: [id number] 00 Elimination urinary Eliminatio Resolve 2019-05-31 [place] incontinenc n d 05-21 08:55:00 [place] e 10:30: [id number] 00 Elimination bowel Eliminatio Resolve 2019-05-31 [place] incontinenc n d 05-21 08:55:00 [place] e 10:30: [id number] 00 Elimination diarrhea Eliminatio Resolve 2019-05-31 [place] n d 05-21 08:55:00 [place] 10:30: [id number] 00 Elimination nausea/vomi Eliminatio Resolve 2019-05-31 [place] ting n d 05-21 08:55:00 [place] 10:30: [id number] 00 Neuro confusion Neuro/Emot Active 0 [place] present ion 05-21 [place] 10:30: [id number] 00 Activity ADL Activity Active [place] assistance 05-21 [place] required 10:30: [id number] 00 Activity self-care Activity Resolve 2019-05-24 [place] deficit d 05-21 11:15:00 [place] 10:30: [id number] 00 Safety cannot be Safety Active 2019-0 [place] left alone 05-21 [place] 10:30: [id number] 00 Safety fall risk Safety Resolve 2019-2019-05-24 [place] factor d 05-21 11:15:00 [place] present 10:30: [id number] 00 Safety risk for Safety Resolve 2019-05-24 [place] hospitaliza d 05-21 11:15:00 [place] tion 10:30: [id number] 00 Medication oral med Meds Resolve 2019-05-24 [place] assistance d 05-21 11:15:00 [place] required 10:30: [id number] 00 Medication knowledge/s Meds Resolve 2019-2019-05-24 [place] pinedo d 05-21 11:15:00 [place] deficit: pt 10:30: [id number] 00 Diagnoses knowledge/s Diagnoses Active [place]y pinedo 05-21 [place] deficit: pt 10:30: [id number] 00 Diagnoses knowledge/s Diagnoses Active [place] pinedo 05-21 [place] deficit: cg 10:30: [id number] 00 Musculoskel transfer Musculoske Resolve 2019-05-24 [place] etal assistance letal d 05-21 11:15:00 [place] required 10:30: [id number] 00 Musculoskel requires Musculoske Resolve 2019-05-24 [place] etal human letal d 05-21 11:15:00 [place] assist to 10:30: [id number] leave home 00 Bed transfer PT/OT: Bed Active Robbi Mobility/Tr deficit: Mobility/T 05-21 lora Brown sit/stand ransfer 15:00: PT 00 947937-7 Bed transfer PT/OT: Bed Active [place]bi Mobility/Tr deficit: Mobility/T 05-21 lora Brown standing ransfer 15:00: PT pivot 00 196543-4 Bed transfer PT/OT: Bed Active [place]bi Mobility/Tr deficit: Mobility/T 05-21 lora Brown toilet/comm ransfer 15:00: PT ode 00 441165-3 Bed transfer PT/OT: Bed Active [place]bi Mobility/Tr deficit: Mobility/T 05-21 lora rBown shower/tub ransfer 15:00: PT 00 334876-8 Bed knowledge/s PT/OT: Bed Active [place]bi Mobility/Tr kill Mobility/T 05-21 lora Brown deficit: pt ransfer 15:00: PT 00 045569-7 Bed bed PT/OT: Bed Active 0 [place] Mobility/Tr mobility Mobility/T 05-21 lora Brown deficit ransfer 15:00: PT 00 446676-1 Balance/End balance/visitor services coordinator PT/OT: Active Robbi urance rdination Balance/En 05-21 Kevin, deficit durance 15:00: PT 00 588095-5 Gait/Locomo gait PT/OT: Active 2020-0 Robbi tion deficit Gait/Locom 05-21 Kevin, problems otion 15:00: PT 00 602377-1 Gait/Locomo knowledge/s PT/OT: Active 2020-0 Robbi tion kill Gait/Locom 05-21 Kevin, problems deficit: pt otion 15:00: PT 00 846606-1 Safety can be left Safety Active 2020-0 Rbe alone for 2-03 [place] only short 11:15: periods 00 Safety risk for Safety Resolve 2020-0 2019-05-31 Robbi hospitaliza d 2-05 08:55:00 Kevin, tion 13:00: PT 00 482720-9 Neuro anxiety Neuro/Emot Active 2019- Bre present ion 2- En 11:55: 00 [place] requires Musculoske Resolve 2019-0 2019-05-31 Bre etal human letal d 2- 08:55:00 [place] assist to 11:55: leave home 00 Safety risk for Safety Unknown 2020-0 Robbi hospitaliza 2- Kevin, tion 13:00: PT 00 547302-5 Safety risk for Safety Active 2020-0 Elva hospitaliza 2-11 [place] tion 12:05: [id number] 00 Respiratory dyspnea Respirator Active 2019-0 Bre [...] deficit y 2- Kevin, 11:15: PT 00 520881-8 Allergies, Adverse Reactions, Alerts Allergy Name Allergy [...] Ordering Physician UnknownSerum or plasma albumin/globulin mass [id number] 05:34:00Identifier 1759-0 Result Time 2019-05-18 05:34:00Unknown Test Item Value Reference Range Comments Serum or plasma albumin/globulin mass ratio 1.0 Unknown Unknown F (test code = 1759-0) Ordering Physician UnknownSerum or plasma calcium measurement (mass/volume)05-18 05:34:00Identifier 22559-8 Result Time 2019-05-18 05:34:00Unknown Test Item Value Reference Range Comments Serum or plasma calcium measurement 6.9 mg/dL Unknown Unknown F (mass/volume) (test code = 89554-8) Ordering Physician UnknownSerum or plasma magnesium measurement (mass/volume) 2019-05-18 05:34:00Identifier 04915-1 Result Time 2019-05-18 05:34:00Unknown Test Item Value Reference Range Comments Serum or plasma magnesium measurement 1.4 mg/dL Unknown Unknown F (mass/volume) (test code = 56403-0) Ordering Physician UnknownSerum or plasma aspartate aminotransferase [...] Ordering Physician UnknownSerum or plasma urea nitrogen/creatinine [id number]- 28 05:34:00Identifier 3097-3 Result Time 2019-05-18 05:34:00Unknown Test Item Value Reference Range Comments Serum or plasma urea nitrogen/creatinine 26.0 Unknown Unknown F ratio (test code = 3097-3) Ordering Physician UnknownAutomated blood platelet mean volume [id number]- 01-28 05:34:00Identifier 28119-1 Result Time 2019-05-18 05:34:00Unknown Test Item Value Reference Range Comments Automated blood platelet mean volume 7.0 fL Unknown Unknown F measurement (test code = 21727-2) Ordering Physician UnknownSerum or plasma anion [id number] 05:34: 00Identifier 39063-6 Result Time 2019-05-18 05:34:00Unknown Test Item Value Reference Range Comments Serum or plasma anion gap (test code = 9 mmol/L Unknown Unknown F 29671-2) Ordering Physician UnknownAutomated blood leukocytes count corrected for nucleated erythrocytes (number/volume)2019-05-18 05:34:00Identifier 88080-4 Result Time 2019-05-18 05:34:00Unknown Test Item Value Reference Range Comments Automated blood leukocytes count 5.9 10^3/uL Unknown Unknown F corrected for nucleated erythrocytes (number/volume) (test code = 38875-2) Ordering Physician UnknownAutomated blood nucleated erythrocytes waapmpvha9469- 01-28 05:34:00Identifier 99770-5 Result Time 2019-05-18 05:34:00Unknown Test Item Value Reference Range Comments Automated blood nucleated erythrocytes 0.6 Unknown Unknown F detection (test code = 11924-1) Ordering Physician UnknownAutomated blood hematocrit (percentage)2019-05-18 05: 34:00Identifier 4544-3 Result Time 2019-05-18 05:34:00Unknown Test Item Value Reference Range Comments Automated blood hematocrit (percentage) (test 27 % Unknown Unknown F code = 4544-3) Ordering Physician UnknownEstimated glomerular filtration rate (GFR) non- Xqjndsca7644-06-43 05:34:00Identifier 97377-7 Result Time 2019-05-18 05: 34:00Unknown Test Item Value Reference Range Comments Estimated glomerular filtration rate (GFR) 122.0 Unknown Unknown F non- (test code = 44412-9) Ordering Physician UnknownAutomated blood monocytes/100 [id number] 05: 34:00Identifier 5905-5 Result Time 2019-05-18 05:34:00Unknown Test Item Value Reference Range Comments Automated blood monocytes/100 leukocytes 6.1 % Unknown Unknown F (test code = 5905-5) Ordering Physician UnknownSerum or plasma albumin measurement by bromocresol green (BCG) dye binding method ([id number] 05:34:00Identifier 08383-0 Result Time 2019-05-18 05:34:00Unknown Test Item Value Reference Range Comments Serum or plasma albumin measurement by 2.6 g/dL Unknown Unknown F bromocresol green (BCG) dye binding method (ma (test code = 96385-4) Ordering Physician UnknownSerum or plasma alkaline phosphatase [...] = 704-7) Ordering Physician UnknownAutomated blood basophils/100 [id number] 05: 34:00Identifier 706-2 Result Time 2019-05-18 05:34:00Unknown [...] = 711-2) Ordering Physician UnknownAutomated blood eosinophils/100 [id number] 05:34:00Identifier 713-8 Result Time 2019-05-18 05:34:00Unknown Test [...] = 731-0) Ordering Physician UnknownAutomated blood lymphocytes/100 [id number] 05:34:00Identifier 736-9 Result Time 2019-05-18 05:34:00Unknown Test Item Value Reference Range Comments Automated blood lymphocytes/100 leukocytes 19.5 % Unknown Unknown F (test code = 736-9) Ordering Physician UnknownBlood monocytes automated count (number/volume)2019-04 05:34:00Identifier 742-7 Result Time 2019-05-18 05:34:00Unknown Test Item Value Reference Range Comments Blood monocytes automated count 0.4 10^3/ul Unknown Unknown F (number/volume) (test code = 742-7) Ordering Physician UnknownAutomated blood neutrophils/100 [id number] 05:34:00Identifier 770-8 Result Time 2019-05-18 05:34:00Unknown Test [...] UnknownAutomated erythrocyte mean corpuscular hemoglobin concentration measurement (mass/zfo3733-25-28 05:34:00Identifier 786-4 Result Time 2019-05-18 05:34:00Unknown Test Item Value Reference Range Comments Automated erythrocyte mean corpuscular 34 g/dL Unknown Unknown F hemoglobin concentration measurement (mass/vol (test code = 786-4) Ordering Physician UnknownAutomated erythrocyte mean corpuscular [id number]- 28 05:34:00Identifier 787-2 Result Time 2019-05-18 05:34:00Unknown Test Item Value Reference Range Comments Automated erythrocyte mean corpuscular 109 fL Unknown Unknown F volume (test code = 787-2) Ordering Physician UnknownAutomated erythrocyte distribution width fgnmt6303-12- 28 05:34:00Identifier 788-0 Result Time 2019-05-18 05:34:00Unknown [...] code = 789-8) Ordering Physician UnknownLymphocyte proliferation [id number] 05:34: 00Identifier [id number] Result Time 2019-05-18 05:34:00Unknown Test Item Value Reference Range Comments Lymphocyte proliferation test (test 4.4 10^3/ul Unknown Unknown F code = HPM3693) Ordering Physician UnknownSerum or plasma thyroid stimulating [...]
--- OUTSIDE RECORDS SUMMARY | 2019-08-09 02:28 | XMS REPORT ---
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 Other long Other long Diagnosis Active Bre term term En (current) (current) drug drug therapy therapy Pain frequent Pain Mgmt Resolve 2019-05-31 [place] pain d 05-21 08:55:00 [place] 10:30: [id number] 00 Respiratory dyspnea Respirator Resolve 2019-0 2019-05-31 [place] present y d 05-21 08:55:00 [place] 10:30: [id number] 00 Integument pressure Integument Active 2019-0 [place] ulcer 05-21 [place] present 10:30: [id number] 00 Integument skin Integument Active [place] integrity 05-21 [place] risk 10:30: [id number] 00 Nutrition nutritional Nutrition Active [place] restriction 05-21 [place] s 10:30: [id number] 00 Elimination urinary Eliminatio Resolve 2019-05-31 [place] incontinenc n d 05-21 08:55:00 [place] 10:30: [id number] 00 Elimination bowel Eliminatio Resolve 2019-05-31 [place] incontinenc n d 05-21 08:55:00 [place] 10:30: [id number] 00 Elimination diarrhea Eliminatio Resolve 2019-05-31 [place] n d 05-21 08:55:00 [place] 10:30: [id number] 00 Elimination nausea/vomi Eliminatio Resolve 2019-05-31 [place] ting n d 05-21 08:55:00 [place] 10:30: [id number] 00 Neuro confusion Neuro/Emot Active 0 [place] present ion 05-21 [place] 10:30: [id number] 00 Activity ADL Activity Active [place] assistance 05-21 [place] required 10:30: [id number] 00 Activity self-care Activity Resolve 2019-05-24 [place] deficit d 05-21 11:15:00 [place] 10:30: [id number] 00 Safety cannot be Safety Active 2019-0 [place] left alone 05-21 [place] 10:30: [id number] 00 Safety fall risk Safety Resolve 2019-2019-05-24 [place] factor d 05-21 11:15:00 [place] present 10:30: [id number] 00 Safety risk for Safety Resolve 2019-05-24 [place] hospitaliza d 05-21 11:15:00 [place] tion 10:30: [id number] 00 Medication oral med Meds Resolve 2019-05-24 [place] assistance d 05-21 11:15:00 [place] required 10:30: [id number] 00 Medication knowledge/s Meds Resolve 2019-2019-05-24 [place] pinedo d 05-21 11:15:00 [place] deficit: pt 10:30: [id number] 00 Diagnoses knowledge/s Diagnoses Active [place] ipnedo 05-21 [place] deficit: pt 10:30: [id number] 00 Diagnoses knowledge/s Diagnoses Active [place] pinedo 05-21 [place] deficit: cg 10:30: [id number] 00 Musculoskel transfer Musculoske Resolve 2019-05-24 [place] etal assistance letal d 05-21 11:15:00 [place] required 10:30: [id number] 00 Musculoskel requires Musculoske Resolve 2019-05-24 [place] etal human letal d 05-21 11:15:00 [place] assist to 10:30: [id number] leave home 00 Bed transfer PT/OT: Bed Active [place] Mobility/Tr deficit: Mobility/T 05-21 lora Brown sit/stand ransfer 15:00: PT 00 [id number] Bed transfer PT/OT: Bed Active [place] Mobility/Tr deficit: Mobility/T 05-21 lora Brown standing ransfer 15:00: PT pivot 00 370929-1 Bed transfer PT/OT: Bed Active [place] Mobility/Tr deficit: Mobility/T 05-21 lora Brown toilet/comm ransfer 15:00: PT ode 00 020300-8 Bed transfer PT/OT: Bed Active [place]bi Mobility/Tr deficit: Mobility/T 05-21 lora Brown shower/tub ransfer 15:00: PT 00 [id number] Bed knowledge/s PT/OT: Bed Active [place]bi Mobility/Tr kill Mobility/T 05-21 lora Brown deficit: pt ransfer 15:00: PT 00 868800-7 Bed bed PT/OT: Bed Active 0 [place]bi Mobility/Tr mobility Mobility/T 05-21 lora Brown deficit ransfer 15:00: PT 00 421123-5 Balance/End balance/business services coordinator PT/OT: Active Robbi urance rdination Balance/En 05-21 Kevin, deficit durance 15:00: PT 00 735674-8 Gait/Locomo gait PT/OT: Active 2020-0 Robbi tion deficit Gait/Locom 05-21 Kevin, problems otion 15:00: PT 00 941587-4 Gait/Locomo knowledge/s PT/OT: Active 2020-0 Robbi tion kill Gait/Locom 05-21 Kevin, problems deficit: pt otion 15:00: PT 00 620606-8 Safety can be left Safety Active 2020-0 Bre alone for 2-03 [place] only short 11:15: periods 00 Safety risk for Safety Resolve 2020-0 2019-05-31 [facility] hospitaliza d 2-05 08:55:00 Kevin, tion 13:00: PT 00 183059-0 Neuro anxiety Neuro/Emot Active 2019- Bre present ion 2- En 11:55: 00 Musculos[place] requires Musculoske Resolve 2019-0 2019-05-31 Bre etal human letal d 2- 08:55:00 [place] assist to 11:55: leave home 00 Safety risk for Safety Unknown 2020-0 Robbi hospitaliza 2- Kevin, tion 13:00: PT 00 170352-7 Safety risk for Safety Active 2020-0 [place] hospitaliza 2-11 [place] tion 12:05: [id number] 00 Respiratory dyspnea Respirator Active 2019-0 Bre [...] deficit y 2- Kevin, 11:15: PT 00 509602-7 Allergies, Adverse Reactions, Alerts Allergy Name Allergy [...] Observation Time Observation Value Comments SYSTOLIC mm[Hg] 2019-07-07 18:10:56 98 mm[Hg] mm[Hg] Method: Sit DIASTOLIC mm[Hg] 2019-07-07 18:10:56 58 mm[Hg] mm[Hg] Method: Sit PULSE 2019-07-07 18:10:56 98 /min /min RESP RATE 2019-07-07 18:10:56 18 /min /min TEMP 2019-07-07 18:10:56 98 [degF] Procedures This patient has no known [...] Ordering Physician UnknownSerum or plasma albumin/globulin mass [id number] 05:34:00Identifier 1759-0 Result Time 2019-05-18 05:34:00Unknown Test Item Value Reference Range Comments Serum or plasma albumin/globulin mass ratio 1.0 Unknown Unknown F (test code = 1759-0) Ordering Physician UnknownSerum or plasma calcium measurement (mass/volume)05-18 05:34:00Identifier 02665-7 Result Time 2019-05-18 05:34:00Unknown Test Item Value Reference Range Comments Serum or plasma calcium measurement 6.9 mg/dL Unknown Unknown F (mass/volume) (test code = 23327-4) Ordering Physician UnknownSerum or plasma magnesium measurement (mass/volume) 2019-05-18 05:34:00Identifier 93165-1 Result Time 2019-05-18 05:34:00Unknown Test Item Value Reference Range Comments Serum or plasma magnesium measurement 1.4 mg/dL Unknown Unknown F (mass/volume) (test code = 95070-2) Ordering Physician UnknownSerum or plasma aspartate aminotransferase measurement (enzymatic activity/volume)2019-05-18 05:34:00Identifier 1919- Result Time 2019-05-18 05:34:00Unknown Test Item Value Reference Range Comments Serum or plasma aspartate aminotransferase 33 U/L Unknown Unknown F measurement (enzymatic activity/volume) (test code = 1919-11) Ordering Physician UnknownSerum or plasma total bilirubin [...] Ordering Physician UnknownSerum or plasma urea nitrogen/creatinine [id number]- 28 05:34:00Identifier 3097-3 Result Time 2019-05-18 05:34:00Unknown Test Item Value Reference Range Comments Serum or plasma urea nitrogen/creatinine 26.0 Unknown Unknown F ratio (test code = 3097-3) Ordering Physician UnknownAutomated blood platelet mean volume psxxtoppzsf9410- 01-28 05:34:00Identifier 22328-5 Result Time 2019-05-18 05:34:00Unknown Test Item Value Reference Range Comments Automated blood platelet mean volume 7.0 fL Unknown Unknown F measurement (test code = 02328-2) Ordering Physician UnknownSerum or plasma anion [id number] 05:34: 00Identifier 05946-3 Result Time 2019-05-18 05:34:00Unknown Test Item Value Reference Range Comments Serum or plasma anion gap (test code = 9 mmol/L Unknown Unknown F 54635-9) Ordering Physician UnknownAutomated blood leukocytes count corrected for nucleated erythrocytes (number/volume)2019-05-18 05:34:00Identifier 42546-0 Result Time 2019-05-18 05:34:00Unknown Test Item Value Reference Range Comments Automated blood leukocytes count 5.9 10^3/uL Unknown Unknown F corrected for nucleated erythrocytes (number/volume) (test code = 46507-6) Ordering Physician UnknownAutomated blood nucleated erythrocytes kszkqotvk5716- 01-28 05:34:00Identifier 20614-6 Result Time 2019-05-18 05:34:00Unknown Test Item Value Reference Range Comments Automated blood nucleated erythrocytes 0.6 Unknown Unknown F detection (test code = 75024-9) Ordering Physician UnknownAutomated blood hematocrit (percentage)2019-05-18 05: 34:00Identifier 4544-3 Result Time 2019-05-18 05:34:00Unknown Test Item Value Reference Range Comments Automated blood hematocrit (percentage) (test 27 % Unknown Unknown F code = 4544-3) Ordering Physician UnknownEstimated glomerular filtration rate (GFR) non- Lsspjszi0022-57-98 05:34:00Identifier 48099-8 Result Time 2019-05-18 05: 34:00Unknown Test Item Value Reference Range Comments Estimated glomerular filtration rate (GFR) 122.0 Unknown Unknown F non- (test code = 02670-1) Ordering Physician UnknownAutomated blood monocytes/100 [id number] 05: 34:00Identifier 5905-5 Result Time 2019-05-18 05:34:00Unknown Test Item Value Reference Range Comments Automated blood monocytes/100 leukocytes 6.1 % Unknown Unknown F (test code = 5905-5) Ordering Physician UnknownSerum or plasma albumin measurement by bromocresol green (BCG) dye binding method ([id number] 05:34:00Identifier 94922-4 Result Time 2019-05-18 05:34:00Unknown Test Item Value Reference Range Comments Serum or plasma albumin measurement by 2.6 g/dL Unknown Unknown F bromocresol green (BCG) dye binding method (ma (test code = 77925-6) Ordering Physician UnknownSerum or plasma alkaline phosphatase [...] = 704-7) Ordering Physician UnknownAutomated blood basophils/100 [id number] 05: 34:00Identifier 706-2 Result Time 2019-05-18 05:34:00Unknown [...] = 711-2) Ordering Physician UnknownAutomated blood eosinophils/100 [id number] 05:34:00Identifier 713-8 Result Time 2019-05-18 05:34:00Unknown Test [...] = 731-0) Ordering Physician UnknownAutomated blood lymphocytes/100 [id number] 05:34:00Identifier 736-9 Result Time 2019-05-18 05:34:00Unknown Test Item Value Reference Range Comments Automated blood lymphocytes/100 leukocytes 19.5 % Unknown Unknown F (test code = 736-9) Ordering Physician UnknownBlood monocytes automated count (number/volume)2019-04 05:34:00Identifier 742-7 Result Time 2019-05-18 05:34:00Unknown Test Item Value Reference Range Comments Blood monocytes automated count 0.4 10^3/ul Unknown Unknown F (number/volume) (test code = 742-7) Ordering Physician UnknownAutomated blood neutrophils/100 [id number] 05:34:00Identifier 770-8 Result Time 2019-05-18 05:34:00Unknown Test [...] UnknownAutomated erythrocyte mean corpuscular hemoglobin concentration measurement (mass/bst0155-08-26 05:34:00Identifier 786-4 Result Time 2019-05-18 05:34:00Unknown Test Item Value Reference Range Comments Automated erythrocyte mean corpuscular 34 g/dL Unknown Unknown F hemoglobin concentration measurement (mass/vol (test code = 786-4) Ordering Physician UnknownAutomated erythrocyte mean corpuscular [id number]- 28 05:34:00Identifier 787-2 Result Time 2019-05-18 05:34:00Unknown Test Item Value Reference Range Comments Automated erythrocyte mean corpuscular 109 fL Unknown Unknown F volume (test code = 787-2) Ordering Physician UnknownAutomated erythrocyte distribution width [id number]- 28 05:34:00Identifier 788-0 Result Time 2019-05-18 05:34:00Unknown [...] code = 789-8) Ordering Physician UnknownLymphocyte proliferation [id number] 05:34: 00Identifier [id number] Result Time 2019-05-18 05:34:00Unknown Test Item Value Reference Range Comments Lymphocyte proliferation test (test 4.4 10^3/ul Unknown Unknown F code = EBK6552) Ordering Physician UnknownSerum or plasma thyroid stimulating [...]
--- OUTSIDE RECORDS SUMMARY | 2019-08-09 02:28 | XMS REPORT ---
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 Other long Other long Diagnosis Active Bre term term En (current) (current) drug drug therapy therapy Pain frequent Pain Mgmt Resolve 2019-05-31 [place] pain d 05-21 08:55:00 [place] 10:30: [id number] 00 Respiratory dyspnea Respirator Resolve 2019-0 2019-05-31 [place] present y d 05-21 08:55:00 [place] 10:30: [id number] 00 Integument pressure Integument Active 2019-0 [place] ulcer 05-21 [place] present 10:30: [id number] 00 Integument skin Integument Active [place] integrity 05-21 [place] risk 10:30: [id number] 00 Nutrition nutritional Nutrition Active [place] restriction 05-21 [place] s 10:30: [id number] 00 Elimination urinary Eliminatio Resolve 2019-05-31 [place] incontinenc n d 05-21 08:55:00 Ava e 10:30: [id number] 00 Elimination bowel Eliminatio Resolve 2019-05-31 [place] incontinenc n d 05-21 08:55:00 Ava e 10:30: [id number] 00 Elimination diarrhea Eliminatio Resolve 2019-05-31 [place] n d 05-21 08:55:00 [place] 10:30: [id number] 00 Elimination nausea/vomi Eliminatio Resolve 2019-05-31 [place] ting n d 05-21 08:55:00 [place] 10:30: [id number] 00 Neuro confusion Neuro/Emot Active 0 [place] present ion 05-21 [place] 10:30: [id number] 00 Activity ADL Activity Active [place] assistance 05-21 [place] required 10:30: [id number] Activity self-care Activity Resolve 2019-05-24 [place] deficit d 05-21 11:15:00 [place] 10:30: [id number] 00 Safety cannot be Safety Active 2019-0 [place] left alone 05-21 [place] 10:30: [id number] 00 Safety fall risk Safety Resolve 2019-2019-05-24 [place] factor d 05-21 11:15:00 [place] present 10:30: [id number] Safety risk for Safety Resolve 2019-05-24 [place] hospitaliza d 05-21 11:15:00 [place] tion 10:30: [id number] 00 Medication oral med Meds Resolve 2019-05-24 [place] assistance d 05-21 11:15:00 Ava required 10:30: [id number] 00 Medication knowledge/s Meds Resolve 2019-2019-05-24 [place] pinedo d 05-21 11:15:00 [place] deficit: pt 10:30: [id number] 00 Diagnoses knowledge/s Diagnoses Active [place]y pinedo 05-21 [place] deficit: pt 10:30: [id number] 00 Diagnoses knowledge/s Diagnoses Active [place]y pinedo 05-21 [place] deficit: cg 10:30: [id number] 00 Musculoskel transfer Musculoske Resolve 2019-05-24 [place] etal assistance letal d 05-21 11:15:00 [place] required 10:30: [id number] 00 Musculoskel requires Musculoske Resolve 2019-05-24 [place] etal human letal d 05-21 11:15:00 [place] assist to 10:30: [id number] leave home 00 Bed transfer PT/OT: Bed Active Robbi Mobility/Tr deficit: Mobility/T 05-21 lora Brown sit/stand ransfer 15:00: PT 00 011553-8 Bed transfer PT/OT: Bed Active Robbi Mobility/Tr deficit: Mobility/T 05-21 lora Brown standing ransfer 15:00: PT pivot 00 790752-1 Bed transfer PT/OT: Bed Active Robbi Mobility/Tr deficit: Mobility/T 05-21 lora Brown toilet/comm ransfer 15:00: PT ode 00 548368-7 Bed transfer PT/OT: Bed Active Robbi Mobility/Tr deficit: Mobility/T 05-21 lora Brown shower/tub ransfer 15:00: PT 00 141920-5 Bed knowledge/s PT/OT: Bed Active Robbi Mobility/Tr kill Mobility/T 05-21 lora Brown deficit: pt ransfer 15:00: PT 00 337165-1 Bed bed PT/OT: Bed Active 0 [place]bi Mobility/Tr mobility Mobility/T 05-21 lora Brown deficit ransfer 15:00: PT 00 203803-4 Balance/End balance/child care coordinator PT/OT: Active Robbi urance rdination Balance/En 05-21 Kevin, deficit durance 15:00: PT 00 182230-1 Gait/Locomo gait PT/OT: Active 2020-0 Robbi tion deficit Gait/Locom 05-21 Kevin, problems otion 15:00: PT 00 597842-5 Gait/Locomo knowledge/s PT/OT: Active 2020-0 Robbi tion kill Gait/Locom 05-21 Kevin, problems deficit: pt otion 15:00: PT 00 914611-7 Safety can be left Safety Active 2020-0 Bre alone for 2-03 [place] only short 11:15: periods 00 Safety risk for Safety Resolve 2020-0 2019-05-31 Robbi hospitaliza d 2-05 08:55:00 Kevin, tion 13:00: PT 00 676998-8 Neuro anxiety Neuro/Emot Active 2019- Bre present ion 2- En 11:55: 00 Musculoskel requires Musculoske Resolve 2019-0 2019-05-31 Bre etal human letal d 2- 08:55:00 [place] assist to 11:55: leave home 00 Safety risk for Safety Unknown 2020-0 Robbi hospitaliza 2- Kevin, tion 13:00: PT 00 322222-6 Safety risk for Safety Active 2020-0 [place] hospitaliza 2-11 Ulices Steven tion 12:05: [id number] 00 Respiratory dyspnea Respirator Active 2019-0 Bre [...] deficit y 2- Kevin, 11:15: PT 00 797471-2 Allergies, Adverse Reactions, Alerts Allergy Name Allergy [...] Ordering Physician UnknownSerum or plasma albumin/globulin mass [id number] 05:34:00Identifier 1759-0 Result Time 2019-05-18 05:34:00Unknown Test Item Value Reference Range Comments Serum or plasma albumin/globulin mass ratio 1.0 Unknown Unknown F (test code = 1759-0) Ordering Physician UnknownSerum or plasma calcium measurement (mass/volume)05-18 05:34:00Identifier 29866-7 Result Time 2019-05-18 05:34:00Unknown Test Item Value Reference Range Comments Serum or plasma calcium measurement 6.9 mg/dL Unknown Unknown F (mass/volume) (test code = 73163-6) Ordering Physician UnknownSerum or plasma magnesium measurement (mass/volume) 2019-05-18 05:34:00Identifier 82356-2 Result Time 2019-05-18 05:34:00Unknown Test Item Value Reference Range Comments Serum or plasma magnesium measurement 1.4 mg/dL Unknown Unknown F (mass/volume) (test code = 16306-4) Ordering Physician UnknownSerum or plasma aspartate aminotransferase [...] Ordering Physician UnknownSerum or plasma urea nitrogen/creatinine [id number]- 28 05:34:00Identifier 3097-3 Result Time 2019-05-18 05:34:00Unknown Test Item Value Reference Range Comments Serum or plasma urea nitrogen/creatinine 26.0 Unknown Unknown F ratio (test code = 3097-3) Ordering Physician UnknownAutomated blood platelet mean volume krwerbxpwsv4877- 01-28 05:34:00Identifier 35694-6 Result Time 2019-05-18 05:34:00Unknown Test Item Value Reference Range Comments Automated blood platelet mean volume 7.0 fL Unknown Unknown F measurement (test code = 26038-4) Ordering Physician UnknownSerum or plasma anion [id number] 05:34: 00Identifier 68837-6 Result Time 2019-05-18 05:34:00Unknown Test Item Value Reference Range Comments Serum or plasma anion gap (test code = 9 mmol/L Unknown Unknown F 09425-0) Ordering Physician UnknownAutomated blood leukocytes count corrected for nucleated erythrocytes (number/volume)2019-05-18 05:34:00Identifier 15443-4 Result Time 2019-05-18 05:34:00Unknown Test Item Value Reference Range Comments Automated blood leukocytes count 5.9 10^3/uL Unknown Unknown F corrected for nucleated erythrocytes (number/volume) (test code = 38682-5) Ordering Physician UnknownAutomated blood nucleated erythrocytes [id number]- 01-28 05:34:00Identifier 31232-9 Result Time 2019-05-18 05:34:00Unknown Test Item Value Reference Range Comments Automated blood nucleated erythrocytes 0.6 Unknown Unknown F detection (test code = 32005-4) Ordering Physician UnknownAutomated blood hematocrit (percentage)2019-05-18 05: 34:00Identifier 4544-3 Result Time 2019-05-18 05:34:00Unknown Test Item Value Reference Range Comments Automated blood hematocrit (percentage) (test 27 % Unknown Unknown F code = 4544-3) Ordering Physician UnknownEstimated glomerular filtration rate (GFR) non- Mcxnyqzk3818-05-61 05:34:00Identifier 38087-9 Result Time 2019-05-18 05: 34:00Unknown Test Item Value Reference Range Comments Estimated glomerular filtration rate (GFR) 122.0 Unknown Unknown F non- (test code = 40891-6) Ordering Physician UnknownAutomated blood monocytes/100 [id number] 05: 34:00Identifier 5905-5 Result Time 2019-05-18 05:34:00Unknown Test Item Value Reference Range Comments Automated blood monocytes/100 leukocytes 6.1 % Unknown Unknown F (test code = 5905-5) Ordering Physician UnknownSerum or plasma albumin measurement by bromocresol green (BCG) dye binding method ([id number] 05:34:00Identifier 84180-1 Result Time 2019-05-18 05:34:00Unknown Test Item Value Reference Range Comments Serum or plasma albumin measurement by 2.6 g/dL Unknown Unknown F bromocresol green (BCG) dye binding method (ma (test code = 92749-7) Ordering Physician UnknownSerum or plasma alkaline phosphatase [...] = 704-7) Ordering Physician UnknownAutomated blood basophils/100 [id number] 05: 34:00Identifier 706-2 Result Time 2019-05-18 05:34:00Unknown [...] = 711-2) Ordering Physician UnknownAutomated blood eosinophils/100 [id number] 05:34:00Identifier 713-8 Result Time 2019-05-18 05:34:00Unknown Test [...] = 731-0) Ordering Physician UnknownAutomated blood lymphocytes/100 [id number] 05:34:00Identifier 736-9 Result Time 2019-05-18 05:34:00Unknown Test Item Value Reference Range Comments Automated blood lymphocytes/100 leukocytes 19.5 % Unknown Unknown F (test code = 736-9) Ordering Physician UnknownBlood monocytes automated count (number/volume)2019-04 05:34:00Identifier 742-7 Result Time 2019-05-18 05:34:00Unknown Test Item Value Reference Range Comments Blood monocytes automated count 0.4 10^3/ul Unknown Unknown F (number/volume) (test code = 742-7) Ordering Physician UnknownAutomated blood neutrophils/100 [id number] 05:34:00Identifier 770-8 Result Time 2019-05-18 05:34:00Unknown Test [...] UnknownAutomated erythrocyte mean corpuscular hemoglobin concentration measurement (mass/aeb2443-36-54 05:34:00Identifier 786-4 Result Time 2019-05-18 05:34:00Unknown Test Item Value Reference Range Comments Automated erythrocyte mean corpuscular 34 g/dL Unknown Unknown F hemoglobin concentration measurement (mass/vol (test code = 786-4) Ordering Physician UnknownAutomated erythrocyte mean corpuscular [id number]- 28 05:34:00Identifier 787-2 Result Time 2019-05-18 05:34:00Unknown Test Item Value Reference Range Comments Automated erythrocyte mean corpuscular 109 fL Unknown Unknown F volume (test code = 787-2) Ordering Physician UnknownAutomated erythrocyte distribution width [id number]- 28 05:34:00Identifier 788-0 Result Time 2019-05-18 05:34:00Unknown [...] code = 789-8) Ordering Physician UnknownLymphocyte proliferation [id number] 05:34: 00Identifier [id number] Result Time 2019-05-18 05:34:00Unknown Test Item Value Reference Range Comments Lymphocyte proliferation test (test 4.4 10^3/ul Unknown Unknown F code = DEC1282) Ordering Physician UnknownSerum or plasma thyroid stimulating [...]
--- OUTSIDE RECORDS SUMMARY | 2019-08-09 02:28 | XMS REPORT ---
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 Other long Other long Diagnosis Active Bre term term En (current) (current) drug drug therapy therapy Pain frequent Pain Mgmt Resolve 2019-05-31 [place] pain d 05-21 08:55:00 [place] 10:30: [id number] 00 Respiratory dyspnea Respirator Resolve 2019-0 2019-05-31 [place] present y d 05-21 08:55:00 [place] 10:30: [id number] 00 Integument pressure Integument Active 2019-0 [place] ulcer 05-21 [place] present 10:30: [id number] 00 Integument skin Integument Active [place] integrity 05-21 [place] risk 10:30: [id number] 00 Nutrition nutritional Nutrition Active [place] restriction 05-21 [place] s 10:30: [id number] 00 Elimination urinary Eliminatio Resolve 2019-05-31 [place] incontinenc n d 05-21 08:55:00 Ava e 10:30: [id number] 00 Elimination bowel Eliminatio Resolve 2019-05-31 [place] incontinenc n d 05-21 08:55:00 Ava e 10:30: [id number] 00 Elimination diarrhea Eliminatio Resolve 2019-05-31 [place] n d 05-21 08:55:00 [place] 10:30: [id number] 00 Elimination nausea/vomi Eliminatio Resolve 2019-05-31 [place] ting n d 05-21 08:55:00 [place] 10:30: [id number] 00 Neuro confusion Neuro/Emot Active 0 [place] present ion 05-21 [place] 10:30: [id number] 00 Activity ADL Activity Active [place] assistance 05-21 [place] required 10:30: [id number] 00 Activity self-care Activity Resolve 2019-05-24 [place] deficit d 05-21 11:15:00 [place] 10:30: [id number] 00 Safety cannot be Safety Active 2019-0 [place] left alone 05-21 [place] 10:30: [id number] 00 Safety fall risk Safety Resolve 2019-2019-05-24 [place] factor d 05-21 11:15:00 [place] present 10:30: [id number] 00 Safety risk for Safety Resolve 2019-05-24 [place] hospitaliza d 05-21 11:15:00 [place] tion 10:30: [id number] 00 Medication oral med Meds Resolve 2019-05-24 [place] assistance d 05-21 11:15:00 Ava required 10:30: [id number] 00 Medication knowledge/s Meds Resolve 2019-2019-05-24 Altashorty pinedo d 05-21 11:15:00 [place] deficit: pt 10:30: [id number] 00 Diagnoses knowledge/s Diagnoses Active Altashorty pinedo 05-21 Ava deficit: pt 10:30: [id number] 00 Diagnoses knowledge/s Diagnoses Active Altashorty pinedo 05-21 [place] deficit: cg 10:30: [id number] 00 Musculoskel transfer Musculoske Resolve 2019-05-24 [place] etal assistance letal d 05-21 11:15:00 [place] required 10:30: [id number] 00 Musculoskel requires Musculoske Resolve 2019-05-24 [place] etal human letal d 05-21 11:15:00 Ava assist to 10:30: [id number] leave home 00 Bed transfer PT/OT: Bed Active Robbi Mobility/Tr deficit: Mobility/T 05-21 lora Brown sit/stand ransfer 15:00: PT 00 [id number] Bed transfer PT/OT: Bed Active Robbi Mobility/Tr deficit: Mobility/T 05-21 lora Brown standing ransfer 15:00: PT pivot 00 617929-1 Bed transfer PT/OT: Bed Active Robbi Mobility/Tr deficit: Mobility/T 05-21 lora Brown toilet/comm ransfer 15:00: PT ode 00 508420-4 Bed transfer PT/OT: Bed Active Robbi Mobility/Tr deficit: Mobility/T 05-21 lora Brown shower/tub ransfer 15:00: PT 00 479289-0 Bed knowledge/s PT/OT: Bed Active Robbi Mobility/Tr kill Mobility/T 05-21 lora Brown deficit: pt ransfer 15:00: PT 00 051885-9 Bed bed PT/OT: Bed Active 0 Robbi Mobility/Tr mobility Mobility/T 05-21 lora Brown deficit ransfer 15:00: PT 00 513364-3 Balance/End balance/senior energy market coordinator PT/OT: Active Robbi urance rdination Balance/En 05-21 Kevin, deficit durance 15:00: PT 00 378469-5 Gait/Locomo gait PT/OT: Active 2020-0 Robbi tion deficit Gait/Locom 05-21 Kevin, problems otion 15:00: PT 00 580612-1 Gait/Locomo knowledge/s PT/OT: Active 2020-0 Robbi tion kill Gait/Locom 05-21 Kevin, problems deficit: pt otion 15:00: PT 00 689061-3 Safety can be left Safety Active 2020-0 Bre alone for 2-03 [place] only short 11:15: periods 00 Safety risk for Safety Resolve 2020-0 2019-05-31 Robbi hospitaliza d 2-05 08:55:00 Kevin, tion 13:00: PT 00 562840-8 Neuro anxiety Neuro/Emot Active 2019- Bre present ion 2- En 11:55: 00 Musculoskel requires Musculoske Resolve 2019-0 2019-05-31 Bre etal human letal d 2- 08:55:00 [place] assist to 11:55: leave home 00 Safety risk for Safety Unknown 2020-0 Robbi hospitaliza 2- Kevin, tion 13:00: PT 00 073106-8 Safety risk for Safety Active 2020-0 Elva hospitaliza 2-11 Ulices Steven tion 12:05: [id number] 00 Respiratory dyspnea Respirator Active 2019-0 Bre [...] deficit y 2- Kevin, 11:15: PT 00 117065-6 Allergies, Adverse Reactions, Alerts Allergy Name Allergy [...] Observation Time Observation Value Comments RESP RATE 2019-07-08 18:10:57 20 /min /min TEMP 2019-07-12 18:11:01 97.2 [degF] Procedures This patient has no [...] Ordering Physician UnknownSerum or plasma albumin/globulin mass [id number] 05:34:00Identifier 1759-0 Result Time 2019-05-18 05:34:00Unknown Test Item Value Reference Range Comments Serum or plasma albumin/globulin mass ratio 1.0 Unknown Unknown F (test code = 1759-0) Ordering Physician UnknownSerum or plasma calcium measurement (mass/volume)05-18 05:34:00Identifier 68879-2 Result Time 2019-05-18 05:34:00Unknown Test Item Value Reference Range Comments Serum or plasma calcium measurement 6.9 mg/dL Unknown Unknown F (mass/volume) (test code = 57123-5) Ordering Physician UnknownSerum or plasma magnesium measurement (mass/volume) 2019-05-18 05:34:00Identifier 34664-4 Result Time 2019-05-18 05:34:00Unknown Test Item Value Reference Range Comments Serum or plasma magnesium measurement 1.4 mg/dL Unknown Unknown F (mass/volume) (test code = 99788-9) Ordering Physician UnknownSerum or plasma aspartate aminotransferase [...] Ordering Physician UnknownSerum or plasma urea nitrogen/creatinine odvwc0809-07- 28 05:34:00Identifier 3097-3 Result Time 2019-05-18 05:34:00Unknown Test Item Value Reference Range Comments Serum or plasma urea nitrogen/creatinine 26.0 Unknown Unknown F ratio (test code = 3097-3) Ordering Physician UnknownAutomated blood platelet mean volume hiqzgpjijre9347- 01-28 05:34:00Identifier 96403-3 Result Time 2019-05-18 05:34:00Unknown Test Item Value Reference Range Comments Automated blood platelet mean volume 7.0 fL Unknown Unknown F measurement (test code = 61891-0) Ordering Physician UnknownSerum or plasma anion [id number] 05:34: 00Identifier 99108-5 Result Time 2019-05-18 05:34:00Unknown Test Item Value Reference Range Comments Serum or plasma anion gap (test code = 9 mmol/L Unknown Unknown F 52717-8) Ordering Physician UnknownAutomated blood leukocytes count corrected for nucleated erythrocytes (number/volume)2019-05-18 05:34:00Identifier 99662-0 Result Time 2019-05-18 05:34:00Unknown Test Item Value Reference Range Comments Automated blood leukocytes count 5.9 10^3/uL Unknown Unknown F corrected for nucleated erythrocytes (number/volume) (test code = 94571-6) Ordering Physician UnknownAutomated blood nucleated erythrocytes cuxwjvyst3847- 01-28 05:34:00Identifier 41740-0 Result Time 2019-05-18 05:34:00Unknown Test Item Value Reference Range Comments Automated blood nucleated erythrocytes 0.6 Unknown Unknown F detection (test code = 63554-4) Ordering Physician UnknownAutomated blood hematocrit (percentage)2019-05-18 05: 34:00Identifier 4544-3 Result Time 2019-05-18 05:34:00Unknown Test Item Value Reference Range Comments Automated blood hematocrit (percentage) (test 27 % Unknown Unknown F code = 4544-3) Ordering Physician UnknownEstimated glomerular filtration rate (GFR) non- Swnrrtyl6172-68-51 05:34:00Identifier 68815-2 Result Time 2019-05-18 05: 34:00Unknown Test Item Value Reference Range Comments Estimated glomerular filtration rate (GFR) 122.0 Unknown Unknown F non- (test code = 50631-2) Ordering Physician UnknownAutomated blood monocytes/100 [id number] 05: 34:00Identifier 5905-5 Result Time 2019-05-18 05:34:00Unknown Test Item Value Reference Range Comments Automated blood monocytes/100 leukocytes 6.1 % Unknown Unknown F (test code = 5905-5) Ordering Physician UnknownSerum or plasma albumin measurement by bromocresol green (BCG) dye binding method (oh0184-24-57 05:34:00Identifier 42046-0 Result Time 2019-05-18 05:34:00Unknown Test Item Value Reference Range Comments Serum or plasma albumin measurement by 2.6 g/dL Unknown Unknown F bromocresol green (BCG) dye binding method (ma (test code = 17778-1) Ordering Physician UnknownSerum or plasma alkaline phosphatase [...] = 704-7) Ordering Physician UnknownAutomated blood basophils/100 rdohhngaen3395-69-79 05: 34:00Identifier 706-2 Result Time 2019-05-18 05:34:00Unknown [...] = 711-2) Ordering Physician UnknownAutomated blood eosinophils/100 azpioaopxy2535-70-48 05:34:00Identifier 713-8 Result Time 2019-05-18 05:34:00Unknown Test [...] = 731-0) Ordering Physician UnknownAutomated blood lymphocytes/100 xazhrllmkg4162-87-78 05:34:00Identifier 736-9 Result Time 2019-05-18 05:34:00Unknown Test Item Value Reference Range Comments Automated blood lymphocytes/100 leukocytes 19.5 % Unknown Unknown F (test code = 736-9) Ordering Physician UnknownBlood monocytes automated count (number/volume)2019-04 05:34:00Identifier 742-7 Result Time 2019-05-18 05:34:00Unknown Test Item Value Reference Range Comments Blood monocytes automated count 0.4 10^3/ul Unknown Unknown F (number/volume) (test code = 742-7) Ordering Physician UnknownAutomated blood neutrophils/100 [id number] 05:34:00Identifier 770-8 Result Time 2019-05-18 05:34:00Unknown Test [...] UnknownAutomated erythrocyte mean corpuscular hemoglobin concentration measurement (mass/nxq8741-34-09 05:34:00Identifier 786-4 Result Time 2019-05-18 05:34:00Unknown Test Item Value Reference Range Comments Automated erythrocyte mean corpuscular 34 g/dL Unknown Unknown F hemoglobin concentration measurement (mass/vol (test code = 786-4) Ordering Physician UnknownAutomated erythrocyte mean corpuscular xekndy7025-26- 28 05:34:00Identifier 787-2 Result Time 2019-05-18 05:34:00Unknown Test Item Value Reference Range Comments Automated erythrocyte mean corpuscular 109 fL Unknown Unknown F volume (test code = 787-2) Ordering Physician UnknownAutomated erythrocyte distribution width [id number]- 28 05:34:00Identifier 788-0 Result Time 2019-05-18 05:34:00Unknown [...] code = 789-8) Ordering Physician UnknownLymphocyte proliferation [id number] 05:34: 00Identifier [id number] Result Time 2019-05-18 05:34:00Unknown Test Item Value Reference Range Comments Lymphocyte proliferation test (test 4.4 10^3/ul Unknown Unknown F code = XCI4071) Ordering Physician UnknownSerum or plasma thyroid stimulating [...]
--- OUTSIDE RECORDS SUMMARY | 2019-08-09 02:28 | XMS REPORT ---
:1950 Author Organization [facility] Care Team Providers Name Role Phone Unavailable [...] 2 Diagnosis Active Bre diabetes diabetes 05-13 nE mellitus mellitus without without complicatio complicatio ns [...] and itis and colitis, colitis, unspecified unspecified long-term long-term Diagnosis Active Bre (current) (current) En use of use of opiate opiate analgesic analgesic Other long Other long Diagnosis Active Bre term term En (current) (current) drug drug therapy therapy Pain frequent Pain Mgmt Resolve 2019-05-31 [place] pain d 05-21 08:55:00 [place] 10:30: [id number] 00 Respiratory dyspnea Respirator Resolve 2019-0 2019-05-31 [place] present y d 05-21 08:55:00 [place] 10:30: [id number] 00 Integument pressure Integument Active 2019-0 [place] ulcer 05-21 Harold present 10:30: [id number] 00 Integument skin Integument Active [place] integrity 05-21 Harold risk 10:30: [id number] 00 Nutrition nutritional Nutrition Active [place] restriction 05-21 Harold s 10:30: [id number] 00 Elimination urinary Eliminatio Resolve 2019-05-31 [place] incontinenc n d 05-21 08:55:00 Ava e 10:30: [id number] 00 Elimination bowel Eliminatio Resolve 2019-05-31 [place] incontinenc n d 05-21 08:55:00 Ava e 10:30: [id number] 00 Elimination diarrhea Eliminatio Resolve 2019-05-31 [place] n d 05-21 08:55:00 [place] 10:30: [id number] 00 Elimination nausea/vomi Eliminatio Resolve 2019-05-31 [place] ting n d 05-21 08:55:00 [place] 10:30: [id number] 00 Neuro confusion Neuro/Emot Active 0 [place] present ion 05-21 [place] 10:30: [id number] 00 Activity ADL Activity Active [place] assistance 05-21 [place] required 10:30: [id number] 00 Activity self-care Activity Resolve 2019-05-24 [place] deficit d 05-21 11:15:00 [place] 10:30: [id number] 00 Safety cannot be Safety Active 2019-0 [place] left alone 05-21 [place] 10:30: [id number] 00 Safety fall risk Safety Resolve 2019-2019-05-24 [place] factor d 05-21 11:15:00 [place] present 10:30: [id number] 00 Safety risk for Safety Resolve 2019-05-24 [place] hospitaliza d 05-21 11:15:00 Harold tion 10:30: [id number] 00 Medication oral med Meds Resolve 2019-05-24 [place] assistance d 05-21 11:15:00 Ava required 10:30: [id number] 00 Medication knowledge/s Meds Resolve 2019-2019-05-24 Altashorty pinedo d 05-21 11:15:00 [place] deficit: pt 10:30: [id number] 00 Diagnoses knowledge/s Diagnoses Active Altashorty pinedo 05-21 Ava deficit: pt 10:30: [id number] 00 Diagnoses knowledge/s Diagnoses Active Altashorty pinedo 05-21 [place] deficit: cg 10:30: [id number] 00 Musculoskel transfer Musculoske Resolve 2019-05-24 [place] etal assistance letal d 05-21 11:15:00 [place] required 10:30: [id number] 00 Musculoskel requires Musculoske Resolve 2019-05-24 [place] etal human letal d 05-21 11:15:00 Ava assist to 10:30: [id number] leave home 00 Bed transfer PT/OT: Bed Active Robbi Mobility/Tr deficit: Mobility/T 05-21 lora Brown sit/stand ransfer 15:00: PT 00 821516-4 Bed transfer PT/OT: Bed Active Robbi Mobility/Tr deficit: Mobility/T 05-21 lora Brown standing ransfer 15:00: PT pivot 00 572321-1 Bed transfer PT/OT: Bed Active Robbi Mobility/Tr deficit: Mobility/T 05-21 lora Brown toilet/comm ransfer 15:00: PT ode 00 560175-1 Bed transfer PT/OT: Bed Active Robbi Mobility/Tr deficit: Mobility/T 05-21 lora Brown shower/tub ransfer 15:00: PT 00 523017-2 Bed knowledge/s PT/OT: Bed Active Robbi Mobility/Tr kill Mobility/T 05-21 lora Brown deficit: pt ransfer 15:00: PT 00 152594-2 Bed bed PT/OT: Bed Active 0 Robbi Mobility/Tr mobility Mobility/T 05-21 lora Brown deficit ransfer 15:00: PT 00 302143-6 Balance/End balance/campus coordinator PT/OT: Active Robbi urance rdination Balance/En 05-21 Kevin, deficit durance 15:00: PT 00 737659-8 Gait/Locomo gait PT/OT: Active 2020-0 Robbi tion deficit Gait/Locom 05-21 Kevin, problems otion 15:00: PT 00 898677-2 Gait/Locomo knowledge/s PT/OT: Active 2020-0 Robbi tion kill Gait/Locom 05-21 Kevin, problems deficit: pt otion 15:00: PT 00 701938-2 Safety can be left Safety Active 2020-0 Bre alone for 2-03 Gatica only short 11:15: periods 00 Safety risk for Safety Resolve 2020-0 2019-05-31 Robbi hospitaliza d 2-05 08:55:00 Kevin, tion 13:00: PT 00 247252-5 Neuro anxiety Neuro/Emot Active 2019- Bre present ion 2- En 11:55: 00 Musculoskel requires Musculoske Resolve 2019-0 2019-05-31 Bre etal human letal d 2- 08:55:00 [place] assist to 11:55: leave home 00 Safety risk for Safety Unknown 2020-0 Robbi hospitaliza 2- Kevin, tion 13:00: PT 00 293938-4 Safety risk for Safety Active 2020-0 Elva hospitaliza 2-11 Ulices Steven tion 12:05: [id number] 00 Respiratory dyspnea Respirator Active 2019-0 Bre [...] deficit y 2- Kevin, 11:15: PT 00 439449-2 Allergies, Adverse Reactions, Alerts Allergy Name Allergy [...] Observation Time Observation Value Comments SYSTOLIC mm[Hg] 2019-07-08 18:10:57 100 mm[Hg] mm[Hg] Method: Sit DIASTOLIC mm[Hg] 2019-07-08 18:10:57 52 mm[Hg] mm[Hg] Method: Sit PULSE 2019-07-08 18:10:57 96 /min /min RESP RATE 2019-07-08 18:10:57 20 /min /min TEMP 2019-07-08 18:10:57 97.3 [degF] Procedures This patient has no known [...] Ordering Physician UnknownSerum or plasma albumin/globulin mass [id number] 05:34:00Identifier 1759-0 Result Time 2019-05-18 05:34:00Unknown Test Item Value Reference Range Comments Serum or plasma albumin/globulin mass ratio 1.0 Unknown Unknown F (test code = 1759-0) Ordering Physician UnknownSerum or plasma calcium measurement (mass/volume)05-18 05:34:00Identifier 39712-5 Result Time 2019-05-18 05:34:00Unknown Test Item Value Reference Range Comments Serum or plasma calcium measurement 6.9 mg/dL Unknown Unknown F (mass/volume) (test code = 22615-2) Ordering Physician UnknownSerum or plasma magnesium measurement (mass/volume) 2019-05-18 05:34:00Identifier 64148-9 Result Time 2019-05-18 05:34:00Unknown Test Item Value Reference Range Comments Serum or plasma magnesium measurement 1.4 mg/dL Unknown Unknown F (mass/volume) (test code = 00275-7) Ordering Physician UnknownSerum or plasma aspartate aminotransferase [...] Ordering Physician UnknownSerum or plasma urea nitrogen/creatinine [id number]- 28 05:34:00Identifier 3097-3 Result Time 2019-05-18 05:34:00Unknown Test Item Value Reference Range Comments Serum or plasma urea nitrogen/creatinine 26.0 Unknown Unknown F ratio (test code = 3097-3) Ordering Physician UnknownAutomated blood platelet mean volume gprftyqriop3637- 01-28 05:34:00Identifier 49581-0 Result Time 2019-05-18 05:34:00Unknown Test Item Value Reference Range Comments Automated blood platelet mean volume 7.0 fL Unknown Unknown F measurement (test code = 96488-0) Ordering Physician UnknownSerum or plasma anion [id number] 05:34: 00Identifier 27269-8 Result Time 2019-05-18 05:34:00Unknown Test Item Value Reference Range Comments Serum or plasma anion gap (test code = 9 mmol/L Unknown Unknown F 93326-0) Ordering Physician UnknownAutomated blood leukocytes count corrected for nucleated erythrocytes (number/volume)2019-05-18 05:34:00Identifier 96329-7 Result Time 2019-05-18 05:34:00Unknown Test Item Value Reference Range Comments Automated blood leukocytes count 5.9 10^3/uL Unknown Unknown F corrected for nucleated erythrocytes (number/volume) (test code = 54681-2) Ordering Physician UnknownAutomated blood nucleated erythrocytes hvulyugbd1311- 01-28 05:34:00Identifier 37148-3 Result Time 2019-05-18 05:34:00Unknown Test Item Value Reference Range Comments Automated blood nucleated erythrocytes 0.6 Unknown Unknown F detection (test code = 70575-8) Ordering Physician UnknownAutomated blood hematocrit (percentage)2019-05-18 05: 34:00Identifier 4544-3 Result Time 2019-05-18 05:34:00Unknown Test Item Value Reference Range Comments Automated blood hematocrit (percentage) (test 27 % Unknown Unknown F code = 4544-3) Ordering Physician UnknownEstimated glomerular filtration rate (GFR) non- Pvadboxy4497-98-24 05:34:00Identifier 24539-8 Result Time 2019-05-18 05: 34:00Unknown Test Item Value Reference Range Comments Estimated glomerular filtration rate (GFR) 122.0 Unknown Unknown F non- (test code = 50309-9) Ordering Physician UnknownAutomated blood monocytes/100 oefqzkjbbw5265-31-24 05: 34:00Identifier 5905-5 Result Time 2019-05-18 05:34:00Unknown Test Item Value Reference Range Comments Automated blood monocytes/100 leukocytes 6.1 % Unknown Unknown F (test code = 5905-5) Ordering Physician UnknownSerum or plasma albumin measurement by bromocresol green (BCG) dye binding method (yg0350-28-68 05:34:00Identifier 87447-5 Result Time 2019-05-18 05:34:00Unknown Test Item Value Reference Range Comments Serum or plasma albumin measurement by 2.6 g/dL Unknown Unknown F bromocresol green (BCG) dye binding method (ma (test code = 76575-7) Ordering Physician UnknownSerum or plasma alkaline phosphatase [...] = 704-7) Ordering Physician UnknownAutomated blood basophils/100 [id number] 05: 34:00Identifier 706-2 Result Time 2019-05-18 05:34:00Unknown [...] = 711-2) Ordering Physician UnknownAutomated blood eosinophils/100 evqqimtoaq2894-75-63 05:34:00Identifier 713-8 Result Time 2019-05-18 05:34:00Unknown Test [...] = 731-0) Ordering Physician UnknownAutomated blood lymphocytes/100 gjoyymrjob7467-29-59 05:34:00Identifier 736-9 Result Time 2019-05-18 05:34:00Unknown Test Item Value Reference Range Comments Automated blood lymphocytes/100 leukocytes 19.5 % Unknown Unknown F (test code = 736-9) Ordering Physician UnknownBlood monocytes automated count (number/volume)2019-04 05:34:00Identifier 742-7 Result Time 2019-05-18 05:34:00Unknown Test Item Value Reference Range Comments Blood monocytes automated count 0.4 10^3/ul Unknown Unknown F (number/volume) (test code = 742-7) Ordering Physician UnknownAutomated blood neutrophils/100 otrkfokgmi5724-06-69 05:34:00Identifier 770-8 Result Time 2019-05-18 05:34:00Unknown Test [...] UnknownAutomated erythrocyte mean corpuscular hemoglobin concentration measurement (mass/hfh6709-71-33 05:34:00Identifier 786-4 Result Time 2019-05-18 05:34:00Unknown Test Item Value Reference Range Comments Automated erythrocyte mean corpuscular 34 g/dL Unknown Unknown F hemoglobin concentration measurement (mass/vol (test code = 786-4) Ordering Physician UnknownAutomated erythrocyte mean corpuscular xvmrwz4752-08- 28 05:34:00Identifier 787-2 Result Time 2019-05-18 05:34:00Unknown Test Item Value Reference Range Comments Automated erythrocyte mean corpuscular 109 fL Unknown Unknown F volume (test code = 787-2) Ordering Physician UnknownAutomated erythrocyte distribution width yxsby0248-54- 28 05:34:00Identifier 788-0 Result Time 2019-05-18 05:34:00Unknown [...] code = 789-8) Ordering Physician UnknownLymphocyte proliferation ljck8939-19-71 05:34: 00Identifier [id number] Result Time 2019-05-18 05:34:00Unknown Test Item Value Reference Range Comments Lymphocyte proliferation test (test 4.4 10^3/ul Unknown Unknown F code = IZX8729) Ordering Physician UnknownSerum or plasma thyroid stimulating [...]
--- OUTSIDE RECORDS SUMMARY | 2019-08-09 02:28 | XMS REPORT ---
:1950 Author Organization [facility] Care Team Providers Name Role Phone Unavailable [...] and itis and colitis, colitis, unspecified unspecified [facility] Diagnosis Active Bre (current) (current) En use of use of opiate opiate analgesic analgesic Other long Other long Diagnosis Active Bre term term En (current) (current) drug drug therapy therapy Pain frequent Pain Mgmt Resolve 2019-05-31 [place] pain d 05-21 08:55:00 [place] 10:30: [id number] Respiratory dyspnea Respirator Resolve 2019-0 2019-05-31 [place] present y d 05-21 08:55:00 [place] 10:30: [id number] 00 Integument pressure Integument Active 2019-0 [place] ulcer 05-21 [place] present 10:30: [id number] 00 Integument skin Integument Active [place] integrity 05-21 [place] risk 10:30: [id number] 00 Nutrition nutritional Nutrition Active [place] restriction 05-21 [place] s 10:30: [id number] 00 Elimination urinary Eliminatio Resolve 2019-05-31 [place] incontinenc n d 05-21 08:55:00 Ava e 10:30: [id number] 00 Elimination bowel Eliminatio Resolve 2019-05-31 [place] incontinenc n d 05-21 08:55:00 Ava e 10:30: [id number] 00 Elimination diarrhea Eliminatio Resolve 2019-05-31 [place] n d 05-21 08:55:00 [place] 10:30: [id number] 00 Elimination nausea/vomi Eliminatio Resolve 2019-05-31 [place] ting n d 05-21 08:55:00 [place] 10:30: [id number] 00 Neuro confusion Neuro/Emot Active 0 [place] present ion 05-21 [place] 10:30: [id number] 00 Activity ADL Activity Active [place] assistance 05-21 [place] required 10:30: [id number] Activity self-care Activity Resolve 2019-05-24 [place] deficit d 05-21 11:15:00 [place] 10:30: [id number] 00 Safety cannot be Safety Active 2019-0 [place] left alone 05-21 [place] 10:30: [id number] 00 Safety fall risk Safety Resolve 2019-2019-05-24 [place] factor d 05-21 11:15:00 [place] present 10:30: [id number] 00 Safety risk for Safety Resolve 2019-05-24 [place] hospitaliza d 05-21 11:15:00 [place] tion 10:30: [id number] 00 Medication oral med Meds Resolve 2019-05-24 [place] assistance d 05-21 11:15:00 Ava required 10:30: [id number] 00 Medication knowledge/s Meds Resolve 2019-2019-05-24 Altashorty pinedo d 05-21 11:15:00 [place] deficit: pt 10:30: [id number] 00 Diagnoses knowledge/s Diagnoses Active Altashorty pinedo 05-21 [place] deficit: pt 10:30: [id number] 00 Diagnoses knowledge/s Diagnoses Active Altashorty pinedo 05-21 [place] deficit: cg 10:30: [id number] 00 Musculoskel transfer Musculoske Resolve 2019-05-24 [place] etal assistance letal d 05-21 11:15:00 [place] required 10:30: [id number] 00 Musculoskel requires Musculoske Resolve 2019-05-24 [place] etal human letal d 05-21 11:15:00 [place] assist to 10:30: [id number] leave home 00 Bed transfer PT/OT: Bed Active Robbi Mobility/Tr deficit: Mobility/T 05-21 lora Brown sit/stand ransfer 15:00: PT 00 [id number] Bed transfer PT/OT: Bed Active Robbi Mobility/Tr deficit: Mobility/T 05-21 lora Brown standing ransfer 15:00: PT pivot 00 756684-1 Bed transfer PT/OT: Bed Active Robbi Mobility/Tr deficit: Mobility/T 05-21 lora Brown toilet/comm ransfer 15:00: PT ode 00 969915-1 Bed transfer PT/OT: Bed Active Robbi Mobility/Tr deficit: Mobility/T 05-21 lora Brown shower/tub ransfer 15:00: PT 00 805361-6 Bed knowledge/s PT/OT: Bed Active Robbi Mobility/Tr kill Mobility/T 05-21 lora Brown deficit: pt ransfer 15:00: PT 00 078292-4 Bed bed PT/OT: Bed Active 0 Robbi Mobility/Tr mobility Mobility/T 05-21 lora Brown deficit ransfer 15:00: PT 00 330756-7 Balance/End balance/academic coordinator PT/OT: Active Robbi urance rdination Balance/En 05-21 Kevin, deficit durance 15:00: PT 00 516189-4 Gait/Locomo gait PT/OT: Active 2020-0 Robbi tion deficit Gait/Locom 05-21 Kevin, problems otion 15:00: PT 00 742632-8 Gait/Locomo knowledge/s PT/OT: Active 2020-0 Robbi tion kill Gait/Locom 05-21 Kevin, problems deficit: pt otion 15:00: PT 00 409577-1 Safety can be left Safety Active 2020-0 Bre alone for 2-03 [place] only short 11:15: periods 00 Safety risk for Safety Resolve 2020-0 2019-05-31 Robbi hospitaliza d 2-05 08:55:00 Kevin, tion 13:00: PT 00 867249-2 Neuro anxiety Neuro/Emot Active 2019- Bre present ion 2- En 11:55: 00 Musculoskel requires Musculoske Resolve 2019-0 2019-05-31 Bre etal human letal d 2- 08:55:00 [place] assist to 11:55: leave home 00 Safety risk for Safety Unknown 2020-0 Robbi hospitaliza 2- Kevin, tion 13:00: PT 00 284367-7 Safety risk for Safety Active 2020-0 Elva hospitaliza 2-11 Ulices Steven tion 12:05: [id number] 00 Respiratory dyspnea Respirator Active 2019-0 Bre [...] deficit y 2- Kevin, 11:15: PT 00 531106-1 Allergies, Adverse Reactions, Alerts Allergy Name Allergy [...] Ordering Physician UnknownSerum or plasma albumin/globulin mass [id number] 05:34:00Identifier 1759-0 Result Time 2019-05-18 05:34:00Unknown Test Item Value Reference Range Comments Serum or plasma albumin/globulin mass ratio 1.0 Unknown Unknown F (test code = 1759-0) Ordering Physician UnknownSerum or plasma calcium measurement (mass/volume)05-18 05:34:00Identifier 60087-4 Result Time 2019-05-18 05:34:00Unknown Test Item Value Reference Range Comments Serum or plasma calcium measurement 6.9 mg/dL Unknown Unknown F (mass/volume) (test code = 67939-2) Ordering Physician UnknownSerum or plasma magnesium measurement (mass/volume) 2019-05-18 05:34:00Identifier 12453-9 Result Time 2019-05-18 05:34:00Unknown Test Item Value Reference Range Comments Serum or plasma magnesium measurement 1.4 mg/dL Unknown Unknown F (mass/volume) (test code = 87502-3) Ordering Physician UnknownSerum or plasma aspartate aminotransferase [...] Ordering Physician UnknownSerum or plasma urea nitrogen/creatinine [id number]- 28 05:34:00Identifier 3097-3 Result Time 2019-05-18 05:34:00Unknown Test Item Value Reference Range Comments Serum or plasma urea nitrogen/creatinine 26.0 Unknown Unknown F ratio (test code = 3097-3) Ordering Physician UnknownAutomated blood platelet mean volume rrhckkytmhx9544- 01-28 05:34:00Identifier 12253-1 Result Time 2019-05-18 05:34:00Unknown Test Item Value Reference Range Comments Automated blood platelet mean volume 7.0 fL Unknown Unknown F measurement (test code = 14663-2) Ordering Physician UnknownSerum or plasma anion [id number] 05:34: 00Identifier 04224-9 Result Time 2019-05-18 05:34:00Unknown Test Item Value Reference Range Comments Serum or plasma anion gap (test code = 9 mmol/L Unknown Unknown F 60545-0) Ordering Physician UnknownAutomated blood leukocytes count corrected for nucleated erythrocytes (number/volume)2019-05-18 05:34:00Identifier 25841-9 Result Time 2019-05-18 05:34:00Unknown Test Item Value Reference Range Comments Automated blood leukocytes count 5.9 10^3/uL Unknown Unknown F corrected for nucleated erythrocytes (number/volume) (test code = 92529-9) Ordering Physician UnknownAutomated blood nucleated erythrocytes ukilgpavs0430- 01-28 05:34:00Identifier 10029-1 Result Time 2019-05-18 05:34:00Unknown Test Item Value Reference Range Comments Automated blood nucleated erythrocytes 0.6 Unknown Unknown F detection (test code = 04388-0) Ordering Physician UnknownAutomated blood hematocrit (percentage)2019-05-18 05: 34:00Identifier 4544-3 Result Time 2019-05-18 05:34:00Unknown Test Item Value Reference Range Comments Automated blood hematocrit (percentage) (test 27 % Unknown Unknown F code = 4544-3) Ordering Physician UnknownEstimated glomerular filtration rate (GFR) non- Kejgyznt9207-55-67 05:34:00Identifier 49468-9 Result Time 2019-05-18 05: 34:00Unknown Test Item Value Reference Range Comments Estimated glomerular filtration rate (GFR) 122.0 Unknown Unknown F non- (test code = 22505-5) Ordering Physician UnknownAutomated blood monocytes/100 [id number] 05: 34:00Identifier 5905-5 Result Time 2019-05-18 05:34:00Unknown Test Item Value Reference Range Comments Automated blood monocytes/100 leukocytes 6.1 % Unknown Unknown F (test code = 5905-5) Ordering Physician UnknownSerum or plasma albumin measurement by bromocresol green (BCG) dye binding method ([id number] 05:34:00Identifier 86241-7 Result Time 2019-05-18 05:34:00Unknown Test Item Value Reference Range Comments Serum or plasma albumin measurement by 2.6 g/dL Unknown Unknown F bromocresol green (BCG) dye binding method (ma (test code = 02252-7) Ordering Physician UnknownSerum or plasma alkaline phosphatase [...] = 704-7) Ordering Physician UnknownAutomated blood basophils/100 [id number] 05: 34:00Identifier 706-2 Result Time 2019-05-18 05:34:00Unknown [...] = 711-2) Ordering Physician UnknownAutomated blood eosinophils/100 [id number] 05:34:00Identifier 713-8 Result Time 2019-05-18 05:34:00Unknown Test [...] = 731-0) Ordering Physician UnknownAutomated blood lymphocytes/100 qmdnbvlokw8617-50-40 05:34:00Identifier 736-9 Result Time 2019-05-18 05:34:00Unknown Test Item Value Reference Range Comments Automated blood lymphocytes/100 leukocytes 19.5 % Unknown Unknown F (test code = 736-9) Ordering Physician UnknownBlood monocytes automated count (number/volume)2019-04 05:34:00Identifier 742-7 Result Time 2019-05-18 05:34:00Unknown Test Item Value Reference Range Comments Blood monocytes automated count 0.4 10^3/ul Unknown Unknown F (number/volume) (test code = 742-7) Ordering Physician UnknownAutomated blood neutrophils/100 vapxefbwkv6648-88-68 05:34:00Identifier 770-8 Result Time 2019-05-18 05:34:00Unknown Test [...] UnknownAutomated erythrocyte mean corpuscular hemoglobin concentration measurement (mass/[id number] 05:34:00Identifier 786-4 Result Time 2019-05-18 05:34:00Unknown Test Item Value Reference Range Comments Automated erythrocyte mean corpuscular 34 g/dL Unknown Unknown F hemoglobin concentration measurement (mass/vol (test code = 786-4) Ordering Physician UnknownAutomated erythrocyte mean corpuscular jywxtj4306-60- 28 05:34:00Identifier 787-2 Result Time 2019-05-18 05:34:00Unknown Test Item Value Reference Range Comments Automated erythrocyte mean corpuscular 109 fL Unknown Unknown F volume (test code = 787-2) Ordering Physician UnknownAutomated erythrocyte distribution width qijjk2072-10- 28 05:34:00Identifier 788-0 Result Time 2019-05-18 05:34:00Unknown [...] code = 789-8) Ordering Physician UnknownLymphocyte proliferation [id number] 05:34: 00Identifier [id number] Result Time 2019-05-18 05:34:00Unknown Test Item Value Reference Range Comments Lymphocyte proliferation test (test 4.4 10^3/ul Unknown Unknown F code = AFL4749) Ordering Physician UnknownSerum or plasma thyroid stimulating [...]
--- OUTSIDE RECORDS SUMMARY | 2019-08-09 02:28 | XMS REPORT ---
:1950 Author Organization [facility] Care Team Providers Name Role Phone Unavailable [...] itis and colitis, colitis, unspecified unspecified intermediate intermediate Diagnosis Active Bre (current) (current) En use of use of opiate opiate analgesic analgesic Other long Other long Diagnosis Active Bre term term En (current) (current) drug drug therapy therapy Pain frequent Pain Mgmt Resolve 2019-05-31 [place] pain d 05-21 08:55:00 [place] 10:30: [id number] 00 Respiratory dyspnea Respirator Resolve 2019-0 2019-05-31 [place] present y d 05-21 08:55:00 [place] 10:30: [id number] 00 Integument pressure Integument Active 2019-0 [place] ulcer 05-21 [place] present 10:30: [id number] 00 Integument skin Integument Active [place] integrity 05-21 [place] risk 10:30: [id number] 00 Nutrition nutritional Nutrition Active [place] restriction 05-21 [place] s 10:30: [id number] 00 Elimination urinary Eliminatio Resolve 2019-05-31 [place] incontinenc n d 05-21 08:55:00 Ava e 10:30: [id number] 00 Elimination bowel Eliminatio Resolve 2019-05-31 [place] incontinenc n d 05-21 08:55:00 Ava e 10:30: [id number] 00 Elimination diarrhea Eliminatio Resolve 2019-05-31 [place] n d 05-21 08:55:00 [place] 10:30: [id number] 00 Elimination nausea/vomi Eliminatio Resolve 2019-05-31 [place] ting n d 05-21 08:55:00 [place] 10:30: [id number] 00 Neuro confusion Neuro/Emot Active 0 [place] present ion 05-21 [place] 10:30: [id number] 00 Activity ADL Activity Active [place] assistance 05-21 [place] required 10:30: [id number] Activity self-care Activity Resolve 2019-05-24 [place] deficit d 05-21 11:15:00 [place] 10:30: [id number] 00 Safety cannot be Safety Active 2019-0 [place] left alone 05-21 [place] 10:30: [id number] 00 Safety fall risk Safety Resolve 2019-2019-05-24 [place] factor d 05-21 11:15:00 [place] present 10:30: [id number] 00 Safety risk for Safety Resolve 2019-05-24 [place] hospitaliza d 05-21 11:15:00 [place] tion 10:30: [id number] 00 Medication oral med Meds Resolve 2019-05-24 [place] assistance d 05-21 11:15:00 [place]va required 10:30: [id number] 00 Medication knowledge/s Meds Resolve 2019-2019-05-24 Altashorty pinedo d 05-21 11:15:00 [place] deficit: pt 10:30: [id number] 00 Diagnoses knowledge/s Diagnoses Active Altashorty pinedo 05-21 [place] deficit: pt 10:30: [id number] 00 Diagnoses knowledge/s Diagnoses Active Altashorty pinedo 05-21 [place] deficit: cg 10:30: [id number] 00 Musculoskel transfer Musculoske Resolve 2019-05-24 [place] etal assistance letal d 05-21 11:15:00 [place] required 10:30: [id number] 00 Musculoskel requires Musculoske Resolve 2019-05-24 [place] etal human letal d 05-21 11:15:00 [place] assist to 10:30: [id number] leave home 00 Bed transfer PT/OT: Bed Active Robbi Mobility/Tr deficit: Mobility/T 05-21 lora Brown sit/stand ransfer 15:00: PT 00 561851-4 Bed transfer PT/OT: Bed Active Robbi Mobility/Tr deficit: Mobility/T 05-21 lora Brown standing ransfer 15:00: PT pivot 00 634252-0 Bed transfer PT/OT: Bed Active Robbi Mobility/Tr deficit: Mobility/T 05-21 lora Brown toilet/comm ransfer 15:00: PT ode 00 483021-2 Bed transfer PT/OT: Bed Active Robbi Mobility/Tr deficit: Mobility/T 05-21 lora Brown shower/tub ransfer 15:00: PT 00 130844-8 Bed knowledge/s PT/OT: Bed Active Robbi Mobility/Tr kill Mobility/T 05-21 lora Brown deficit: pt ransfer 15:00: PT 00 110124-2 Bed bed PT/OT: Bed Active 0 Robbi Mobility/Tr mobility Mobility/T 05-21 lora Brown deficit ransfer 15:00: PT 00 109702-0 Balance/End balance/cooperative extension agent PT/OT: Active Robbi urance rdination Balance/En 05-21 Kevin, deficit durance 15:00: PT 00 886454-0 Gait/Locomo gait PT/OT: Active 2020-0 Robbi tion deficit Gait/Locom 05-21 Kevin, problems otion 15:00: PT 00 888850-7 Gait/Locomo knowledge/s PT/OT: Active 2020-0 Robbi tion kill Gait/Locom 05-21 Kevin, problems deficit: pt otion 15:00: PT 00 290225-8 Safety can be left Safety Active 2020-0 Bre alone for 2-03 [place] only short 11:15: periods 00 Safety risk for Safety Resolve 2020-0 2019-05-31 Robbi hospitaliza d 2-05 08:55:00 Kevin, tion 13:00: PT 00 282831-2 Neuro anxiety Neuro/Emot Active 2019- Bre present ion 2- En 11:55: 00 Musculoskel requires Musculoske Resolve 2019-0 2019-05-31 Bre etal human letal d 2- 08:55:00 [place] assist to 11:55: leave home 00 Safety risk for Safety Unknown 2020-0 Robbi hospitaliza 2- Kevin, tion 13:00: PT 00 503239-2 Safety risk for Safety Active 2020-0 Elva hospitaliza 2-11 Ulices Steven tion 12:05: [id number] 00 Respiratory dyspnea Respirator Active 2019-0 Bre [...] deficit y 2- Kevin, 11:15: PT 00 435841-9 Allergies, Adverse Reactions, Alerts Allergy Name Allergy [...] Ordering Physician UnknownSerum or plasma albumin/globulin mass [id number] 05:34:00Identifier 1759-0 Result Time 2019-05-18 05:34:00Unknown Test Item Value Reference Range Comments Serum or plasma albumin/globulin mass ratio 1.0 Unknown Unknown F (test code = 1759-0) Ordering Physician UnknownSerum or plasma calcium measurement (mass/volume)05-18 05:34:00Identifier 73572-2 Result Time 2019-05-18 05:34:00Unknown Test Item Value Reference Range Comments Serum or plasma calcium measurement 6.9 mg/dL Unknown Unknown F (mass/volume) (test code = 76559-7) Ordering Physician UnknownSerum or plasma magnesium measurement (mass/volume) 2019-05-18 05:34:00Identifier 77860-4 Result Time 2019-05-18 05:34:00Unknown Test Item Value Reference Range Comments Serum or plasma magnesium measurement 1.4 mg/dL Unknown Unknown F (mass/volume) (test code = 69085-9) Ordering Physician UnknownSerum or plasma aspartate aminotransferase [...] Ordering Physician UnknownSerum or plasma urea nitrogen/creatinine [id number]- 28 05:34:00Identifier 3097-3 Result Time 2019-05-18 05:34:00Unknown Test Item Value Reference Range Comments Serum or plasma urea nitrogen/creatinine 26.0 Unknown Unknown F ratio (test code = 3097-3) Ordering Physician UnknownAutomated blood platelet mean volume pcdxqiyhijz2309- 01-28 05:34:00Identifier 53859-7 Result Time 2019-05-18 05:34:00Unknown Test Item Value Reference Range Comments Automated blood platelet mean volume 7.0 fL Unknown Unknown F measurement (test code = 75966-7) Ordering Physician UnknownSerum or plasma anion [id number] 05:34: 00Identifier 04527-7 Result Time 2019-05-18 05:34:00Unknown Test Item Value Reference Range Comments Serum or plasma anion gap (test code = 9 mmol/L Unknown Unknown F 83079-5) Ordering Physician UnknownAutomated blood leukocytes count corrected for nucleated erythrocytes (number/volume)2019-05-18 05:34:00Identifier 58904-1 Result Time 2019-05-18 05:34:00Unknown Test Item Value Reference Range Comments Automated blood leukocytes count 5.9 10^3/uL Unknown Unknown F corrected for nucleated erythrocytes (number/volume) (test code = 80679-3) Ordering Physician UnknownAutomated blood nucleated erythrocytes gwhqwbqin6953- 01-28 05:34:00Identifier 61114-9 Result Time 2019-05-18 05:34:00Unknown Test Item Value Reference Range Comments Automated blood nucleated erythrocytes 0.6 Unknown Unknown F detection (test code = 66654-0) Ordering Physician UnknownAutomated blood hematocrit (percentage)2019-05-18 05: 34:00Identifier 4544-3 Result Time 2019-05-18 05:34:00Unknown Test Item Value Reference Range Comments Automated blood hematocrit (percentage) (test 27 % Unknown Unknown F code = 4544-3) Ordering Physician UnknownEstimated glomerular filtration rate (GFR) non- Pnqhimnc8885-48-23 05:34:00Identifier 68357-0 Result Time 2019-05-18 05: 34:00Unknown Test Item Value Reference Range Comments Estimated glomerular filtration rate (GFR) 122.0 Unknown Unknown F non- (test code = 10409-2) Ordering Physician UnknownAutomated blood monocytes/100 ngqyvioero9038-01-51 05: 34:00Identifier 5905-5 Result Time 2019-05-18 05:34:00Unknown Test Item Value Reference Range Comments Automated blood monocytes/100 leukocytes 6.1 % Unknown Unknown F (test code = 5905-5) Ordering Physician UnknownSerum or plasma albumin measurement by bromocresol green (BCG) dye binding method ([id number] 05:34:00Identifier 62316-0 Result Time 2019-05-18 05:34:00Unknown Test Item Value Reference Range Comments Serum or plasma albumin measurement by 2.6 g/dL Unknown Unknown F bromocresol green (BCG) dye binding method (ma (test code = 32103-5) Ordering Physician UnknownSerum or plasma alkaline phosphatase [...] = 704-7) Ordering Physician UnknownAutomated blood basophils/100 [id number] 05: 34:00Identifier 706-2 Result Time 2019-05-18 05:34:00Unknown [...] = 711-2) Ordering Physician UnknownAutomated blood eosinophils/100 ejhcsyswlp2993-89-66 05:34:00Identifier 713-8 Result Time 2019-05-18 05:34:00Unknown Test [...] = 731-0) Ordering Physician UnknownAutomated blood lymphocytes/100 umycwndngs9718-70-69 05:34:00Identifier 736-9 Result Time 2019-05-18 05:34:00Unknown Test Item Value Reference Range Comments Automated blood lymphocytes/100 leukocytes 19.5 % Unknown Unknown F (test code = 736-9) Ordering Physician UnknownBlood monocytes automated count (number/volume)2019-04 05:34:00Identifier 742-7 Result Time 2019-05-18 05:34:00Unknown Test Item Value Reference Range Comments Blood monocytes automated count 0.4 10^3/ul Unknown Unknown F (number/volume) (test code = 742-7) Ordering Physician UnknownAutomated blood neutrophils/100 nctbigofsf4479-10-56 05:34:00Identifier 770-8 Result Time 2019-05-18 05:34:00Unknown Test [...] UnknownAutomated erythrocyte mean corpuscular hemoglobin concentration measurement (mass/sxp1995-97-30 05:34:00Identifier 786-4 Result Time 2019-05-18 05:34:00Unknown Test Item Value Reference Range Comments Automated erythrocyte mean corpuscular 34 g/dL Unknown Unknown F hemoglobin concentration measurement (mass/vol (test code = 786-4) Ordering Physician UnknownAutomated erythrocyte mean corpuscular wntaxm1310-03- 28 05:34:00Identifier 787-2 Result Time 2019-05-18 05:34:00Unknown Test Item Value Reference Range Comments Automated erythrocyte mean corpuscular 109 fL Unknown Unknown F volume (test code = 787-2) Ordering Physician UnknownAutomated erythrocyte distribution width uznaj5091-71- 28 05:34:00Identifier 788-0 Result Time 2019-05-18 05:34:00Unknown [...] code = 789-8) Ordering Physician UnknownLymphocyte proliferation [id number] 05:34: 00Identifier [id number] Result Time 2019-05-18 05:34:00Unknown Test Item Value Reference Range Comments Lymphocyte proliferation test (test 4.4 10^3/ul Unknown Unknown F code = TML2027) Ordering Physician UnknownSerum or plasma thyroid stimulating [...]
[2019-08-09 08:44] LABS: ABS Lymphocytes 1.4 10^3/ul (1.0-4.8); ABS Monocytes 0.3 10^3/ul (0-0.8); ABS Neutrophils 4.2 10^3/ul (1.5-7.7); Eosinophil % 0.6 %; Hematocrit 29 % (35-47); Hemoglobin 9.7 g/dL (12.0-16.0); Mean Corpuscular HGB Conc 34 g/dL (31-36); Mean Corpuscular Hemoglobin 37 pg (27-31); Mean Corpuscular Volume 109 fL (80-97); Mean Platelet Volume 7.1 fL (7.4-10.4); Nucleated Red Blood Cells % 0.1; Platelet Count 222 10^3/uL (150-450); Red Blood Count 2.65 10^6 /uL (3.70-4.87); Red Cell Distribution Width 16 % (10-15); White Blood Count 5.9 10^3/uL (3.5-10.8)
[2019-08-09 09:01] LABS: ALT 35 U/L (7-52); AST 31 U/L (13-39); Albumin 2.7 g/dL (3.2-5.2); Albumin/Globulin Ratio 1.1 (1-3); Alkaline Phosphatase 101 U/L (34-104); Anion Gap 7 mmol/L (2-11); BUN/Creatinine Ratio 41.7 (8-20); Blood Urea Nitrogen 20 mg/dL (6-24); CO2 Carbon Dioxide 29 mmol/L (22-32); Chloride 101 mmol/L (101-111); EGFR African American 154.7 (>60); EGFR Non-African American 127.9 (>60); Globulin 2.5 g/dL (2-4); Glucose 79 mg/dL (70-100); Potassium 3.9 mmol/L (3.5-5.0); Sodium 137 mmol/L (135-145); Total Protein 5.2 g/dL (6.4-8.9)
[2019-08-09 09:08] LABS: Urine Appearance Clear; Urine Bilirubin Negative (Negative); Urine Blood Negative (Negative); Urine Color Yellow; Urine Glucose Negative (Negative); Urine Ketones Negative (Negative); Urine Nitrite Negative (Negative); Urine Protein Negative (Negative); Urine Specific Gravity 1.012 (1.010-1.030); Urine Urobilinogen Negative (Negative)
--- NOTE | 2019-08-09 10:33 | ED ---
Re-Evaluation - Re-Evaluation First Eval Re-Evaluation Time: 03:10 Comment: Patient had dizziness and having nausea on movement. Will continue to observe. Second Eval Re-Evaluation Time: 06:08 Comment: Patient unable to ambulate with walker; will contact hospitalist for observation admission. Course/Dx - Diagnoses Provider Diagnoses: Concussion - Provider Notifications Discussed Care Of Patient With: Jad Conrad - Consulted Dr. Conrad as patient is an active patient of Dr. Harding Time Discussed With Above Provider: 10:30 - Critical Care Time Critical Care Statement: Critical care time is provided exclusive of any time spent performing procedures. Discharge ED - Sign-Out/Discharge Documenting (check all that apply): Patient Departure - Discharge Plan Condition: Good Disposition: ADMITTED TO [facility] Patient Education Materials: Head Injury (ED) Referrals: No Primary Care Phys,NOPCP [Medical Doctor] - Additional Instructions: Stick to clear liquids until the nausea dies down, using the anti-emetics as needed. - Billing Disposition and Condition Condition: GOOD Disposition: Admitted to [facility] - Attestation Statements Document Initiated by Scribe: Yes Documenting Scribe: Lisette Mallory Provider For Whom Reillyibe is Documenting (Include Credential): Daniele Schroeder MD Scribe Attestation: I, Lisette Mallory, scribed for Daniele Schroeder MD on 08/09/19 at 1103. Scribe Documentation Reviewed: Yes Provider Attestation: The documentation as recorded by the scribeLisette accurately reflects the service I personally performed and the decisions made by me, Daniele Schroeder MD Status of Scribe Document: Viewed
[2019-08-09 12:35] LABS: Magnesium 0.9 mg/dL (1.9-2.7)
[2019-08-09 12:36] LABS: Troponin I 0.04 ng/mL (<0.03)
[2019-08-09] MEDS ORDERED: Magnesium Sulf 4 GM/100 ML IV* 4,000 MG/100 ML BAG IVPB ONE ×3 (12:43→15:00)
[2019-08-09] MEDS ORDERED: Diphenoxylat/Atrop 2.5-0.025M* 1 TAB PO ONE ×2 (12:46→12:56)
[2019-08-09 14:32] LABS: Troponin I 0.03 ng/mL (<0.03)
[2019-08-09] MEDS ORDERED: Metoclopramide TAB* 10 MG PO PRN (14:34)
[2019-08-09] MEDS ORDERED: traMADol TAB* 50 MG PO PRN (14:34)
[2019-08-09] MEDS ORDERED: Albuterol 2.5 MG/3 ML NEB.SOL* (0.083%) INH PRN ×2 (14:34→17:22)
[2019-08-09] MEDS ORDERED: Acetaminophen TAB* 325 MG PO PRN (14:37)
[2019-08-09] MEDS ORDERED: NS 0.9% w/ 20 Meq KCL 1000 ML* 1,000 ML IV SCH (15:00)
[2019-08-09] MEDS: Heparin VIAL(*) 5000 UNITS/ML VIAL (FIVE THOUSAND) SUBCUT SCH ×2 (15:17→21:29)
[2019-08-09] MEDS: Ondansetron ODT TAB* 4 MG SL PRN (17:18)
[2019-08-09] MEDS: Diphenoxylat/Atrop 2.5-0.025M* 1 TAB PO SCH ×2 (17:18→21:19)
[2019-08-09] MEDS ORDERED: Cetirizine* 10 MG TAB PO SCH (21:00)
[2019-08-09] MEDS ORDERED: Latanoprost 0.005%* 2.5 ml BTL BOTH EYES SCH (21:00)
[2019-08-09] MEDS ORDERED: Pseudoephedrine TAB* 60 MG PO SCH (21:00)
[2019-08-09] MEDS: Atenolol TAB* 50 MG PO SCH (21:21)
[2019-08-09] MEDS: Ammonium Lactate 12% 1 APPLIC TUBE TOPICAL SCH (21:23)
[2019-08-10] MEDS: Heparin VIAL(*) 5000 UNITS/ML VIAL (FIVE THOUSAND) SUBCUT SCH (05:32)
[2019-08-10 06:49] LABS: ABS Lymphocytes 1.7 10^3/ul (1.0-4.8); ABS Monocytes 0.5 10^3/ul (0-0.8); ABS Neutrophils 5.9 10^3/ul (1.5-7.7); Eosinophil % 0.4 %; Hematocrit 30 % (35-47); Hemoglobin 10.5 g/dL (12.0-16.0); Lymphocyte % 20.8 %; Mean Corpuscular HGB Conc 35 g/dL (31-36); Mean Corpuscular Hemoglobin 39 pg (27-31); Mean Corpuscular Volume 110 fL (80-97); Mean Platelet Volume 7.1 fL (7.4-10.4); Nucleated Red Blood Cells % 0.1; Platelet Count 244 10^3/uL (150-450); Red Blood Count 2.72 10^6 /uL (3.70-4.87); Red Cell Distribution Width 16 % (10-15); White Blood Count 8.1 10^3/uL (3.5-10.8)
[2019-08-10 07:20] LABS: Albumin 2.6 g/dL (3.2-5.2); BUN/Creatinine Ratio 41.9 (8-20); Calcium 6.7 mg/dL (8.6-10.3); EGFR African American 175.7 (>60); EGFR Non-African American 145.2 (>60); Globulin 2.5 g/dL (2-4); Magnesium 2.2 mg/dL (1.9-2.7); Potassium 3.8 mmol/L (3.5-5.0); Total Bilirubin 0.7 mg/dL (0.2-1.0); Total Protein 5.1 g/dL (6.4-8.9)
[2019-08-10] MEDS: Ondansetron ODT TAB* 4 MG SL PRN (07:51)
[2019-08-10] MEDS: Ammonium Lactate 12% 1 APPLIC TUBE TOPICAL SCH (07:52)
[2019-08-10] MEDS: Diphenoxylat/Atrop 2.5-0.025M* 1 TAB PO SCH (07:56)
[2019-08-10] MEDS: Atenolol TAB* 50 MG PO SCH (07:57)
[2019-08-10] MEDS ORDERED: Levothyroxine TAB* 150 MCG TAB PO SCH ×2 (08:00→09:00)
[2019-08-10] MEDS ORDERED: Dexamethasone TAB* 4 MG PO SCH (09:00)
[2019-08-10 10:57] VITALS: BP 87/56
[2019-08-10] MEDS ORDERED: Cholecalciferol TAB* 1000 UNITS PO SCH (17:00)
[2019-08-10] MEDS ORDERED: Calcitriol CAP* 0.25 MCG PO SCH (17:00)
[2019-08-11] MEDS ORDERED: Ferrous Sulfate TAB* 325 MG PO SCH (09:00)
== END 2019-08-10 12:45 | disposition home or self-care (01) ==
LOC: ED 01:03 → MEDTELE 11:47
PROVIDERS: ADMIT Hospitalist; ATTEND Internal Medicine Hematology & Oncology
DX: S06.0X9A Concussion with loss of consciousness of unspecified duration, initial encounter (principal); R42 Dizziness and giddiness; R19.7 Diarrhea, unspecified; Z85.850 Personal history of malignant neoplasm of thyroid; K21.9 Gastro-esophageal reflux disease without esophagitis; Z86.79 Personal history of other diseases of the circulatory system; I10 Essential (primary) hypertension; Z79.899 Other long term (current) drug therapy; W19.XXXA Unspecified fall, initial encounter; Y93.9 Activity, unspecified; Y92.9 Unspecified place or not applicable; Z79.890 Hormone replacement therapy; Z88.0 Allergy status to penicillin; Z88.8 Allergy status to other drugs, medicaments and biological substances
CPT/HCPCS: 36415; 70450; 80053; 81003; 83735; 84134; 84484; 85025; 96361; 96365; 96366; 96375; 99219; 99284; A9270-GY; G0378; J1644; J2765; J3475; J8540